=== PATIENT | female | born 1960 | race Caucasian/White ===

== ENCOUNTER → 2017-12-12 15:32 | Outpatient (CLI) | payer OTHER, SELFPAY ==
[2017-12-12 21:54] LABS: Amphetamine/Metha Screen,Urine Negative ng/mL (<1000); Barbiturates Screen,Urine Negative ng/mL (<200); Benzodiazepines Screen,Urine Negative ng/mL (200); Cannabinoid Screen,Urine Negative ng/mL (<50); Cocaine Screen,Urine Negative ng/g (<300); Methadone Screen,Urine Negative ng/mL (<300); Opiate Screen,Urine Positive ng/mL (<300); Phencyclidine Screen,Urine Negative ng/mL (<25)
[2017-12-23 15:13] LABS: Codeine Negative (Cutoff=100); Hydrocodone Positive (.); Hydromorphone Positive (.); Morphine Negative (Cutoff=100)
[2017-12-23 19:03] LABS: Opiates Positive (.)
== END ==
PROVIDERS: PCP Nurse Practitioner Family; Visit Provider Anesthesiology
DX: Z79.899 Other long term (current) drug therapy (principal)
CPT/HCPCS: 80305; 80361; 80365; G0480

== ENCOUNTER → 2018-01-08 14:08 | Outpatient (POV) | payer OTHER, SELFPAY ==
[2018-01-08 14:21] VITALS: BP 198/112; PULSE 109; RESP 24; O2SAT 98; BMI 43.2
--- NOTE | 2018-01-08 17:14 | HMH.PAINSOAP ---
[facility] Pain Management SOAP Note Subjective:: Patient is a pleasant 57-year-old white female who presents today for medication refills. Patient rates her pain 8 out of 10 today. Patient states that her pain is in all of her joints. Patient has chronic pain secondary to rheumatoid arthritis. Patient has tried gabapentin and Lyrica with no success. Patient is currently being medically managed on [place] 10 mg 1 p.o. 3 times daily. Patient states that it decreases her pain 50-60%. She denies any side effects at this time. Patient's Ponce #[id number] reviewed and appropriate. Patient is currently getting over bronchitis. Patient works full-time and states that the medication helps her with this job. Patient describes her pain as constant, dull, aching. ROS General: no recent weight change, no fever, Respiratory: Bronchitis Cardiovascular/Peripheral Vascular: No chest pain, No palpitations, no edema, no shortness of breath. Gastrointestinal: no incontinence, normal bowel movements reported Genitourinary: no incontinence Musculoskeletal: Joint pain Psychiatric: normal mood/ affect, Neurological: [denies weakness in extremities], [denies balance issues] Objective:: Physical Exam General: Alert and oriented x3, no acute distress, pleasant and cooperative, [on room air] Lungs: Resps E/U, Symmetrical chest expansion, Eyes: PERRL Musculoskeletal: Flexion and extension of lumbar spine somewhat guarded secondary to pain, deep tendon reflexes normal, strength in upper and lower extremities [5/5], slightly antalgic gait noted Neurological: speech clear, edge finisher equal, no gross sensory deficits Assessment:: Rheumatoid arthritis, chronic pain syndrome, degenerative joint disease Plan:: We will refill this patient's medication Russell[place] 10 mg 1 p.o. 3 times daily. We will give HER-2 months worth of prescriptions. Patient's Esther and urine drug screen reviewed and appropriate. Patient will bean picker her third month prescription in the interim. Dr. Newsome has reviewed her chart and agrees with this plan of care. Patient has been prescribed a controlled substance after being counseled on the medication, medication safety, and possible side effects. ESTHER report has been obtained and reviewed prior to prescription and found to be appropriate. Opioid contract was reviewed and signed by the patient, and that they have agreed to all of the terms set forth by our compliance program. This note was dictated using voice recognition software may contain errors or omissions
--- NOTE | 2018-01-08 17:17 | P.CONS_ITS ---
[facility] Pain Management SOAP Note Subjective:: Patient is a pleasant 57-year-old white female who presents today for medication refills. Patient rates her pain 8 out of 10 today. Patient states that her pain is in all of her joints. Patient has chronic pain secondary to rheumatoid arthritis. Patient has tried gabapentin and Lyrica with no success. Patient is currently being medically managed on [place] 10 mg 1 p.o. 3 times daily. Patient states that it decreases her pain 50-60%. She denies any side effects at this time. Patient's Merritt #[id number] reviewed and appropriate. Patient is currently getting over bronchitis. Patient works full-time and states that the medication helps her with this job. Patient describes her pain as constant, dull, aching. ROS General: no recent weight change, no fever, Respiratory: Bronchitis Cardiovascular/Peripheral Vascular: No chest pain, No palpitations, no edema, no shortness of breath. Gastrointestinal: no incontinence, normal bowel movements reported Genitourinary: no incontinence Musculoskeletal: Joint pain Psychiatric: normal mood/ affect, Neurological: [denies weakness in extremities], [denies balance issues] Objective:: Physical Exam General: Alert and oriented x3, no acute distress, pleasant and cooperative, [ on room air] Lungs: Resps E/U, Symmetrical chest expansion, Eyes: PERRL Musculoskeletal: Flexion and extension of lumbar spine somewhat guarded secondary to pain, deep tendon reflexes normal, strength in upper and lower extremities [5/5], slightly antalgic gait noted Neurological: speech clear, retail service representative equal, no gross sensory deficits Assessment:: Rheumatoid arthritis, chronic pain syndrome, degenerative joint disease Plan:: We will refill this patient's medication [place] 10 mg 1 p.o. 3 times daily. We will give HER-2 months worth of prescriptions. Patient's Esther and urine drug screen reviewed and appropriate. Patient will pecan picker her third month prescription in the interim. Dr. Newsome has reviewed her chart and agrees with this plan of care. Patient has been prescribed a controlled substance after being counseled on the medication, medication safety, and possible side effects. ESTHER report has been obtained and reviewed prior to prescription and found to be appropriate. Opioid contract was reviewed and signed by the patient, and that they have agreed to all of the terms set forth by our compliance program. This note was dictated using voice recognition software may contain errors or omissions
== END ==
PROVIDERS: Family Provider Nurse Practitioner Family; PCP Nurse Practitioner Family; Visit Provider Clinical Nurse Specialist Family Health
DX: M06.9 Rheumatoid arthritis, unspecified (principal); G89.4 Chronic pain syndrome
CPT/HCPCS: 99212

== ENCOUNTER → 2018-03-13 08:15 | Outpatient (CLI) | payer MEDICAID, SELFPAY ==
[2018-03-13 09:45] LABS: Amphetamine/Metha Screen,Urine Negative ng/mL (<1000); Barbiturates Screen,Urine Negative ng/mL (<200); Benzodiazepines Screen,Urine Negative ng/mL (200); Cannabinoid Screen,Urine Negative ng/mL (<50); Cocaine Screen,Urine Negative ng/g (<300); Methadone Screen,Urine Negative ng/mL (<300); Opiate Screen,Urine Positive ng/mL (<300); Phencyclidine Screen,Urine Negative ng/mL (<25)
[2018-03-22 03:45] LABS: Codeine Negative (Cutoff=100); Hydrocodone Positive (.); Hydromorphone Positive (.); Morphine Negative (Cutoff=100)
[2018-03-22 06:33] LABS: Opiates Positive (.)
== END ==
PROVIDERS: Visit Provider Anesthesiology
DX: Z79.899 Other long term (current) drug therapy (principal)
CPT/HCPCS: 80305; 80361; 80365; G0480

== ENCOUNTER → 2018-04-09 08:43 | Outpatient (POV) | payer MEDICAID, SELFPAY ==
[2018-04-09 09:10] VITALS: BP 200/100; PULSE 94; RESP 18; O2SAT 98; BMI 46.5
--- NOTE | 2018-04-09 09:24 | HMH.PAINSOAP ---
[facility] Pain Management SOAP Note Subjective:: Patient is a pleasant 57-year-old white female who presents today for medication refills. Patient currently rates her pain a 6 out of 10 today. Patient is being treated for pain secondary to rheumatoid arthritis and degenerative joint disease. Patient's currently being medically managed on Lin[place] 10 mg 1 p.o. 3 times daily. She states that it decreases her pain up to 60%. Patient denies any side effects the medication. Patient's ESTHER #[id number] reviewed and appropriate. Patient's UDS appropriate in the past. Patient currently working at [employer]. Patient describes her pain is constant, dull, aching. ROS General: no recent weight change, no fever, no sleep disturbances Respiratory: no cough, no shortness of air, no recurring pulmonary infections Cardiovascular/Peripheral Vascular: No chest pain, No palpitations, no edema, no shortness of breath. Gastrointestinal: no incontinence, normal bowel movements reported Genitourinary: no incontinence Musculoskeletal: Joint pain Psychiatric: normal mood/ affect Neurological: [denies weakness in extremities], [denies balance issues] Objective:: Physical Exam General: Alert and oriented x3, no acute distress, pleasant and cooperative, [on room air] Lungs: Resps E/U, Symmetrical chest expansion, Eyes: PERRL Musculoskeletal: Flexion and extension of lumbar spine somewhat guarded secondary to pain, deep tendon reflexes normal, strength in upper and lower extremities [5/5], slightly antalgic gait noted Neurological: speech clear, human factors engineer equal, no gross sensory deficits Assessment:: Rheumatoid arthritis, chronic pain syndrome, degenerative joint disease Plan:: We will refill the patient's medication Linwood 10 mg 1 p.o. 3 times daily. We will give HER-2 months worth of prescriptions. Patient's Esther and urine drug screen reviewed and appropriate. Patient will garbage pick up worker her third month prescription in the interim. Dr. Newsome has reviewed this chart and agrees with this plan of care. I will follow-up with her in 3 months. Patient has been prescribed a controlled substance after being counseled on the medication, medication safety, and possible side effects. ESTHER report has been obtained and reviewed prior to prescription and found to be appropriate. Opioid contract was reviewed and signed by the patient, and that they have agreed to all of the terms set forth by our compliance program. This note was dictated using voice recognition software and may contain errors or omissions
== END ==
PROVIDERS: Family Provider Nurse Practitioner Family; PCP Nurse Practitioner Family; Visit Provider Clinical Nurse Specialist Family Health
DX: M06.9 Rheumatoid arthritis, unspecified (principal)
CPT/HCPCS: 99212

== ENCOUNTER → 2018-07-02 09:03 | Outpatient (POV) | payer MEDICAID, SELFPAY ==
[2018-07-02 09:11] VITALS: BP 200/92; PULSE 92; RESP 18; BMI 38.6
--- NOTE | 2018-07-02 09:32 | HMH.PAINSOAP ---
[facility] Pain Management SOAP Note Subjective:: Patient is a pleasant 57-year-old white female who presents today for follow-up and medication refills. Patient currently being treated for pain secondary to rheumatoid arthritis and degenerative joint disease. Patient is currently on [place] 10 mg 1 p.o. 3 times daily. She denies side effects or medication and states that it helps up to 70%. Patient is currently looking for a new workers compensation claims analyst. Patient current workers compensation claims analyst wanted her to do some IV therapy and she feels like this is too aggressive at this point. Patient's ESTHER #[id number] reviewed and appropriate. Patient's urine drug screen has been appropriate. ROS General: no recent weight change, no fever, no sleep disturbances Respiratory: no cough, no shortness of air, no recurring pulmonary infections Cardiovascular/Peripheral Vascular: No chest pain, No palpitations, no edema, no shortness of breath. Gastrointestinal: no incontinence, normal bowel movements reported Genitourinary: no incontinence Musculoskeletal: Joint pain Psychiatric: normal mood/ affect Neurological: [denies weakness in extremities], [denies balance issues] Objective:: Physical Exam General: Alert and oriented x3, no acute distress, pleasant and cooperative, [on room air] Lungs: Resps E/U, Symmetrical chest expansion, Eyes: PERRL Musculoskeletal: Flexion and extension of lumbar spine somewhat guarded secondary to pain, deep tendon reflexes normal, strength in upper and lower extremities [5/5], slightly antalgic gait noted Neurological: speech clear, imagery analyst equal, no gross sensory deficits Assessment:: Degenerative joint disease, rheumatoid arthritis, chronic pain syndrome Plan:: We will refill the patient's [place] 10 mg 1 p.o. 3 times daily and give HER-2 months worth of prescriptions. Patient's Esther and urine drug screen reviewed and appropriate. Patient will pepper picker her third month prescription in the interim. Dr. Newsome has reviewed this chart and agrees with this plan of care. I will follow-up with the patient in 3 months. Patient has been prescribed a controlled substance after being counseled on the medication, medication safety, and possible side effects. ESTHER report has been obtained and reviewed prior to prescription and found to be appropriate. Opioid contract was reviewed and signed by the patient, and that they have agreed to all of the terms set forth by our compliance program. This note was dictated using voice recognition software and may contain errors or omissions
--- NOTE | 2018-07-02 09:35 | P.CONS_ITS ---
[facility] Pain Management SOAP Note Subjective:: Patient is a pleasant 57-year-old white female who presents today for follow-up and medication refills. Patient currently being treated for pain secondary to rheumatoid arthritis and degenerative joint disease. Patient is currently on [place] 10 mg 1 p.o. 3 times daily. She denies side effects or medication and states that it helps up to 70%. Patient is currently looking for a new parking garage manager. Patient current parking garage manager wanted her to do some IV therapy and she feels like this is too aggressive at this point. Patient's ESTHER #[id number] reviewed and appropriate. Patient's urine drug screen has been appropriate. ROS General: no recent weight change, no fever, no sleep disturbances Respiratory: no cough, no shortness of air, no recurring pulmonary infections Cardiovascular/Peripheral Vascular: No chest pain, No palpitations, no edema, no shortness of breath. Gastrointestinal: no incontinence, normal bowel movements reported Genitourinary: no incontinence Musculoskeletal: Joint pain Psychiatric: normal mood/ affect Neurological: [denies weakness in extremities], [denies balance issues] Objective:: Physical Exam General: Alert and oriented x3, no acute distress, pleasant and cooperative, [on room air] Lungs: Resps E/U, Symmetrical chest expansion, Eyes: PERRL Musculoskeletal: Flexion and extension of lumbar spine somewhat guarded secondary to pain, deep tendon reflexes normal, strength in upper and lower extremities [5/5], slightly antalgic gait noted Neurological: speech clear, service promoter salesperson equal, no gross sensory deficits Assessment:: Degenerative joint disease, rheumatoid arthritis, chronic pain syndrome Plan:: We will refill the patient's [place] 10 mg 1 p.o. 3 times daily and give HER-2 months worth of prescriptions. Patient's Esther and urine drug screen reviewed and appropriate. Patient will cotton picker her third month prescription in the interim. Dr. Newsome has reviewed this chart and agrees with this plan of care. I will follow-up with the patient in 3 months. Patient has been prescribed a controlled substance after being counseled on the medication, medication safety, and possible side effects. ESTHER report has been obtained and reviewed prior to prescription and found to be appropriate. Opioid contract was reviewed and signed by the patient, and that they have agreed to all of the terms set forth by our compliance program. This note was dictated using voice recognition software and may contain errors or omissions
[2018-07-02 10:20] LABS: Amphetamine/Metha Screen,Urine Negative ng/mL (<1000); Barbiturates Screen,Urine Negative ng/mL (<200); Benzodiazepines Screen,Urine Negative ng/mL (<200); Cannabinoid Screen,Urine Negative ng/mL (<50); Cocaine Screen,Urine Negative ng/mL (<300); Methadone Screen,Urine Negative ng/mL (<300); Opiate Screen,Urine Positive ng/mL (<300); Phencyclidine Screen,Urine Negative ng/mL (<25)
[2018-07-06 12:20] LABS: Codeine Negative (Cutoff=100); Hydrocodone Positive (.); Hydromorphone Positive (.); Morphine Negative (Cutoff=100)
[2018-07-06 13:14] LABS: Opiates Positive (.)
== END ==
PROVIDERS: Family Provider Nurse Practitioner Family; PCP Nurse Practitioner Family; Visit Provider Clinical Nurse Specialist Family Health
DX: M06.9 Rheumatoid arthritis, unspecified (principal); G89.29 Other chronic pain; Z79.891 Long term (current) use of opiate analgesic; Z51.81 Encounter for therapeutic drug level monitoring
CPT/HCPCS: 80305; 80361; 80365; 99212; G0480

== ENCOUNTER → 2018-10-15 08:59 | Outpatient (POV) | payer MEDICAID, SELFPAY ==
[2018-10-15 09:27] VITALS: BP 190/92; PULSE 109; RESP 18; O2SAT 98; BMI 39.1
--- NOTE | 2018-10-15 09:38 | HMH.PAINSOAP ---
[facility] Pain Management SOAP Note Subjective:: Patient is a pleasant 58-year-old white female who presents today for follow-up and medication refills. Patient is currently being medically managed with [place] 10 mg 1 tab p.o. 3 times daily. She rates her pain a 5 out of 10 she states her medication helps her up to 70%. ESTHER #[id number] reviewed and appropriate. Urine drug screen has been appropriate in the past. Patient is currently being treated for pain secondary to rheumatoid arthritis and degenerative joint disease ROS General: no recent weight change, no fever, no sleep disturbances Respiratory: no cough, no shortness of air, no recurring pulmonary infections Cardiovascular/Peripheral Vascular: No chest pain, No palpitations, no edema, no shortness of breath. Gastrointestinal: no incontinence, normal bowel movements reported Genitourinary: no incontinence Musculoskeletal: Joint pain Psychiatric: normal mood/ affect Neurological: [denies weakness in extremities], [denies balance issues] Objective:: Physical Exam General: Alert and oriented x3, no acute distress, pleasant and cooperative, [on room air] Lungs: Resps E/U, Symmetrical chest expansion, Eyes: PERRL Musculoskeletal: Flexion and extension of lumbar spine somewhat guarded secondary to pain, deep tendon reflexes normal, strength in upper and lower extremities [5/5], slightly antalgic gait noted Neurological: speech clear, assistant corporate controller equal, no gross sensory deficits Assessment:: Degenerative joint disease, rheumatoid arthritis, chronic pain syndrome Plan:: We will refill the patient's [place] 10 mg 1 p.o. 3 times daily and give her 2 months worth of prescriptions. Patient's Esther and urine drug screen reviewed and appropriate. Patient can potato picker her third month in the interim. Dr. Newsome is reviewed this chart and agrees with this plan of care. I will follow-up with the patient in 3 months. Patient's been instructed to call the office if she has any issues prior to her next appointment. Patient has been prescribed a controlled substance after being counseled on the medication, medication safety, and possible side effects. ESTHER report has been obtained and reviewed prior to prescription and found to be appropriate. Opioid contract was reviewed and signed by the patient, and that they have agreed to all of the terms set forth by our compliance program. This note was dictated using voice recognition software and may contain errors or omissions
--- NOTE | 2018-10-15 09:41 | P.CONS_ITS ---
[facility] Pain Management SOAP Note Subjective:: Patient is a pleasant 58-year-old white female who presents today for follow-up and medication refills. Patient is currently being medically managed with [place] 10 mg 1 tab p.o. 3 times daily. She rates her pain a 5 out of 10 she states her medication helps her up to 70%. ESTHER #[id number] reviewed and appropriate. Urine drug screen has been appropriate in the past. Patient is currently being treated for pain secondary to rheumatoid arthritis and degenerative joint disease ROS General: no recent weight change, no fever, no sleep disturbances Respiratory: no cough, no shortness of air, no recurring pulmonary infections Cardiovascular/Peripheral Vascular: No chest pain, No palpitations, no edema, no shortness of breath. Gastrointestinal: no incontinence, normal bowel movements reported Genitourinary: no incontinence Musculoskeletal: Joint pain Psychiatric: normal mood/ affect Neurological: [denies weakness in extremities], [denies balance issues] Objective:: Physical Exam General: Alert and oriented x3, no acute distress, pleasant and cooperative, [on room air] Lungs: Resps E/U, Symmetrical chest expansion, Eyes: PERRL Musculoskeletal: Flexion and extension of lumbar spine somewhat guarded secondary to pain, deep tendon reflexes normal, strength in upper and lower extremities [5/5], slightly antalgic gait noted Neurological: speech clear, hemmer chainstitch equal, no gross sensory deficits Assessment:: Degenerative joint disease, rheumatoid arthritis, chronic pain syndrome Plan:: We will refill the patient's Ne[place]u 10 mg 1 p.o. 3 times daily and give her 2 months worth of prescriptions. Patient's Esther and urine drug screen reviewed and appropriate. Patient can picker tender helper her third month in the interim. Dr. Newsome is reviewed this chart and agrees with this plan of care. I will follow-up with the patient in 3 months. Patient's been instructed to call the office if she has any issues prior to her next appointment. Patient has been prescribed a controlled substance after being counseled on the medication, medication safety, and possible side effects. ESTHER report has been obtained and reviewed prior to prescription and found to be appropriate. Opioid contract was reviewed and signed by the patient, and that they have agreed to all of the terms set forth by our compliance program. This note was dictated using voice recognition software and may contain errors or omissions
[2018-10-15 10:59] LABS: Amphetamine/Metha Screen,Urine Negative ng/mL (<1000); Barbiturates Screen,Urine Negative ng/mL (<200); Benzodiazepines Screen,Urine Negative ng/mL (<200); Cocaine Screen,Urine Negative ng/mL (<300); Methadone Screen,Urine Negative ng/mL (<300); Opiate Screen,Urine Positive ng/mL (<300)
[2018-10-15 11:13] LABS: Cannabinoid Screen,Urine Negative ng/mL (<50); Phencyclidine Screen,Urine Negative ng/mL (<25)
[2018-10-24 02:13] LABS: Codeine Negative (Cutoff=100); Hydrocodone Positive (.); Hydromorphone Positive (.); Morphine Negative (Cutoff=100)
[2018-10-24 06:21] LABS: Opiates Positive (.)
== END ==
PROVIDERS: PCP Nurse Practitioner Family; Visit Provider Clinical Nurse Specialist Family Health
DX: M19.90 Unspecified osteoarthritis, unspecified site (principal); M06.9 Rheumatoid arthritis, unspecified; G89.4 Chronic pain syndrome; Z79.899 Other long term (current) drug therapy
CPT/HCPCS: 80305; 80361; 80365; 99213; G0480

== ENCOUNTER → 2019-01-07 08:55 | Outpatient (POV) | payer MEDICAID, SELFPAY ==
[2019-01-07 09:39] VITALS: BP 159/74; PULSE 86; RESP 18; O2SAT 98; BMI 39.4
--- NOTE | 2019-01-07 10:03 | HMH.PAINSOAP ---
[facility] Pain Management SOAP Note Subjective:: Patient is a pleasant 58-year-old white female who presents today for follow-up and medication refills. Since her last visit she was hospitalized for an [place]. Patient had a cardiac catheterization where she had a stent placed. Patient is currently on Plavix. Patient is currently on [place] 10 mg 1 tab p.o. 3 times daily. She states it helps up to 20% she rates her pain a 7 out of 10 today. Patient has begun cardiac rehab. ESTHER #[id number] reviewed and appropriate. Urine drug screen has been appropriate in the past. She denies side effects or medication. She states her rheumatoid arthritis has flared up significantly. ROS General: no recent weight change, no fever, no sleep disturbances Respiratory: no cough, no shortness of air, no recurring pulmonary infections Cardiovascular/Peripheral Vascular: No chest pain, No palpitations, no edema, no shortness of breath. Gastrointestinal: no incontinence, normal bowel movements reported Genitourinary: no incontinence Musculoskeletal: Joint pain, back pain Psychiatric: normal mood/ affect, Neurological: [denies weakness in extremities], [denies balance issues] Objective:: Physical Exam General: Alert and oriented x3, no acute distress, pleasant and cooperative, [on room air] Lungs: Resps E/U, Symmetrical chest expansion, Eyes: PERRL Musculoskeletal: Flexion and extension of lumbar spine somewhat guarded secondary to pain, deep tendon reflexes normal, strength in upper and lower extremities [5/5], [abnormal gait noted] Neurological: speech clear, green building energy engineer equal, no gross sensory deficits Assessment:: Degenerative joint disease, chronic pain syndrome, rheumatoid arthritis Plan:: We will refill the patient's [place] 10 mg 1 p.o. 3 times daily and give her 2 months worth of prescriptions. She can picking tech her third month in the interim. She is been instructed to call the office if she has any issues prior to her next appointment. Patient has been prescribed a controlled substance after being counseled on the medication, medication safety, and possible side effects. ESTHER report has been obtained and reviewed prior to prescription and found to be appropriate. Opioid contract was reviewed and signed by the patient, and that they have agreed to all of the terms set forth by our compliance program. Dr. Newsome has reviewed this note and agrees with this plan of care. This note was dictated using voice recognition software and may contain errors or omissions
== END ==
PROVIDERS: PCP Nurse Practitioner Family; Visit Provider Clinical Nurse Specialist Family Health
DX: M19.90 Unspecified osteoarthritis, unspecified site (principal); G89.4 Chronic pain syndrome; M06.9 Rheumatoid arthritis, unspecified
CPT/HCPCS: 99213

== ENCOUNTER → 2019-03-05 14:56 | Outpatient (CLI) | payer MEDICAID, SELFPAY ==
[2019-03-05 15:32] LABS: Amphetamine/Metha Screen,Urine Negative ng/mL (<1000); Barbiturates Screen,Urine Negative ng/mL (<200); Benzodiazepines Screen,Urine Negative ng/mL (<200); Cannabinoid Screen,Urine Negative ng/mL (<50); Cocaine Screen,Urine Negative ng/mL (<300); Methadone Screen,Urine Negative ng/mL (<300); Opiate Screen,Urine Positive ng/mL (<300); Phencyclidine Screen,Urine Negative ng/mL (<25)
[2019-03-12 12:15] LABS: Codeine Negative (Cutoff=100); Hydrocodone Positive (.); Hydromorphone Positive (.); Morphine Negative (Cutoff=100)
[2019-03-13 13:53] LABS: Opiates Positive (.)
== END ==
PROVIDERS: Visit Provider Clinical Nurse Specialist Family Health
DX: Z79.899 Other long term (current) drug therapy (principal)
CPT/HCPCS: 80305; 80361; 80365; G0480

== ENCOUNTER → 2019-03-26 08:58 | Outpatient (POV) | payer MEDICAID, SELFPAY ==
[2019-03-26 09:24] VITALS: BP 154/93; PULSE 81; RESP 18; O2SAT 98; BMI 39.0
--- NOTE | 2019-03-26 09:26 | HMH.PAINSOAP ---
[facility] Pain Management SOAP Note Subjective:: Patient is a pleasant 58-year-old white female who presents today for follow-up and medication refills. 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 She does say that on normal days her pain is more of a 4 out of 10. She is currently on Roy 10 mg 1 tab p.o. 3 times daily. She denies any side effects on medication. Urine drug screen has been appropriate in the past. She states her rheumatoid arthritis has flared since starting new job. ROS General: no recent weight change, no fever, no sleep disturbances Respiratory: no cough, no shortness of air, no recurring pulmonary infections Cardiovascular/Peripheral Vascular: No chest pain, No palpitations, no edema, no shortness of breath. Gastrointestinal: no incontinence, normal bowel movements reported Genitourinary: no incontinence Musculoskeletal: Joint pain, back pain Psychiatric: normal mood/ affect, [denies depression], denies anxiety Neurological: [denies weakness in extremities], [denies balance issues] Objective:: Physical Exam General: Alert and oriented x3, no acute distress, pleasant and cooperative, on room air Lungs: Resps E/U, Symmetrical chest expansion, Eyes: PERRL Musculoskeletal: Flexion and extension of [lumbar] spine somewhat guarded secondary to pain, deep tendon reflexes normal, strength in upper and lower extremities [5/5], [abnormal gait noted] Neurological: speech clear, parachute repairer equal, no gross sensory deficits Assessment:: Degenerative joint disease, chronic pain syndrome, rheumatoid arthritis Plan:: We will refill the patient's Roy 10 mg 1 p.o. 3 times daily and give her 2 months worth of prescriptions. She can pear picker her third month in the interim. She is been instructed to call the office if she has any issues prior to her next appointment. Patient has been prescribed a controlled substance after being counseled on the medication, medication safety, possible side effects. Sancho report has been obtained and reviewed prior to prescription and found to be appropriate. Opioid contract was reviewed and signed by the patient, and has agreed to all the terms set forth by her compliance program. Dr. Newsome has reviewed this note and agrees with this plan of care. This note was dictated using voice recognition software and may contain errors or omissions
--- NOTE | 2019-03-26 09:46 | P.CONS_ITS ---
[facility] Pain Management SOAP Note Subjective:: Patient is a pleasant 58-year-old white female who presents today for follow-up and medication refills. 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 She does say that on normal days her pain is more of a 4 out of 10. She is currently on [place] 10 mg 1 tab p.o. 3 times daily. She denies any side effects on medication. Urine drug screen has been appropriate in the past. She states her rheumatoid arthritis has flared since starting new job. ROS General: no recent weight change, no fever, no sleep disturbances Respiratory: no cough, no shortness of air, no recurring pulmonary infections Cardiovascular/Peripheral Vascular: No chest pain, No palpitations, no edema, no shortness of breath. Gastrointestinal: no incontinence, normal bowel movements reported Genitourinary: no incontinence Musculoskeletal: Joint pain, back pain Psychiatric: normal mood/ affect, [denies depression], denies anxiety Neurological: [denies weakness in extremities], [denies balance issues] Objective:: Physical Exam General: Alert and oriented x3, no acute distress, pleasant and cooperative, on room air Lungs: Resps E/U, Symmetrical chest expansion, Eyes: PERRL Musculoskeletal: Flexion and extension of [lumbar] spine somewhat guarded secondary to pain, deep tendon reflexes normal, strength in upper and lower extremities [5/5], [abnormal gait noted] Neurological: speech clear, flash developer equal, no gross sensory deficits Assessment:: Degenerative joint disease, chronic pain syndrome, rheumatoid arthritis Plan:: We will refill the patient's [place] 10 mg 1 p.o. 3 times daily and give her 2 months worth of prescriptions. She can citrus picker her third month in the interim. She is been instructed to call the office if she has any issues prior to her next appointment. Patient has been prescribed a controlled substance after being counseled on the medication, medication safety, possible side effects. Sancho report has been obtained and reviewed prior to prescription and found to be appropriate. Opioid contract was reviewed and signed by the patient, and has agreed to all the terms set forth by her compliance program. Dr. Newsome has reviewed this note and agrees with this plan of care. This note was dictated using voice recognition software and may contain errors or omissions
== END ==
PROVIDERS: PCP Nurse Practitioner Family; Visit Provider Clinical Nurse Specialist Family Health
DX: M19.90 Unspecified osteoarthritis, unspecified site (principal); G89.4 Chronic pain syndrome; M06.9 Rheumatoid arthritis, unspecified
CPT/HCPCS: 99212

== ENCOUNTER → 2019-06-24 08:53 | Outpatient (POV) | payer MEDICAID, SELFPAY ==
--- NOTE | 2019-06-24 09:06 | HMH.PAINSOAP ---
[facility] Pain Management SOAP Note Subjective:: Patient is a pleasant 58-year-old white female who presents today for follow-up and medication refills. Patient currently rates her pain 8 out of 10 however her baseline is a 4 out of 10. She is having some changes made to her rheumatoid medication. Overall she is doing well ESTHER #[id number] reviewed and appropriate. Patient is currently on [place] 10 mg 1 p.o. 3 times daily she denies side effects. Her urine drug screens have been appropriate. ROS General: no recent weight change, no fever, no sleep disturbances Respiratory: no cough, no shortness of air, no recurring pulmonary infections Cardiovascular/Peripheral Vascular: No chest pain, No palpitations, no edema, no shortness of breath. Gastrointestinal: no incontinence, normal bowel movements reported Genitourinary: no incontinence Musculoskeletal: Joint pain, back pain Psychiatric: normal mood/ affect Neurological: [denies weakness in extremities], [denies balance issues] Objective:: Physical Exam General: Alert and oriented x3, no acute distress, pleasant and cooperative, [on room air] Lungs: Resps E/U, Symmetrical chest expansion, Eyes: PERRL Musculoskeletal: Flexion and extension of lumbar spine somewhat guarded secondary to pain, deep tendon reflexes normal, strength in upper and lower extremities [5/5], [abnormal gait noted] Neurological: speech clear, tree sapper equal, no gross sensory deficits Assessment:: Degenerative joint disease, chronic pain syndrome, rheumatoid arthritis Plan:: We will refill the patient's [place] 10 mg 1 tab p.o. 3 times daily give her 2 months worth of prescriptions and see her back in 3 months she can pickers material handlers her third month in the interim. She is been instructed to call the office if she has any issues prior to her next appointment. Patient has been prescribed a controlled substance after being counseled on the medication, medication safety, and possible side effects. ESTHER report has been obtained and reviewed prior to prescription and found to be appropriate. Opioid contract was reviewed and signed by the patient, and that they have agreed to all of the terms set forth by our compliance program. Dr. Newsome has reviewed this note and agrees with this plan of care. This note was dictated using voice recognition software and may contain errors or omissions Pain Management Hx Components *Have you ever received a pneumonia vaccine?: No *Have you received a flu vaccine this season?: Yes - *Social History *Occupational Status:: employed *Travel in the last 8 weeks: None
--- NOTE | 2019-06-24 09:10 | P.CONS_ITS ---
[facility] Pain Management SOAP Note Subjective:: Patient is a pleasant 58-year-old white female who presents today for follow-up and medication refills. Patient currently rates her pain 8 out of 10 however her baseline is a 4 out of 10. She is having some changes made to her rheumatoid medication. Overall she is doing well ESTHER #[id number] reviewed and appropriate. Patient is currently on Outlook 10 mg 1 p.o. 3 times daily she denies side effects. Her urine drug screens have been appropriate. ROS General: no recent weight change, no fever, no sleep disturbances Respiratory: no cough, no shortness of air, no recurring pulmonary infections Cardiovascular/Peripheral Vascular: No chest pain, No palpitations, no edema, no shortness of breath. Gastrointestinal: no incontinence, normal bowel movements reported Genitourinary: no incontinence Musculoskeletal: Joint pain, back pain Psychiatric: normal mood/ affect Neurological: [denies weakness in extremities], [denies balance issues] Objective:: Physical Exam General: Alert and oriented x3, no acute distress, pleasant and cooperative, [on room air] Lungs: Resps E/U, Symmetrical chest expansion, Eyes: PERRL Musculoskeletal: Flexion and extension of lumbar spine somewhat guarded secondary to pain, deep tendon reflexes normal, strength in upper and lower extremities [5/5], [abnormal gait noted] Neurological: speech clear, paper mill superintendent equal, no gross sensory deficits Assessment:: Degenerative joint disease, chronic pain syndrome, rheumatoid arthritis Plan:: We will refill the patient's Outlook 10 mg 1 tab p.o. 3 times daily give her 2 months worth of prescriptions and see her back in 3 months she can greens picker her third month in the interim. She is been instructed to call the office if she has any issues prior to her next appointment. Patient has been prescribed a controlled substance after being counseled on the medication, medication safety, and possible side effects. ESTHER report has been obtained and reviewed prior to prescription and found to be appropriate. Opioid contract was reviewed and signed by the patient, and that they have agreed to all of the terms set forth by our compliance program. Dr. Newsome has reviewed this note and agrees with this plan of care. This note was dictated using voice recognition software and may contain errors or omissions Pain Management Hx Components *Have you ever received a pneumonia vaccine?: No *Have you received a flu vaccine this season?: Yes - *Social History *Occupational Status:: employed *Travel in the last 8 weeks: None
[2019-06-24 09:20] VITALS: BP 188/95; PULSE 76; RESP 18; O2SAT 98; BMI 41.1
--- NOTE | 2019-08-02 11:04 | PC.NURSE ---
PT CALLED TO STATE SHE WILL BE HAVING DENTAL WORK PERFORMED MONDAY AND THAT SHE WAS PRESCRIBED ONE XANAX. SHE WILL CALL IF SHE IS GIVEN A NEW OPIOD PRESCRIPTION.
--- NOTE | 2019-08-06 11:08 | PC.NURSE ---
PT CALLED TO REPORT SHE RECEIVED LORTAB 5MG FROM HER DENTIST FOLLOWING ORAL SURGERY
== END ==
PROVIDERS: PCP Nurse Practitioner Family; Visit Provider Clinical Nurse Specialist Family Health
DX: M19.90 Unspecified osteoarthritis, unspecified site (principal); G89.4 Chronic pain syndrome; M06.9 Rheumatoid arthritis, unspecified
CPT/HCPCS: 99212

== ENCOUNTER → 2019-09-16 09:10 | Outpatient (POV) | payer MEDICAID, SELFPAY ==
[2019-09-16 09:36] VITALS: BP 156/78; PULSE 86; RESP 18; O2SAT 98; BMI 40.7
--- NOTE | 2019-09-16 09:43 | HMH.PAINSOAP ---
[facility] Pain Management SOAP Note Subjective:: Patient is a pleasant 59-year-old white female who presents today for follow-up and medication refills. Patient is currently rating her pain a 9 out of 10 however this is because she is recently been camping with the Girl High School Director. Her baseline is around a 4. She is being medically managed for rheumatoid arthritis and degenerative joint disease. She is currently on [place] 10 mg 1 p.o. 3 times daily and denies any side effects. Esther #[id number] reviewed and appropriate. Urine drug screens have been appropriate. ROS General: no recent weight change, no fever, no sleep disturbances Respiratory: no cough, no shortness of air, no recurring pulmonary infections Cardiovascular/Peripheral Vascular: No chest pain, No palpitations, no edema, no shortness of breath. Gastrointestinal: no new onset incontinence, normal bowel movements reported Genitourinary: no new onset incontinence Musculoskeletal: Back pain, joint pain Psychiatric: normal mood/ affect Neurological: [denies new onset weakness in extremities], [denies new onset balance issues] Objective:: Physical Exam General: Alert and oriented x3, no acute distress, pleasant and cooperative, [on room air] Lungs: Resps E/U, Symmetrical chest expansion, Eyes: PERRL Musculoskeletal: Flexion and extension of lumbar spine somewhat guarded secondary to pain, deep tendon reflexes normal, strength in upper and lower extremities [5/5], [abnormal gait noted] Neurological: speech clear, drywall worker equal, no gross sensory deficits Assessment:: Degenerative joint disease, chronic pain syndrome, rheumatoid arthritis Plan:: We will refill her [place] 10 mg 1 p.o. 3 times daily and give her 2 months worth of medication. We will follow-up with her in 3 months reassess her symptoms at that time she is been instructed to call the office if she has any issues prior to her her next appointment. Can cook pickled meat one prescription in the interim. Of note she did have some dental work done which she received a short-term prescription from a dentist. She did call her office and notify prior. Patient has been prescribed a controlled substance after being counseled on the medication, medication safety, and possible side effects. ESTHER report has been obtained and reviewed prior to prescription and found to be appropriate. Opioid contract was reviewed and signed by the patient, and that they have agreed to all of the terms set forth by our compliance program. Dr. Newsome has reviewed this note and agrees with this plan of care. This note was dictated using voice recognition software and may contain errors or omissions [facility] History I have reviewed the patient's past medical history: Yes Medical History: Reports:: Chronic Obstructive Pulmonary Disease (COPD), Gastroesophageal Reflux Disease(GERD), Hyperlipidemia, Hypertension Denies:: Diabetes Mellitus Type 1, Diabetes Mellitus Type 2, Internal Pacemaker, Pulmonary Embolism, Seizures, Transient Ischemic Attacks (TIA) *Have you ever received a pneumonia vaccine?: Yes *Have you received a flu vaccine this season?: Yes Other Medical History: Reports: Arthritis. Denies: Fibromyalgia Other Surgeries: Yes: Cardiac Catheterization, Cardiac Surgery, Coronary Stent. No: Pacemaker Amputation: No Fractures: No - *Social History Smoking Status: Former smoker Tobacco Type: cigarettes # Packs/Day (cigarettes): 1 Alcohol Intake: never Substance Use Type: denies use *Occupational Status:: other *Travel in the last 8 weeks: None Family Hx:: Diabetes, Heart Attack, Hypertension, Hyperlipidemia
--- NOTE | 2019-09-16 09:46 | P.CONS_ITS ---
[facility] Pain Management SOAP Note Subjective:: Patient is a pleasant 59-year-old white female who presents today for follow-up and medication refills. Patient is currently rating her pain a 9 out of 10 however this is because she is recently been camping with the Girl Lead Pourer. Her baseline is around a 4. She is being medically managed for rheumatoid arthritis and degenerative joint disease. She is currently on [place] 10 mg 1 p.o. 3 times daily and denies any side effects. Esther #[id number] reviewed and appropriate. Urine drug screens have been appropriate. ROS General: no recent weight change, no fever, no sleep disturbances Respiratory: no cough, no shortness of air, no recurring pulmonary infections Cardiovascular/Peripheral Vascular: No chest pain, No palpitations, no edema, no shortness of breath. Gastrointestinal: no new onset incontinence, normal bowel movements reported Genitourinary: no new onset incontinence Musculoskeletal: Back pain, joint pain Psychiatric: normal mood/ affect Neurological: [denies new onset weakness in extremities], [denies new onset balance issues] Objective:: Physical Exam General: Alert and oriented x3, no acute distress, pleasant and cooperative, [on room air] Lungs: Resps E/U, Symmetrical chest expansion, Eyes: PERRL Musculoskeletal: Flexion and extension of lumbar spine somewhat guarded secondary to pain, deep tendon reflexes normal, strength in upper and lower extremities [5/5], [abnormal gait noted] Neurological: speech clear, computational physicist equal, no gross sensory deficits Assessment:: Degenerative joint disease, chronic pain syndrome, rheumatoid arthritis Plan:: We will refill her [place] 10 mg 1 p.o. 3 times daily and give her 2 months worth of medication. We will follow-up with her in 3 months reassess her symptoms at that time she is been instructed to call the office if she has any issues prior to her her next appointment. Can cherry picker operator one prescription in the interim. Of note she did have some dental work done which she received a short-term prescription from a dentist. She did call her office and notify prior. Patient has been prescribed a controlled substance after being counseled on the medication, medication safety, and possible side effects. ESTHER report has been obtained and reviewed prior to prescription and found to be appropriate. Opioid contract was reviewed and signed by the patient, and that they have agreed to all of the terms set forth by our compliance program. Dr. Newsome has reviewed this note and agrees with this plan of care. This note was dictated using voice recognition software and may contain errors or omissions [facility] History I have reviewed the patient's past medical history: Yes Medical History: Reports:: Chronic Obstructive Pulmonary Disease (COPD), Gastroesophageal Reflux Disease(GERD), Hyperlipidemia, Hypertension Denies:: Diabetes Mellitus Type 1, Diabetes Mellitus Type 2, Internal Pacemaker, Pulmonary Embolism, Seizures, Transient Ischemic Attacks (TIA) *Have you ever received a pneumonia vaccine?: Yes *Have you received a flu vaccine this season?: Yes Other Medical History: Reports: Arthritis. Denies: Fibromyalgia Other Surgeries: Yes: Cardiac Catheterization, Cardiac Surgery, Coronary Stent. No: Pacemaker Amputation: No Fractures: No - *Social History Smoking Status: Former smoker Tobacco Type: cigarettes # Packs/Day (cigarettes): 1 Alcohol Intake: never Substance Use Type: denies use *Occupational Status:: other *Travel in the last 8 weeks: None Family Hx:: Diabetes, Heart Attack, Hypertension, Hyperlipi
[2019-09-16 11:56] LABS: Amphetamine/Metha Screen,Urine Negative ng/mL (<1000); Barbiturates Screen,Urine Negative ng/mL (<200); Benzodiazepines Screen,Urine Negative ng/mL (<200); Cannabinoid Screen,Urine Negative ng/mL (<50); Cocaine Screen,Urine Negative ng/mL (<300); Methadone Screen,Urine Negative ng/mL (<300); Opiate Screen,Urine Positive ng/mL (<300); Phencyclidine Screen,Urine Negative ng/mL (<25)
[2019-09-20 19:14] LABS: Codeine Negative (Cutoff=100); Hydrocodone Positive (.); Hydromorphone Positive (.); Morphine Negative (Cutoff=100)
[2019-09-20 21:12] LABS: Opiates Positive (.)
== END ==
PROVIDERS: PCP Nurse Practitioner Family; Visit Provider Clinical Nurse Specialist Family Health
DX: M19.90 Unspecified osteoarthritis, unspecified site (principal); G89.4 Chronic pain syndrome; M06.9 Rheumatoid arthritis, unspecified
CPT/HCPCS: 80305; 80361; 80365; 99212; G0480

== ENCOUNTER → 2019-12-16 09:02 | Outpatient (POV) | payer MEDICAID, SELFPAY ==
--- NOTE | 2019-12-16 09:24 | HMH.PAINSOAP ---
[facility] Pain Management SOAP Note Subjective:: Patient is a very pleasant 59-year-old white female who presents today for medication refills. She is currently rating her pain 8 out of 10 stating that her RA has made it significantly worse. Her baseline is around 4. She is being medically managed for rheumatoid arthritis and degenerative joint disease. She is currently on [place] 10 mg 1 p.o. 3 times daily she denies any side effects from medication. Esther #[id number] reviewed and appropriate. Urine drug screens have been appropriate. 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 ROS General: no recent weight change, no fever, no sleep disturbances Respiratory: no cough, no shortness of air, no recurring pulmonary infections Cardiovascular/Peripheral Vascular: No chest pain, No palpitations, no edema, no shortness of breath. Gastrointestinal: no new onset incontinence, normal bowel movements reported Genitourinary: no new onset incontinence Musculoskeletal: Back pain, leg pain, joint elisa Psychiatric: normal mood/ affect Neurological: [denies new onset weakness in extremities], [denies new onset balance issues] Objective:: Physical Exam General: Alert and oriented x3, no acute distress, pleasant and cooperative, [on room air] Lungs: Resps E/U, Symmetrical chest expansion, Eyes: PERRL Musculoskeletal: Flexion and extension of lumbar spine somewhat guarded secondary to pain, deep tendon reflexes normal, strength in upper and lower extremities [5/5], lightly antalgic gait noted Neurological: speech clear, electrical line splicer equal, no gross sensory deficits Assessment:: Degenerative disc disease lumbar spine with lumbar radiculopathy, rheumatoid arthritis Plan:: We will refill the patient's [place] 10 mg 1 p.o. 3 times daily give her 2 months with medication. I will see her back in 3 months reassess her symptoms at that time she is been instructed to call the office if she has any issues prior to her next appointment. She can scrap picker one prescription in the interim. Patient has been prescribed a controlled substance after being counseled on the medication, medication safety, and possible side effects. ESTHER report has been obtained and reviewed prior to prescription and found to be appropriate. Opioid contract was reviewed and signed by the patient, and that they have agreed to all of the terms set forth by our compliance program. Dr. Newsome has reviewed this note and agrees with this plan of care. This note was dictated using voice recognition software and may contain errors or omissions [facility] History I have reviewed the patient's past medical history: Yes Medical History: Reports:: Chronic Obstructive Pulmonary Disease (COPD), Gastroesophageal Reflux Disease(GERD), Hyperlipidemia, Hypertension Denies:: Diabetes Mellitus Type 1, Diabetes Mellitus Type 2, Internal Pacemaker, Pulmonary Embolism, Seizures, Transient Ischemic Attacks (TIA) *Have you ever received a pneumonia vaccine?: Yes *Have you received a flu vaccine this season?: Yes Other Medical History: Reports: Arthritis. Denies: Fibromyalgia Other Surgeries: Yes: Cardiac Catheterization, Cardiac Surgery, Coronary Stent. No: Pacemaker Amputation: No Fractures: No - *Social History Smoking Status: Former smoker # Packs/Day (cigarettes): 1 Alcohol Intake: never Substance Use Type: denies use *Occupational Status:: other *Travel in the last 8 weeks: None Family Hx:: Diabetes, Heart Attack, Hypertension, Hyperlipidemia
[2019-12-16 09:30] VITALS: BP 170/92; PULSE 61; RESP 18; O2SAT 98; BMI 40.6
[2019-12-16 12:08] LABS: Amphetamine/Metha Screen,Urine Negative ng/mL (<1000); Barbiturates Screen,Urine Negative ng/mL (<200); Benzodiazepines Screen,Urine Negative ng/mL (<200); Cannabinoid Screen,Urine Negative ng/mL (<50); Cocaine Screen,Urine Negative ng/mL (<300); Methadone Screen,Urine Negative ng/mL (<300); Opiate Screen,Urine Positive ng/mL (<300); Phencyclidine Screen,Urine Negative ng/mL (<25)
[2019-12-21 08:39] LABS: Codeine Negative (Cutoff=100); Hydrocodone Positive (.); Hydromorphone Positive (.); Morphine Negative (Cutoff=100)
[2019-12-21 19:09] LABS: Opiates Positive (.)
== END ==
PROVIDERS: Visit Provider Clinical Nurse Specialist Family Health
DX: M51.16 Intervertebral disc disorders with radiculopathy, lumbar region (principal); M06.9 Rheumatoid arthritis, unspecified; Z79.899 Other long term (current) drug therapy
CPT/HCPCS: 80305; 80361; 80365; 99212; G0480

== ENCOUNTER → 2020-03-09 10:08 | Outpatient (POV) | payer MEDICAID, SELFPAY ==
[2020-03-09 10:28] VITALS: BP 157/92; PULSE 117; RESP 18; TEMP 36.6; O2SAT 99; BMI 32.3
--- NOTE | 2020-03-09 10:45 | HMH.PAINSOAP ---
[facility] Pain Management SOAP Note Subjective:: Patient is a pleasant 59-year-old white female who presents today for medication refills. She currently rates her pain a 9 out of 10. She is working with her vp genetic to help get her rheumatoid medication back on track. She is being medically managed with [place] 10 mg 1 p.o. 3 times daily for back pain. Her Esther #[id number] reviewed and appropriate. She still continuing to work full-time at [employer]. She has recently lost weight due to the amount of activity that this job requires. She denies side effects or medication and states it helps up to 80%. General: no recent weight change, no fever, no sleep disturbances Respiratory: no cough, no shortness of air, no recurring pulmonary infections Cardiovascular/Peripheral Vascular: No chest pain, No palpitations, no edema, no shortness of breath. Gastrointestinal: no new onset incontinence, normal bowel movements reported Genitourinary: no new onset incontinence Musculoskeletal: Back pain, leg pain, joint pain Psychiatric: normal mood/ affect Neurological: [denies new onset weakness in extremities], [denies new onset balance issues] Objective:: Physical Exam General: Alert and oriented x3, no acute distress, pleasant and cooperative, [on room air] Lungs: Resps E/U, Symmetrical chest expansion, Eyes: PERRL Musculoskeletal: Flexion and extension of lumbar spine somewhat guarded secondary to pain, deep tendon reflexes normal, strength in upper and lower extremities [5/5], antalgic gait noted Neurological: speech clear, fuel system maintenance supervisor equal, no gross sensory deficits Assessment:: Degenerative 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 3 times daily. We will see her back in 3 months reassess her symptoms at that time she is been instructed to call the office if she has any issues prior to her next appointment. We will plan on doing is allowing her to pickling drum operator intermittent prescriptions. We will follow-up with her in 3 months. Patient has been prescribed a controlled substance after being counseled on the medication, medication safety, and possible side effects. ESTHER report has been obtained and reviewed prior to prescription and found to be appropriate. Opioid contract was reviewed and signed by the patient, and that they have agreed to all of the terms set forth by our compliance program. We specifically discussed risk factors for Covid-19 including age, heart or lung disease, diabetes, immunosuppression and travel. We also discussed that NSAIDs may worsen Covid-19 infection symptoms and that they should not be used to treat Covid-19 symptoms. Patient was also informed that corticosteroids in any form oral or injectable will decrease immune response and may increase risk of Covid-[address] Newsome has reviewed this patient's chart and this note and agrees with plan of care. Patient has been instructed to call the office if they have any issues prior to the next appointment. Dr. Newsome has reviewed this note and agrees with this plan of care. This note was dictated using voice recognition software and may contain errors or omissions [facility] History I have reviewed the patient's past medical history: Yes Medical History: Reports:: Chronic Obstructive Pulmonary Disease (COPD), Gastroesophageal Reflux Disease(GERD), Hyperlipidemia, Hypertension Denies:: Diabetes Mellitus Type 1, Diabetes Mellitus Type 2, Internal Pacemaker, Pulmonary Embolism, Seizures, Transient Ischemic Attacks (TIA) *Have you ever received a pneumonia vaccine?: Yes *Have you received a flu vaccine this season?: Yes Other Medical History: Reports: Arthritis. Denies: Fibromyalgia Other Surgeries: Yes: Cardiac Catheterization, Cardiac Surgery, Coronary Stent. No: Pacemaker Amputation: No Fractures: No - *Social History Smoking Status: Former smoker # Packs/Day
== END ==
PROVIDERS: PCP Nurse Practitioner Family; Visit Provider Clinical Nurse Specialist Family Health
DX: M51.16 Intervertebral disc disorders with radiculopathy, lumbar region (principal); M06.9 Rheumatoid arthritis, unspecified
CPT/HCPCS: 99212

== ENCOUNTER → 2020-06-08 09:11 | Outpatient (POV) | payer MEDICAID, SELFPAY ==
[2020-06-08 09:40] VITALS: BP 132/88; PULSE 85; RESP 18; O2SAT 98; BMI 38.2
--- NOTE | 2020-06-08 09:56 | HMH.PAINSOAP ---
[facility] Pain Management SOAP Note Subjective:: Patient is a pleasant 59-year-old white female who presents today for medication refills. She is currently rating her pain a 9 out of 10. She is working with a cage tender in order to get set up in a better space in regards to her rheumatoid arthritis. She is being medically managed with [place] 10 mg 1 p.o. 3 times daily. Patient's Esther #[id number] reviewed and appropriate. Urine drug screens have been appropriate. Patient states that her medication helps up to 80%. She is currently working 2 jobs. Overall patient doing well ROS General: no recent weight change, no fever, no sleep disturbances Respiratory: no cough, no shortness of air, no recurring pulmonary infections Cardiovascular/Peripheral Vascular: No chest pain, No palpitations, no edema, no shortness of breath. Gastrointestinal: no new onset incontinence, normal bowel movements reported Genitourinary: no new onset incontinence Musculoskeletal: Back pain, leg pain, joint pain Psychiatric: normal mood/ affect Neurological: [denies new onset weakness in extremities], [denies new onset balance issues] Objective:: Physical Exam General: Alert and oriented x3, no acute distress, pleasant and cooperative, [on room air] Lungs: Resps E/U, Symmetrical chest expansion, Eyes: PERRL Musculoskeletal: Flexion and extension of lumbar spine somewhat guarded secondary to pain, deep tendon reflexes normal, strength in upper and lower extremities [5/5], [abnormal gait noted] Neurological: speech clear, office machine technician equal, no gross sensory deficits Assessment:: Degenerative disc disease lumbar spine with lumbar radiculopathy and rheumatoid arthritis Plan:: We will refill her [place] 10 mg 1 po 3 times daily and give her 3 months worth of medication. We will follow-up with her in 3 months reassess her symptoms at that time. Patient has been instructed to call the office if she has any issues prior to her next appointment. Patient has been prescribed a controlled substance after being counseled on the medication, medication safety, and possible side effects. ESTHER report has been obtained and reviewed prior to prescription and found to be appropriate. Opioid contract was reviewed and signed by the patient, and that they have agreed to all of the terms set forth by our compliance program. Dr. Newsome has reviewed this note and agrees with this plan of care. This note was dictated using voice recognition software and may contain errors or omissions [facility] History I have reviewed the patient's past medical history: Yes Medical History: Reports:: Chronic Obstructive Pulmonary Disease (COPD), Gastroesophageal Reflux Disease(GERD), Hyperlipidemia, Hypertension Denies:: Diabetes Mellitus Type 1, Diabetes Mellitus Type 2, Internal Pacemaker, Pulmonary Embolism, Seizures, Transient Ischemic Attacks (TIA) *Have you ever received a pneumonia vaccine?: Yes *Have you received a flu vaccine this season?: Yes Other Medical History: Reports: Arthritis. Denies: Fibromyalgia Other Surgeries: Yes: Cardiac Catheterization, Cardiac Surgery, Coronary Stent. No: Pacemaker Amputation: No Fractures: No - *Social History Smoking Status: Former smoker # Packs/Day (cigarettes): 1 Alcohol Intake: never Substance Use Type: denies use *Occupational Status:: other *Travel in the last 8 weeks: None Family Hx:: Diabetes, Heart Attack, Hypertension, Hyperlipidemia
== END ==
PROVIDERS: PCP Emergency Medicine; Visit Provider Clinical Nurse Specialist Family Health
DX: M51.16 Intervertebral disc disorders with radiculopathy, lumbar region (principal); M06.9 Rheumatoid arthritis, unspecified
CPT/HCPCS: 99212

== ENCOUNTER → 2020-09-07 08:34 | Outpatient (POV) | payer MEDICAID, SELFPAY ==
[2020-09-07 08:44] VITALS: BP 142/74; PULSE 85; RESP 18; O2SAT 98; BMI 38.2
--- NOTE | 2020-09-07 08:57 | P.CONS_ITS ---
[facility] Pain Management SOAP Note Subjective:: Patient is a pleasant 60-year-old white female who presents today for medication refills. She is currently rating her pain an 8 out of 10. She is working with a horse breaker in order to help with her rheumatoid arthritis pain. She is medically managed with [place] 10 mg 1 p.o. 3 times daily. Esther #[id number] reviewed and appropriate. Patient is currently working 2 jobs. Her drug screens have been appropriate. She states the medication helps up to 80%. Overall doing well. ROS General: no recent weight change, no fever, no sleep disturbances Respiratory: no cough, no shortness of air, no recurring pulmonary infections Cardiovascular/Peripheral Vascular: No chest pain, No palpitations, no edema, no shortness of breath. Gastrointestinal: no new onset incontinence, normal bowel movements reported Genitourinary: no new onset incontinence Musculoskeletal: back pain, leg pain, joint pain Psychiatric: normal mood/ affect Neurological: [denies new onset weakness in extremities], [denies new onset balance issues] Objective:: Physical Exam General: Alert and oriented x3, no acute distress, pleasant and cooperative, [on room air] Lungs: Resps E/U, Symmetrical chest expansion, Eyes: PERRL Musculoskeletal: Flexion and extension of lumbar spine somewhat guarded secondary to pain, deep tendon reflexes normal, strength in upper and lower extremities [5/5], antalgic gait noted Neurological: speech clear, congressional district aide equal, no gross sensory deficits Assessment:: Degenerative disc disease lumbar spine lumbar radiculopathy and rheumatoid arthritis Plan:: We will continue her [place] 10 mg 1 p.o. 3 times daily. We will give her prescription today we will fill her 2 times in the interim we will see her back in 3 months reassess her symptoms at that time she has been instructed to call the office if she has any issues prior to her next appointment. Patient has been prescribed a controlled substance after being counseled on the medication, medication safety, and possible side effects. ESTHER report has been obtained and reviewed prior to prescription and found to be appropriate. Opioid contract was reviewed and signed by the patient, and that they have agreed to all of the terms set forth by our compliance program. Dr. Newsome has reviewed this note and agrees with this plan of care. This note was dictated using voice recognition software and may contain errors or omissions [facility] History I have reviewed the patient's past medical history: Yes Medical History: Reports:: Chronic Obstructive Pulmonary Disease (COPD), Gastr oesophageal Reflux Disease(GERD), Hyperlipidemia, Hypertension Denies:: Diabetes Mellitus Type 1, Diabetes Mellitus Type 2, Internal Pacemaker, Pulmonary Embolism, Seizures, Transient Ischemic Attacks (TIA) *Have you ever received a pneumonia vaccine?: No *Have you received a flu vaccine this season?: No Other Medical History: Reports: Arthritis. Denies: Fibromyalgia Other Surgeries: Yes: Cardiac Catheterization, Cardiac Surgery, Coronary Stent. No: Pacemaker Amputation: No Fractures: No - *Social History Smoking Status: Former smoker # Packs/Day (cigarettes): 1 Alcohol Intake: never Substance Use Type: denies use *Occupational Status:: other *Travel in the last 8 weeks: None Family Hx:: Diabetes, Heart Attack, Hypertension, Hyperlipidemia
== END ==
PROVIDERS: Visit Provider Clinical Nurse Specialist Family Health
DX: M51.16 Intervertebral disc disorders with radiculopathy, lumbar region (principal); M06.9 Rheumatoid arthritis, unspecified
CPT/HCPCS: 99212

== ENCOUNTER → 2020-12-07 08:35 | Outpatient (POV) | payer MEDICAID, SELFPAY ==
--- NOTE | 2020-12-07 09:32 | HMH.PAINSOAP ---
[facility] Pain Management SOAP Note Subjective:: Patient is a pleasant 60-year-old white female who presents today for follow-up. Patient is currently being medically managed for low back and leg pain. Patient however has had a flare in her pain rating it a 10 out of 10. Patient is on [place] 10 mg 1 p.o. 3 times daily she states is not helpful at this time. Patient is in obvious discomfort. Her morphine equivalent is 30. [facility] #[id number] reviewed and Appropriate. patient did have THC in her drug screen however she was on CBD and was unaware that it was not THC free. She has been counseled on this. Patient did have an updated MRI and was seen by a neurosurgeon who did not think that surgery was necessary at this time. I did discuss lumbar epidural steroid injections. Patient is hesitant to move forward with this I do think it would be a good course of action given her symptomology. ROS General: no recent weight change, no fever, no sleep disturbances Respiratory: no cough, no shortness of air, no recurring pulmonary infections Cardiovascular/Peripheral Vascular: No chest pain, No palpitations, no edema, no shortness of breath. Gastrointestinal: no new onset incontinence, normal bowel movements reported Genitourinary: no new onset incontinence Musculoskeletal: Back pain leg pain Psychiatric: normal mood/ affect Neurological: [denies new onset weakness in extremities], [denies new onset balance issues] Objective:: Physical Exam General: Alert and oriented x3, no acute distress, pleasant and cooperative, [on room air] Lungs: Resps E/U, Symmetrical chest expansion, Eyes: PERRL Musculoskeletal: Flexion and extension of lumbar spine somewhat guarded secondary to pain, deep tendon reflexes normal, strength in upper and lower extremities [5/5], [abnormal gait noted] Neurological: speech clear, salesperson books equal, no gross sensory deficits Assessment:: Degenerative disc disease lumbar spine lumbar radiculopathy Plan:: we will start the patient on gabapentin 300 mg 1 p.o. 3 times daily. We will continue her [place] 10 mg 1 p.o. 3 times daily. We will discuss with the patient in 1 week if she would like to move forward with an epidural steroid injection. Patient is very hesitant in regard to this. She is on Plavix. Patient will be seen in 1 month and reassess at that time. Dr. Newsome has reviewed this note and agrees with this plan of care. This note was dictated using voice recognition software and may contain errors or omissions. Patient has been prescribed a controlled substance after being counseled on the medication, medication safety, and possible side effects. ESTHER report has been obtained and reviewed prior to prescription and found to be appropriate. Opioid contract was reviewed and signed by the patient, and that they have agreed to all of the terms set forth by our compliance program. [facility] History I have reviewed the patient's past medical history: Yes Medical History: Reports:: Chronic Obstructive Pulmonary Disease (COPD), Gastroesophageal Reflux Disease(GERD), Hyperlipidemia, Hypertension Denies:: Diabetes Mellitus Type 1, Diabetes Mellitus Type 2, Internal Pacemaker, Pulmonary Embolism, Seizures, Transient Ischemic Attacks (TIA) *Have you ever received a pneumonia vaccine?: No *Have you received a flu vaccine this season?: No Other Medical History: Reports: Arthritis. Denies: Fibromyalgia Other Surgeries: Yes: Cardiac Catheterization, Cardiac Surgery, Coronary Stent. No: Pacemaker Amputation: No Fractures: No - *Social History Smoking Status: Former smoker # Packs/Day (cigarettes): 1 Alcohol Intake: never Substance Use Type: denies use *Occupational Status:: other *Travel in the last 8 weeks: None Family Hx:: Diabetes, Heart Attack, Hypertension, Hyperlipidemia
[2020-12-07 10:11] VITALS: BP 142/74; PULSE 66; RESP 18; TEMP 36.8; O2SAT 99; BMI 40.2
== END ==
PROVIDERS: Visit Provider Clinical Nurse Specialist Family Health
DX: M51.16 Intervertebral disc disorders with radiculopathy, lumbar region (principal)
CPT/HCPCS: 99212; G0463

== ENCOUNTER → 2021-01-04 08:44 | Outpatient (POV) | payer MEDICAID, SELFPAY ==
[2021-01-04 08:49] VITALS: BP 135/88; PULSE 74; RESP 18; O2SAT 99; BMI 40.2
--- NOTE | 2021-01-18 08:30 | HMH.PAINSOAP ---
[facility] Pain Management SOAP Note Subjective:: Patient is pleasant 60-year-old white female who presents today for medication refills. She is currently on [place] 08/08/2025 3 times daily. Patient states that it is very beneficial up to 80%. Esther reviewed and appropriate. Patient has had one inappropriate drug screen we will rescreen her today. Patient denies any use of other medications or illegal substances. Patient denies side effects from medication. Patient is being treated for low back and leg pain. She was seen by neurosurgery and it was determined that she was not a candidate at this time. ROS General: no recent weight change, no fever, no sleep disturbances Respiratory: no cough, no shortness of air, no recurring pulmonary infections Cardiovascular/Peripheral Vascular: No chest pain, No palpitations, no edema, no shortness of breath. Gastrointestinal: no new onset incontinence, normal bowel movements reported Genitourinary: no new onset incontinence Musculoskeletal: Back pain, leg pain Psychiatric: normal mood/ affect Neurological: [denies new onset weakness in extremities], [denies new onset balance issues] Objective:: Physical Exam General: Alert and oriented x3, no acute distress, pleasant and cooperative, [on room air] Lungs: Resps E/U, Symmetrical chest expansion, Eyes: PERRL Musculoskeletal: Flexion and extension of lumbar spine somewhat guarded secondary to pain, deep tendon reflexes normal, strength in upper and lower extremities [5/5], [abnormal gait noted] Neurological: speech clear, claims adjustor equal, no gross sensory deficits Assessment:: Degenerative disc disease lumbar spine lumbar radiculopathy, back pain Plan:: We will give her 1 month [place] 08/08/2025 3 times daily and see her back in 1 month. We will drug screen her today to see if it is appropriate. Patient's been instructed to call the office if she has any issues prior to her next appointment. Patient has been prescribed a controlled substance after being counseled on the medication, medication safety, and possible side effects. ESTHER report has been obtained and reviewed prior to prescription and found to be appropriate. Opioid contract was reviewed and signed by the patient, and that they have agreed to all of the terms set forth by our compliance program. Dr. Newsome has reviewed this note and agrees with this plan of care. This note was dictated using voice recognition software and may contain errors or omissions [facility] History I have reviewed the patient's past medical history: Yes Medical History: Reports:: Chronic Obstructive Pulmonary Disease (COPD), Coronary Artery Disease, Gastroesophageal Reflux Disease(GERD), Hyperlipidemia, Hypertension Denies:: Cancer, Diabetes Mellitus Type 1, Diabetes Mellitus Type 2, Internal Pacemaker, MRSA, Pulmonary Embolism, Seizures, Transient Ischemic Attacks (TIA) *Have you ever received a pneumonia vaccine?: No *Have you received a flu vaccine this season?: No Other Medical History: Reports: Arthritis. Denies: Blood Transfusion Reaction, Fibromyalgia Other Surgeries: Yes: Cardiac Catheterization, Cardiac Surgery, Coronary Stent, . No: Pacemaker Amputation: No Fractures: No - *Social History Smoking Status: Former smoker # Packs/Day (cigarettes): 1 Alcohol Intake: never Substance Use Type: denies use *Occupational Status:: unemployed Housing: house Household Members: spouse *Travel in the last 8 weeks: None Family Hx:: Diabetes, Heart Attack, Hypertension, Hyperlipidemia
== END ==
PROVIDERS: Visit Provider Clinical Nurse Specialist Family Health
DX: M51.16 Intervertebral disc disorders with radiculopathy, lumbar region (principal)
CPT/HCPCS: 99212; G0463

== ENCOUNTER 2021-01-15 08:50 | Day surgery (SDC) | payer MEDICAID, SELFPAY ==
[2021-01-15 09:06] VITALS: BP 175/108; PULSE 101; RESP 20; TEMP 35.9; O2SAT 96; BMI 41.5
[2021-01-15 09:58] VITALS: BP 138/88; PULSE 71; RESP 18; O2SAT 98
[2021-01-15 10:02] VITALS: BP 140/75; PULSE 87; RESP 18; O2SAT 99
[2021-01-15 10:15] VITALS: BP 190/99; PULSE 80; RESP 20; O2SAT 96
--- NOTE | 2021-01-15 10:17 | HMH.PMPROC ---
- Procedure Date: 01/15/21 Time: 10:17 Anesthesiologist:: Dinesh Newsome MD Complications:: None Pre-procedure Diagnosis:: Degenerative disc disease of lumbar spine with lumbar radiculopathy symptoms Post-procedure Diagnosis:: Same Indications for Procedure:: This patient is a pleasant 60-year-old white female who we are treating for low back pain with lumbar radiculopathy symptoms. She has increasing pain in her low back rating down her right leg. She has had a flareup in her pain symptoms. She is currently on [place] 10 mg 3 times a day. Is not as helpful as it was previously. Will do lumbar epidural steroid injection today to help her with her pain symptoms. Procedure Details:: Lumbar epidural steroid injection under fluoroscopy Informed consent was obtained and the risk and benefits of the procedure was explained to the patient. The patient was taken to the procedure room. The patient was placed prone on the procedure table. The patient was prepped and draped in sterile fashion. C-arm fluoroscopy was used to view the lumbar spine. Skin and subcutaneous tissues were anesthetized using lidocaine. I placed an 18-gauge epidural needle and advanced into the L4-L5 interspace using fluoroscopic guidance and [id number] to air. After confirmation of needle placement in the epidural space with dye I injected 2 mL of lidocaine 1.5% with Depo-Medrol 80 mg. Patient tolerated the procedure well with no complications. Plan and Disposition:: We will follow-up with her in 2 weeks. Will reevaluate symptoms at that time.
== END 2021-01-15 10:15 | disposition home or self-care (01) ==
LOC: SC.PAINP 08:51
PROVIDERS: PCP Family Medicine; Visit Provider Anesthesiology
DX: M51.16 Intervertebral disc disorders with radiculopathy, lumbar region (principal); I10 Essential (primary) hypertension; E78.5 Hyperlipidemia, unspecified; K21.9 Gastro-esophageal reflux disease without esophagitis
CPT/HCPCS: 62323; J1040; Q9966

== ENCOUNTER → 2021-02-08 08:40 | Outpatient (POV) | payer MEDICAID, SELFPAY ==
[2021-02-08 08:57] VITALS: BP 134/87; PULSE 69; RESP 18; O2SAT 98; BMI 40.3
--- NOTE | 2021-02-08 09:13 | HMH.PAINSOAP ---
[facility] Pain Management SOAP Note Subjective:: Patient is a pleasant 60-year-old white male female who presents today for follow-up. Patient had an epidural steroid injection she states all of the medication leaked out . She rates her pain a 10 out of 10. Patient currently on [place] 10, gabapentin 300. Patient had a inappropriate drug screen showing positive for meth on 09 08. This was then repeated 3 1 which it did also show positive for meth. Patient will be sent for urine drug screen with confirmation today. Patient states she has not taken any illegal medications or substances. Patient and I discussed prednisone for short time. She would like to be on it long-term I discussed with her that this is not appropriate with her kidneys. Patient is not a neurosurgical candidate. ROS General: no recent weight change, no fever, no sleep disturbances Respiratory: no cough, no shortness of air, no recurring pulmonary infections Cardiovascular/Peripheral Vascular: No chest pain, No palpitations, no edema, no shortness of breath. Gastrointestinal: no new onset incontinence, normal bowel movements reported Genitourinary: no new onset incontinence Musculoskeletal: Back pain, leg pain Psychiatric: normal mood/ affect Neurological: [denies new onset weakness in extremities], [denies new onset balance issues] Objective:: Physical Exam General: Alert and oriented x3, no acute distress, pleasant and cooperative, [on room air] Lungs: Resps E/U, Symmetrical chest expansion, Eyes: PERRL Musculoskeletal: Flexion and extension of lumbar spine somewhat guarded secondary to pain, deep tendon reflexes normal, strength in upper and lower extremities [5/5], [abnormal gait noted] Neurological: speech clear, race starter equal, no gross sensory deficits Assessment:: Degenerative disc disease lumbar spine lumbar radiculopathy, back pain Plan:: We will continue her [place], gabapentin for 1 month. We will send her for urine drug screen with confirmation. We will also do prednisone 20 mg 1 p.o. 3 times daily for 5 days. I will see her back after her drug screen and reassess her at that time. Dr. Newsome has reviewed this note and agrees with this plan of care. This note was dictated using voice recognition software and may contain errors or omissions Patient has been prescribed a controlled substance after being counseled on the medication, medication safety, and possible side effects. ESTHER report has been obtained and reviewed prior to prescription and found to be appropriate. Opioid contract was reviewed and signed by the patient, and that they have agreed to all of the terms set forth by our compliance program. [facility] History I have reviewed the patient's past medical history: Yes Medical History: Reports:: Chronic Obstructive Pulmonary Disease (COPD), Coronary Artery Disease, Gastroesophageal Reflux Disease(GERD), Hyperlipidemia, Hypertension Denies:: Cancer, Diabetes Mellitus Type 1, Diabetes Mellitus Type 2, Internal Pacemaker, MRSA, Pulmonary Embolism, Seizures, Transient Ischemic Attacks (TIA) *Have you ever received a pneumonia vaccine?: Yes *Have you received a flu vaccine this season?: Yes Other Medical History: Reports: Arthritis. Denies: Blood Transfusion Reaction, Fibromyalgia Other Surgeries: Yes: Cardiac Catheterization, Cardiac Surgery, Coronary Stent, . No: Pacemaker Amputation: No Fractures: No - *Social History Smoking Status: Former smoker # Packs/Day (cigarettes): 1 Alcohol Intake: never Substance Use Type: denies use *Occupational Status:: other Housing: house Household Members: spouse *Travel in the last 8 weeks: None Family Hx:: Diabetes, Heart Attack, Hypertension, Hyperlipidemia
[2021-02-08 19:11] LABS: Barbiturates Screen,Urine Negative ng/ml (<200)
[2021-02-08 19:12] LABS: Benzodiazepines Screen,Urine Negative ng/ml (<200); Cannabinoid Screen,Urine Negative ng/ml (<50)
[2021-02-08 19:13] LABS: Cocaine Screen,Urine Negative ng/ml (<300)
[2021-02-08 19:14] LABS: Methadone Screen,Urine Negative ng/ml (<300)
[2021-02-08 19:15] LABS: Phencyclidine Screen,Urine Negative ng/ml (<25)
[2021-02-08 22:36] LABS: Amphetamine/Metha Screen,Urine Negative ng/ml (<1000)
[2021-02-08 22:37] LABS: Opiate Screen,Urine Positive ng/ml (<300)
[2021-02-15 23:04] LABS: Amphetamines Negative (Cutoff=500); Codeine Negative (Cutoff=100); Hydrocodone Positive (.); Hydromorphone Positive (.); Morphine Negative (Cutoff=100)
[2021-02-16 03:41] LABS: Cannabinoid Negative (Cutoff=10); Opiates Positive (.)
[2021-03-05 16:54] LABS: Benzodiazepines NEGATIVE; Flurazepam NEGATIVE; Lorazepam NEGATIVE
[2021-03-05 16:55] LABS: Alprazolam NEGATIVE; Clonazepam NEGATIVE; Midazolam NEGATIVE; Temazepam NEGATIVE; Triazolam NEGATIVE
[2021-03-05 16:56] LABS: Cocaine + Metabolite NEGATIVE
[2021-03-05 16:57] LABS: Methadone NEGATIVE
== END ==
PROVIDERS: Clinical Nurse Specialist Family Health; Visit Provider Clinical Nurse Specialist Family Health
DX: M51.16 Intervertebral disc disorders with radiculopathy, lumbar region (principal)
CPT/HCPCS: 80305; 80324; 80346; 80349; 80353; 80358; 80361; 80365; 99212; G0463; G0480

== ENCOUNTER 2025-01-21 10:41 | Outpatient (CLI) | payer MEDICAID, SELFPAY ==
[2025-01-21 12:35] LABS: Occult Blood,Stool Negative (Negative)
== END 2025-01-21 23:59 | disposition home or self-care (01) ==
LOC: LAB.DROPOF 10:42
PROVIDERS: PCP Internal Medicine Adolescent Medicine; Visit Provider Nurse Practitioner Family
DX: D64.9 Anemia, unspecified (principal)
CPT/HCPCS: 82272; G0328

== ENCOUNTER 2025-01-27 15:46 | Outpatient (CLI) | payer MEDICAID, SELFPAY ==
[2025-01-27 17:41] LABS: Occult Blood,Stool Negative (Negative)
== END 2025-01-27 23:59 | disposition home or self-care (01) ==
LOC: LAB.DROPOF 15:47
PROVIDERS: PCP Nurse Practitioner Family; Visit Provider Nurse Practitioner Family
DX: D64.9 Anemia, unspecified (principal)
CPT/HCPCS: 82272; G0328

== ENCOUNTER 2025-01-29 09:01 | Outpatient (CLI) | payer MEDICAID, SELFPAY ==
[2025-01-29] VITALS (10 sets, daily range): BP systolic 108–127; BP diastolic 58–77; PULSE 70–75; RESP 18; TEMP 36.4–36.7; O2SAT 98–100; BMI 53.4
[2025-01-29 09:57] LABS: Hematocrit 21.3 % (37.0-47.0)
[2025-01-29 09:58] LABS: Hemoglobin 6.9 g/dL (12.2-16.2)
[2025-01-29] MEDS: 0.9 % SODIUM CHLORIDE 250 ML 25 ML IV (11:00)
[2025-01-29 13:19] LABS: Hematocrit 26.7 % (37.0-47.0); Hemoglobin 8.8 g/dL (12.2-16.2)
== END 2025-01-29 14:00 | disposition home or self-care (01) ==
LOC: INF 09:03
PROVIDERS: PCP Nurse Practitioner Family; Visit Provider Nurse Practitioner Family
DX: D64.9 Anemia, unspecified (principal)
CPT/HCPCS: 36430; 85014; 85018; 86850; P9016

== ENCOUNTER 2025-02-02 01:03 | Outpatient (CLI) | payer MEDICAID, SELFPAY ==
[2025-02-02 01:25] LABS: Occult Blood,Stool Positive (Negative)
== END 2025-02-02 23:59 | disposition home or self-care (01) ==
LOC: LAB.DROPOF 01:03
PROVIDERS: Internal Medicine Adolescent Medicine; PCP Nurse Practitioner Family; Visit Provider Nurse Practitioner Family
DX: D64.9 Anemia, unspecified (principal)
CPT/HCPCS: 82272; G0328

== ENCOUNTER 2025-02-05 11:03 | Outpatient (CLI) | payer MEDICAID, SELFPAY ==
[2025-02-05 11:48] LABS: Basophils # 0.1 K/mm3 (0-0.2); Basophils % 0.9 % (0.1-2.0); Eosinophils # 1.1 K/mm3 (0.0-0.4); Eosinophils % 16.3 % (0.1-12.0); Hematocrit 27.7 % (37.0-47.0); Lymphocytes # 1.7 K/mm3 (0.7-4.5); Mean Corpuscular HGB Conc 32.5 g/dL (31.8-35.4); Mean Corpuscular Hemoglobin 31.5 pg (27.0-31.2); Mean Corpuscular Volume 96.9 fl (81-99); Mean Platelet Volume 10.3 fl (7.4-10.4); Monocytes # 0.9 K/mm3 (0.1-1.0); Monocytes % 12.8 % (1.7-9.3); Neutrophils # 3.1 K/mm3 (1.8-7.8); Neutrophils % 45.7 % (37.0-80.0); Platelet Count 343 K/mm3 (142-424); Red Blood Count 2.86 M/mm3 (4.20-5.40); Red Cell Distribution Width 15.7 % (11.5-17.5); Reticulocyte % (Auto) 2.4 % (0.9-3.2); White Blood Count 6.9 K/mm3 (4.8-10.8)
[2025-02-05 12:21] LABS: Alanine Aminotransferase 14 U/L (12-78); Albumin Level 3.4 g/dl (3.5-5.0); Alkaline Phosphatase 85 U/L (38-126); Aspartate Amino Transferase 25 U/L (14-36); Bilirubin,Total 0.4 mg/dl (0.2-1.3); Blood Urea Nitrogen 14 mg/dl (7-17); Calcium 9.5 mg/dl (8.4-10.2); Carbon Dioxide 23 mmol/L (22.0-30.0); Chloride 101 mmol/L (98-107); Estimated Glomerular Filt Rate 45 ml/min (>60); GFR (African American) 55 ML/MIN (>60); Globulin 3.4 g/dL (1.3-3.2); Glucose 83 mg/dl (74-100); Lactate Dehydrogenase 219 U/L (313-618); Total Protein,Serum 6.8 g/dl (6.3-8.2)
[2025-02-05 12:52] LABS: Thyroid Stimulating Hormone 1.82 uIU/mL (0.465-4.68)
[2025-02-05 13:11] LABS: Vitamin B12 828 pg/mL (239-931)
[2025-02-05 13:37] LABS: Sodium 134 mmol/L (136-145)
[2025-02-05 14:45] LABS: Iron 87 ug/dL (37-170)
[2025-02-05 14:54] LABS: Total Iron Binding Capacity 286 ug/dL (265-497)
[2025-02-05 15:21] LABS: Ferritin 254 ng/ml (11.1-264)
[2025-02-05 15:22] LABS: Folate > 20.00 ng/mL
== END 2025-02-05 23:59 | disposition home or self-care (01) ==
LOC: LAB 11:04
PROVIDERS: Visit Provider Internal Medicine Medical Oncology
DX: D64.9 Anemia, unspecified (principal)
CPT/HCPCS: 36415; 80053; 82607; 82728; 82746; 83540; 83550; 83615; 84443; 85025; 85044; 86880

== ENCOUNTER 2025-02-12 14:25 | Outpatient (CLI) | payer MEDICAID, SELFPAY ==
[2025-02-13 05:08] LABS: Haptoglobin 245 mg/dL (37-355)
[2025-02-13 15:17] LABS: Free Kappa Lt Chains 96.4 mg/L (3.3-19.4); Free Lambda Lt Chains 43.1 mg/L (5.7-26.3)
[2025-02-13 16:47] LABS: Albumin 3.1 g/dL (2.9-4.4); Alpha-1-Globulin 0.3 g/dL (0.0-0.4); Gamma Globulin 1.4 g/dL (0.4-1.8); Protein, Total 6.7 g/dL (6.0-8.5)
[2025-02-14 17:03] LABS: Immunoglobulin A, Qn 399 mg/dL (87-352); Immunoglobulin G, Qn 1396 mg/dL (586-1602); Immunoglobulin M, Qn 128 mg/dL (26-217)
[2025-02-23 10:11] LABS: PDF SCANNED IMAGE
== END 2025-02-12 23:59 | disposition home or self-care (01) ==
LOC: LAB 14:27
PROVIDERS: PCP Internal Medicine Adolescent Medicine; Visit Provider Internal Medicine Medical Oncology
DX: D64.9 Anemia, unspecified (principal)
CPT/HCPCS: 82784; 83010; 83883; 84155; 84165; 86334

== ENCOUNTER 2025-02-20 14:54 | Outpatient (CLI) | payer MEDICAID, SELFPAY ==
[2025-02-20] MEDS: ALBUTEROL 0.083% 2.5 MG/3 ML NEB IH (16:00)
== END 2025-02-20 23:59 | disposition home or self-care (01) ==
PROVIDERS: PCP Internal Medicine Adolescent Medicine; Visit Provider Internal Medicine Pulmonary Disease
DX: R06.09 Other forms of dyspnea (principal)
CPT/HCPCS: 94060; 94726; 94729; J7613

== ENCOUNTER 2025-02-28 14:34 | Outpatient (CLI) | payer MEDICAID, SELFPAY ==
--- NOTE | 2025-02-28 15:15 | CT_ITS ---
FINAL REPORT TECHNIQUE: Axial images were obtained through the chest without contrast. CLINICAL HISTORY: Lung nodule follow-up FINDINGS: The heart size is normal. There is no pericardial or pleural effusion. There are multiple irregular nodular densities throughout both lungs. A focus in the right upper lobe measures 0.8 cm in greatest dimension. This is best seen on image 79 of series 3. There are nodules in the right lower lobe measuring up to 5 mm, best seen on image 105 of series 3. A nodule in the right lower lobe, posteriorly, measures 6 mm and is well-seen on image 118 of series 3. Smaller nodules are scattered throughout both lungs. A nodule in the posterior left upper lobe is contiguous with the major fissure and measures 4 mm. This is best seen on image 82 of series 3. Limited images of the upper abdomen are unremarkable. IMPRESSION: No prior images available for comparison. Multiple bilateral lung nodules with a posterior right lower lobe nodule measuring up to 6 mm. 6-month follow-up chest CT is recommended per Fleischner Society criteria. Reviewed, Interpreted and Dictated by Devan Childers MD Transcribed by Lisa Romero Authenticated and [facility]
== END 2025-02-28 23:59 | disposition home or self-care (01) ==
LOC: RAD 14:37
PROVIDERS: PCP Internal Medicine Adolescent Medicine; Visit Provider Internal Medicine Pulmonary Disease
DX: R91.8 Other nonspecific abnormal finding of lung field (principal)
CPT/HCPCS: 71250

== ENCOUNTER 2025-05-15 07:55 | Outpatient (CLI) | payer MEDICAID, SELFPAY ==
--- OUTSIDE RECORDS SUMMARY | 2024-08-16 12:15 | XMS_ITS ---
Author Organization [facility] Address [address] [place] [address] Care Team Providers Care Utility Worker Roller Shop Name Role Phone Garfield Gorman Primary Care Provider Alvaro Jernigan II Unavailable Allergies Allergen (clinical drug ingredient) Drug/Non Drug Allergy documented on EMR Reaction Allergy Type Onset Date Status lisinopril stomach upset Drug Allergy Ac tive REASON FOR VISIT Low Back Pain Medications Medication SIG (Take, Route, Frequency, Duration) Notes Start Date End Date Status nitroglycerin 0.4 mg/hr 1 PATCH transd anna once a day; Duration: 30 day(s) [...] ONLY IF CLOSED), Fax PA request to [phone] or [phone] Active metoprolol 100 mg 1 tab(s) orally once a day; Duration: 30 day(s) Active Acetaminophen-Hydrocodo ne Bitartrate 325 mg-10 mg 1 tab(s) orally every 8 hours; Duration: 28 days DO NOT FILL SOONER THAN 28 DAYS, (OK TO FILL EARLY, ONLY IF CLOSED), Fax PA request to [phone] or [phone] Active Acetaminophen-Hydrocodo ne Bitartrate 325 mg-10 mg 1 tab(s) orally every 8 hours; Duration: 28 days DO NOT FILL SOONER THAN 28 DAYS, (OK TO FILL EARLY, ONLY IF CLOSED), Fax PA request to [phone] or [phone] Active Potassium Chloride (Zfn-Jhps-Qls M20) 20 mEq TAKE 1 TABLET BY [...] Diagnosis [facility] [address] [place] [address] 08/16/2024 Alvaro Banegas Other termite helper (current) drug therapy Z79.899 ; Radiculopathy, lumbar region M54.16 and Spondylosis without myelopathy or radiculopathy, lumbar region M47.816 Assessments Encounter Date Diagnosis (ICD Code) Assessment Notes Treatment Notes Treatment Clinical Notes Section Notes 08/16/2024 Other termite helper (current) drug therapy (ICD-10 - Z79.899) 06/12/2024 [...] ONLY IF CLOSED), Fax PA request to [phone] or [phone] Acetaminophen-Hydrocodon e Bitartrate 325 mg-10 mg 1 tab(s) orally every 8 hours; Duration: 28 days DO NOT FILL SOONER THAN 28 DAYS, (OK TO FILL EARLY, ONLY IF CLOSED), Fax PA request to [phone] or [phone] Acetaminophen-Hydrocodon e Bitartrate 325 mg-10 mg 1 tab(s) orally every 8 hours; Duration: 28 days DO NOT FILL SOONER THAN 28 DAYS, (OK TO FILL EARLY, ONLY IF CLOSED), Fax PA request to [phone] or [phone] Treatment Notes Assessment Notes Other residential (current) drug therapy 06/12/2024 1. Refill hydrocodone/APAP 10/325mg TID 2. Refill Gabapentin 600mg TID 3. Follow up 2 months 4. Schedule repeat lumbar SKIP RFA L3/4/5 Pending Test Test Name Order Date Urine Test ANALYZER 08/16/2024 Next Appt Details Follow Up: 2 Months, Reason: Procedure Notes * Category Sub-Category Detail Notes PROVIDER ENCOUNTER AND OVERSIGHT Consult Performed By: Toro ESPINOZA-Renzo ROME 06/12/2024 11:03:51 AM > collaborated treatment plan with Shanna moss M.D., supervising physician Progress Notes * Raven WYNNEB:1960 (64 yo F)Acc No.[id number]:08/16/2024 FollowUP Patient: Darleen DONG Provider: Rancho Banegas II, M.D. :1960 A ge:64 Y S ex:Female Date:08/16/2024 Address:[facility] [address], [place], [id number] Pcp:Garfield Gorman Subjective: * Chief Complaints: * 1 . Low Back Pain. * HPI: T ODAYS PAIN EVALUATION: 64 year old female presents with c/o MEDICATION FOLLOW UP: T he patient is currently prescribed [place] 10/325mg TID and Gabapentin 300mg TID, which [...] other neural foramina ranges from mild to zgln-ao-hogiascs. . P REVIOUS INJECTION\PROCEDURE HISTORY:? 0 02/18/2021 [...] days . P HYSICAL/AQUA THERAPY/DME/OTHER HISTORY: S [facility] PT program completed- not helpful P atient continues a prescribed home exercise program 3-5 times per week from January 2022, continues as of December 2022 . P ERTINENT SURGICAL EVALUATIONS/SPECIALIST CONSULTS N o prior surgical consult . P REVIOUS PAIN CLINIC CARE: H [facility]- self-discharge . S TONY OF INITIAL EVALUATION: 0 02/12/2021- New patient consult referred by [facility] is a 60 year-old female that was referred here in consultation for low back pain and bilateral leg pain. The patient has a long-standing rheumatoid arthritis and currently takes prednisone and an immunomodulator from her skeins yarn examiner. She injured her back a few months [...] to obtain her last procedure note from [facility] to review. I am going to [...] Surgical History: C ardiac stent / [facility] / 2-3 days 12/2018 . * Hospitalization/Major [...] once a day , Taking Potassium Chloride (Csk-Anfn-Adl M20) 20 mEq tablet, extended release TAKE [...] * Vitals: * Examination: G eneral Examination: Nurse/Engineer Booster And Exhauster: Mini romanMA-RamirezElayne Mccullough 06/12/2024 10:56:32 AM > [...] 2021.. Assessment: * Assessment: 1. O ther termite helper (current) drug therapy - Z79.899 (Primary) 2 [...] 2 months. Plan: * Treatment: * Procedures: Marjorie NORIEGA ENCOUNTER AND OVERSIGHT: Consult Performed By: Renzo River (APRN-LEX) 06/12/2024 11:03:51 AM > . c ollaborated treatment plan with Ponce Mortensen M.D., supervising physician. * Follow Up: 2 Months * * Electronic signature of Alvino Banegas II, M.D. on 05/15/2025 at 07:04 AM CDT Sign off status: Pending * Provider: Rancho Banegas II, M.D. Date: Generated for Benoit correa/Ashley/Mino on: 0 05/15/2025 07:04 AM CDT History and Physical Notes * [...] takes prednisone and an immunomodulator from her skeins yarn examiner. She injured her back a few months [...] to obtain her last procedure note from [facility] to review. I am going to [...] other neural foramina ranges from mild to zpqe-sp-fygixtvy. PHYSICAL/AQUA THERAPY/DME/OT HER HISTORY: [facility] PT program completed- not helpful Patient continues [...] for * days PREVIOUS PAIN CLINIC CARE: [facility]- self-discharge COMPLIANCE RISK ASSESSMENT AND STRATIFICATI [...] FOLLOW UP: The patient is currently prescribed [place] 10/325mg TID and Gabapentin 300mg TID, which [...] wi th an antalgic gait, pitched forward Nurse/Engineer Booster And Exhauster: Sommer Mcintosh (MA-Lex) 06/12/2024 10:56:32 AM > [...]
--- OUTSIDE RECORDS SUMMARY | 2025-05-15 08:04 | XMS_ITS | Clinical Summary ---
Author Organization [facility] Address [address] [place] [address] Phone Care Team Providers Care Front End Drupal Developer Name Role Phone Unavailable Unavailable Conditions or Problems No information available. Medications No information available. Medications Administered No information available. Allergies, Adverse Reactions, Alerts No information available. Results No information available. Plan of Care No information available. Procedures No information available. Vital Signs No information available. Immunizations No information available. Advance Directives No information available.
--- OUTSIDE RECORDS SUMMARY | 2025-05-15 08:09 | XMS_ITS | Encounter Summary ---
Author Organization [facility] ([place], [place], [place], [place]) Address [address] [place] [address] Care Team Providers Care Pediatrician Managing Partner Name Role Phone Garfield Rose MD Primary Care Provider [phone] Reason for Visit * Reason Comments Medication Refill Encounter Details Date Type Department Care Team (Late st Contact Info) Description 06/08/2023 Refill [facility] Rheumatology [address] [place] [address] Manuela Greenfield MD [address] [place], [place] [id number] Social History Tobacco Use Types Packs/Day Years Used Date Smoking Tobacco: Former Smokeless Tobacco: Never Alcohol Use Standard Drinks/Week Comments Not Currently 0 (1 standard drink = 0.6 oz pur e alcohol) Comments Unknown Sex and Gender Information Value Date Recorded Sex Assigned at Not on file Legal Sex Female 5:14 PM CDT Gender Identity Not on file Sexual Orientation Not on file documented as of this encounter Plan of Treatment Not on file documented as of this encounter Visit Diagnoses Not on filedocumented in this encounter Care Teams Pediatrician Managing Partner Relationship Specialty Start Date End Date Garfield Rose MD [address] [facility] [address] [place] [address] PCP - General Family Medicine 10/06/22 documented as of this encounter
--- OUTSIDE RECORDS SUMMARY | 2025-05-15 08:09 | XMS_ITS | Clinical Summary ---
Author Organization Healthcare Address [address] [place] [address] Care Team Providers Care Salesperson Art Objects Name Role Phone Aleksandra Richey APRN Primary Care Provider [phone] Family History Medical History Relation Name Comments Diabetes Mother Heart disease Mother Rheum arthritis Other Relation Name Status Comments Mother Other Social History Tobacco Use Types Packs/Day Years Used Date Smoking Tobacco: Every Day Alcohol Use Standard Drinks/Week Comments No 0 (1 standard drink = 0.6 oz pure alcohol) Alcoholic Drinks/day: No history of alcohol use Comments Unknown Sex and Gender Information Value Date Recorded Sex Assigned at Not on file Legal Sex Female 6:30 PM EDT Gender Identity Not on file Sexual Orientation Not on file Last Filed Vital Signs Vital Sign Reading Time Taken Comments Blood Pressure - - Pulse - - Temperature - - Respiratory Rate - - Oxygen Saturation - - Inhaled Oxygen Concentration - - Weight 102 kg (225 lb) 07/12/2017 8:33 AM EDT Height 165.1 cm (5' 5 ) 07/12/2017 8:33 AM EDT Body Mass Index 37.44 07/12/2017 8:33 AM EDT Plan of Treatment Not on file Care Teams Salesperson Art Objects Relationship Specialty Start Date End Date Aleksandra Richey APRN [address] [place] [id number] PCP - General 03/19/21
--- OUTSIDE RECORDS SUMMARY | 2025-05-15 08:09 | XMS_ITS | Encounter Summary ---
Author Organization [facility] ([place], [place], [place], [place]) Address [address] [place] [address] Care Team Providers Care Flexo Press Operator Name Role Phone Garfield Rose MD Primary Care Provider [phone] Reason for Visit * Reason Comments Medication Refill Encounter Details Date Type Department Care Team (Late st Contact Info) Description 04/05/2024 Refill [facility] Rheumatology [address] [place] [address] Manuela Greenfield MD [address] [facility] [place] [address] Other osteoarthritis involving multiple joints Social History Tobacco Use Types Packs/Day Years Used Date Smoking Tobacco: Former Smokeless Tobacco: Never Alcohol Use Standard Drinks/Week Comments Not Currently 0 (1 standard drink = 0.6 oz pur e alcohol) Food Insecurity Answer Date Recorded Food run out past 12 months Not on file 11/06 Food did not last past 12 months Not on file 11/24/2023 Employment Answer Date Recorded Help finding and keeping a job Not on file 0 11/24/2023 Family and Community Support Answer Edwin e Recorded Help with Day to Day Activities Not on file 11/24/2023 Feeling Lonely or Isolated Not on file 11/24 Educational Attainment Answer Date Navi rded Speak language other than Malawian at home Not on file 11/24/2023 Want help with school or training Not on file 11/24/2023 Substance Use Answer Date Recorded Used prescription meds for non-medical reasons N ot on file 11/24/2023 Used illegal drugs past 12 months Not on file 11/24/2023 Comments Unknown Sex and Gender Information Value Date Recorded Sex Assigned at Not on file Legal Sex Female 5:14 PM CDT Gender Identity Not on file Sexual Orientation Not on file documented as of this encounter Plan of Treatment Not on file documented as of this encounter Visit Diagnoses Diagnosis Other osteoarthritis involving multiple joints documented in this encounter Care Teams Flexo Press Operator Relationship Specialty Start Date End Date Garfield Rose MD [address] [facility] [address] [place] [id number] PCP - General Family Medicine 10/06/22 documented as of this encounter
--- OUTSIDE RECORDS SUMMARY | 2025-05-15 08:09 | XMS_ITS | Clinical Summary ---
Author Organization [facility] ([place], [place], [place], [place]) Address [address] [place] [address] Care Team Providers Care Treater Name Role Phone Garfield Rose MD Primary Care Provider [phone] Allergies Active Allergy Reactions Criticality Noted Date Comments Lisinopril 10/06/2022 cough Medications atorvastatin (LIPITOR) 80 MG tablet Take 1 tablet (80 mg total) by mouth daily. 2 Active calcium citrate-vitamin D3 (CITRACAL-D) 315 mg-6.25 mcg (250 unit) tablet Take by mouth. 2 Active clopidogreL (PLAVIX) 75 mg tablet Take 1 tablet (75 mg total) by mouth daily. 2 Active cyclobenzaprine (FLEXERIL) 10 MG tablet Take 1 tablet (10 mg total) by mouth 3 (three) times daily. 2 Active ezetimibe (ZETIA) 10 mg tablet Take 1 tablet (10 mg total) by mouth daily. 2 Active furosemide (LASIX) 80 MG tablet Take 1 tablet (80 mg total) by mouth 2 (two) times daily. 2 Active HYDROcodone-acetami nophen (NORCO 10-325) 10-325 mg per tablet Take 1 tablet by mouth 3 (three) times daily as needed. 2 Active ibuprofen (ADVIL,MOTRIN) 800 MG tablet Take 1 tablet (800 mg total) by mouth 3 (three) times daily. 2 Active levothyroxine (SYNTHROID, LEVOTHROID) 50 MCG tablet Take 1 tablet (50 mcg total) by mouth daily. 2 Active losartan (COZAAR) 100 MG tablet Take 1 tablet (100 mg total) by mouth daily. 2 Active metoprolol tartrate (LOPRESSOR) 100 MG tablet Take 1 tablet (100 mg total) by mouth 2 (two) times daily. 2 Active nitroglycerin (NITROSTAT) 0.[address] under the tongue. 2 Active omeprazole (PriLOSEC) 40 MG capsule Take 1 capsule (40 mg total) by mouth daily. 2 Active potassium chloride (KLOR-CON-M) 10 MEQ CR tablet Take 1 tablet (10 mEq total) by mouth 2 (two) times daily. 2 Active alendronate (FOSAMAX) 70 MG tabletIndications:L flavio term systemic steroid user Take 1 tablet (70 mg total) by mouth once a week Take in the morning with a full glass of water, on an empty stomach, and do not take anything else by mouth or lie down for the next 30 min.. 12 tablet 1 4 Active DULoxetine (CYMBALTA) 30 MG capsuleIndications: Other osteoarthritis involving multiple joints Take 1 capsule (30 mg total) by mouth daily. 90 capsule 1 4 Active hydroxychloroquine (PLAQUENIL) 200 mg tabletIndications:S eropositive rheumatoid arthritis (HCC) Take 1 tablet (200 mg total) by mouth 2 (two) times daily. 180 tablet 1 4 Active leflunomide (ARAVA) 20 MG tabletIndications:S eropositive rheumatoid arthritis (HCC) Take 1 tablet (20 mg total) by mouth daily. 90 tablet 1 4 Active sulfaSALAzine (AZULFIDINE) 500 mg tabletIndications:S eropositive rheumatoid arthritis (HCC) Take 3 tablets (1,500 mg total) by mouth 2 (two) times daily. 540 tablet 1 4 Active predniSONE (DELTASONE) 5 MG tabletIndications:S eropositive rheumatoid arthritis (HCC) Take 1 tablet (5 mg total) by mouth 2 (two) times daily. 60 tablet 4 4 Active Active Problems Problem Noted Date Diagnosed Date Encounter for general adult medical examination without abnormal findings 03/25/2023 [facility] systemic steroid user 08/26/2021 Osteoarthritis 08/26/2021 Encounter for therapeutic drug level monitoring 08/26/2021 Sciatica 08/26/2021 Seropositive rheumatoid arthritis 08/26/2021 Other specified counseling 02/25/2021 Essential hypertension 12/15/2018 RA (rheumatoid arthritis) 12/15/2018 Tobacco abuse 12/15/2018 Immunizations Name Administration Dates Next Due Hepatitis A Adult 09/05/2019 Influenza Four-qiv Pf 09/05/2019 Influenza Four-qiv Pf 09/18/2020 Pneumococcal Polysaccharide (Pneumovax) 09/30/20 Social History Tobacco Use Types Packs/Day Years Used Date Smoking Tobacco: Former Smokeless Tobacco: Never Tobacco Cessation:Counseling Given: Not Answered Alcohol Use Standard Drinks/Week Comments Not Currently [...] Date Navi rded Speak language other than Mauritanian at home Not on file 11/24/2023 Want [...] Sign Reading Time Taken Comments Blood Pressure 136/85 12/14/2023 4:02 PM EST Pulse 69 12/14/2023 4:02 PM EST Temperature 36.7 C (98 F) 07/31/2023 3:26 PM EDT Respiratory Rate 16 12/14/2023 4:02 PM EST Oxygen Saturation 95% 07/31/2023 3:26 PM EDT Inhaled Oxygen Concentration - - Weight 97.4 kg (214 lb 12.8 oz) 12/14/2023 4:02 PM EST Height 167.6 cm (5' 6 ) 12/14/2023 4:02 PM EST Body Mass Index 34.67 12/14/2023 4:02 PM EST Plan of Treatment Health Maintenance Due Date Last Done Comments CT Colonography 1960 Colonoscopy 1960 Colorectal Cancer Screening 1960 FOBT/FIT 1960 Fit-DNA (Cologuard) 1960 Sigmoidoscopy 1960 Depression Screening (12+) 1972 HIV Screening 1975 Hepatitis C Screening 1978 DTAP/TDAP/TD VACCINES (1 - Tdap) 1979 Pap Smear 1981 Breast Cancer Screening 2000 Shingles Vaccine (Zoster) (1 of 2) 2010 Pneumococcal 50+ years (2 of 2 - PCV) 09/30/2020 Lipid Panel 12/15/2021 12/15/2018 COVID-19 VACCINE (2 - season) 2024 Tobacco Cessation Counseling and Screening (12+) 12/1412/14/2023 Influenza Vaccine (#1) 2025 Respiratory Syncytial Virus (RSV) Adult or (1 - 1-dose 75+ series) 2035 Insurance [facility] Care Teams Treater Relationship Specialty Start Date End Date Garfield Rose MD [address] [facility] [address] [place] [address] PCP - General Family Medicine 10/06/22
--- OUTSIDE RECORDS SUMMARY | 2025-05-15 08:09 | XMS_ITS | Patient Health Record ---
Author Organization [facility] Address [address] [place] [address] Care Team Providers Care Genetic Counsellor Name Role Phone Garfield Gorman Primary Care Provider Alvaro Jernigan II Unavailable Allergies Allergen (clinical drug ingredient) Drug/Non Drug Allergy documented on EMR Reaction Allergy Type Onset Date Status lisinopril stomach upset Drug Allergy Ac tive Results Component Value Reference Range Notes Urine Test ANALYZER Reviewed date:06/12/2024 10:28:22 AM Interpretation:+HYD+OPI Performing Lab: Notes/Report: +HYD+OPI Heroin Metabolite (6AM) NEG Amphetamine (AMP) NEG Benzodiazepine (SONAM) NEG Buprenorphine NEG Cocaine (VALERIA) NEG Hydrocodone (HYD) POS Methadone (MTD) NEG Opiate (OPI) POS Oxycodone (OXY) NEG Urine Test LCMS Definitive Reviewed date:06/26/2024 06:57:58 AM Interpretation:+gbp+hyd 3/3 Performing Lab: Notes/Report: +gbp+hyd 3/3 Reason For Referral No Information Medications Medication SIG (Take, Route, Frequency, Duration) Notes Start Date End Date Status nitroglycerin 0.4 mg/hr 1 PATCH [facility] once a day; Duration: 30 day(s) Active ibuprofen 800 mg 1 tab(s) orally 3 times a day Active cyclobenzaprine 10 mg 1 tab(s) orally 3 times a day Active predniSONE 5 mg 1 tab(s) orally once a day; Duration: 30 day(s) Active losartan 25 mg 1 tab(s) orally once a day; Duration: 30 day(s) Active Potassium Chloride (Rlo-Wpxq-Sha M20) 20 mEq TAKE 1 TABLET BY MOUTH TWICE DAILY; Duration: 30 Active omeprazole 40 mg 1 cap(s) orally once a day; Duration: 30 day(s) Active DULoxetine 30 mg 1 cap(s) orally 2 times a day 06/23/2022 Active gabapentin 600 mg 1/2 tab(s) orally three times a day; Duration: 28 day(s) DO NOT FILL SOONER THAN 28 DAYS, (OK TO FILL EARLY, ONLY IF CLOSED), Fax PA request to [phone] or [phone] Active Lipitor 80 mg 1 tab(s) orally once a day; Duration: 30 day(s) Active metoprolol 100 mg 1 tab(s) orally once a day; Duration: 30 day(s) Active Plavix 75 mg 1 tab(s) orally once a day; Duration: 30 day(s) Active Acetaminophen-Hydrocodo ne Bitartrate 325 mg-10 mg 1 tab(s) orally every 8 hours; Duration: 28 days DO NOT FILL SOONER THAN 28 DAYS, (OK TO FILL EARLY, ONLY IF CLOSED), Fax PA request to [phone] or [phone] Active ezetimibe 10 mg 1 tab(s) orally once a day; Duration: 30 day(s) Active Acetaminophen-Hydrocodo ne Bitartrate 325 mg-10 mg 1 tab(s) orally every 8 hours; Duration: 28 days DO NOT FILL SOONER THAN 28 DAYS, (OK TO FILL EARLY, ONLY IF CLOSED), Fax PA request to [phone] or [phone] Active Lasix 20 mg 1 tab(s) orally [...] Question Answer Notes Are you a: nonsmoker Problems Problem Type SNOMED Code ICD Code Onset Dates Problem Status W/U Status Risk Notes Problem Lumbosacral spondylosis without myelopathy (73006570) Other spondylosis with radiculopathy, lumbar region (M47.26) Active confirmed Problem Lumbosacral spondylosis without myelopathy (60516444) Spondylosis without myelopathy or radiculopathy, lumbar region (M47.816) Active confirmed Problem Degeneration of lumbar intervertebral disc (22776120) Other intervertebral disc degeneration, lumbar region (M51.36) Active confirmed Problem Lumbar radiculopathy (754399000) Radiculopathy, lumbar region (M54.16) Active confirmed Problem Long-term current use of drug therapy (394116004) Other [facility] (current) drug therapy (Z79.899) Active confirmed Problem Lumbar spondylosis (034786156) lumbar spondylosis (M47.816) Active confirmed Vital Signs Heart Rate 95 /min 06/12/2024 Blood pressure diastolic 113 mm Hg 06/12/2024 Height 65 in 06/12/2024 Blood pressure systolic 143 mm Hg 06/12/2024 Weight 205 lbs 06/12/2024 BMI 34.11 kg/m2 06/12/2024 Encounters Encounter Location Date Provider Diagnosis [facility] [address] [place] [address] 06/12/2024 Alvaro Banegas Other school examiner (current) drug therapy Z79.899 ; Radiculopathy, lumbar region M54.16 and Spondylosis without myelopathy or radiculopathy, lumbar region M47.816 [facility] [address] [place] [address] 07/09/2024 Alvaro Banegas Other spondylosis with radiculopathy, lumbar region M47.26 [facility] [address] [place] [address] 06/12/2024 Alvaro Banegas Other school examiner (current) drug therapy Z79.899 [facility] [address] [place] [address] 06/24/2024 Alvaro Banegas [facility] [address] [place] [address] 07/04/2024 Alvaro Banegas [facility] [address] [place] [address] 08/06/2024 Alvaro Banegas Assessments Encounter Date Diagnosis (ICD Code) Assessment Notes Treatment Notes Treatment Clinical Notes Section Notes 06/12/2024 Radiculopathy, lumbar region (ICD-10 - M54.16) Ms. [...] for tolerance of activities of daily living. Sancho and UDS were reviewed today and are compliant. Opioid risk assessment is low. Refill medications and f/u in 2 months. 06/12/2024 Other [facility] (current) drug therapy (ICD-10 - Z79.899) 06/12/2024 [...] for tolerance of activities of daily living. Sancho and UDS were reviewed today and are compliant. Opioid risk assessment is low. Refill medications and f/u in 2 months. 06/12/2024 Other school examiner (current) drug therapy (ICD-10 - Z79.899) 07/09/2024 Other spondylosis with radiculopathy, lumbar region (ICD-10 - M47.26) 06/12/2024 Spondylosis without myelopathy or radiculopathy, lumbar region [...] for tolerance of activities of daily living. Sancho and UDS were reviewed today and are compliant. Opioid risk assessment is low. Refill medications and f/u in 2 months. 08/16/2024 Ms. Wynne is here for follow-up examination [...] for tolerance of activities of daily living. Sancho and UDS were reviewed today and are compliant. Opioid risk assessment is low. Refill medications and f/u in 2 months. Plan Of Treatment No Information Insurance Providers Payer Name Payer Address Payer Phone Subscriber Number Group Number Insured Name Patient Relationship to Insured Coverage Start Date Coverage End Date [employer] [address] [address] [place] [address] [id number] Darleen Wynne Self - patient is the insured 1 Medical (General) History Medical History History ICD Code RA diagnosed [address] Gupta GERD- diagnosed [address] Jaciel jolley Hypertension diagnosed 2009 managed by [place] [facility] CAD diagnosed [address] Salinas rt Surgical History Surgery Date(Month/Year) Cardiac stent / [facility] / 2-3 da ys 12/2018
--- OUTSIDE RECORDS SUMMARY | 2025-05-15 08:09 | XMS_ITS | Referral Summary ---
Author Organization [employer] ([place], [place], [place], [place]) Address [address] [place] [address] Care Team Providers Care Repair Electric Motor Assembler Name Role Phone Garfield Rose MD Primary Care Provider [phone] Allergies Active Allergy Reactions Criticality Noted Date [...] adult medical examination without abnormal findings 03/25/2023 [facility] systemic steroid user 08/26/2021 Osteoarthritis 08/26/2021 Encounter [...] Date Navi rded Speak language other than American at home Not on file 11/24/2023 Want [...] 12/14/2023 4:02 PM EST Plan of Treatment Not on file Insurance [facility] Care Teams Repair Electric Motor Assembler Relationship Specialty Start Date End Date Garfield Rose MD [address] [facility] [address] [place] [address] PCP - General Family Medicine 10/06/22
--- NOTE | 2025-05-15 11:15 | CA_ITS ---
APPROVED REPORT EXAM: Comprehensive 2D, Doppler, and color-flow Echocardiogram Respiratory Medicine Physician: KESHAV Lambert, RVS Ht: 5 ft 5 in Wt: 163lbs BSA: 1.81 BP: 147/70 mmHg Indications: CAD, PAF, Edema, Pre-op,Smoker, [facility] resident Echo Enhancing Agent Comments: Limited exam: Due to patient intolerance to exam 2D Dimensions IVSd 0.64 cm F: 0.6-1.0 LVEF (Visual) 70.50 % PWd 0.76 cm F: 0.6 - 1.0 LA Volume 66.00 mL LVDd 4.75 cm F: 3.9 - 5.3 LA Volume Index 36.26 mL/m2 (M/F) 16-34 LVDs 2.85 cm F: 2.2 - 3.5 Left Atrium 3.35 cm F: 2.7 - 3.8 M-Mode Dimensions LA Diam 2.96 cm (1.9-4.0) EPSs 0.42 cm TAPSE 1.75 (<1.7) LV Diastology E Decel Time 230 (160-240 msec) E/A Ratio 0.71 MED A' 7.30 cm/s LAT A' 10.80 cm/s Aortic Valve AI PHT 467.00 ms AO Peak GR. 6.10 mmHg AO VTI 155.2 (18-25 cm) Mitral Valve MV A Velocity 102.0 (40-130 cm/s) E/A Ratio 0.71 Tricuspid Valve TR P. Velocity 258.00 cm/s RAP Estimate 10.00 mmHg RVSP 36.60 mmHg Left Ventricle The left ventricle is normal size. The left ventricular systolic function is normal. The left ventricular ejection fraction is within the normal range. Proximal septal thickening is present. There is normal LV segmental wall motion. Transmitral Doppler flow pattern suggests impaired LV relaxation. LVEF is 55%. Right Ventricle The right ventricle is normal size. The right ventricular systolic function is normal. Atria The left atrium is mildly dilated. The right atrium size is normal. There is no Doppler evidence of interatrial shunt. Aortic Valve The aortic valve is mildly thickened. There is no aortic valvular stenosis. Mild aortic regurgitation. Mitral Valve The mitral valve is normal in structure. No evidence of mitral valve stenosis. Mild mitral regurgitation. Tricuspid Valve Tricuspid valve is grossly normal in structure and function. Trace tricuspid regurgitation. There is insufficient TR jet to estimate RVSP. Pulmonic Valve The pulmonary valve is normal in structure. Trace pulmonic regurgitation. Great Vessels The aortic root is normal in size. IVC is normal in size and collapses >50% with inspiration. Pericardium There is no pericardial effusion. Other Information Study Quality: Fair Conclusion Normal biventricular systolic function. Mild LA dilation. Mild AI, mild MR. Electronically signed by : Shae Blunt MD 05/24/2025 15:14:05
== END 2025-05-15 23:59 | disposition home or self-care (01) ==
LOC: RAD 07:56
PROVIDERS: PCP Family Medicine; Visit Provider Nurse Practitioner
DX: Z01.810 Encounter for preprocedural cardiovascular examination (principal); I08.0 Rheumatic disorders of both mitral and aortic valves; I48.0 Paroxysmal atrial fibrillation; I25.10 Atherosclerotic heart disease of native coronary artery without angina pectoris; F17.200 Nicotine dependence, unspecified, uncomplicated; R60.9 Edema, unspecified
CPT/HCPCS: 93306

== ENCOUNTER 2025-06-18 18:57 | Outpatient (CLI) | payer MEDICAID, SELFPAY ==
--- OUTSIDE RECORDS SUMMARY | 2024-08-16 12:15 | XMS_ITS ---
Author Organization [facility] Address [address] [place] [address] Care Team Providers Care Bus Escort Name Role Phone Garfield Gorman Primary Care [...] ONLY IF CLOSED), Fax PA request to [phone] or [phone] Active metoprolol 100 mg 1 tab(s) orally once a day; Duration: 30 day(s) Active Acetaminophen-Hydrocodo ne Bitartrate 325 mg-10 mg 1 tab(s) orally every 8 hours; Duration: 28 days DO NOT FILL SOONER THAN 28 DAYS, (OK TO FILL EARLY, ONLY IF CLOSED), Fax PA request to [phone] or [phone] Active Acetaminophen-Hydrocodo ne Bitartrate 325 mg-10 mg 1 tab(s) orally every 8 hours; Duration: 28 days DO NOT FILL SOONER THAN 28 DAYS, (OK TO FILL EARLY, ONLY IF CLOSED), Fax PA request to [phone] or [phone] Active Potassium Chloride (Zyr-Xgqu-Ahc M20) 20 mEq TAKE 1 TABLET BY [...] Diagnosis [facility] [address] [place] [address] 08/16/2024 Alvaro Banegas Other laborer marine terminal (current) drug therapy Z79.899 ; Radiculopathy, lumbar region M54.16 and Spondylosis without myelopathy or radiculopathy, lumbar region M47.816 Assessments Encounter Date Diagnosis (ICD Code) Assessment Notes Treatment Notes Treatment Clinical Notes Section Notes 08/16/2024 Other laborer marine terminal (current) drug therapy (ICD-10 - Z79.899) 06/12/2024 [...] ONLY IF CLOSED), Fax PA request to [phone] or [phone] Acetaminophen-Hydrocodon e Bitartrate 325 mg-10 mg 1 tab(s) orally every 8 hours; Duration: 28 days DO NOT FILL SOONER THAN 28 DAYS, (OK TO FILL EARLY, ONLY IF CLOSED), Fax PA request to [phone] or [phone] Acetaminophen-Hydrocodon e Bitartrate 325 mg-10 mg 1 tab(s) orally every 8 hours; Duration: 28 days DO NOT FILL SOONER THAN 28 DAYS, (OK TO FILL EARLY, ONLY IF CLOSED), Fax PA request to [phone] or [phone] Treatment Notes Assessment Notes Other snf (current) drug therapy 06/12/2024 1. Refill hydrocodone/APAP [...] Notes * Raven WYNNEB:1960 (64 yo F)Acc No.[id number]:08/16/2024 FollowUP Patient: Darleen DONG Provider: Rancho Banegas II, M.D. :1960 A ge:64 Y S ex:Female Date:08/16/2024 Address:[facility] [address], [place], [id number] Pcp:Garfield Gorman Subjective: * Chief Complaints: * 1 . Low Back Pain. * HPI: T ODAYS PAIN EVALUATION: 64 year old female presents with c/o MEDICATION FOLLOW UP: T he patient is currently prescribed [place] 10/325mg TID and Gabapentin 300mg TID, which [...] other neural foramina ranges from mild to ntgs-qp-tjldkpld. . P REVIOUS INJECTION\PROCEDURE HISTORY:? 0 02/18/2021 [...] days . P HYSICAL/AQUA THERAPY/DME/OTHER HISTORY: S [facility] PT program completed- not helpful P atient continues a prescribed home exercise program 3-5 times per week from January 2022, continues as of December 2022 . P ERTINENT SURGICAL EVALUATIONS/SPECIALIST CONSULTS N o prior surgical consult . P REVIOUS PAIN CLINIC CARE: H [facility]- self-discharge . S UMMARY OF INITIAL EVALUATION: 0 02/12/2021- New patient consult referred by Milton for chronic back pain onset u nknown w ithout incident this is a 60 year-old female that was referred here in consultation for low back pain and bilateral leg pain. The patient has a long-standing rheumatoid arthritis and currently takes prednisone and an immunomodulator from her rv repairer. She injured her back a few months back and had a recent MRI back in October 2020 which demonstrates significant multilevel lumbar spondylosis as well as various degrees of mild to moderate neuroforaminal stenosis. She did have a lumbar SHUBHAM that was performed by Dr. Ryoa Montana but it appears that she had [...] to obtain her last procedure note from [facility] to review. I am going to [...] Surgical History: C ardiac stent / [facility] / 2-3 days 12/2018 . * Hospitalization/Major [...] once a day , Taking Potassium Chloride (Eqx-Skvk-Pmr M20) 20 mEq tablet, extended release TAKE [...] * Vitals: * Examination: G eneral Examination: Nurse/Rubber Engraver: Mini romanMA-RamirezElayne Mccullough 06/12/2024 10:56:32 AM > [...] 2021.. Assessment: * Assessment: 1. O ther snf (current) drug therapy - Z79.899 (Primary) 2 [...] signature of Alvino Banegas II, M.D. on 06/18/2025 at 06:01 PM CDT Sign off status: Pending * Provider: Rancho Banegas II, M.D. Date: Generated for Benoit correa/Ashley/Mino on: 0 06/18/2025 06:01 PM CDT History and Physical Notes * [...] takes prednisone and an immunomodulator from her rv repairer. She injured her back a few months [...] to obtain her last procedure note from [facility] to review. I am going to [...] other neural foramina ranges from mild to hjxe-lp-ladfutoq. PHYSICAL/AQUA THERAPY/DME/OT HER HISTORY: [facility] PT program completed- not helpful Patient [...] for * days PREVIOUS PAIN CLINIC CARE: [facility]- self-discharge COMPLIANCE RISK ASSESSMENT AND STRATIFICATI [...] FOLLOW UP: The patient is currently prescribed [place] 10/325mg TID and Gabapentin 300mg TID, which [...] wi th an antalgic gait, pitched forward Nurse/Rubber Engraver: Sommer Mcintosh (MA-Lex) 06/12/2024 10:56:32 AM > [...]
--- OUTSIDE RECORDS SUMMARY | 2025-05-29 06:50 | XMS_ITS | Continuity of Care Document ---
Author Organization [address] [place] [address] Address [address] [facility] [address] [place] [address] Phone Care Team Providers Care Top Printing Press Operator Name Role Phone Claudette Combs OD Unavailable Unavailable Allergies, Adverse Reactions, Alerts Substance Reaction Status Criticality lisinopril Active No Information Medications Medication Instructions Dosage Effective Dates (start - stop) Status Comments furosemide 40 mg tablet - Ac tive magnesium oxide 400 mg (241.3 mg magnesium) tablet - Active cyanocobalamin (vit B-12) 500 mcg tablet - Active metoprolol tartrate 100 mg tablet - Active potassium chloride ER 10 mEq tablet,extended release - Active cyclobenzaprine 10 mg tablet - Active Eliquis 5 mg tablet - Active ezetimibe 10 mg tablet - Act dianne hydroxychloroquine 200 mg tablet - Active leflunomide 20 mg tablet - A ctive levothyroxine 50 mcg tablet - Active losartan 100 mg tablet - Act dianne metoprolol tartrate 25 mg tablet - Active omeprazole 40 mg capsule,delayed release - Active duloxetine 30 mg capsule,delayed release - Active acetaminophen 500 mg tablet - Active DOK 100 mg tablet - Active Milk of Magnesia 400 mg/5 mL oral suspension - Active sulfasalazine 500 mg tablet - Active amoxicillin 875 mg-potassium clavulanate 125 mg tablet TAKE ONE TABLET BY MOUTH TWICE DAILY FOR 10 DAYS - Active sodium bicarbonate 650 mg tablet TAKE ONE TABLET BY MOUTH TWICE DAILY - Active furosemide 80 mg tablet - Ac tive gabapentin 600 mg tablet - A ctive hydrocodone 10 mg-acetaminophen 325 mg tablet - Active prednisone 5 mg tablet - Act dianne Procedures Procedure Date COMPRE OPH EXAM NEW PT 1/> COMPREHENSIVE HEARING TEST Trim Dystrophic nail(s) REMOVE IMPACTED EAR WAX Advance Directives Directive Yes / No Effective Date File Name No Information Encounters Encounter Description Practice Location Reason(s) For Visit Diagnoses Date Provider Providers Copied on Encounter [address] [place] [address], [id number], tel:[phone] [place] Blurry vision (chief complaint) Age-related nuclear cataract, bilateralHypermet ropia, bilateral 5 Lauryn Wilkins. , [place]. Referring Provider: Dalton Lee. [address] [place] [address], [id number], tel:[phone] [place] Encounter for examination of ears and hearing without abnormal findings 5 Unruly Raya. , [place]. Referring Provider: Dalton Lee. [address] [place] [address], [id number], tel:[phone] [place] Nail dystrophyOnychogr yphosisOther specified peripheral vascular diseasesOther abnormalities of gait and mobility 5 Fernando Barfield. , [place]. [address] [place] [address], [address] [place] [address], [id number], tel:[phone] [place] ear care exam, hearing loss (chief complaint) Impacted cerumen, bilateral 5 [place]. Referring Provider: Dalton Lee. [address] [place] [address], [id number] [facility], [place], [place], [id number], [place] tel:[phone] [place] No Information [place]. Family History Family Member Type Diagnosis Age At Onset No Information Payers Payer name Insurance type Covered green party ID Authoriza tireilly(s) Medicaid [facility] [id number] Social History Type Description Quantity Date Captured Comments Sex Female Smoking Status No Information Chief Complaint And Reason For Visit From encounter dated '05/29/2025 10:50'. Blurry vision (chief complaint). Description: The 64 year old patient presents for evaluation of Blurry vision in the right eye and left eye. It affects both near and far vision. Glasses are older and scratched. Denies eye pain Reason For Referral Reason For Referral No Information Plan Of Treatment Date Type Action Status Appointment Darleen Wynne Medicaid Only. BOOKED Appointment Darleen Wynne Medicaid Only. BOOKED Appointment Darleen Wynne BOOKED History Of Present Illness Encounter Date Complaint History Of Prese nt Illness Blurry vision The 64 year old patient presents for evaluation of Blurry vision in the right eye and left eye. It affects both near and far vision. Glasses are older and scratched. Denies eye pain Functional Status Date Functional Assessmen t No Information Instructions Date Instruction Additional Infor marshall Follow up - Return i n 12-15 months for dilated fundus exam. Impression/Plan - Up date specs. Recheck 1 year Related to Hypermetropia, bilateral Impression/Plan - NS L > R. Vision reduced from this but also scratches on old glasses. Recheck 1 year Related to Age-related nuclear cataract, bilateral Borderline normal he aring was recorded from 500-8000Hz bilaterally. The patient's functional hearing was good in both ears. Ear disease was not indicated. Further tx was not recommended at this time. Related to Encounter for examination of ears and hearing without abnormal findings All documented dystr ophic nails were reduced in length as needed to prevent pain and other symptoms. Related to Nail dystrophy All of the documente d thickened nails (which includes those nails 2 mm or more in thickness, and possible mycotic component to the nails) were debrided in both length and thickness using both a nail nipper and an electric rotary grinder operator surface tool in an atraumatic fashion; this was performed in an attempt to prevent pain and reduce risk of infection. Alcohol applied to the digits afterwards. Related to Onychogryphosis Discussed using comp ression stockings to assist in localize swelling and venous return, and the senior care benefits of using compression stockings. Reinforced the importance of proper adherence to using the natali hose, and compression stockings. Will continue to monitor. Related to Other specified peripheral vascular diseases PT instructed to con tinue use of DME equipment for safety, mobility, and reducing risk of falls/injury. Will continue to monitor. Pt denies recent falls in the past 3 months. Related to Other abnormalities of gait and mobility Performed cerumen re moval as per protocol. AU cleared. Follow up for reevaluation for chronic cerumen impaction. Would recommend audiology referral if patient, family, physician, and/or facility wishes to pursue audiology services. Related to Impacted cerumen, bilateral Assessments Type Assessment Date assessment Age-related nuclear cataract, bi lateral assessment Hypermetropia, bilateral 2024 impression {[email or web address]_[email or web address]_dtls} impression {oph_plan_.impression_dtls} Patient Care Teams Name Effective Dates (start - stop) Status Members No Information
--- OUTSIDE RECORDS SUMMARY | 2025-06-18 19:01 | XMS_ITS | Clinical Summary ---
Author Organization Healthcare Address [address] [place] [address] Care Team Providers Care Gold Layer Name Role Phone Aleksandra Richey APRN Primary Care Provider [phone] Family History Medical History Relation Name Comments [...] of Treatment Not on file Care Teams Gold Layer Relationship Specialty Start Date End Date Aleksandra Richey APRN [address] [place] [id number] PCP - General 03/19/21
--- OUTSIDE RECORDS SUMMARY | 2025-06-18 19:01 | XMS_ITS | Referral Summary ---
Author Organization [employer] ([place], [place], [place], [place]) Address [address] [place] [address] Care Team Providers Care Director Call Name Role Phone Garfield Rose MD Primary Care Provider [phone] Allergies Active Allergy Reactions Criticality Noted Date [...] adult medical examination without abnormal findings 03/25/2023 longterm systemic steroid user 08/26/2021 Osteoarthritis 08/26/2021 Encounter [...] Date Navi rded Speak language other than Ecuadorean at home Not on file 11/24/2023 Want [...] Plan of Treatment Not on file Insurance [facility] Care Teams Director Call Relationship Specialty Start Date End Date Garfield Rose MD [address] [facility] [address] [place] [address] PCP - General Family Medicine 10/06/22
--- OUTSIDE RECORDS SUMMARY | 2025-06-18 19:01 | XMS_ITS | Patient Health Record ---
Author Organization [facility] Address [address] [place] [address] Care Team Providers Care Boat Designer Name Role Phone Garfield Gorman Primary Care Provider Alvaro Jernigan II Unavailable Allergies Allergen (clinical drug ingredient) Drug/Non Drug Allergy documented on EMR Reaction Allergy Type Onset Date Status lisinopril lisinopril stomach upset Drug Allergy A ctive Reason For Referral No Information Medications Medication SIG (Take, Route, Frequency, Duration) Notes Start Date End Date Status nitroglycerin 0.4 mg/hr 1 PATCH [facility] once a day; Duration: 30 day(s) Active ibuprofen 800 mg 1 tab(s) orally 3 times a day Active cyclobenzaprine 10 mg 1 tab(s) orally 3 times a day Active predniSONE 5 mg 1 tab(s) orally once a day; Duration: 30 day(s) Active losartan 25 mg 1 tab(s) orally once a day; Duration: 30 day(s) Active Potassium Chloride (Jju-Xaux-Zse M20) 20 mEq TAKE 1 TABLET BY [...] ONLY IF CLOSED), Fax PA request to [phone] or [phone] Active Lipitor 80 mg 1 tab(s) orally [...] ONLY IF CLOSED), Fax PA request to [phone] or [phone] Active ezetimibe 10 mg 1 tab(s) orally once a day; Duration: 30 day(s) Active Acetaminophen-Hydrocodo ne Bitartrate 325 mg-10 mg 1 tab(s) orally every 8 hours; Duration: 28 days DO NOT FILL SOONER THAN 28 DAYS, (OK TO FILL EARLY, ONLY IF CLOSED), Fax PA request to [phone] or [phone] Active Lasix 20 mg 1 tab(s) orally [...] Risk Notes Problem Lumbosacral spondylosis without myelopathy (96887862) Other spondylosis with radiculopathy, lumbar region (M47.26) Active confirmed Problem Lumbosacral spondylosis without myelopathy (33997305) Spondylosis without myelopathy or radiculopathy, lumbar region (M47.816) Active confirmed Problem Degeneration of lumbar intervertebral disc (36278455) Other intervertebral disc degeneration, lumbar region (M51.36) Active confirmed Problem Lumbar radiculopathy (989032046) Radiculopathy, lumbar region (M54.16) Active confirmed Problem Long-term current use of drug therapy (873247779) Other retirement (current) drug therapy (Z79.899) Active confirmed Problem Lumbar spondylosis (387062954) lumbar spondylosis (M47.816) Active confirmed Encounters Encounter Location Date Provider Diagnosis [facility] [address] [place] [address] 07/09/2024 Alvaro Banegas Other spondylosis with radiculopathy, lumbar region M47.26 [facility] [address] [place] [address] 08/06/2024 Alvaro Banegas [facility] [address] [place] [address] 07/04/2024 Alvaro Banegas [facility] [address] [place] [address] 06/24/2024 Alvaro Banegas Assessments Encounter Date Diagnosis (ICD Code) Assessment Notes Treatment Notes Treatment Clinical Notes Section Notes 07/09/2024 Other spondylosis with radiculopathy, lumbar region (ICD-10 - M47.26) 08/16/2024 Ms. Wynne is here for follow-up [...] Coverage End Date [employer] [address] [address] [place] [address] [id number] Chaitanya Wynnea Self - patient is the insured 1 Medical (General) History Medical History History ICD Code RA diagnosed [address] uGpta GERD- diagnosed [address] Jaciel jolley Hypertension diagnosed 2009 managed by [place] CAD diagnosed [address] [place] rt Surgical History Surgery Date(Month/Year) Cardiac stent / [facility] / 2-3 da ys 12/2018
--- OUTSIDE RECORDS SUMMARY | 2025-06-18 19:01 | XMS_ITS | Clinical Summary ---
Author Organization [facility] Address [address] [place] [address] Care Team Providers Care Supervisor Carbon Electrodes Name Role Phone Garfield Rose MD Primary Care Provider [phone] Allergies Active Allergy Reactions Criticality Noted Date Comments Lisinopril Cough 04/02/2020 Medications omeprazole (priLOSEC) 40 MG capsule Take 1 capsule by mouth Daily. 30 capsule 9 Active aspirin 81 MG EC tablet Take 1 tablet by mouth Daily. 30 tablet 12/16/2018 2:41 PM EST 9 Active atorvastatin (LIPITOR) 80 MG tablet Take 1 tablet by mouth Every Night. 30 tablet 12 12/16/2018 2:41 PM EST 9 Active clopidogrel (PLAVIX) 75 MG tablet Take 1 tablet by mouth Daily. 30 tablet 12 12/16/2018 2:41 PM EST 9 Active nitroglycerin (NITROSTAT) 0.[address] 1 tablet under the tongue Every 5 (Five) Minutes As Needed for Chest Pain. Take no more than 3 doses in 15 minutes. 25 tablet 12 12/16/2018 2:41 PM EST 9 Active ezetimibe (ZETIA) 10 MG tablet Take 1 tablet by mouth Daily. 1 Active metoprolol tartrate (LOPRESSOR) 25 MG tablet Take 1 tablet by mouth Every 12 (Twelve) Hours for 30 days. 60 tablet 4 Active cyclobenzaprine (FLEXERIL) 10 MG tablet Take 0.5 tablets by mouth 2 (Two) Times a Day As Needed for Muscle Spasms. 12 tablet 4 Active hydroxychloroqui ne (PLAQUENIL) 200 MG tablet Take 1 tablet by mouth Daily. 4 Active leflunomide (ARAVA) 20 MG tablet Take 1 tablet by mouth Daily. Active gabapentin (NEURONTIN) 300 MG capsuleIndicatio ns:Rheumatoid arthritis, involving unspecified site, unspecified whether rheumatoid factor present Take 1 capsule by mouth Every 8 (Eight) Hours. 4 Active Lidocaine 4 % Place 1 patch on the skin as directed by provider Daily. Remove & Discard patch within 12 hours or as directed by MD Active naloxone (NARCAN) 4 MG/0.1ML nasal spray Call 911. Don't prime. Howells in 1 nostril for overdose. Repeat in 2-3 minutes in other nostril if no or minimal breathing/res ponsiveness. 2 each 4 Active melatonin 1 MG tablet Take 1.5 tablets by mouth At Night As Needed for Sleep. Active magnesium oxide (MAG-OX) 400 MG tablet Take 1 tablet by mouth Daily. Active sodium bicarbonate 650 MG tablet Take 2 tablets by mouth 3 (Three) Times a Day With Meals. Active folic acid (FOLVITE) 1 MG tablet Take 1 tablet by mouth Daily. 4 Active Active Problems Problem Noted Date Diagnosed Date Weakness 10/25/2024 Severe protein-calorie malnutrition 09/18/2024 Hyponatremia 09/16/2024 Anemia 09/16/2024 Pneumonia, unspecified organism 08/11/2024 Cavitary lesion of lung 07/29/2024 Pneumonia due to other gram-negative bacteria Pneumonia 07/21/2024 RA (rheumatoid arthritis) 12/15/2018 Tobacco abuse 12/15/2018 Essential hypertension 12/15/2018 Resolved Problems Problem Noted Date Diagnosed Date Resolved Date Diarrhea 09/16/2024 09/23/2024 Lactic acidosis 09/16/2024 09/23/2024 Hypokalemia 09/16/2024 09/23/2024 Hypomagnesemia 09/16/2024 09/23/2024 Leukocytosis 09/16/2024 09/23/2024 Encephalopathy, metabolic 09/16/2024 Acute kidney injury 07/22/2024 08/08/20 24 NSTEMI (non-ST elevated myoc ardial infarction) 12/15/2018 12/16/2018 Family History Medical History Relation Name Comments Diabetes Mother Heart disease Mother Hypertension Mother Arthritis Paternal Grandfather Relation Name Status Comments Mother Paternal Grandfather Social History Tobacco Use Types Packs/Day Years Used Date Smoking Tobacco: Former Cigarettes 0.5 40 1 979 - 2019 Smokeless Tobacco: Never Tobacco Cessation:Counseling Given: No Alcohol Use Standard Drinks/Week Comments Never 0 (1 standard drink = 0.6 oz pur e alcohol) [facility] Utilities Answer Date Recorded In the past 12 months has th e electric, gas, oil, or water company threatened to shut off services in your home? No 09/17/2024 AUDIT-C Answer Date Recorded Q1: How often do you have a drink containing alcohol? Never 10/25/2024 Q2: How many drinks containi ng alcohol do you have on a typical day when you are drinking? Patient does not drink Q3: How often do you have si x or more drinks on one occasion? Never 10/25/2024 Overall Financial Resource Strain (CARDIA) Answe r Date Recorded How hard is it for you to pa y for the very basics like food, housing, medical care, and heating? Somewhat hard 09/17/2024 [facility] - Occupational Stress Questionnaire Answer Date Recorded Do you feel stress - tense, restless, nervous, or anxious, or unable to sleep at night because your mind is troubled all the time - these days? Only a little 09/17/2024 Exercise Vital Sign Answer Date Recorde d On average, how many days pe r week do you engage in moderate to strenuous exercise (like a brisk walk)? 0 days 09/17/2024 On average, how many minutes do you engage in exercise at this level? 0 min 09/17/2024 Hunger Vital Sign Answer Date Recorded Within the past 12 months, y ou worried that your food would run out before you got the money to buy more. Never true 09/17/20 24 Within the past 12 months, t he food you bought just didn't last and you didn't have money to get more. Never true 09/17/2024 PRAPARE - Transportation Answer Date Re corded In the past 12 months, has l ack of transportation kept you from medical appointments or from getting medications? No 09/06 In the past 12 months, has l ack of transportation kept you from meetings, work, or from getting things needed for daily living? No 09/17/2024 Abuse Screen Answer Date Recorded Feels Unsafe at Home or Work/School no 10/25/2024 Feels Threatened by Someone no 10/07 Does Anyone Try to Keep You From Having Contact with Others or Doing Things Outside Your Home? no 10/25/2024 Physical Signs of Abuse Present no 10/25/2024 Housing Stability Answer Date Recorded Current Living Arrangements home 10/07 Potentially Unsafe Housing Conditions none 10/25/2024 Family and Community Support Answer Edwin e Recorded If for any reason you need h elp with day-to-day activities such as bathing, preparing meals, shopping, managing finances, etc., do you get the help you need? I could use a little more help 09/17/2024 How often do you feel lonely or isolated from those around you? Never 09/17/2024 Employment Answer Date Recorded Do you want help finding or keeping work or a job? I do not need or want help 09/17/2024 Disabilities Answer Date Recorded Difficulty Concentrating, Remembering or Making Decisions no 10/25/2024 Difficulty Managing Errands Independently no 10/25/2024 Education Answer Date Recorded Do you want help with school or training? For example, starting or completing job training or getting a high school diploma, GED or equivalent No 09/17/2024 Preferred Language Azerbaijani 09/17/2024 PHQ-2 Answer Date Recorded Patient Health Questionnaire-2 Score 0 09/17/2024 Comments No Sex and Gender Information Value Date Recorded Sex Assigned at Not on file Legal Sex Female 2:11 AM EST Gender Identity Not on file Sexual Orientation Not on file Last Filed Vital Signs Vital Sign Reading Time Taken Comments Blood Pressure 121/69 10/26/2024 9:27 AM EST Pulse 69 10/26/2024 11:00 AM EST Temperature 36.3 C (97.3 F) 10/26/2024 7:00 AM EST Respiratory Rate 16 10/26/2024 7:00 AM EST Oxygen Saturation 92% 10/26/2024 11:00 AM EST Inhaled Oxygen Concentration - - Weight 68 kg (150 lb) 10/25/2024 5:49 PM EST Height 165.1 cm (5' 5 ) 10/25/2024 4:32 PM EST Body Mass Index 24.96 10/25/2024 4:32 PM EST Plan of Treatment Health Maintenance Due Date Last Done Comments Annual Gynecologic Pelvic an d Breast Exam 1960 TDAP/TD VACCINES (1 - Tdap) 1979 PAP SMEAR 1981 MAMMOGRAM 2000 COLOGUARD 2005 COLON CANCER SCREENING 5 YEA R SIGMOIDOSCOPY [address] COLONOGRAPHY 2005 FIT Testing (1 year) 2005 ZOSTER VACCINE (1 of 2) 2010 ANNUAL PHYSICAL 12/17/2018 HEPATITIS C SCREENING 12/17/2018 Pneumococcal Vaccine 50+ (2 of 2 - PCV) 09/30/2020 09/30/2019 COVID-19 Vaccine (2 - 2023-2 5 season) 2024 06/04/2021 COLORECTAL CANCER SCREENING 07/29/2025 FECAL OCCULT BLOOD TEST 07/29/2025 07/29/2024 INFLUENZA VACCINE 08/06/2025 09/18/2020, 09/05/2019 LUNG CANCER SCREENING 09/18/2025 09/18/2024 , 08/04/2024, 07/30/2024, Additional history exists Medical Devices Implanted Type Area Public Works Laborer Device Identifier Shelf Expiration Date Model / Serial / Lot Stent Cornry Resolute Raymond Rx 2x30mm - [id number] Implanted:Qty: 1 on 12/15/2018 by Moreno May MD at [facility] 03/29/2020 [id number] / / [id number] Procedures Procedure Name Priority Date/Time Associated Diagnosis Comments CT CHEST WO CONTRAST DIAGNOSTIC Routine 09/18/2024 7:10 PM EST POCT OCCULT BLOOD STOOL STAT 07/29/2024 8:40 PM EDT from Last 3 Months or Most Recently Relevant to Health Maintenance Results * CT Chest Without Contrast Diagnostic (09/18/2024 7:10 PM EST) Anatomical Region Laterality Modality Chest N/A Computed Tomogra phy 09/18/2024 10:2 3 PM EST Impressions 09/18/2024 10:32 PM EST Impression: 1.Decreased size of right upper lobe cavitary lesion, right middle lobe cavitary lesion, and partially cavitary right lower lobe consolidation compared to 08/04/2024 CT. 2.Increased small left pleural effusion with new linear left lower lobe opacity, likely representing subsegmental atelectasis. Electronically Signed: Samina Mooney 09/18/2024 10:32 PM EST Workstation ID: [id number] Narrative 09/18/2024 10:[address] CHEST WO CONTRAST DIAGNOSTIC Date of Exam: 09/18/2024 7:04 PM EST Indication: cavitary lesions - follow up Comparison: CT chest 08/04/2024 Technique: Axial CT images were obtained of the chest without contrast administration. Reconstructed coronal and sagittal images were also obtained. Automated exposure control and iterative construction methods were used. Findings: Thick walled cavitary lesion in the right upper lobe has decreased in size and now measures 2.6 x 1.7 cm on axial image 30, previously 3.2 x 2.8 cm on 08/04/2024. Previously seen cavitary lesion in the right middle lobe is no longer cavitary and has decreased in size now measuring 1.3 x 0.6 cm on axial image 58, previously 2.5 x 1.4 cm. Right lower lobe consolidation with a small cavitary area has also decreased in size. No new cavitary lesions are seen. There is new linear opacity in the left lower lobe. Trace right pleural fluid has essentially resolved. Small left pleural effusion has increased. Heart size is normal. There are coronary artery calcifications. No lymphadenopathy is seen in the chest. Partially included solid organs of the upper abdomen appear unremarkable for noncontrast CT. No acute osseous abnormality is identified. There are degenerative changes in the lower thoracic and upper lumbar spine. Procedure Note Samina Mooney MD - 09/18/2024 CT CHEST WO CONTRAST DIAGNOSTIC Date of Exam: 09/18/2024 7:04 PM EST Indication: cavitary lesions - follow up Comparison: CT chest 08/04/2024 Technique: Axial CT images were obtained of the chest without contrastadministration. Reconstructed coronal and sagittal images were alsoobtained. Automated exposure control and iterative construction methodswere used. Findings: Thick walled cavitary lesion in the right upper lobe has decreased in sizeand now measures 2.6 x 1.7 cm on axial image 30, previously 3.2 x 2.8 cmon 08/04/2024. Previously seen cavitary lesion in the right middle lobe isno longer cavitary and has decreased in size now measuring 1.3 x 0.6 cm on axial image 58, previously2.5 x 1.4 cm. Right lower lobe consolidation with a small cavitary areahas also decreased in size. No new cavitary lesions are seen. There is newlinear opacity in the left lower lobe. Trace right pleural fluid has essentially resolved. Small left pleuraleffusion has increased. Heart size is normal. There are coronary arterycalcifications. No lymphadenopathy is seen in the chest. Partiallyincluded solid organs of the upper abdomen appear unremarkable for noncontrast CT. No acute osseous abnormality isidentified. There are degenerative changes in the lower thoracic and upperlumbar spine. IMPRESSION: Impression: 1.Decreased size of right upper lobe cavitary lesion, right middle lobecavitary lesion, and partially cavitary right lower lobe consolidationcompared to 08/04/2024 CT. 2.Increased small left pleural effusion with new linear left lower lobeopacity, likely representing subsegmental atelectasis. Electronically Signed: Samina Mooney 09/18/2024 10:32 PM EST Workstation ID: [id number] Kristen Landaverde MD IM CT ORDERABLES Final Result * (ABNORMAL) POC Occult Blood Stool (07/29/2024 8:40 PM EDT) Fecal Occult Blood Positive(A) [facility] Lot Number [id number] [facility] Expiration Date 08/2025 [facility] DEVELOPER LOT NUMBER [id number] [facility] DEVELOPER EXPIRATION DATE 06/2027 [facility] Positive Control Positive [facility] Negative Control Negative [facility] Stool Specimen from rectum / Unknown [facility] Carl Hennessy MD POINT OF CARE TEST ORDERA BLES Final Result [facility]
[address] [place] [address], from Last 3 Months or Most Recently Relevant to Health Maintenance Insurance [facility] MEDICAID Advance Directives Documents on File Type Date Recorded Patient Director Project Management Expl anation [employer] RECORDS - SCAN 07/31/2024 12:06 PM [facility] * CPR (Attempt to Resuscitate) (Latest Code Status on File) Date Activated Date Inactivated Comments 10/25/2024 8:48 PM 10/26/2024 2:52 PM Question Answer Comments Code Status (Patient has no pulse and is not breathing): CPR (Attempt to Resuscitate) Medical Interventions (Patie nt has pulse or is breathing): Full Support Level Of Support Discussed With: Patient * CPR (Attempt to Resuscitate) Date Activated Date Inactivated Comments 09/17/2024 3:15 AM 09/23/2024 5:42 PM Question Answer Comments Code Status (Patient has no pulse and is not breathing): CPR (Attempt to Resuscitate) Medical Interventions (Patie nt has pulse or is breathing): Full Support * CPR (Attempt to Resuscitate) Date Activated Date Inactivated Comments 07/30/2024 1:16 AM 08/11/2024 3:44 PM Question Answer Comments Code Status (Patient has no pulse and is not breathing): CPR (Attempt to Resuscitate) Medical Interventions (Patie nt has pulse or is breathing): Full Support Level Of Support Discussed With: Patient * CPR (Attempt to Resuscitate) Date Activated Date Inactivated Comments 07/21/2024 9:59 PM 07/24/2024 8:58 PM Question Answer Comments Code Status (Patient has no pulse and is not breathing): CPR (Attempt to Resuscitate) Medical Interventions (Patie nt has pulse or is breathing): Full Support * CPR (Attempt to Resuscitate) Date Activated Date Inactivated Comments 12/15/2018 5:32 AM 12/16/2018 5:58 PM Question Answer Comments Code Status (Patient has no pulse and is not breathing): CPR (Attempt to Resuscitate) Medical Interventions (Patie nt has pulse or is breathing): Full Care Teams Supervisor Carbon Electrodes Relationship Specialty Start Date End Date Garfield Rose MD PCP - General Family Medicine 11/03/20
--- OUTSIDE RECORDS SUMMARY | 2025-06-18 19:01 | XMS_ITS | Encounter Summary ---
Author Organization [facility] ([place], [place], [place], [place]) Address [address] [place] [address] Care Team Providers Care Industrial Roof Plumber Name Role Phone Garfield Rose MD Primary Care Provider [phone] Reason for Visit * Reason Comments Medication Refill Encounter Details Date Type Department Care Team (Late st Contact Info) Description 06/08/2023 Refill [facility] Rheumatology [address] [facility] [address] [place] [address] Manuela Greenfield MD [address] [facility] [address] [place], [place] [id number] Social History Tobacco Use Types Packs/Day Years [...] on filedocumented in this encounter Care Teams Industrial Roof Plumber Relationship Specialty Start Date End Date Garfield Rose MD [address] [facility] [address] [place] [address] PCP - General Family Medicine 10/06/22 documented as of this encounter
--- OUTSIDE RECORDS SUMMARY | 2025-06-18 19:01 | XMS_ITS | Clinical Summary ---
Author Organization [employer] ([place], [place], [place]) Address [address] [place] [address] Care Team Providers Care Candy Cutter Machine Name Role Phone Garfield Rose MD Primary Care Provider [phone] Allergies Active Allergy Reactions Criticality Noted Date [...] adult medical examination without abnormal findings 03/25/2023 detention systemic steroid user 08/26/2021 Osteoarthritis 08/26/2021 Encounter [...] Date Navi rded Speak language other than Hungarian at home Not on file 11/24/2023 Want [...] (1 - 1-dose 75+ series) 2035 [place] [address] Care Teams Candy Cutter Machine Relationship Specialty Start Date End Date Garfield Rose MD [address] [facility] [address] [place] [address] PCP - General Family Medicine 10/06/22
--- OUTSIDE RECORDS SUMMARY | 2025-06-18 19:01 | XMS_ITS | Encounter Summary ---
Author Organization [employer] ([place], [place], [place]) Address [address] [place] [address] Care Team Providers Care Roof Technician Name Role Phone Garfield Rose MD Primary Care Provider [phone] Reason for Visit * Reason Comments Medication Refill Encounter Details Date Type Department Care Team (Late st Contact Info) Description 04/05/2024 Refill [facility] Rheumatology [address] [place] [address] Manuela Greenfield MD [address] [facility] [address] [place] [address] Other osteoarthritis involving multiple joints Social History [...] Date Navi rded Speak language other than Bulgarian at home Not on file 11/24/2023 Want [...] joints documented in this encounter Care Teams Roof Technician Relationship Specialty Start Date End Date Garfield Rose MD [address] [facility] [address] [place] [id number] PCP - General Family Medicine 10/06/22 documented as of this encounter
--- OUTSIDE RECORDS SUMMARY | 2025-06-18 19:01 | XMS_ITS | Clinical Summary ---
Author Organization [facility] Address [address] [facility] [address] [place] [address] Phone Care Team Providers Care Brinell Tester Name Role Phone Unavailable Unavailable Conditions or Problems No information available. Medications No information available. Medications Administered No information available. Allergies, Adverse Reactions, Alerts No information available. Results No information available. Plan of Care No information available. Procedures No information available. Vital Signs No information available. Immunizations No information available. Advance Directives No information available.
[2025-06-18 20:01] LABS: Hematocrit 25.0 % (37.0-47.0); Hemoglobin 8.2 g/dL (12.2-16.2); Immature Granulocytes % 0.2 %; Mean Corpuscular HGB Conc 32.8 g/dL (31.8-35.4); Mean Corpuscular Hemoglobin 27.3 pg (27.0-31.2); Mean Corpuscular Volume 83.3 fl (81-99); Nucleated Red Blood Cells % 0 %; Platelet Count 213 K/mm3 (142-424); Red Blood Count 3.00 M/mm3 (4.20-5.40); Red Cell Distribution Width-SD 47.0 fL; White Blood Count 5.8 K/mm3 (4.8-10.8)
[2025-06-18 21:19] LABS: Alanine Aminotransferase 10 U/L (12-78); Albumin Level 3.5 g/dl (3.5-5.0); Albumin/Globulin Ratio 1.4 (1.1-1.8); Alkaline Phosphatase 126 U/L (38-126); Anion Gap 11.5 mEq/L (5-15); Aspartate Amino Transferase 19 U/L (14-36); Blood Urea Nitrogen 17 mg/dl (7-17); Calcium 8.7 mg/dl (8.4-10.2); Carbon Dioxide 21 mmol/L (22.0-30.0); Chloride 97 mmol/L (98-107); Creatinine,Serum 1.30 mg/dl (0.52-1.04); Estimated Glomerular Filt Rate 41 ml/min (>60); GFR (African American) 50 ML/MIN (>60); Globulin 2.5 g/dL (1.3-3.2); Glucose 97 mg/dl (74-100); Potassium 4.5 mmoL/L (3.5-5.1); Sodium 125 mmol/L (136-145); Total Protein,Serum 6.0 g/dl (6.3-8.2)
[2025-06-18 21:25] LABS: Bilirubin,Total 0.1 mg/dl (0.2-1.3)
[2025-06-18 21:51] LABS: Thyroid Stimulating Hormone 1.32 uIU/mL (0.465-4.68)
== END 2025-06-18 23:59 | disposition home or self-care (01) ==
LOC: LAB.DROPOF 18:59
PROVIDERS: PCP Nurse Practitioner Family; Visit Provider Nurse Practitioner Family
DX: D64.9 Anemia, unspecified (principal); E03.9 Hypothyroidism, unspecified; E87.6 Hypokalemia
CPT/HCPCS: 80053; 84443; 85025

== ENCOUNTER 2025-06-24 18:44 | Inpatient (IN) | payer MEDICAID, SELFPAY ==
--- OUTSIDE RECORDS SUMMARY | 2024-08-16 12:15 | XMS_ITS ---
Author Organization [facility] Address [address] [place] [address] Care Team Providers Care Paper Tube Cutter Name Role Phone Garfield Gorman Primary Care Provider Alvaro Jernigan II Unavailable [phone] Allergies Allergen (clinical drug ingredient) Drug/Non Drug [...] ONLY IF CLOSED), Fax PA request to [phone] or [phone] Active metoprolol 100 mg 1 tab(s) orally once a day; Duration: 30 day(s) Active Acetaminophen-Hydrocodo ne Bitartrate 325 mg-10 mg 1 tab(s) orally every 8 hours; Duration: 28 days DO NOT FILL SOONER THAN 28 DAYS, (OK TO FILL EARLY, ONLY IF CLOSED), Fax PA request to [phone] or [phone] Active Acetaminophen-Hydrocodo ne Bitartrate 325 mg-10 mg 1 tab(s) orally every 8 hours; Duration: 28 days DO NOT FILL SOONER THAN 28 DAYS, (OK TO FILL EARLY, ONLY IF CLOSED), Fax PA request to [phone] or [phone] Active Potassium Chloride (Hka-Jxse-Gdq M20) 20 mEq TAKE 1 TABLET BY [...] Diagnosis [facility] [address] [place] [address] 08/16/2024 Alvaro Banegas Other press tender long goods (current) drug therapy Z79.899 ; Radiculopathy, lumbar region M54.16 and Spondylosis without myelopathy or radiculopathy, lumbar region M47.816 Assessments Encounter Date Diagnosis (ICD Code) Assessment Notes Treatment Notes Treatment Clinical Notes Section Notes 08/16/2024 Other press tender long goods (current) drug therapy (ICD-10 - Z79.899) 06/12/2024 [...] ONLY IF CLOSED), Fax PA request to [phone] or [phone] Acetaminophen-Hydrocodon e Bitartrate 325 mg-10 mg 1 tab(s) orally every 8 hours; Duration: 28 days DO NOT FILL SOONER THAN 28 DAYS, (OK TO FILL EARLY, ONLY IF CLOSED), Fax PA request to [phone] or [phone] Acetaminophen-Hydrocodon e Bitartrate 325 mg-10 mg 1 tab(s) orally every 8 hours; Duration: 28 days DO NOT FILL SOONER THAN 28 DAYS, (OK TO FILL EARLY, ONLY IF CLOSED), Fax PA request to [phone] or [phone] Treatment Notes Assessment Notes Other chcf (current) drug therapy 06/12/2024 1. Refill hydrocodone/APAP [...] supervising physician Progress Notes * Raven WYNNEB:1960 (64 yo F)Acc No.[id number]:08/16/2024 FollowUP Patient: Darleen DONG Provider: Rancho Banegas II, M.D. :1960 A ge:64 Y S ex:Female Date:08/16/2024 Address:[facility] [address], [place], [id number] Pcp:Garfield Gorman Subjective: * Chief Complaints: * 1 . Low Back Pain. * HPI: T ODAYS PAIN EVALUATION: 64 year old female presents with c/o MEDICATION FOLLOW UP: T he patient is currently prescribed [place] 10/325mg TID and Gabapentin 300mg TID, which [...] other neural foramina ranges from mild to gswo-su-ruehfadv. . P REVIOUS INJECTION\PROCEDURE HISTORY:? 0 02/18/2021 [...] days . P HYSICAL/AQUA THERAPY/DME/OTHER HISTORY: S [facility] PT program completed- not helpful P atient continues a prescribed home exercise program 3-5 times per week from January 2022, continues as of December 2022 . P ERTINENT SURGICAL EVALUATIONS/SPECIALIST CONSULTS N o prior surgical consult . P REVIOUS PAIN CLINIC CARE: H [facility]- self-discharge . S UMMARY OF INITIAL EVALUATION: 0 02/12/2021- New patient consult referred by Milton for chronic back pain onset u nknown w ithout incident this is a 60 year-old female that was referred here in consultation for low back pain and bilateral leg pain. The patient has a long-standing rheumatoid arthritis and currently takes prednisone and an immunomodulator from her reed press feeder. She injured her back a few months [...] to obtain her last procedure note from [facility] to review. I am going to [...] Surgical History: C ardiac stent / [facility] / 2-3 days 12/2018 . * Hospitalization/Major [...] once a day , Taking Potassium Chloride (Ggh-Cdon-Afn M20) 20 mEq tablet, extended release TAKE [...] * Vitals: * Examination: G eneral Examination: Nurse/Shake Sawyer: Mini romanMA-RamirezElayne Mccullough 06/12/2024 10:56:32 AM > [...] 2021.. Assessment: * Assessment: 1. O ther chcf (current) drug therapy - Z79.899 (Primary) 2 [...] signature of Alvino Banegas II, M.D. on 06/24/2025 at 05:50 PM CDT Sign off status: Pending * Provider: Rancho Banegas II, M.D. Date: Generated for Benoit correa/Ashley/Mino on: 0 06/24/2025 05:50 PM CDT History and Physical Notes * HPI [...] takes prednisone and an immunomodulator from her reed press feeder. She injured her back a few months [...] If we were to consider lumbar transforaminal HSUBHAM's in the future, this we discontinued for 7 days. I am going to obtain her last procedure note from [facility] to review. I am going to [...] other neural foramina ranges from mild to btih-fg-tdxxveuk. PHYSICAL/AQUA THERAPY/DME/OT HER HISTORY: [facility] PT program completed- not helpful Patient [...] for * days PREVIOUS PAIN CLINIC CARE: [facility]- self-discharge COMPLIANCE RISK ASSESSMENT AND STRATIFICATI [...] FOLLOW UP: The patient is currently prescribed [place] 10/325mg TID and Gabapentin 300mg TID, which [...] wi th an antalgic gait, pitched forward Nurse/Shake Sawyer: Sommer Mcintosh (MA-Lex) 06/12/2024 10:56:32 AM > [...]
--- OUTSIDE RECORDS SUMMARY | 2024-08-16 12:15 | XMS_ITS ---
Author Organization [facility] Address [address] [place] [address] Care Team Providers Care Retail Event Assistant Name Role Phone Garfield Gorman Primary Care [...] ONLY IF CLOSED), Fax PA request to [phone] or [phone] Active metoprolol 100 mg 1 tab(s) orally once a day; Duration: 30 day(s) Active Acetaminophen-Hydrocodo ne Bitartrate 325 mg-10 mg 1 tab(s) orally every 8 hours; Duration: 28 days DO NOT FILL SOONER THAN 28 DAYS, (OK TO FILL EARLY, ONLY IF CLOSED), Fax PA request to [phone] or [phone] Active Acetaminophen-Hydrocodo ne Bitartrate 325 mg-10 mg 1 tab(s) orally every 8 hours; Duration: 28 days DO NOT FILL SOONER THAN 28 DAYS, (OK TO FILL EARLY, ONLY IF CLOSED), Fax PA request to [phone] or [phone] Active Potassium Chloride (Auf-Vkxf-Jcf M20) 20 mEq TAKE 1 TABLET BY [...] Diagnosis [facility] [address] [place] [address] 08/16/2024 Alvaro Banegas Other intermediate card tender (current) drug therapy Z79.899 ; Radiculopathy, lumbar region M54.16 and Spondylosis without myelopathy or radiculopathy, lumbar region M47.816 Assessments Encounter Date Diagnosis (ICD Code) Assessment Notes Treatment Notes Treatment Clinical Notes Section Notes 08/16/2024 Other intermediate card tender (current) drug therapy (ICD-10 - Z79.899) 06/12/2024 [...] ONLY IF CLOSED), Fax PA request to [phone] or [phone] Acetaminophen-Hydrocodon e Bitartrate 325 mg-10 mg 1 tab(s) orally every 8 hours; Duration: 28 days DO NOT FILL SOONER THAN 28 DAYS, (OK TO FILL EARLY, ONLY IF CLOSED), Fax PA request to [phone] or [phone] Acetaminophen-Hydrocodon e Bitartrate 325 mg-10 mg 1 tab(s) orally every 8 hours; Duration: 28 days DO NOT FILL SOONER THAN 28 DAYS, (OK TO FILL EARLY, ONLY IF CLOSED), Fax PA request to [phone] or [phone] Treatment Notes Assessment Notes Other custodial (current) drug therapy 06/12/2024 1. Refill hydrocodone/APAP [...] Notes * Raven WYNNEB:1960 (64 yo F)Acc No.[id number]:08/16/2024 FollowUP Patient: Darleen DONG Provider: Rancho Banegas II, M.D. :1960 A ge:64 Y S ex:Female Date:08/16/2024 Address:[facility] [address], [place], [id number] Pcp:Garfield Gorman Subjective: * Chief Complaints: * 1 . Low Back Pain. * HPI: T ODAYS PAIN EVALUATION: 64 year old female presents with c/o MEDICATION FOLLOW UP: T he patient is currently prescribed [place] 10/325mg TID and Gabapentin 300mg TID, which [...] other neural foramina ranges from mild to plet-kv-yriytgit. . P REVIOUS INJECTION\PROCEDURE HISTORY:? 0 02/18/2021 [...] days . P HYSICAL/AQUA THERAPY/DME/OTHER HISTORY: S [facility] PT program completed- not helpful P atient continues a prescribed home exercise program 3-5 times per week from January 2022, continues as of December 2022 . P ERTINENT SURGICAL EVALUATIONS/SPECIALIST CONSULTS N o prior surgical consult . P REVIOUS PAIN CLINIC CARE: H [facility]- self-discharge . S UMMARY OF INITIAL EVALUATION: 0 02/12/2021- New patient consult referred by Milton for chronic back pain onset u nknown w ithout incident this is a 60 year-old female that was referred here in consultation for low back pain and bilateral leg pain. The patient has a long-standing rheumatoid arthritis and currently takes prednisone and an immunomodulator from her rn psych. She injured her back a few months [...] to obtain [facility] to [facility]. I am going to take [...] Surgical History: C ardiac stent / [facility] / 2-3 days 12/2018 . * Hospitalization/Major [...] once a day , Taking Potassium Chloride (Gzm-Sden-Csh M20) 20 mEq tablet, extended release TAKE [...] * Vitals: * Examination: G eneral Examination: Nurse/Eggs Inspector: Mini romanMA-RamirezElayne Mccullough 06/12/2024 10:56:32 AM > [...] 2021.. Assessment: * Assessment: 1. O ther custodial (current) drug therapy - Z79.899 (Primary) 2 [...] signature of Alvino Banegas II, M.D. on 06/25/2025 at 12:21 PM CDT Sign off status: Pending * Provider: Rancho Banegas II, M.D. Date: Generated for Benoit correa/Ashley/Mino on: 0 06/25/2025 12:21 PM CDT History and Physical Notes * [...] takes prednisone and an immunomodulator from her rn psych. She injured her back a few months [...] to obtain her last procedure note from [facility] to review. I am going to take [...] other neural foramina ranges from mild to wpck-cr-frtvldpv. PHYSICAL/AQUA THERAPY/DME/OT HER HISTORY: [facility] PT program completed- not helpful Patient continues [...] for * days PREVIOUS PAIN CLINIC CARE: [facility]- self-discharge COMPLIANCE RISK ASSESSMENT AND STRATIFICATI ON: [...] FOLLOW UP: The patient is currently prescribed [place] 10/325mg TID and Gabapentin 300mg TID, which [...] wi th an antalgic gait, pitched forward Nurse/Eggs Inspector: Sommer Mcintosh (MA-Lex) 06/12/2024 10:56:32 AM > [...]
[2025-06-24] VITALS (8 sets, daily range): BP systolic 130–194; BP diastolic 75–118; PULSE 69–90; RESP 16–20; TEMP 36.6–36.9; O2SAT 85–98; BMI 27.4; BMI 33.1
--- OUTSIDE RECORDS SUMMARY | 2025-06-24 10:27 | XMS_ITS | Continuity of Care Document ---
Author Organization [address] [place] [address] Address [address] [facility] [address] [place] [address] Phone Care Team Providers Care Doll Repairer Name Role Phone Lico King NP Unavailable Unavailable Allergies, Adverse Reactions, Alerts Substance [...] Yes / No Effective Date File Name Resuscitation Do Not Attempt Resuscitation/DNR N/A N/A Other Directive No N/A N/A WARNING:The information contained in this section is historical and is provided for information only and does not constitute a legal document or any assurance that the information is still accurate. Please verify the information with the seals of the legal document before using it for clinical purposes. Encounters Encounter Description Practice Location Reason(s) For Visit Diagnoses Date Provider Providers Copied on Encounter [address] [place] [address], [address] [place] [address], [id number], tel:[phone] Foster No Information 5 [facility] [place]. [address] [place] [address], [id number], tel:[phone] Foster Blurry vision (chief complaint) Age-related nuclear cataract, bilateralHypermet ropia, bilateral 5 Lauryn Muhammad [place]. Referring Provider: Dalton Lee. [address] [place] [address], [id number], tel:[phone] Foster Encounter for examination of ears and hearing without abnormal findings IRINA Youssef. Referring Provider: Dalton Lee. [address] [place] [address] [place], [place], [id number], tel:[phone] Foster Nail dystrophyOnychogr yphosisOther specified peripheral vascular diseasesOther abnormalities of gait and mobility 5 [place]. [address] [place] [address], [address] [facility] [address], [place], [place], [id number], tel:[phone] Foster ear care exam, hearing loss (chief complaint) Impacted cerumen, bilateral 5 [place], [place]. Referring Provider: Dalton Lee. [address] [place] [address], [address] [facility] [address], [place], [place], [id number], tel:[phone] Foster No Information 5 [place], [place]. Family History Family Member Type Diagnosis Age At Onset No Information Payers Payer name Insurance type Covered alliance party ID Authoriza tireilly(s) Medicaid [facility] [id number] Social History Type Description Quantity Date Captured Comments Sex Female Smoking Status No Information Chief Complaint And Reason For Visit No Information Reason For Referral Reason For Referral No [...] Information Instructions Date Instruction Additional Infor marshall Impression/Plan - NS L > R. Vision reduced from this but also scratches on old glasses. Recheck 1 year Related to Age-related nuclear cataract, bilateral Impression/Plan - Up date specs. Recheck 1 year Related to Hypermetropia, bilateral Follow up - Return i n 12-15 months for dilated fundus exam. Borderline normal he aring was recorded from [...] a nail nipper and an electric rotary saw grinder in an atraumatic fashion; this was performed in an attempt to prevent pain and reduce risk of infection. Alcohol applied to the digits afterwards. Related to Onychogryphosis Discussed using comp ression stockings to assist in localize swelling and venous return, and the fci benefits of using compression stockings. Reinforced the [...] Impacted cerumen, bilateral Assessments Type Assessment Date No Information Patient Care Teams Name Effective Dates (start - stop) Status Members No Information
--- OUTSIDE RECORDS SUMMARY | 2025-06-24 18:50 | XMS_ITS | Referral Summary ---
Author Organization [employer] ([place], [place], [place], [place]) Address [address] [place] [address] Care Team Providers Care Douper Name Role Phone Garfield Rose MD Primary Care Provider [phone] Allergies Active Allergy Reactions Criticality Noted Date [...] adult medical examination without abnormal findings 03/25/2023 skilled nursing systemic steroid user 08/26/2021 Osteoarthritis 08/26/2021 Encounter [...] Date Navi rded Speak language other than Citizen [place] at home Not on file 11/24/2023 Want [...] Plan of Treatment Not on file Insurance [place] [address] Care Teams Douper Relationship Specialty Start Date End Date Garfield Rose MD [address] [facility] [address] [place] [address] PCP - General Family Medicine 10/06/22
--- OUTSIDE RECORDS SUMMARY | 2025-06-24 18:50 | XMS_ITS | Clinical Summary ---
Author Organization [facility] Address [address] [place] [address] Care Team Providers Care Technical Support Engineer Name Role Phone Garfield Rose MD Primary Care Provider Allergies Active Allergy Reactions Criticality Noted Date [...] MG/0.1ML nasal spray Call 911. Don't prime. [place] in 1 nostril for overdose. Repeat in [...] drink = 0.6 oz pur e alcohol) [facility] Utilities Answer Date Recorded In the past [...] medical care, and heating? Somewhat hard 09/17/2024 [facility] of Occupat ional Health - Occupational Stress [...] GED or equivalent No 09/17/2024 Preferred Language Vincentian 09/17/2024 PHQ-2 Answer Date Recorded Patient Health [...] history exists Medical Devices Implanted Type Area Cane Weigher Helper Device Identifier Shelf Expiration Date Model / Serial / Lot Stent Cornry Resolute Raymond Rx 2x30mm - [id number] Implanted:Qty: 1 on 12/15/2018 by Moreno May MD at [facility] 03/29/2020 [id number] / / [id number] Procedures Procedure Name Priority Date/Time Associated Diagnosis [...] Mooney 09/18/2024 10:32 PM EST Workstation ID: [id number] Narrative 09/18/2024 10:[address] CHEST [...] Mooney 09/18/2024 10:32 PM EST Workstation ID: [id number] Kristen Landaverde MD IM CT ORDERABLES Final Result * (ABNORMAL) POC Occult Blood Stool (07/29/2024 8:40 PM EDT) Fecal Occult Blood Positive(A) [facility] Lot Number [id number] [facility] Expiration Date 08/2025 [facility] DEVELOPER LOT NUMBER [id number] [facility] DEVELOPER EXPIRATION DATE 06/2027 [facility] Positive Control Positive [facility] Negative Control Negative [facility] Stool Specimen from rectum / Unknown [facility] Carl Hennessy MD POINT OF CARE TEST ORDERA BLES Final Result [facility]
[address] [place] [address], from Last 3 Months or Most Recently Relevant to Health Maintenance Insurance [facility] MEDICAID Advance Directives Documents on File Type Date Recorded Patient Work Order Detailer Expl anation [facility] RECORDS - SCAN 07/31/2024 12:06 PM [facility] * CPR (Attempt to Resuscitate) (Latest Code [...] pulse or is breathing): Full Care Teams Technical Support Engineer Relationship Specialty Start Date End Date Garfield Rose MD PCP - General Family Medicine 11/03/20
--- OUTSIDE RECORDS SUMMARY | 2025-06-24 18:50 | XMS_ITS | Encounter Summary ---
Author Organization [employer] ([place], [place], [place], [place]) Address [address] [place] [address] Care Team Providers Care Hoop Machine Operator Name Role Phone Garfield Rose MD Primary Care Provider [phone] Reason for Visit * Reason Comments Medication Refill Encounter Details Date Type Department Care Team (Late st Contact Info) Description 04/05/2024 Refill [facility] Rheumatology [address] [place] [address] Manuela Greenfield MD [address] [facility] [address] [place] [address] Other osteoarthritis involving multiple joints Social History [...] Date Navi rded Speak language other than Greek at home Not on file 11/24/2023 Want [...] joints documented in this encounter Care Teams Hoop Machine Operator Relationship Specialty Start Date End Date Garfield Rose MD [address] [facility] [address] [place] [id number] PCP - General Family Medicine 10/06/22 documented as of this encounter
--- OUTSIDE RECORDS SUMMARY | 2025-06-24 18:50 | XMS_ITS | Clinical Summary ---
Author Organization [facility] Address [address] [facility] [address] [place] [address] Phone Care Team Providers Care Dry Cleaning Manager Name Role Phone Unavailable Unavailable Conditions or Problems No information available. Medications No information available. Medications Administered No information available. Allergies, Adverse Reactions, Alerts No information available. Results No information available. Plan of Care No information available. Procedures No information available. Vital Signs No information available. Immunizations No information available. Advance Directives No information available.
--- NOTE | 2025-06-24 18:51 | PC.NURSE ---
placed a purwick on patient
--- OUTSIDE RECORDS SUMMARY | 2025-06-24 18:51 | XMS_ITS | Clinical Summary ---
Author Organization [facility] Address [address] [place] [address] Care Team Providers Care Technical Programs Manager Name Role Phone Aleksandra Richey APRN Primary Care Provider [phone] Family History Medical History Relation Name Comments [...] of Treatment Not on file Care Teams Technical Programs Manager Relationship Specialty Start Date End Date Aleksandra Richey APRN [address] [place] [address] PCP - General 03/19/21
--- OUTSIDE RECORDS SUMMARY | 2025-06-24 18:51 | XMS_ITS | Encounter Summary ---
Author Organization [employer] ([place], [place], [place], [place]) Address [address] [place] [address] Care Team Providers Care Orthopaedic Nurse Name Role Phone Garfield Rose MD Primary Care Provider [phone] Reason for Visit * Reason Comments Medication Refill Encounter Details Date Type Department Care Team (Late st Contact Info) Description 06/08/2023 Refill [facility] Rheumatology [address] [facility] [address] [place] [address] Manuela Greenfield MD [address] [facility] [address] [place], [place] [id number] Social History Tobacco Use Types Packs/Day Years [...] on filedocumented in this encounter Care Teams Orthopaedic Nurse Relationship Specialty Start Date End Date Garfield Rose MD [address] [facility] [address] [place] [address] PCP - General Family Medicine 10/06/22 documented as of this encounter
--- OUTSIDE RECORDS SUMMARY | 2025-06-24 18:51 | XMS_ITS | Patient Health Record ---
Author Organization [facility] Address [address] [place] [address] Care Team Providers Care Telecommunications Operator Name Role Phone Garfield Gorman Primary Care Provider Alvaro Jernigan II Unavailable [phone] Allergies Allergen (clinical drug ingredient) Drug/Non Drug Allergy documented on EMR Reaction Allergy Type Onset Date Status lisinopril lisinopril stomach upset Drug Allergy A ctive Reason For Referral No Information Medications Medication SIG (Take, Route, Frequency, Duration) Notes Start Date End Date Status nitroglycerin 0.4 mg/hr 1 PATCH [facility] once a day; Duration: 30 day(s) Active ibuprofen 800 mg 1 tab(s) orally 3 times a day Active cyclobenzaprine 10 mg 1 tab(s) orally 3 times a day Active predniSONE 5 mg 1 tab(s) orally once a day; Duration: 30 day(s) Active losartan 25 mg 1 tab(s) orally once a day; Duration: 30 day(s) Active Potassium Chloride (Hnn-Wyem-Vek M20) 20 mEq TAKE 1 TABLET BY [...] ONLY IF CLOSED), Fax PA request to [phone] or [phone] Active Lipitor 80 mg 1 tab(s) orally [...] ONLY IF CLOSED), Fax PA request to [phone] or [phone] Active ezetimibe 10 mg 1 tab(s) orally once a day; Duration: 30 day(s) Active Acetaminophen-Hydrocodo ne Bitartrate 325 mg-10 mg 1 tab(s) orally every 8 hours; Duration: 28 days DO NOT FILL SOONER THAN 28 DAYS, (OK TO FILL EARLY, ONLY IF CLOSED), Fax PA request to [phone] or [phone] Active Lasix 20 mg 1 tab(s) orally [...] Risk Notes Problem Lumbosacral spondylosis without myelopathy (07967567) Other spondylosis with radiculopathy, lumbar region (M47.26) Active confirmed Problem Lumbosacral spondylosis without myelopathy (61493567) Spondylosis without myelopathy or radiculopathy, lumbar region (M47.816) Active confirmed Problem Degeneration of lumbar intervertebral disc (60087346) Other intervertebral disc degeneration, lumbar region (M51.36) Active confirmed Problem Lumbar radiculopathy (873906653) Radiculopathy, lumbar region (M54.16) Active confirmed Problem Other usp (current) drug therapy (Z79.899) Active confirmed Problem lumbar spondylosis (M47.816) Active confirmed Encounters Encounter Location Date Provider Diagnosis [facility] [address] [place] [address] 07/09/2024 Alvaro Banegas Other spondylosis with radiculopathy, lumbar region M47.26 [facility] [address] [place] [address] 06/24/2024 Alvaro Banegas [facility] [address] [place] [address] 07/04/2024 Alvaro Banegas [facility] [address] [place] [address] 08/06/2024 Alvaro Banegas Assessments Encounter Date Diagnosis [...] Coverage End Date [employer] [address] [address] [place] [address] [id number] Darleen Wynne Self - patient is the insured 1 Medical (General) History Medical History History ICD Code RA diagnosed [address] Gupta GERD- diagnosed [address] Jaciel jolley Hypertension diagnosed 2009 managed by [place] [facility] CAD diagnosed [address] Salinas rt Surgical History Surgery Date(Month/Year) Cardiac stent / [facility] / 2-3 da ys 12/2018
--- OUTSIDE RECORDS SUMMARY | 2025-06-24 18:51 | XMS_ITS | Clinical Summary ---
Author Organization [employer] ([place], [place], [place], [place]) Address [address] [place] [address] Care Team Providers Care Tuber Machine Operator Helper Name Role Phone Garfield Rose MD Primary Care Provider [phone] Allergies Active Allergy Reactions Criticality Noted Date [...] adult medical examination without abnormal findings 03/25/2023 nursing home systemic steroid user 08/26/2021 Osteoarthritis 08/26/2021 Encounter [...] Date Navi rded Speak language other than Stateless at home Not on file 11/24/2023 Want [...] (1 - 1-dose 75+ series) 2035 Insurance [place] Care Teams Tuber Machine Operator Helper Relationship Specialty Start Date End Date Garfield Rose MD [address] [facility] [address] [place] [address] PCP - General Family Medicine 10/06/22
--- NOTE | 2025-06-24 19:00 | CT_ITS ---
PROCEDURE INFORMATION: Exam: CT Head Without Contrast Exam date and time: 06/24/2025 8:12 PM Age: 64 years old Clinical indication: Other: AMS, agitation; Additional info: Agitated, AMS TECHNIQUE: Imaging protocol: Computed tomography of the head without contrast. Total images: 1375 Radiation optimization: All CT scans at this facility use at least one of these dose optimization techniques: automated exposure control; mA and/or kV adjustment per patient size (includes targeted exams where dose is matched to clinical indication); or iterative reconstruction. COMPARISON: No relevant prior studies available. FINDINGS: Brain: Age-appropriate findings. No hemorrhage. Unremarkable white matter. No mass effect. The raymundo-white interface is maintained. Cerebral ventricles: No ventriculomegaly. Paranasal sinuses: Visualized sinuses are unremarkable. No fluid levels. Mastoid air cells: Visualized mastoid air cells are well aerated. Bones: Unremarkable. No acute fracture. Soft tissues: Unremarkable. Notes: Limited by positioning and motion artifact, despite repeat image acquisition. IMPRESSION: 1. No acute intracranial process. 2. Limited exam. 3. If clinical symptoms persist or worsen, recommend follow-up imaging given current exam limitations.
--- NOTE | 2025-06-24 19:01 | XR_ITS ---
PROCEDURE INFORMATION: Exam: XR Chest Exam date and time: 06/24/2025 8:07 PM Age: 64 years old Clinical indication: Other: AMS, agitation TECHNIQUE: Imaging protocol: Radiologic exam of the chest. Views: 1 view. Total images: 1 COMPARISON: CT CHEST WO CON 02/28/2025 2:39 PM FINDINGS: Lungs: Unremarkable. No consolidation. No pulmonary vascular congestion or edema. Pleural spaces: Unremarkable. No pleural effusion. No pneumothorax. Heart/Mediastinum: Unremarkable. No cardiomegaly. No mediastinal widening or hilar enlargement. Vasculature: Atherosclerotic aortic arch. Bones/joints: Mild osteopenia. Soft tissues: Breast attenuation artifact. IMPRESSION: No radiographically acute cardiopulmonary process.
--- NOTE | 2025-06-24 19:02 | ED_ITS ---
Discharge Plan Disposition Patient Disposition: Admitted Clinical Impressions Clinical Impression: Hyponatremia, Urinary tract infection, AMS (altered mental status) Discharge ED Provider: Jori Gore Adult HPI General Chief complaint: Fall Stated complaint: Fall Time Seen by Provider: 06/24/25 18:47 Mode of Arrival: EMS Source of Information: EMS Description of Symptoms (Recalled from ER Triage Doc. by RN): Patient sent from [facility] for several falls in the last 24 hours and confusion, which [facility] reports is not her baseline. State they had received an order to check her urine for a UTI but then she fell again. Last fall was unwitnessed and they are unsure if she hit her head. Patient is uncooperative on arrival to ER. History of Present Illness HPI narrative: Darleen Wynne is a 64 female with a history of paroxysmal A-fib on apixaban, hypertension, coronary artery disease who presents to the emergency department from [facility] for concern for agitation/falls/possible urinary tract infection. Per [facility], patient has had several falls within the last 24 hours and confusion, which they state is not her baseline. They were going to check her urine for urinary tract infection then she fell again. They state that it was unwitnessed and are not sure if she hit her head. Patient states that she tripped and fell 1 time today but has not had multiple falls. She denies hitting her head. She is agitated, and is frustrated that the [facility] sent her here. She is oriented to self and location. She knows that we are in the year but is not sure the exact year. She does not know who the president is but states that she does not normally know who that is. She complains of chronic lower back pain and states that this did not get worse after the fall. Patient denies any chest pain or abdominal pain Related Data Home Medications ?Medication ?Instructions ?Recorded ?Confirmed metoprolol tartrate 25 mg tablet 12.5 mg PO BID 06/24/25 hydroxychloroquine 200 mg tablet 200 mg PO BID 1 06/24/25 omeprazole 40 mg capsule,delayed 40 mg PO HS 01/15/21 06/24/25 release apixaban 5 mg tablet (Eliquis) 5 mg PO BID 01/09/25 cyclobenzaprine 10 mg tablet 10 mg PO BID 01/09/25 duloxetine 30 mg capsule,delayed 30 mg PO DAILY 06/24/25 release ezetimibe 10 mg tablet 10 mg PO HS 01/09/25 5 leflunomide 20 mg tablet 20 mg PO DAILY 01/09/2506/06 levothyroxine 50 mcg tablet 50 mcg PO DAILY 01/09/25 0 06/24/25 losartan 100 mg tablet 100 mg PO DAILY 01/09/25 metoprolol tartrate 100 mg tablet 100 mg PO BID 06/24/25 multivitamin 1 tab PO DAILY 01/09/2506/06 cyanocobalamin (vitamin B-12) 500 500 mcg PO DAILY 11/3006/24/25 mcg tablet docusate sodium 100 mg tablet (DOK) 100 mg PO BID 11/3006/24/25 magnesium oxide 400 mg (241.3 mg 400 mg PO DAILY 06/2506/25/25 magnesium) tablet Allergies Allergy/AdvReac Type Severity Reaction Status Date / Time lisinopril (LISINOPRIL) Allergy Unknown Verified 05/01/25 14:51 [facility] Disclaimer: The information contained in this section may have been updated after the patient was seen, as this information can be updated by other users. Medical History (Updated 06/25/25 @ 12:47 by Jori Gore MD) Dementia with behavioral disturbance Urinary retention with incomplete bladder emptying GERD (gastroesophageal reflux disease) Atrial fibrillation Major depressive disorder Hypokalemia Hypo-osmolar hyponatremia Hypomagnesemia Hyperlipidemia Hypothyroidism Anemia COPD (chronic obstructive pulmonary disease) Rheumatoid arthritis Preop testing HTN (hypertension) Edema CAD (coronary artery disease) PAF (paroxysmal atrial fibrillation) Multiple lung nodules on CT History of smoking 30 or more pack years Allergic dermatitis Surgical History History of cardiac cath Social History (Updated 06/24/25 @ 23:04 by Era Craig RN) Smoking Status: Unknown if ever smoked alcohol intake: never substance use type: denies use current occupational status: other Travel in the last 8 weeks?: None household members: spouse housing: house current occupational exposures/hazards: No caffeine: Yes Have you lived/traveled outside [place] in past 30 days?: No Contact w/someone who lives/traveled outside US past 30 days?: No Exposure to someone with infectious disease in past 14 days?: No Do you have a fever (greater than 100.4 F or 38 C)?: No Have you tested positive for COVID-19?: No Exposed to someone with COVID-19 in past 14 days?: No Do you have a sore throat?: No Do you have a cough?: No Do you have any weakness?: No Are you experiencing any nausea/vomitting?: No Do you have any diarrhea?: No Are you experiencing any unusual bleeding?: No Do you have any muscle aches/pain?: No Do you have any abdominal pain?: No Are you experiencing loss of taste or smell?: No Other Medical History Have you received the Flu Vaccine for this season: Yes Have you received the Pneumonia Vaccine: No ROS Obtained: Yes Systems reviewed as appropriate & no additional complaints except as documented Physical Exam General General appearance: alert and in no apparent distress Head Head exam: atraumatic Eye Eye exam: Present normal appearance ENT ENT exam: Present normal external ear exam Neck Neck exam: Present full ROM Chest Chest inspection: Present symmetric chest wall rise Respiratory Respiratory exam: Present normal lung sounds bilaterally; Absent respiratory distress, wheezes or stridor Cardiovascular Cardiovascular exam: Present regular rate and normal rhythm Abdominal Exam Abdominal exam: Present soft; Absent tenderness or guarding Extremities Exam Extremities exam: Present normal inspection Back Exam Back exam: Present normal inspection; Absent tenderness Neurological Exam Neurological exam: Present alert and oriented X3 (oriented to self and location but not to current year) Skin Skin exam: Present warm and dry Medical Decision Making Medical Records Screening: Per USPSTF and CDC recommendations, given the prevalence of disease in our region, it is our hospital?s policy to screen for HIV and viral Hepatitis for all patients aged 18 and over and those with ongoing risk factors. Sancho Inquiry Pt receiving controlled substance: No Vital Signs: 06/24/25 18:46 06/24/25 19:01 06/24/25 19:31 Temperature 98.2 F Temperature Source Oral Pulse Rate 69 79 Pulse Rate [Right Brachial] 78 Respiratory Rate 16 Blood Pressure 154/79 H 178/105 H Blood Pressure [Right Arm] 130/75 Blood Pressure Mean Blood Pressure Mean [Right Arm] 93 Blood Pressure Source [Right Arm] Automatic Cuff Blood Pressure Position Blood Pressure Position [Right Arm] Supine 02 Sat by Pulse Oximetry 97 85 L 98 Oxygen Delivery Method Room Air 06/24/25 19:53 06/24/25 20:01 06/24/25 20:30 Temperature Temperature Source Pulse Rate 82 Pulse Rate [Right Brachial] Respiratory Rate Blood Pressure 194/118 H 192/104 H Blood Pressure [Right Arm] Blood Pressure Mean 133 Blood Pressure Mean [Right Arm] Blood Pressure Source [Right Arm] Blood Pressure Position Blood Pressure Position [Right Arm] 02 Sat by Pulse Oximetry 94 L 94 L Oxygen Delivery Method Room Air 06/24/25 21:58 06/24/25 22:06 Temperature 98 F Temperature Source Tympanic Pulse Rate 82 Pulse Rate [Right Brachial] Respiratory Rate 20 Blood Pressure 154/79 H Blood Pressure [Right Arm] Blood Pressure Mean Blood Pressure Mean [Right Arm] Blood Pressure Source [Right Arm] Blood Pressure Position Supine Blood Pressure Position [Right Arm] 02 Sat by Pulse Oximetry Oxygen Delivery Method Room Air Room Air Lab Data Lab Results 06/24/25 19:00: VBG pH 7.40, VBG pCO2 25.7 L, VBG pO2 189.8 H, VBG HCO3 15.6 L, VBG Total CO2 16.4 L, VBG O2 Saturation 99.5 H, VBG Base Excess -9.2 L, VBG Lactic Acid 1.7 06/24/25 19:35: Sodium 116 L, Potassium 4.5, Chloride 93 L, Carbon Dioxide 12 L, Anion Gap 15.5 H, BUN 16, Creatinine 1.20 H, Estimated Creat Clear 54, Estimated GFR 45 L, Est GFR ( Amer) 55 L, Glucose 101 H, Calcium 8.3 L, Magnesium 1.8, Total Bilirubin 0.7, AST 31, ALT 19, Alkaline Phosphatase 133 H, Total Protein 6.9, Albumin 3.9, Globulin 3.0, Albumin/Globulin Ratio 1.3, TSH 2.14 06/24/25 21:05: Urine Color Yellow, Urine Appearance Sl cloudy, Urine pH 6.0, Ur Specific [place] <= 1.005, Urine Protein Negative, Urine Glucose (UA) Negative, Urine Ketones Negative, Urine Blood 1+ A, Urine Nitrate Negative, Urine Bilirubin Negative, Urine Urobilinogen 0.2, Ur Leukocyte Esterase 3+ A, Urine RBC 5-10, Urine WBC Tntc, Ur Squamous Epith Cells 5-10, Ur Transition Epith Cell 10-20, Amorphous Sediment 1+, Urine Bacteria 4+, Urine Mucus 1+ 06/24/25 21:17: Free T4 1.67 06/25/25 08:30 06/25/25 12:07 Orders (Tests/Meds): ED MEDICATIONS Generic Name Dose Route Start Last Admin Trade Name Freq PRN Reason Stop Dose Admin Acetaminophen 650 mg 06/24/25 21:57 Acetaminophen 325mg Tab PO 07/24/25 21:56 Q4HP PRN Fever or Mild Pain (1-3) Apixaban 5 mg 06/25/25 21:00 Apixaban 5mg Tablet PO 07/25/25 20:59 BID CARLOS Diazepam 5 mg 06/25/25 07:07 Diazepam 10mg/2ml Syringe IV 07/25/25 07:04 Q6HP PRN Agitation Docusate Sodium 100 mg 06/25/25 21:00 Docusate Sodium 100 Mg Capsule PO 07/25/25 20:59 BID CARLOS Duloxetine HCl 30 mg 06/26/25 09:00 Duloxetine 30mg Capsule. PO 07/26/25 08:59 DAILY CARLOS Famotidine 20 mg 06/25/25 21:00 Famotidine 20mg Tablet PO 07/25/25 20:59 HS CARLOS Hydroxychloroquine Sulfate 200 mg 06/25/25 21:00 Hydroxychloroquine Sulfate 200mg Tablet PO 07/05/25 20:59 BID CARLOS Piperacillin Sod/Tazobactam 50 mls @ 100 mls/hr 06/25/25 06:00 06/25/25 07:48 Sod 3.375 gm/ Sodium Chloride IV 07/05/25 05:59 Infused Q8H CARLOS Infusion Levothyroxine Sodium 50 mcg 06/26/25 07:00 Levothyroxine 50mcg (0.05mg) Tab PO 07/26/25 06:59 DAILYDM CARLOS Metoprolol Tartrate 100 mg 06/25/25 21:00 Metoprolol Tartrate 50mg Tablet PO 07/25/25 20:59 BID CARLOS Ondansetron HCl 4 mg 06/24/25 21:57 Ondansetron 4mg/2ml Vial IV 07/24/25 21:56 Q8HP PRN Nausea Pantoprazole Sodium 40 mg 06/25/25 21:00 Pantoprazole 40mg Tablet PO 07/25/25 20:59 HS CARLOS Sodium Bicarbonate 650 mg 06/25/25 09:15 06/25/25 10:53 Sodium Bicarbonate 650mg Tablet PO 07/25/25 09:14 650 mg TID CARLOS Administration Sodium Chloride 10 ml 06/25/25 07:59 Sodium Chloride 0.9% 10ml Flush Syringe IV 07/25/25 07:58 NEEDED PRN Maintain IV Site Discontinued Medications Generic Name Dose Route Start Last Admin Trade Name Freq PRN Reason Stop Dose Admin Diazepam 5 mg 06/25/25 00:42 06/25/25 06:29 Diazepam 10mg/2ml Syringe IV 07/25/25 00:41 5 mg NEEDED PRN Administration Agitation Diphenhydramine HCl 25 mg 06/24/25 22:06 Diphenhydramine 25mg Capsule PO 07/24/25 22:05 ONCE PRN Agitation Furosemide 40 mg 06/25/25 07:11 06/25/25 08:05 Furosemide 40mg/4ml Vial IV 06/25/25 07:12 40 mg ONCE ONE Administration Sodium Chloride 1,000 mls @ 999 mls/hr 06/24/25 20:18 06/24/25 23:18 Sod Chlor 0.9% 1000ml Bag IV 06/24/25 21:18 Infused .Q1H1M ONE Infusion Ceftriaxone Sodium 2 gm/ 100 mls @ 200 mls/hr 06/24/25 21:48 06/24/25 23:18 Sodium Chloride IV 06/24/25 22:17 Not Given ONCE ONE Non-Formulary Medication 20 mg 06/26/25 09:00 Leflunomide PO 07/26/25 08:59 DAILY CARLOS Oxycodone HCl 5 mg 06/24/25 19:02 06/24/25 19:26 Oxycodone 5mg Immediate Release Tablet PO 06/24/25 19:03 5 mg ONCE ONE Administration Promethazine HCl 12.5 mg 06/24/25 23:16 06/24/25 23:20 Promethazine Hcl 25mg/Ml 1ml Vial IV 07/24/25 23:15 12.5 mg Q6HP PRN Administration Nausea And Vomiting Sodium Chloride 25 ml 06/24/25 23:30 Sodium Chloride 0.9% 25ml Bag IV 07/24/25 23:29 NEEDED CARLOS ORDERS Category Date Time Status CT head/brain wo con Stat Cat Scan 06/24/25 19:00 Completed Consult to Case Management [CONS] Routine Cons 06/24/25 21:57 Active CXR --portable [XR chest portable] Stat Exams 06/24/25 19:01 Completed CMP [Comprehensive Metabolic Panel] Stat Lab 06/24/25 19:35 Completed Complete Blood Count Auto Diff AMLAB Lab 06/25/25 06:32 Completed Comprehensive Metabolic Panel [facility] Lab 06/25/25 06:32 Completed Free T4 (Free Thyroxine) Stat Lab 06/24/25 21:17 Completed Hemoglobin A1C [facility] Lab 06/25/25 06:32 Completed Magnesium AMLAB Lab 06/25/25 06:32 Completed Magnesium Stat Lab 06/24/25 19:35 Completed Sodium,Urine Random Routine Lab 06/24/25 22:40 Completed TSH [Thyroid Stimulating Hormone] AMLAB Lab 06/25/25 06:32 Completed TSH [Thyroid Stimulating Hormone] Stat Lab 06/24/25 19:35 Completed UA [Urinalysis and Microscopic] Stat Lab 06/24/25 21:05 Completed Urine Culture Stat Micro 06/24/25 21:05 Results VBG [Venous Blood Gas] Stat RT 06/24/25 19:00 Completed Medical Decision Narrative: Darleen Wynne is a 64 female with a history of paroxysmal A-fib on apixaban, hypertension, coronary artery disease who presents to the emergency department from [facility] for concern for agitation/falls/possible urinary tract infection. Per [facility], patient has had several falls within the last 24 hours and confusion, which they state is not her baseline. They were going to check her urine for urinary tract infection then she fell again. They state that it was unwitnessed and are not sure if she hit her head. Patient states that she tripped and fell 1 time today but has not had multiple falls. She denies hitting her head. She is agitated, and is frustrated that the [facility] sent her here. She is oriented to self and location. She knows that we are in the year s but is not sure the exact year. She does not know who the president is but states that she does not normally know who that is. She complains of chronic lower back pain and states that this did not get worse after the fall. Patient denies any chest pain or abdominal pain. On arrival, patient is hypertensive, heart rate within normal limits, afebrile, maintaining appropriate oxygen saturation on room air. Physical exam, stated above, revealed an agitated and emotionally labile early female. She is alert and oriented to self and location but does not know the exact year but knows that we are in the . When asked what happened today, she uses many expletives and states that the [facility] is just overreacting. She states that she did fall today because she tripped but denies hitting her head. She complains of lower back pain but states that this is a chronic issue and no different from her normal. She denies any abdominal pain, dysuria, hematuria, chest pain or shortness of breath. She denies any headache or vision changes. She is very adamant that she needs to urinate at this time. Differential diagnosis includes, but is not limited to: Urinary tract infection, intracranial hemorrhage, electrolyte derangement, such as hyponatremia, hypokalemia, pneumonia, among others. The most morbid conditions were considered and workup was based on these. During her ED stay, patient was very resistant to blood draws. Orders from the emergency department included: CT head without contrast, chest x-ray, VBG, CMP, magnesium level, TSH/free T4, CBC with differential, urinalysis. Only a few vials of blood were able to be drawn given patient's agitation. Labs at this time are significant for normal pH of 7.4, lactate normal at 1.7. Significant hyponatremia of 116. Potassium normal at 4.5. Anion gap mildly elevated 15.5. Creatinine at baseline of 1.2. Calcium mildly low at 8.3. Liver enzymes within normal limits. Thyroid studies within normal limits. CT imaging of the head was limited secondary to patient motion during scan, however there is no evidence of acute intracranial pathology. See radiology report for details. Chest x-ray interpreted by me personally demonstrated no focal consolidations, no widening of the mediastinum. See final radiology report for details. Patient was ultimately agreeable to having an IV established after lengthy discussion about her significant hyponatremia needing replacement. At this time, she was given 1 L of normal saline. She eventually produced a urine sample that appeared grossly infected consistent with urinary tract infection. She was also administered 2 g of IV Rocephin. Given her significant hyponatremia in the setting of urinary tract infection causing altered mental status, I discussed patient's case with the hospitalist for admission she was subsequently admitted for further management. Critical Care Critical Care Time Critical Care Time: No
[2025-06-24] MEDS: OXYCODONE 5MG IMMEDIATE RELEASE TABLET 5 MG PO (19:26)
--- NOTE | 2025-06-24 19:51 | PC.NURSE ---
Pt refuses to use Purewick, yelling she needs to use restroom. Informed pt her options were a bedpan or purewick, we could not get here up due to weakness and her fall hx. Pt is veing placed on bedpan at this time.
--- NOTE | 2025-06-24 19:53 | PC.NURSE ---
pt was placed on a bed peters at this time.
--- NOTE | 2025-06-24 19:56 | PC.NURSE ---
pt removed herself from the bed peters
[2025-06-24 19:57] LABS: Albumin Level 3.9 g/dl (3.5-5.0); Chloride 93 mmol/L (98-107); Potassium 4.5 mmoL/L (3.5-5.1); Sodium 116 mmol/L (136-145)
--- NOTE | 2025-06-24 19:57 | PC.NURSE ---
pt refuses to wear brief, purewick or use bedpan, offered to in/out cath she refused that as well. pt continues to yell
[2025-06-24 20:00] LABS: Alanine Aminotransferase 19 U/L (12-78); Albumin/Globulin Ratio 1.3 (1.1-1.8); Alkaline Phosphatase 133 U/L (38-126); Anion Gap 15.5 mEq/L (5-15); Aspartate Amino Transferase 31 U/L (14-36); Bilirubin,Total 0.7 mg/dl (0.2-1.3); Blood Urea Nitrogen 16 mg/dl (7-17); Calcium 8.3 mg/dl (8.4-10.2); Carbon Dioxide 12 mmol/L (22.0-30.0); Creatinine Clearance Estimated 54 mL/min (50-200); Creatinine,Serum 1.20 mg/dl (0.52-1.04); Estimated Glomerular Filt Rate 45 ml/min (>60); GFR (African American) 55 ML/MIN (>60); Globulin 3.0 g/dL (1.3-3.2); Glucose 101 mg/dl (74-100); Magnesium 1.8 mg/dl (1.6-2.3); Total Protein,Serum 6.9 g/dl (6.3-8.2)
[2025-06-24 20:31] LABS: Thyroid Stimulating Hormone 2.14 uIU/mL (0.465-4.68)
[2025-06-24 21:17] LABS: Microscopic, Urine URINE MICROSCOPIC (MICROSCOPIC)
[2025-06-24 21:18] LABS: Bilirubin,Urine Negative (Negative); Color,Urine YELLOW (Yellow); Glucose,Urine (UA) Negative (Negative); Ketones,Urine Negative (Negative); Leukocyte Esterase,Urine 3+ (Negative); PH,Urine 6.0 (5.0-8.5); Protein,Urine Negative (Negative); Specific Gravity, Urine <= 1.005 (1.005-1.030); Urobilinogen,Urine 0.2 EU/dl (0.2)
[2025-06-24 21:18] LABS: Lactate Venous 1.7 mmol/L (0.4-2.0); VBG HCO3 15.6 mmol/L (23-30); VBG PCO2 25.7 mmol/L (35-51); VBG PH 7.40 mmol/L (7.31-7.41); VBG PO2 189.8 mmol/L (28-40)
[2025-06-24] MEDS: 0.9 % SODIUM CHLORIDE 1000ML 1,000 ML 999 ML IV (21:18)
[2025-06-24 21:43] LABS: WBC,Urine TNTC #/hpf (0-3)
[2025-06-24 21:44] LABS: Amorphous Sediment,Urine 1+ /lpf; Bacteria,Urine 4+ /lpf; Mucus,Urine 1+ /lpf
--- NOTE | 2025-06-24 22:14 | PC.NURSE ---
Patient arrived to floor via stretcher from ED at 22:13.
[2025-06-24 22:15] LABS: Free T4 (Free Thyroxine) 1.67 ng/dl (0.78-2.19)
--- NOTE | 2025-06-24 22:21 | PC.NURSE ---
Report called back to [facility] to GERARDO Hernandez
--- NOTE | 2025-06-24 22:22 | PC.NURSE ---
Report called to Brandi Hernandez RN at [facility]
--- NOTE | 2025-06-24 22:54 | PC.NURSE ---
Spoke with guardian of patient, son, Adilson Celeste, confirmed patient is DNR over telephone, 2 nurse verifications with Vika CARRILLO.
[2025-06-24 22:57] LABS: Sodium,Urine Random 8.0 mmol/L (30-90)
[2025-06-24] MEDS: PROMETHAZINE HCL 25MG/ML 1ML VIAL 12.5 MG IV (23:20)
[2025-06-25] VITALS (14 sets, daily range): BP systolic 125–170; BP diastolic 61–93; PULSE 73–93; RESP 14–20; TEMP 36.6–37.4; O2SAT 93–99; BMI 32.6
--- NOTE | 2025-06-25 00:30 | P.HP_ITS ---
<Statement entered by Sid Rivera MD - 06/25/25 15:57> Rounded on patient after nurse practitioner. Personally examined and interviewed patient. Agree with exam findings and care plan as documented. History of Present Illness *Admission Date: 06/25/25 *Reason for visit:: Falling and hyponatremia *History of present illness: 64-year-old female who is a long-term care patient, has been sent to the hospital ER due to the fact she has been falling at the long-term care which is not her normal self. With workup in the emergency room finding her sodium is 116. Also noting a weight gain from late April of this year of 168 up to 194 today. Patient is noted with a history of atrial fibs hypothyroidism cardiovascular disease requiring stents in the past and anemia. Patient presently was seen by cardiology to be cleared for an upper endoscopy. This has not been carried out yet. Patient is noted in January of this year requiring a unit of blood, also noting older notes showed that she had a left ventricular ejection fraction of 70%. Find the patient in the ER quite irritable wanting to pee but then it up on a bedside commode did not did not want a diaper did not want pure wick nothing was able to console her.. She is alert to herself and where she is at., . ER staff tried to place Houston catheter patient would just would not let them. On taking the patient up to the floor found out there was not enough blood to check for CBC. Going to have that redrawn as patient is very pale and has received blood in the past. While upstairs on the floor eventually being placed in the bed the patient was able to be helped to the bedside commode eventually given a little bit of Phenergan to try to calm her. She was able to give us 400 cc out. Patient was then placed back in bed but on awakening was once again strangely agitated could not control her behavior. Yelling she has to pee she has to pee. Had to give 5 mg of Valium. [place] catheter placed and 900 cc of urine also out after the 400 that she was able to get out sitting on the side commode about an hour earlier. Presently patient is sleeping with the Valium. Lab had been notified that I would like for them to get at least an H&H and if they can grab a type and screen if we need to transfuse this is because her skin is extremely pale inside lip and under eyelid pale, feel there is a chance we may need to give a unit of blood, will be waiting for lab results. Also talking with nurse about the patient's medication at the intermediate I was under the impression she was on Lasix apparently that was stopped on the of this month, very complicated patient with behavioral problems making it difficult to come up with clear diagnosis's., Apparently changes in behavior and the fact that she usually did not fall at the intermediate in the past, and this sudden weight gain has been verified that they had that the bed weight is accurate for the patient impaired to her last weight her last 2 doctor office visits there was a significant increase of 30 pounds. Also noting got a urine sodium that is low at 8, question cause for hyponatremia unsure. With the report from the nurse apparently the patient had edema in the lower extremities in the past but presently only has edema in the right foot. [facility] Disclaimer: The information contained in this section may have been updated after the patient was seen, as this information can be updated by other users. Medical History (Updated 06/25/25 @ 15:53 by Sid Rivera MD) Dementia with behavioral disturbance Urinary retention with incomplete bladder emptying GERD (gastroesophageal reflux disease) Atrial fibrillation Major depressive disorder Hypokalemia Hypo-osmolar hyponatremia Hypomagnesemia Hyperlipidemia Hypothyroidism Anemia COPD (chronic obstructive pulmonary disease) Rheumatoid arthritis Preop testing HTN (hypertension) Edema CAD (coronary artery disease) PAF (paroxysmal atrial fibrillation) Multiple lung nodules on CT History of smoking 30 or more pack years Allergic dermatitis Surgical History History of cardiac cath Social History (Updated 06/24/25 @ 23:04 by Era Craig RN) Smoking Status: Unknown if ever smoked alcohol intake: never substance use type: denies use current occupational status: other Travel in the last 8 weeks?: None household members: spouse housing: house current occupational exposures/hazards: No caffeine: Yes Have you lived/traveled outside [place] in past 30 days?: No Contact w/someone who lives/traveled outside US past 30 days?: No Exposure to someone with infectious disease in past 14 days?: No Do you have a fever (greater than 100.4 F or 38 C)?: No Have you tested positive for COVID-19?: No Exposed to someone with COVID-19 in past 14 days?: No Do you have a sore throat?: No Do you have a cough?: No Do you have any weakness?: No Are you experiencing any nausea/vomitting?: No Do you have any diarrhea?: No Are you experiencing any unusual bleeding?: No Do you have any muscle aches/pain?: No Do you have any abdominal pain?: No Are you experiencing loss of taste or smell?: No Other Medical History Have you received the Flu Vaccine for this season: Yes Have you received the Pneumonia Vaccine: Yes Review of Systems Review of Systems Review of systems:: pertinent systems reviewed and negative unless documented below Constitutional Constitutional: Reports as per HPI and Reports weight gain Comments: Weight gain of 30 pounds unknown cause Eyes Eyes: Reports as per HPI ENT Ears, Nose, Mouth, and Throat: Reports as per HPI *Cardiovascular Cardiovascular: Reports as per HPI *Respiratory Respiratory: Reports as per HPI Comments: Patient reported no trouble breathing *Gastrointestinal Gastrointestinal: Reports as per HPI *Genitourinary Genitourinary: Reports as per HPI *Musculoskeletal Musculoskeletal: Reports as per HPI Integumentary/Breasts Skin/Breast: Reports as per HPI Comments: Right foot edema pitting Psychiatric Psychiatric: Reports as per HPI Comments: Patient is extremely anxious on able to meet her demands, no alternative treatments or are she willing to try very poor control of her behavior at this point in time Hematologic/Lymphatic Hematologic/Lymphatic: Reports as per HPI Allergic/Immunologic Allergic/Immunologic: Reports as per HPI Meds Home Medications and Allergies Home Medications ?Medication ?Instructions ?Recorded ?Confirmed ?Type metoprolol tartrate 25 mg tablet 12.5 mg PO BID 06/24/25 History hydroxychloroquine 200 mg tablet 200 mg PO BID 1 06/24/25 History omeprazole 40 mg capsule,delayed 40 mg PO HS 01/15/21 06/24/25 History release apixaban 5 mg tablet (Eliquis) 5 mg PO BID 01/09/25 History cyclobenzaprine 10 mg tablet 10 mg PO BID 01/09/25 History duloxetine 30 mg capsule,delayed 30 mg PO DAILY 06/24/25 History release ezetimibe 10 mg tablet 10 mg PO HS 01/09/25 5 History leflunomide 20 mg tablet 20 mg PO DAILY 01/09/2506/06 History levothyroxine 50 mcg tablet 50 mcg PO DAILY 01/09/25 0 06/24/25 History losartan 100 mg tablet 100 mg PO DAILY 01/09/25 History metoprolol tartrate 100 mg tablet 100 mg PO BID 06/24/25 History multivitamin 1 tab PO DAILY 01/09/2506/06 History cyanocobalamin (vitamin B-12) 500 500 mcg PO DAILY 11/3006/24/25 History mcg tablet docusate sodium 100 mg tablet (DOK) 100 mg PO BID 11/3006/24/25 History magnesium oxide 400 mg (241.3 mg 400 mg PO DAILY 06/2506/25/25 History magnesium) tablet New Prescriptions to Start Prescriptions: Allergies Allergy/AdvReac Type Severity Reaction Status Date / Time lisinopril (LISINOPRIL) Allergy Unknown Verified 05/01/25 14:51 Exam Data for Last 24 hours Vital signs and Labs for Last 24 Hours: Temp Pulse Resp BP Pulse Ox O2 Del Method 98.5 F 90 18 151/98 H 97 Room Air 06/24/25 22:44 06/24/25 22:44 06/24/25 22:44 06/24/25 22:44 06/24/25 22:44 06/24/25 23:00 Laboratory Results - last 24 hr 06/24/25 19:00: VBG pH 7.40, VBG pCO2 25.7 L, VBG pO2 189.8 H, VBG HCO3 15.6 L, VBG Total CO2 16.4 L, VBG O2 Saturation 99.5 H, VBG Base Excess -9.2 L, VBG Lactic Acid 1.7 06/24/25 19:35: Sodium 116 L, Potassium 4.5, Chloride 93 L, Carbon Dioxide 12 L, Anion Gap 15.5 H, BUN 16, Creatinine 1.20 H, Estimated Creat Clear 54, Estimated GFR 45 L, Est GFR ( Amer) 55 L, Glucose 101 H, Calcium 8.3 L, Magnesium 1.8, Total Bilirubin 0.7, AST 31, ALT 19, Alkaline Phosphatase 133 H, Total Protein 6.9, Albumin 3.9, Globulin 3.0, Albumin/Globulin Ratio 1.3, TSH 2.14 06/24/25 21:05: Urine Color Yellow, Urine Appearance Sl cloudy, Urine pH 6.0, Ur Specific [place] <= 1.005, Urine Protein Negative, Urine Glucose (UA) Negative, Urine Ketones Negative, Urine Blood 1+ A, Urine Nitrate Negative, Urine Bilirubin Negative, Urine Urobilinogen 0.2, Ur Leukocyte Esterase 3+ A, Urine RBC 5-10, Urine WBC Tntc, Ur Squamous Epith Cells 5-10, Ur Transition Epith Cell 10-20, Amorphous Sediment 1+, Urine Bacteria 4+, Urine Mucus 1+ 06/24/25 21:17: Free T4 1.67 06/24/25 22:40: Urine Sodium 8.0 L I & O for Last 24 hours: Intake & Output 06/22/25 06/23/25 06/24/25 06/25/25 05:59 05:59 05:59 05:59 Intake Total 1000 / 1000 Balance 1000 / 1000 Weight 194 lb Radiology Reports for the Last 24 Hours: Lungs: Unremarkable. No consolidation. No pulmonary vascular congestion or edema. Pleural spaces: Unremarkable. No pleural effusion. No pneumothorax. Heart/Mediastinum: Unremarkable. No cardiomegaly. No mediastinal widening or hilar enlargement. Vasculature: Atherosclerotic aortic arch. Bones/joints: Mild osteopenia. Soft tissues: Breast attenuation artifact. Constitutional Constitutional: severe distress, obese, chronically ill appearing, combative and agitated Comments: Patient is just beside herself with not being able to urinate but not excepting help to let us place a Houston catheter without fighting the staff *Routine HEENT Exam Head: Present normocephalic and atraumatic Eye: Present EOMI and PERRL ENT: Present mucous membranes moist *Routine Neck Exam Neck: Present full ROM Comments: Patient is moving her neck without any difficulty showing no pain. But difficult to assess with her present mental state *Routine Respiratory Exam Respiratory: Present CTA bilaterally Comments: Very limited chest exam did not hear any estranged are abnormal chest sounds. Trying to listen to the patient but when she would not stop talking moving very difficult to assess the lungs and the heart *Routine Cardiovascular Exam Cardiovascular: Present RRR *Routine Abdominal Exam Abdominal: Present soft and tenderness Comments: No real tenderness pubic area slightly distended but not seeing the patient for not under sure that this was just her normal body habitus. No significant pain but patient is just beside herself with not being able to control her behavior or to cooperate with us trying to give her care *Routine Rectal Exam Rectal:: deferred *Routine Genitalia Exam Genitalia:: normal female *Routine Extremities Exam Comments: Patient is moving all extremities well the right foot is still edematous rest of the limbs are basically normal. But the skin is extremely pale *Routine Skin Exam Skin: Present intact and pallor Comments: Very pale to look at this lady she looks very anemic as if she needs a blood transfusion *Routine Neurological Exam Neurological: Present alert Comments: Patient is alert and is oriented to self and where she is at but her behavior is of such we are unable to give her care without providing a chemical restraint namely Valium to slow her down enough also gave her Phenergan. This allowed us to be able to have her urinate 400 cc and then be able to put a [place] cath in her and remove another 900 cc, without relief patient then went to sleep breathing steadily without any signs of distress Routine Psychiatric Exam Psychiatric: Present anxious, agitated and unable to assess H&P: Result Impressions 1. Hyponatremia, with recent cancellation of Lasix 2. Right foot lower extremity edema 3. Urine retention requiring catheterization 4. Resistant to care related to mental health status 2. Anemia paleness repeating labs Imaging and Cardiology CT scan - head: Additional comments: No acute findings Assessment and Plan *Assessment and plan (1) Hyponatremia: Status: Acute Category: Medical Code(s): E87.1 - Hypo-osmolality and hyponatremia (2) Urinary retention with incomplete bladder emptying: Status: Acute Category: Medical Code(s): R33.9 - Retention of urine, unspecified (3) Dementia with behavioral disturbance: Status: Acute Category: Medical Code(s): F03.918 - Unspecified dementia, unspecified severity, with other behavioral disturbance (4) Anemia: Status: Acute Qualifiers: Anemia type: other cause Other causes of anemia: other cause, not classified Qualified Code(s): D64.89 - Other specified anemias Category: Medical Code(s): D64.9 - Anemia, unspecified (5) Edema: Status: Acute Qualifiers: Edema type: localized Qualified Code(s): R60.0 - Localized edema Category: Medical Code(s): R60.9 - Edema, unspecified Plan 64-year-old female who was at her nursing facility. Presented with confusion, falls. Found to have hyponatremia and suspected UTI along with urinary retention. Discussed case with ER physician, request admission for further management of her UTI and hyponatremia. Medicine agreed to admit for further care. Urine sodium low at 8. Consistent hypervolemic hyponatremia. Will fluid restrict and administer diuretic x 1 with Lasix 40 mg IV. Monitor for improvement. Problems addressed as follows: [place] catheter placed due to retention, urinalysis with 3+ leuk esterase, white count too numerous, 4+ bacteria - Consistent with UTI. Urine culture pending. Initiate Zosyn 3.375 g every 8 hours. Received ceftriaxone 2 g IV once in the ED. 1. Patient is admitted to the floor, plan on controlling behavior with little Valium a little Haldol as trying to care for her and her present state is just not practical. [place] catheter has been placed we will continue up with intake output monitoring for the reason for this hyponatremia. Limit total fluids. Evaluate present medicines from the long-term care to see if it is causing any of this., Urine sodium was low may need endocrinology consult. 2. Try to get labs for a new CBC so I can have an accurate measurement also will type and cross since patient is hard to draw blood from May require ultrasound to place IV if blood work transfusion is needed 3. 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 Sodium 116 on admission. Repeat CMP, CBC, magnesium ordered for the morning. Will monitor sodium every 6 hours.
[2025-06-25] MEDS: diazePAM 10MG/2ML SYRINGE 5 MG IV ×2 (00:50→06:29)
--- NOTE | 2025-06-25 00:55 | PC.NURSE ---
2230-On arrival to floor, patient crying and begging to use toilet, called Peg SALMERON for permission for bedside commode. Patient sit on commode, then got back in bed, then back to commode, during this patient very upset because she needs to urinate. Patient stated she does not hurt anywhere, no burning during urination. Patient did use commode after turning on water in the room, patient has 300ml out of cloudy yellow urine. Patient began to rest after with no complaints. 0030-Patient bed alarm going off, patient began screaming I got to pee , this RN and techs assisted patient to bedside commode. Patient wanted to stand up and sit up several times. Patient stated she was not in any pain and just wanted to pee. Bladder scanned patient, 942ml. During interaction, patient threatened to beat your ass to several of the staff, patient kicking legs in bed. Patient would request staff to help her sit up and then yell at staff from holding her hand. Patient is very aggressive toward staff, threatening to harm staff, Peg SALMERON called to bedside to witness behavior. Peg SALMERON verbal order to give 5mg valium IV, this was given, patient did relax. Verbal order schmidt catheter to be placed due to retention. 16F schmidt placed, patient did yell at staff and move legs around during insertion. 910ml urine immediately out of schmidt. Patient is resting and snoring in bed.
--- NOTE | 2025-06-25 01:31 | CA_ITS ---
APPROVED REPORT EXAM: Limited 2D Echocardiogram Oil Well Engineer: Kimberly Marie CRT Ht: 5 ft 4 in Wt: 194lbs BSA: 1.93 BP: 151/98 mmHg Indications: LV function evaluation, a fib M-Mode Dimensions RVDd 2.04 cm (0.9-2.6) LVDd 4.54 cm (3.5-5.7) LVDs 3.15 cm (3.5-5.7) IVSd 1.50 cm (0.6-1.1) PWd 0.86 cm (0.6-1.1) EF (Teich) 58.30% FS 30.60% EDV (Teich) 94.40 mL ESV (Teich) 39.40 mL Other Information Study Quality: Fair Conclusion This is a limited TTE to evaluate for LV systolic function. Limited windows were obtained. The left ventricle is normal in size. There is increased LV wall thickness. There is normal global LV systolic function. LVEF is 55%. Electronically signed by : Shae Blunt MD 06/25/2025 12:43:56
[2025-06-25 01:37] LABS: Hematocrit 21.2 % (37.0-47.0); Hemoglobin 7.1 g/dL (12.2-16.2); Immature Granulocytes % 0.6 %; Mean Corpuscular HGB Conc 33.5 g/dL (31.8-35.4); Mean Corpuscular Hemoglobin 27.5 pg (27.0-31.2); Mean Corpuscular Volume 82.2 fl (81-99); Nucleated Red Blood Cells % 0 %; Platelet Count 230 K/mm3 (142-424); Red Blood Count 2.58 M/mm3 (4.20-5.40); Red Cell Distribution Width-SD 45.6 fL; White Blood Count 12.3 K/mm3 (4.8-10.8)
--- NOTE | 2025-06-25 05:27 | PC.NURSE ---
Alert to name and birthday, place. Patient unsure of year or situation. Patient very aggressive toward staff per previous note. Patient ordered one unit PRBC, tolerating well. Right foot swollen, pitting edema. Lung sounds clear. Room air. Redness noted to gomez area. Bed alarm on. Call light in reach.
--- NOTE | 2025-06-25 06:31 | PC.NURSE ---
During echo, patient began to cuss at staff and threatening. Echo staff left the room. Patient began tugging at her schmidt and cussing staff members. Explained to patient that the schmidt is for her retention, patient stated she has not had any in her bladder, patient has very good output with schmidt after being unable to use bedside commode to relieve bladder fully. Lab staff came into the room and patient said is that a boy or a girl Lab staff said Im a girl , patient said karley , this RN ask patient to not be talking that way to our staff and patient said i can do whatever i want whoopraul shioly . Peg SALMERON contacted about patient behavior, Peg SALMERON stated to give another PRN dose of 5mg valium. Dose given. Patient resting. Lab staff able to get blood as ordered.
[2025-06-25] MEDS: PIPERACILLIN/TAZO 3.375 GM in 0.9 % SODIUM CHLORIDE 50 ML IV ×3 (06:52→21:42)
[2025-06-25 07:05] LABS: Hematocrit 22.9 % (37.0-47.0); Hemoglobin 7.8 g/dL (12.2-16.2); Immature Granulocytes % 0.6 %; Mean Corpuscular HGB Conc 34.1 g/dL (31.8-35.4); Mean Corpuscular Hemoglobin 28.0 pg (27.0-31.2); Mean Corpuscular Volume 82.1 fl (81-99); Nucleated Red Blood Cells % 0 %; Platelet Count 226 K/mm3 (142-424); Red Blood Count 2.79 M/mm3 (4.20-5.40); Red Cell Distribution Width-SD 44.7 fL; White Blood Count 11.9 K/mm3 (4.8-10.8)
[2025-06-25 07:18] LABS: Albumin Level 3.5 g/dl (3.5-5.0); Chloride 101 mmol/L (98-107); Sodium 125 mmol/L (136-145)
[2025-06-25 07:19] LABS: Potassium 4.1 mmoL/L (3.5-5.1)
[2025-06-25 07:21] LABS: Alanine Aminotransferase 17 U/L (12-78); Albumin/Globulin Ratio 1.2 (1.1-1.8); Alkaline Phosphatase 142 U/L (38-126); Anion Gap 13.1 mEq/L (5-15); Aspartate Amino Transferase 27 U/L (14-36); Bilirubin,Total 1.0 mg/dl (0.2-1.3); Blood Urea Nitrogen 16 mg/dl (7-17); Calcium 8.8 mg/dl (8.4-10.2); Carbon Dioxide 15 mmol/L (22.0-30.0); Creatinine Clearance Estimated 65 mL/min (50-200); Creatinine,Serum 1.20 mg/dl (0.52-1.04); Estimated Glomerular Filt Rate 45 ml/min (>60); GFR (African American) 55 ML/MIN (>60); Globulin 2.9 g/dL (1.3-3.2); Glucose 98 mg/dl (74-100); Total Protein,Serum 6.4 g/dl (6.3-8.2)
[2025-06-25 07:22] LABS: Magnesium 2.0 mg/dl (1.6-2.3)
[2025-06-25 07:48] LABS: Hemoglobin A1C 5.0 % (4.0-6.0)
[2025-06-25 07:49] LABS: Thyroid Stimulating Hormone 2.88 uIU/mL (0.465-4.68)
--- NOTE | 2025-06-25 07:55 | SW/DCPLANNER ---
Addendum entered by Dorie Martino 06/26/25 10:34: I have updated Yael w/ [facility] that patient will return [facility] level of care today. Original Note: Patient currently resides at [facility] level of care. Per Olivia w/ [facility] patient's contact lens blocker and cutter is her son/Guardian (Adilson) [phone]. I will continue to follow up w/ Olivia until patient is medically stable for discharge. Discharge date is unknown at this time.
[2025-06-25] MEDS: FUROSEMIDE 40MG/4ML VIAL 40 MG IV (08:05)
[2025-06-25 08:37] LABS: Hematocrit 22.9 % (37.0-47.0); Hemoglobin 7.8 g/dL (12.2-16.2)
--- NOTE | 2025-06-25 09:14 | HMH.PHAINT1 ---
Pharmacy Intervention Comments: MEDICATION RECONCILIATION COMPLETED ON PATIENT USING EXTERNAL FILL HISTORY FROM PHARMACY AND LIST FROM CARDIOLOGY OFFICE. -MINA BIGGS, GREYD
--- NOTE | 2025-06-25 09:34 | HMH.OTEV ---
OT Inpatient Evaluation Rehab OT IP Evaluation Start: 06/24/25 23:04 Freq: ONCE Status: Active Protocol: Document 06/25/25 09:18 DIYAJUNIOR (Rec: 06/25/25 09:34 [email or web address] [id number]) Rehab OT IP Assessment Subjective History 64-year-old female who is a long-term care patient, has been sent to the hospital ER due to the fact she has been falling at the long-term care which is not her normal self. With workup in the emergency room finding her sodium is 116. Also noting a weight gain from late April of this year of 168 up to 194 today. Patient is noted with a history of atrial fibs hypothyroidism cardiovascular disease requiring stents in the past and anemia. Patient presently was seen by cardiology to be cleared for an upper endoscopy. This has not been carried out yet. Patient is noted in January of this year requiring a unit of blood, also noting older notes showed that she had a left ventricular ejection fraction of 70%. Find the patient in the ER quite irritable wanting to pee but then it up on a bedside commode did not did not want a diaper did not want pure wick nothing was able to console her.. She is alert to herself and where she is at., . ER staff tried to place [place] catheter patient would just would not let them. On taking the patient up to the floor found out there was not enough blood to check for CBC. Going to have that redrawn as patient is very pale and has received blood in the past. While upstairs on the floor eventually being placed in the bed the patient was able to be helped to the bedside commode eventually given a little bit of Phenergan to try to calm her. She was able to give us 400 cc out. Patient was then placed back in bed but on awakening was once again strangely agitated could not control her behavior. Yelling she has to pee she has to pee. Had to give 5 mg of Valium. [place] catheter placed and 900 cc of urine also out after the 400 that she was able to get out sitting on the side commode about an hour earlier. Presently patient is sleeping with the Valium. Lab had been notified that I would like for them to get at least an H&H and if they can grab a type and screen if we need to transfuse this is because her skin is extremely pale inside lip and under eyelid pale, feel there is a chance we may need to give a unit of blood, will be waiting for lab results. Also talking with nurse about the patient's medication at the long-term I was under the impression she was on Lasix apparently that was stopped on the 14 of this month, very complicated patient with behavioral problems making it difficult to come up with clear diagnosis's., Apparently changes in behavior and the fact that she usually did not fall at the long-term in the past, and this sudden weight gain has been verified that they had that the bed weight is accurate for the patient impaired to her last weight her last 2 doctor office visits there was a significant increase of 30 pounds. Also noting got a urine sodium that is low at 8, question cause for hyponatremia unsure. With the report from the nurse apparently the patient had edema in the lower extremities in the past but presently only has edema in the right foot. Resident at local [facility]. Resident requires 1 assist for ADLs and SUP/SBA for transfers and fx'l mobility to complete toileting, ambulation and transfers. Uses of RW. Hx of falling. Requires max cueing for safety and full participation. Subjective I want to sit up. Instructed Patient on proper hand and foot placement to complete bed mobility from supine->sit @ EOB Objective Patient Orientation Person,Place,Name,Age Right Upper WFL Extremity Gross ROM Left Upper Extremity WFL Gross ROM Bed Mobility bed mobility - supine/sit Assist Level Minimal x 1 (25% assist) Transfer Training Sit/Stand/Step Transfer Assist Level Moderate x 2 (50% assist) Chair Transfer Moderate x 2 (50% assist) Ability Lower Body Dressing Unable/dependent Ability Rehab OT IP prob,goals,plan Problems Date of Evaluation: 06/25/25 OT IP Problems Bed Mobility,Transfers,Balance,Self care,Safety Rehab Potential Rehab Potential Good Equipment Needs Assistive Devices Standard Walker Plan OT intervention Plan Bed Mobility,Transfers,Balance,Self care,Safety, Therapeutic Exercise OT Plan Frequency Daily Duration LOS Discharge Goals Bed Mobility Ability Assistance x1 Sit to Stand Chair Moderate x 1 (50% assist) Transfer Ability Chair Transfer Moderate x 1 (50% assist) Ability Chair Transfer Sit to/from Ambulatory Technique Chair Transfer Rolling Walker Assistive Devices Discharge Plan OT Discharge Plan Recommend patient return back to [facility] for nursing and rehab care. Patient will benefit from OT skilled services while here at [facility] in order to improve independence with ADLs and fx'l mobility to decrease fall risk and enhance safety awareness. Eval Complexity Eval Charge Codes 69648 - Low Complexity PHYSICIAN CERTIFICATION: I certify the specified therapy services for Darleen Wynne are required, authorized, and reviewed every 30 days.
--- NOTE | 2025-06-25 09:35 | HMH.PTEV ---
Physical Therapy Evaluation Rehab PT IP Evaluation Start: 06/24/25 22:02 Freq: ONCE Status: Active Protocol: Document 06/25/25 09:33 CLARIBEL (Rec: 06/25/25 09:35 CLARIBEL [id number]) Subjective/History History History Per H&P: 64-year-old female who is a long-term care patient, has been sent to the hospital ER due to the fact she has been falling at the long-term care which is not her normal self. With workup in the emergency room finding her sodium is 116. Also noting a weight gain from late April of this year of 168 up to 194 today . Patient is noted with a history of atrial fibs hypothyroidism cardiovascular disease requiring stents in the past and anemia. Patient presently was seen by cardiology to be cleared for an upper endoscopy. This has not been carried out yet. Patient is noted in January of this year requiring a unit of blood, also noting older notes showed that she had a left ventricular ejection fraction of 70%. Find the patient in the ER quite irritable wanting to pee but then it up on a bedside commode did not did not want a diaper did not want pure wick nothing was able to console her.. She is alert to herself and where she is at., . ER staff tried to place Houston catheter patient would just would not let them. On taking the patient up to the floor found out there was not enough blood to check for CBC. Going to have that redrawn as patient is very pale and has received blood in the past. While upstairs on the floor eventually being placed in the bed the patient was able to be helped to the bedside commode eventually given a little bit of Phenergan to try to calm her. She was able to give us 400 cc out. Patient was then placed back in bed but on awakening was once again strangely agitated could not control her behavior. Yelling she has to pee she has to pee. Had to give 5 mg of Valium. Houston catheter placed and 900 cc of urine also out after the 400 that she was able to get out sitting on the side commode about an hour earlier. Presently patient is sleeping with the Valium. Lab had been notified that I would like for them to get at least an H&H and if they can grab a type and screen if we need to transfuse this is because her skin is extremely pale inside lip and under eyelid pale, feel there is a chance we may need to give a unit of blood, will be waiting for lab results. Also talking with nurse about the patient's medication at the long term I was under the impression she was on Lasix apparently that was stopped on the of this month, very complicated patient with behavioral problems making it difficult to come up with clear diagnosis's., Apparently changes in behavior and the fact that she usually did not fall at the long term in the past, and this sudden weight gain has been verified that they had that the bed weight is accurate for the patient impaired to her last weight her last 2 doctor office visits there was a significant increase of 30 pounds. Also noting got a urine sodium that is low at 8, question cause for hyponatremia unsure. With the report from the nurse apparently the patient had edema in the lower extremities in the past but presently only has edema in the right foot. Subjective Subjective Pt resides at [facility]. Pt normally able to ambulate short distances using a RW . Pt required Max VCs to participate in therapy evaluation. New diagnosis of No cancer in past 12 months? [facility] How much help from another person do you currently need... Turning from your A little back to your side while in a flat bed without using bedrails? Moving from lying on A little back to sitting on the side of a flat bed without using bedrails? Moving to and from a A little bed to a chair ( including a wheelchair)? Standing up from a A little chair using your arms? (e.g., wheelchair, bedside chair) Walking in hospital A little room? Climbing 3-5 steps A little with a railing? Mobility Score 18 Mobility Level [facility] 6 Walk 10 steps or more Mobility Calculator Rehab PT IP Eval Objective Appearance Patient Behavior Resistive to Care Patient Orientation Person Difficulty following moderate instructions Speech Pattern Clear Ambulation Patient Able to No Ambulate Balance Ability to Arise Able, uses arms to help Sitting Balance Steady, safe Standing Balance Unsteady Transfers Bed Transfer Ability Minimal x 1 (25% assist) Sit to Stand Bed Minimal x 2 (25% assist) Transfer Ability Rehab PT IP prob,goals,plan Problems Date of Evaluation: 06/25/25 PT IP Problems Bed Mobility,Transfers,Gait,Balance,Self care,Safety Rehab Potential Rehab Potential Good Plan PT Intervention Plan Bed Mobility,Transfers,Gait,Balance,Self care,Safety, Therapeutic Exercise Other Intervention 1-2 times Plan PT Plan Frequency Daily Duration LOS Discharge Goals Bed Transfer Ability Supervision/Stand by Sit to Stand Chair Supervision/Stand by Transfer Ability Ambulation Assistive Rolling Walker Device Ambulation Distance 10 (feet) Discharge Plan PT Discharge Plan Initial physical therapy evaluation performed. Patient presents below baseline at this time in functional mobility, transfers, gait, and strength. PT recommending rehabilitation services upon d/c from [facility]. Pt would benefit from skilled PT while at [facility] to prevent further functional decline and maximize safety with mobility. Eval Complexity Eval Charge Codes 86139 - Moderate Complexity PHYSICIAN CERTIFICATION: I certify the specified therapy services for Darleen Wynne are required, authorized, and reviewed every 30 days.
[2025-06-25] MEDS: SODIUM BICARBONATE 650MG TABLET 650 MG PO ×3 (10:53→20:44)
--- NOTE | 2025-06-25 11:08 | P.PN_ITS ---
Subjective *Date: 06/25/25 *Time: 16:11 Interval history: Patient agitated this morning. Sodium showing some improvement on morning labs. Requesting to have Houston catheter out. Had significant output after it was placed. No nausea or vomiting. Denies chest pain or shortness of breath. Tolerating p.o. intake. On room air Medical Exam Vital signs and Labs for Last 24 Hours: Vital Signs Temp Pulse Pulse Resp BP BP Pulse Ox 06/25/25 09:00 06/25/25 08:00 97.9 F 81 20 125/76 97 06/25/25 08:00 06/25/25 07:15 98.1 F 84 16 137/78 96 06/25/25 06:57 06/25/25 06:15 98.5 F 81 16 140/77 99 06/25/25 06:05 98.5 F 80 15 138/73 99 06/25/25 05:05 98.7 F 80 15 149/88 H 98 06/25/25 04:58 06/25/25 04:50 98.5 F 93 H 14 165/73 H 98 06/25/25 04:35 98.7 F 83 14 159/61 H 96 06/25/25 04:20 98.1 F 73 15 153/71 H 96 06/25/25 04:15 98.5 F 84 15 152/80 H 96 06/25/25 04:10 98.9 F 83 14 170/93 H 97 06/25/25 04:05 98.4 F 90 14 153/80 H 96 06/25/25 04:01 98.4 F 87 14 146/87 H 95 06/25/25 03:00 06/25/25 01:00 06/24/25 23:00 06/24/25 22:44 98.5 F 90 18 151/98 H 97 06/24/25 22:06 98 F 82 20 154/79 H 06/24/25 21:58 06/24/25 20:30 192/104 H 06/24/25 20:01 82 194/118 H 94 L 06/24/25 19:53 94 L 06/24/25 19:31 79 178/105 H 98 06/24/25 19:01 69 154/79 H 85 L 06/24/25 18:46 98.2 F 78 16 130/75 97 O2 Del Method 06/25/25 09:00 Room Air 06/25/25 08:00 Room Air 06/25/25 08:00 Room Air 06/25/25 07:15 06/25/25 06:57 Room Air 06/25/25 06:15 06/25/25 06:05 06/25/25 05:05 06/25/25 04:58 Room Air 06/25/25 04:50 06/25/25 04:35 06/25/25 04:20 06/25/25 04:15 06/25/25 04:10 06/25/25 04:05 06/25/25 04:01 06/25/25 03:00 Room Air 06/25/25 01:00 Room Air 06/24/25 23:00 Room Air 06/24/25 22:44 Room Air 06/24/25 22:06 Room Air 06/24/25 21:58 Room Air 06/24/25 20:30 06/24/25 20:01 06/24/25 19:53 Room Air 06/24/25 19:31 06/24/25 19:01 06/24/25 18:46 Room Air Intake and Output 06/24/25 06/25/25 06/25/25 23:59 07:59 15:59 Intake Total 1000 / 1000 300 / 300 Output Total 300 / 1225 1825 / 3025 1200 / 3025 Balance 700 / -225 -1525 / -2725 -1200 / -2725 Intake: Intake, Oral Amount 0 / 0 Intake, Total IV Amount 1000 / 1000 50 / 50 0.9 % Sodium Chloride 1000ML 1, 1000 / 1000 000 ml @ 999 mls/hr IV .Q1H1M ONE Rx#:[id number] Piperacillin/Tazo 3.375 gm In 0 50 / 50 .9 % Sodium Chloride 50 ml @ 100 mls/hr IV Q8H [facility] Rx#: [id number] Intake (Blood Product) Amt 250 / 250 Red Blood Cells Unit 250 / 250 [id number] Output: Output, Urine Amount 300 / 1225 1825 / 3025 1200 / 3025 Other: Number of Unmeasured Voids 0 0 0 Weight 87.997 kg 86.772 kg Patient Weight 06/25/25 23:59 Weight 86.772 kg Laboratory Results - last 24 hr 06/24/25 19:00: VBG pH 7.40, VBG pCO2 25.7 L, VBG pO2 189.8 H, VBG HCO3 15.6 L, VBG Total CO2 16.4 L, VBG O2 Saturation 99.5 H, VBG Base Excess -9.2 L, VBG Lactic Acid 1.7 06/24/25 19:35: Sodium 116 L, Potassium 4.5, Chloride 93 L, Carbon Dioxide 12 L, Anion Gap 15.5 H, BUN 16, Creatinine 1.20 H, Estimated Creat Clear 54, Estimated GFR 45 L, Est GFR ( Amer) 55 L, Glucose 101 H, Calcium 8.3 L, Magnesium 1.8, Total Bilirubin 0.7, AST 31, ALT 19, Alkaline Phosphatase 133 H, Total Protein 6.9, Albumin 3.9, Globulin 3.0, Albumin/Globulin Ratio 1.3, TSH 2.14 06/24/25 21:05: Urine Color Yellow, Urine Appearance Sl cloudy, Urine pH 6.0, Ur Specific [place] <= 1.005, Urine Protein Negative, Urine Glucose (UA) Negative, Urine Ketones Negative, Urine Blood 1+ A, Urine Nitrate Negative, Urine Bilirubin Negative, Urine Urobilinogen 0.2, Ur Leukocyte Esterase 3+ A, Urine RBC 5-10, Urine WBC Tntc, Ur Squamous Epith Cells 5-10, Ur Transition Epith Cell 10-20, Amorphous Sediment 1+, Urine Bacteria 4+, Urine Mucus 1+ 06/24/25 21:17: Free T4 1.67 06/24/25 22:40: Urine Sodium 8.0 L 06/25/25 01:20: WBC 12.3 H, RBC 2.58 L, Hgb 7.1 L, Hct 21.2 L, MCV 82.2, MCH 27.5, MCHC 33.5, RDW 15.1, Plt Count 230, MPV 9.8, Neut % (Auto) 78.1, Lymph % (Auto) 10.9, [place] % (Auto) 10.0 H, Eos % (Auto) 0.1, Baso % (Auto) 0.3, Neut # (Auto) 9.6 H, Lymph # (Auto) 1.4, [place] # (Auto) 1.2 H, Eos # (Auto) 0.0, Baso # (Auto) 0.0, Blood Type A Negative, Antibody Screen Negative, Crossmatch (AHG) See Detail 06/25/25 06:32: WBC 11.9 H, RBC 2.79 L, Hgb 7.8 L, Hct 22.9 L, MCV 82.1, MCH 28.0, MCHC 34.1, RDW 14.8, Plt Count 226, MPV 9.6, Neut % (Auto) 74.9, Lymph % (Auto) 12.7, [place] % (Auto) 11.1 H, Eos % (Auto) 0.3, Baso % (Auto) 0.4, Neut # (Auto) 8.9 H, Lymph # (Auto) 1.5, [place] # (Auto) 1.3 H, Eos # (Auto) 0.0, Baso # (Auto) 0.1, Sodium 125 L, Potassium 4.1, Chloride 101, Carbon Dioxide 15 L, Anion Gap 13.1, BUN 16, Creatinine 1.20 H, Estimated Creat Clear 65, Estimated GFR 45 L, Est GFR ( Amer) 55 L, Glucose 98, Hemoglobin A1c 5.0, Calcium 8.8, Magnesium 2.0 D, Total Bilirubin 1.0, AST 27, ALT 17, Alkaline Phosphatase 142 H, Total Protein 6.4, Albumin 3.5 D, Globulin 2.9, Albumin/Globulin Ratio 1.2, TSH 2.88 D 06/25/25 08:30: Hgb 7.8 L, Hct 22.9 L I & O for Labs for Last 24 Hours: Intake & Output 06/22/25 06/23/25 06/24/25 06/25/25 23:59 23:59 23:59 23:59 Intake Total 1000 / 1000 300 / 300 Output Total 300 / 1225 3025 / 3025 Balance 700 / -225 -2725 / -2725 Weight 87.997 kg 86.772 kg Microbiology Reports for the Last 24 Hours: Microbiology 06/24/25 21:05 Urine,Clean Catch Urine Culture - Preliminary Gram Negative Rods Constitutional: Present mild distress, obese, chronically ill appearing, disheveled and agitated Head: Present atraumatic and normocephalic Respiratory: Present normal respiratory effort; Absent rhonchi, wheezes or crackles Cardiac: Present Reg Rate and Rhythm GI: Present soft and normal bowel sounds; Absent distention or tenderness Extremities: Present normal inspection and full ROM Skin: Present intact; Absent erythema Neuro: Present Grossly Intact, alert, awake and moves all extremities Comment:: Appears to be oriented to person and place. Will feign crying and then change her disposition. Exhibiting manipulative behavior during conversation. Assessment and Plan *Assessment and plan (1) Urinary tract infection: Status: Acute Category: Medical Code(s): N39.0 - Urinary tract infection, site not specified (2) Hyponatremia: Status: Acute Category: Medical Code(s): E87.1 - Hypo-osmolality and hyponatremia (3) Urinary retention with incomplete bladder emptying: Status: Acute Category: Medical Code(s): R33.9 - Retention of urine, unspecified (4) Dementia with behavioral disturbance: Status: Acute Category: Medical Code(s): F03.918 - Unspecified dementia, unspecified severity, with other behavioral disturbance (5) Anemia: Status: Acute Qualifiers: Anemia type: other cause Other causes of anemia: other cause, not classified Qualified Code(s): D64.89 - Other specified anemias Category: Medical Code(s): D64.9 - Anemia, unspecified (6) Edema: Status: Acute Qualifiers: Edema type: localized Qualified Code(s): R60.0 - Localized edema Category: Medical Code(s): R60.9 - Edema, unspecified (7) COPD (chronic obstructive pulmonary disease): Status: Chronic Category: Medical Code(s): J44.9 - Chronic obstructive pulmonary disease, unspecified (8) Hypothyroidism: Status: Chronic Category: Medical Code(s): E03.9 - Hypothyroidism, unspecified (9) Major depressive disorder: Status: Chronic Category: Medical Code(s): F32.9 - Major depressive disorder, single episode, unspecified Plan 64-year-old female who was at her nursing facility. Presented with confusion, falls. Found to have hyponatremia and suspected UTI along with urinary retention. Discussed case with ER physician, request admission for further management of her UTI and hyponatremia. Medicine agreed to admit for further care. Urine sodium low at 8. Consistent hypervolemic hyponatremia. Will fluid restrict and administer diuretic x 1 with Lasix 40 mg IV. Monitor for improvement. Problems addressed as follows: Hyponatremia Metabolic acidosis - Sodium 125 this morning. Up from 116 on presentation. Chloride 101. Urine sodium 8 on admission. Specific gravity less than 1.005. Appears to be hypervolemic with free water. Will fluid restrict to 1200 cc a day. - Received 40 of Lasix IV once this morning. Negative volume status at least 2 L today. - Monitor sodium every 6 hours. Correction rate between 8 to 10 mEq a day. Correcting on its own with auto diuresis. - Initiate sodium bicarbonate 650 mg 3 times a day for bicarb level of 15. - Kidney function at baseline with BUN 16, creatinine 1.2. - BMP ordered every 6 hours. Repeat CBC, CMP, magnesium ordered for the morning UTI: Urinary retention - Urinalysis with 3+ leuk esterase, white count too numerous, 4+ bacteria - Consistent with UTI. Urine culture pending. Continuing Zosyn 3.375 g every 8 hours. Received ceftriaxone 2 g IV once in the ED. - Suspect she was having urinary retention due to UTI. Will remove Houston later this afternoon and allow for voiding trial. If having difficulty with urinary retention, will replace Houston prior to discharge Depression and anxiety: - Resume Cymbalta 30 mg daily, hold leflunomide as it is not on formulary Resume levothyroxine 50 mcg daily for hypothyroid, TSH well-controlled at 2.8 intermediate resident, complicates all aspects of her care. DNR/DNI Eliquis 5 mg twice daily Fluid restricted diet; less than 1200 cc a day
[2025-06-25 12:18] LABS: Chloride 100 mmol/L (98-107)
[2025-06-25 12:19] LABS: Sodium 126 mmol/L (136-145)
[2025-06-25 12:21] LABS: Blood Urea Nitrogen 17 mg/dl (7-17); Creatinine Clearance Estimated 60 mL/min (50-200); Creatinine,Serum 1.30 mg/dl (0.52-1.04); Estimated Glomerular Filt Rate 41 ml/min (>60); GFR (African American) 50 ML/MIN (>60)
[2025-06-25 12:22] LABS: Calcium 9.2 mg/dl (8.4-10.2); Carbon Dioxide 16 mmol/L (22.0-30.0); Glucose 99 mg/dl (74-100)
--- NOTE | 2025-06-25 12:29 | PC.NURSE ---
EDUCATED PT NUMEROUS TIMES ON 1200 ML FLUID RESTRICTION DUE TO DECREASED SODIUM LEVELS. PT CURSING AT NURSE, STATING SHE NEEDS SOMETHING TO DRINK . PT COMPLETELY NON COMPLIANT WITH RESTRICTION.
[2025-06-25 12:41] LABS: Anion Gap 14.0 mEq/L (5-15); Potassium 4.0 mmoL/L (3.5-5.1)
--- OUTSIDE RECORDS SUMMARY | 2025-06-25 13:20 | XMS_ITS | Clinical Summary ---
Author Organization [facility] Address [address] [place] [address] Phone Care Team Providers Care Peer Financial Counselor Name Role Phone Unavailable Unavailable Conditions or Problems No information available. Medications No information available. Medications Administered No information available. Allergies, Adverse Reactions, Alerts No information available. Results No information available. Plan of Care No information available. Procedures No information available. Vital Signs No information available. Immunizations No information available. Advance Directives No information available.
--- OUTSIDE RECORDS SUMMARY | 2025-06-25 13:21 | XMS_ITS | Patient Health Record ---
Author Organization [facility] Address [address] [place] [address] Care Team Providers Care Employee Placement Specialist Name Role Phone Garfield Gorman Primary Care Provider Alvaro Jernigan II Unavailable Allergies Allergen (clinical drug ingredient) Drug/Non Drug Allergy documented on EMR Reaction Allergy Type Onset Date Status lisinopril lisinopril stomach upset Drug Allergy A ctive Reason For Referral No Information Medications Medication SIG (Take, Route, Frequency, Duration) Notes Start Date End Date Status nitroglycerin 0.4 mg/hr 1 PATCH [facility] once a day; Duration: 30 day(s) Active ibuprofen 800 mg 1 tab(s) orally 3 times a day Active cyclobenzaprine 10 mg 1 tab(s) orally 3 times a day Active predniSONE 5 mg 1 tab(s) orally once a day; Duration: 30 day(s) Active losartan 25 mg 1 tab(s) orally once a day; Duration: 30 day(s) Active Potassium Chloride (Rwy-Apou-Qoy M20) 20 mEq TAKE 1 TABLET BY [...] ONLY IF CLOSED), Fax PA request to [phone] or [phone] Active Lipitor 80 mg 1 tab(s) orally [...] ONLY IF CLOSED), Fax PA request to [phone] or [phone] Active ezetimibe 10 mg 1 tab(s) orally once a day; Duration: 30 day(s) Active Acetaminophen-Hydrocodo ne Bitartrate 325 mg-10 mg 1 tab(s) orally every 8 hours; Duration: 28 days DO NOT FILL SOONER THAN 28 DAYS, (OK TO FILL EARLY, ONLY IF CLOSED), Fax PA request to [phone] or [phone] Active Lasix 20 mg 1 tab(s) orally [...] Risk Notes Problem Lumbosacral spondylosis without myelopathy (15759780) Other spondylosis with radiculopathy, lumbar region (M47.26) Active confirmed Problem Lumbosacral spondylosis without myelopathy (78293301) Spondylosis without myelopathy or radiculopathy, lumbar region (M47.816) Active confirmed Problem Degeneration of lumbar intervertebral disc (77679563) Other intervertebral disc degeneration, lumbar region (M51.36) Active confirmed Problem Lumbar radiculopathy (057729933) Radiculopathy, lumbar region (M54.16) Active confirmed Problem Other prison (current) drug therapy (Z79.899) Active confirmed Problem lumbar spondylosis (M47.816) Active confirmed Encounters Encounter Location Date Provider Diagnosis [facility] [address] [place] [address] 07/09/2024 Alvaro Banegas Other spondylosis with radiculopathy, lumbar region M47.26 [facility] [address] [place] [address] 07/04/2024 Alvaro Banegas [facility] [address] [place] [address] 08/06/2024 Alvaro Banegas Assessments Encounter Date Diagnosis [...] Coverage End Date [employer] [address] [address] [place] [address] [id number] Darleen Wynne Self - patient is the insured 1 Medical (General) History Medical History History ICD Code RA diagnosed [address] Gupta GERD- diagnosed [address] Jaciel jolley Hypertension diagnosed 2009 managed by [place] CAD diagnosed [address] Salinas rt Surgical History Surgery Date(Month/Year) Cardiac stent / [facility] / 2-3 da ys 12/2018
--- OUTSIDE RECORDS SUMMARY | 2025-06-25 13:21 | XMS_ITS | Clinical Summary ---
Author Organization [facility] Address [address] [place] [address] Care Team Providers Care Income Tax Analyst Name Role Phone Garfield Rose MD Primary Care Provider [phone] Allergies Active Allergy Reactions Criticality Noted Date [...] MG/0.1ML nasal spray Call 911. Don't prime. Leslie in 1 nostril for overdose. Repeat in [...] drink = 0.6 oz pur e alcohol) [facility] Utilities Answer Date Recorded In the past [...] medical care, and heating? Somewhat hard 09/17/2024 [facility] [place] of Occupat ional Health - Occupational Stress [...] GED or equivalent No 09/17/2024 Preferred Language New Zealander 09/17/2024 PHQ-2 Answer Date Recorded Patient Health [...] history exists Medical Devices Implanted Type Area A&P Mechanic Device Identifier Shelf Expiration Date Model / Serial / Lot Stent Cornry Resolute Raymond Rx 2x30mm - [id number] Implanted:Qty: 1 on 12/15/2018 by Moreno May MD at [facility] 03/29/2020 [id number] / / [id number] Procedures Procedure Name Priority Date/Time Associated Diagnosis [...] Mooney 09/18/2024 10:32 PM EST Workstation ID: [id number] Narrative 09/18/2024 10:[address] CHEST [...] Mooney 09/18/2024 10:32 PM EST Workstation ID: [id number] Kristen Landaverde MD IM CT ORDERABLES Final Result * (ABNORMAL) POC Occult Blood Stool (07/29/2024 8:40 PM EDT) Fecal Occult Blood Positive(A) [facility] Lot Number [id number] [facility] Expiration Date 08/2025 [facility] DEVELOPER LOT NUMBER [id number] [facility] DEVELOPER EXPIRATION DATE 06/2027 [facility] Positive Control Positive [facility] Negative Control Negative [facility] Stool Specimen from rectum / Unknown [facility] Carl Hennessy MD POINT OF CARE TEST ORDERA BLES Final Result [facility]
[address] [place] [address], from Last 3 Months or Most Recently Relevant to Health Maintenance Insurance [facility] [place] [address] Advance Directives Documents on File Type Date Recorded Patient Stores Clerk Expl anation [facility] RECORDS - SCAN 07/31/2024 12:06 PM [facility] * CPR (Attempt to Resuscitate) (Latest [...] pulse or is breathing): Full Care Teams Income Tax Analyst Relationship Specialty Start Date End Date Garfield Rose MD PCP - General Family Medicine 11/03/20
--- OUTSIDE RECORDS SUMMARY | 2025-06-25 13:21 | XMS_ITS | Clinical Summary ---
Author Organization [employer] ([place], [place], [place], [place]) Address [address] [place] [address] Care Team Providers Care Dog Catcher Name Role Phone Garfield Rose MD Primary Care Provider [phone] Allergies Active Allergy Reactions Criticality Noted Date [...] adult medical examination without abnormal findings 03/25/2023 shelter systemic steroid user 08/26/2021 Osteoarthritis 08/26/2021 Encounter [...] Date Navi rded Speak language other than Spanish at home Not on file 11/24/2023 Want [...] 1-dose 75+ series) 2035 Insurance [facility] Care Teams Dog Catcher Relationship Specialty Start Date End Date Garfield Rose MD [address] [place] [address] PCP - General Family Medicine 10/06/22
--- OUTSIDE RECORDS SUMMARY | 2025-06-25 13:21 | XMS_ITS | Referral Summary ---
Author Organization [employer] ([place], [place], [place], [place]) Address [address] [place] [address] Care Team Providers Care Master Plumber Name Role Phone Garfield Rose MD Primary Care Provider [phone] Allergies Active Allergy Reactions Criticality Noted Date [...] adult medical examination without abnormal findings 03/25/2023 [facility] systemic steroid user 08/26/2021 Osteoarthritis 08/26/2021 Encounter [...] Date Navi rded Speak language other than Eritrean at home Not on file 11/24/2023 Want [...] Plan of Treatment Not on file Insurance [facility] Care Teams Master Plumber Relationship Specialty Start Date End Date Garfield Rose MD [address] [place] [address] PCP - General Family Medicine 10/06/22
--- OUTSIDE RECORDS SUMMARY | 2025-06-25 13:21 | XMS_ITS | Encounter Summary ---
Author Organization [employer] ([place], [place], [place], [place]) Address [address] [place] [address] Care Team Providers Care Aspnet Developer Name Role Phone Garfield Rose MD Primary Care Provider [phone] Reason for Visit * Reason Comments Medication Refill Encounter Details Date Type Department Care Team (Late st Contact Info) Description 06/08/2023 Refill [facility] Rheumatology [address] [place] [address] Manuela Greenfield MD [address] [place], [place] [id number] Social History Tobacco Use Types Packs/Day Years [...] on filedocumented in this encounter Care Teams Aspnet Developer Relationship Specialty Start Date End Date Garfield Rose MD [address] [place] [address] PCP - General Family Medicine 10/06/22 documented as of this encounter
--- OUTSIDE RECORDS SUMMARY | 2025-06-25 13:21 | XMS_ITS | Encounter Summary ---
Author Organization [employer] ([place], [place], [place], [place]) Address [address] [place] [address] Care Team Providers Care Consulting Analyst Name Role Phone Garfield Rose MD Primary Care Provider [phone] Reason for Visit * Reason Comments Medication Refill Encounter Details Date Type Department Care Team (Late st Contact Info) Description 04/05/2024 Refill [facility] Rheumatology [address] [place] [address] Manuela Greenfield MD [address] [facility] [address] [place] [address] Other osteoarthritis involving multiple joints Social History [...] Date Navi rded Speak language other than Swedish at home Not on file 11/24/2023 Want [...] joints documented in this encounter Care Teams Consulting Analyst Relationship Specialty Start Date End Date Garfield Rose MD [address] [facility] [address] [place] [id number] PCP - General Family Medicine 10/06/22 documented as of this encounter
--- OUTSIDE RECORDS SUMMARY | 2025-06-25 13:21 | XMS_ITS | Clinical Summary ---
Author Organization Healthcare Address [address] [place] [address] Care Team Providers Care Recreation Program Coordinator Name Role Phone Aleksandra Richey APRN Primary Care Provider [phone] Family History Medical History Relation Name Comments [...] of Treatment Not on file Care Teams Recreation Program Coordinator Relationship Specialty Start Date End Date Aleksandra Richey APRN [address] [place] [id number] PCP - General 03/19/21
--- NOTE | 2025-06-25 16:42 | PC.NURSE ---
Addendum entered by Saida Lancaster RN 06/25/25 18:35: pt voided 700ml via bedside commode Original Note: pt has rested in the chair for the majority of the day. alert to self and place, sometimes time. pt has been very disgruntled, aggressive, and rude this shift. shouting profanity at staff, being resistive to care and interrupting education. spoke with pt regarding respect of staff and pt stated i dont have to be nice to you bitches . dose of lasix given this morning with increase in output. sodium bicard tabs given per mar. pt had schmidt removed at about 1400 and is still yet to void post removal. pt has called out about 6 times about every 10 minutes to be placed on the bedside because she needs to pee. no urine output each time. purewick placed on pt. will continue to monitor for output. pt has 1200 fluid restriction but is entirely noncompliant. pt educated several times of need for restriction to increase sodium level, however pt becomes aggressive and curses out staff, insisting that she is thirsty and that she doesnt care about her sodium level. abx given per mar. [facility] updated on POC. charge nurse and hospitalist aware of pt behavior. no needs at this time. call light within reach. chair alarm on for pt safety
[2025-06-25 18:26] LABS: Chloride 98 mmol/L (98-107)
[2025-06-25 18:27] LABS: Potassium 4.2 mmoL/L (3.5-5.1); Sodium 126 mmol/L (136-145)
[2025-06-25 18:30] LABS: Anion Gap 16.2 mEq/L (5-15); Blood Urea Nitrogen 19 mg/dl (7-17); Calcium 9.0 mg/dl (8.4-10.2); Carbon Dioxide 16 mmol/L (22.0-30.0); Creatinine Clearance Estimated 56 mL/min (50-200); Creatinine,Serum 1.40 mg/dl (0.52-1.04); Estimated Glomerular Filt Rate 38 ml/min (>60); GFR (African American) 46 ML/MIN (>60); Glucose 122 mg/dl (74-100)
[2025-06-25] MEDS: METOPROLOL TARTRATE 50MG TABLET 100 MG PO (20:44)
[2025-06-25] MEDS: DOCUSATE SODIUM 100 MG CAPSULE PO (20:44)
[2025-06-25] MEDS: HYDROXYCHLOROQUINE SULFATE 200MG TABLET 200 MG PO (20:44)
[2025-06-25] MEDS: APIXABAN 5MG TABLET 5 MG PO (20:44)
[2025-06-25] MEDS: PANTOPRAZOLE 40MG TABLET 40 MG PO (20:44)
[2025-06-25] MEDS: FAMOTIDINE 20MG TABLET 20 MG PO (20:44)
--- NOTE | 2025-06-26 01:48 | PC.NURSE ---
Checked patient for 0100 nursing check and found patient to have blood on blankets and IV laying in patients lap. Patient was cleaned up and linens changed. Notified patient that she will need another IV. Patient became confrontational at this time stating No one is putting anymore damn needles in me. Patient was educated on importance of IV and need for continued IV antibiotics. Patient continues to adamantly refuse. Ponce Lee notified.
[2025-06-26] MEDS: ACETAMINOPHEN 325MG TAB 650 MG PO (03:18)
[2025-06-26 04:00] VITALS: BMI 32.8
--- NOTE | 2025-06-26 06:57 | PC.NURSE ---
Pt alert x3. Pt continues to refuse IV insertion throughout shift. Pt also refused AM labs this AM and requested for them to be done later after breakfast. Ponce Lee made aware. Pt has got up to BSC multiple times throughout shift with 2x assist. Pt complained of pain in her neck 1x and PRN tylenol was given per MAR. Call light within reach. Bed alarm on for pt safety.
--- NOTE | 2025-06-26 07:34 | EXP.DC.SUM ---
General Admission date:: 06/24/25 Discharge date: 06/26/25 HPI HPI HPI: 64-year-old female who is a long-term care patient, has been sent to the hospital ER due to the fact she has been falling at the long-term care which is not her normal self. With workup in the emergency room finding her sodium is 116. Also noting a weight gain from late April of this year of 168 up to 194 today. Patient is noted with a history of atrial fibs hypothyroidism cardiovascular disease requiring stents in the past and anemia. Patient presently was seen by cardiology to be cleared for an upper endoscopy. This has not been carried out yet. Patient is noted in January of this year requiring a unit of blood, also noting older notes showed that she had a left ventricular ejection fraction of 70%. Find the patient in the ER quite irritable wanting to pee but then it up on a bedside commode did not did not want a diaper did not want pure wick nothing was able to console her.. She is alert to herself and where she is at., . ER staff tried to place Houston catheter patient would just would not let them. On taking the patient up to the floor found out there was not enough blood to check for CBC. Going to have that redrawn as patient is very pale and has received blood in the past. While upstairs on the floor eventually being placed in the bed the patient was able to be helped to the bedside commode eventually given a little bit of Phenergan to try to calm her. She was able to give us 400 cc out. Patient was then placed back in bed but on awakening was once again strangely agitated could not control her behavior. Yelling she has to pee she has to pee. Had to give 5 mg of Valium. Houston catheter placed and 900 cc of urine also out after the 400 that she was able to get out sitting on the side commode about an hour earlier. Presently patient is sleeping with the Valium. Lab had been notified that I would like for them to get at least an H&H and if they can grab a type and screen if we need to transfuse this is because her skin is extremely pale inside lip and under eyelid pale, feel there is a chance we may need to give a unit of blood, will be waiting for lab results. Also talking with nurse about the patient's medication at the senior care I was under the impression she was on Lasix apparently that was stopped on the of this month, very complicated patient with behavioral problems making it difficult to come up with clear diagnosis's., Apparently changes in behavior and the fact that she usually did not fall at the senior care in the past, and this sudden weight gain has been verified that they had that the bed weight is accurate for the patient impaired to her last weight her last 2 doctor office visits there was a significant increase of 30 pounds. Also noting got a urine sodium that is low at 8, question cause for hyponatremia unsure. With the report from the nurse apparently the patient had edema in the lower extremities in the past but presently only has edema in the right foot. Hospital Course Hospital Course Hospital Course: 64-year-old female who was at her nursing facility. Presented with confusion, falls. Found to have hyponatremia and suspected UTI along with urinary retention. Discussed case with ER physician, request admission for further management of her UTI and hyponatremia. Medicine agreed to admit for further care. Urine sodium low at 8. Consistent hypervolemic hyponatremia. Will fluid restrict and administer diuretic x 1 with Lasix 40 mg IV. Showed improvement. Stable for 24 hours. Voiding independently. Stable to discharge back to nursing facility. Problems addressed as follows: Hyponatremia Metabolic acidosis - Sodium 124-126 for the past 24hrs. Up from 116 on presentation. Chloride 97. Urine sodium 8 on admission. Specific gravity less than 1.005. Appears to be hypervolemic with free water. Fluid restricted and treated with diuretics. Had good response with over 4 L negative fluid status. Would recommend less than 2 L of fluids at her nursing facility. Any fluids need to have electrolytes in them. Will also continue sodium bicarbonate twice daily. Recommend repeat labs with CBC, CMP, mag in 1 week. Kidney function at baseline with BUN 16, creatinine 1.2. UTI: Urinary retention - Urinalysis with 3+ leuk esterase, white count too numerous, 4+ bacteria. Initiated on Zosyn. Consistent with UTI. Urine culture still pending but growing gram-negative rods. Will transition to Levaquin 750 mg daily for 7 days. Houston catheter was discharge. Will initiate tamsulosin 0.4 mg nightly to help with urinary retention. Depression and anxiety: Resume Cymbalta 30 mg daily, hold leflunomide as it is not on formulary Resume levothyroxine 50 mcg daily for hypothyroid, TSH well-controlled at 2.8 [facility] resident, complicates all aspects of her care. Total time spent on discharge 32 minutes in counseling, documentation, chart review, and direct care with patient. Exam Data for Last 24 hours Vital signs and Labs for Last 24 Hours: Temp Pulse Resp BP Pulse Ox O2 Del Method 99.3 F 87 17 144/69 H 96 Room Air 06/25/25 20:00 06/25/25 20:00 06/25/25 20:00 06/25/25 20:00 06/25/25 20:00 06/26/25 06:57 Laboratory Results - last 24 hr 06/24/25 21:05: Urine Color Yellow, Urine Appearance Sl cloudy, Urine pH 6.0, Ur Specific [place] <= 1.005, Urine Protein Negative, Urine Glucose (UA) Negative, Urine Ketones Negative, Urine Blood 1+ A, Urine Nitrate Negative, Urine Bilirubin Negative, Urine Urobilinogen 0.2, Ur Leukocyte Esterase 3+ A, Urine RBC 5-10, Urine WBC Tntc, Ur Squamous Epith Cells 5-10, Ur Transition Epith Cell 10-20, Amorphous Sediment 1+, Urine Bacteria 4+, Urine Mucus 1+ 06/25/25 01:20: Crossmatch ([facility]) See Detail 06/25/25 06:32: WBC 11.9 H, RBC 2.79 L, Hgb 7.8 L, Hct 22.9 L, MCV 82.1, MCH 28.0, MCHC 34.1, RDW 14.8, Plt Count 226, MPV 9.6, Neut % (Auto) 74.9, Lymph % (Auto) 12.7, Russell % (Auto) 11.1 H, Eos % (Auto) 0.3, Baso % (Auto) 0.4, Neut # (Auto) 8.9 H, Lymph # (Auto) 1.5, Russell # (Auto) 1.3 H, Eos # (Auto) 0.0, Baso # (Auto) 0.1, Hemoglobin A1c 5.0, TSH 2.88 D 06/25/25 08:30: Hgb 7.8 L, Hct 22.9 L 06/25/25 12:07: Sodium 126 L, Potassium 4.0, Chloride 100, Carbon Dioxide 16 L, Anion Gap 14.0, BUN 17, Creatinine 1.30 H, Estimated Creat Clear 60, Estimated GFR 41 L, Est GFR ( Amer) 50 L, Glucose 99, Calcium 9.2 06/25/25 18:12: Sodium 126 L, Potassium 4.2, Chloride 98, Carbon Dioxide 16 L, Anion Gap 16.2 H, BUN 19 H, Creatinine 1.40 H, Estimated Creat Clear 56, Estimated GFR 38 L, Est GFR ( Amer) 46 L, Glucose 122 H D, Calcium 9.0 I & O for Last 24 hours: Intake & Output 06/23/25 06/24/25 06/25/25 06/26/25 23:59 23:59 23:59 23:59 Intake Total 1000 / 1000 1684 / 1684 342 / 342 Output Total 300 / 1225 5925 / 6725 1800 / 1800 Balance 700 / -225 -4241 / -5041 -1458 / -1458 Weight 87.997 kg 86.772 kg 87.317 kg Microbiology Reports for the Last 24 Hours: Microbiology 06/24/25 21:05 Urine,Clean Catch Urine Culture - Preliminary Gram Negative Rods Constitutional Constitutional: no acute distress, obese, chronically ill appearing and cooperative *Routine HEENT Exam Head: Present normocephalic Eye: Present EOMI and PERRL ENT: Present mucous membranes moist Comments: poor dentition *Routine Neck Exam Neck: Present supple; Absent lymphadenopathy *Routine Respiratory Exam Respiratory: Present CTA bilaterally; Absent respiratory distress, stridor or wheezes *Routine Cardiovascular Exam Cardiovascular: Present RRR *Routine Abdominal Exam Abdominal: Present soft and normoactive bowel sounds; Absent tenderness *Routine Rectal Exam Patient deferred: visual exam *Routine Exam Patient deferred: external exam *Routine Extremities Exam Extremities: Absent cyanosis, clubbing or edema *Routine Skin Exam Skin: Present intact and warm; Absent rash *Routine Neurological Exam Neurological: Present alert and moving all extremities; Absent altered mental status Comments: Alert and oriented to person and place. Answering questions appropriately. Appears at baseline mentation Results Data Completed and Pending Labs on day of discharge: Labs from last 24 hours 06/25/25 06/25/25 06/25/25 18:12 12:07 08:30 WBC RBC Hgb 7.8 L Hct 22.9 L MCV MCH MCHC RDW Plt Count MPV Neut % (Auto) Lymph % (Auto) Russell % (Auto) Eos % (Auto) Baso % (Auto) Neut # (Auto) Lymph # (Auto) Russell # (Auto) Eos # (Auto) Baso # (Auto) Sodium 126 L 126 L Potassium 4.2 4.0 Chloride 98 100 Carbon Dioxide 16 L 16 L Anion Gap 16.2 H 14.0 BUN 19 H 17 Creatinine 1.40 H 1.30 H Estimated Creat Clear 56 60 Estimated GFR 38 L 41 L Est GFR ( Amer) 46 L 50 L Glucose 122 H D 99 Hemoglobin A1c Calcium 9.0 9.2 TSH Urine Color Urine Appearance Urine pH Ur Specific [place] Urine Protein Urine Glucose (UA) Urine Ketones Urine Blood Urine Nitrate Urine Bilirubin Urine Urobilinogen Ur Leukocyte Esterase Urine RBC Urine WBC Ur Squamous Epith Cells Ur Transition Epith Cell Amorphous Sediment Urine Bacteria Urine Mucus Crossmatch ([facility]) 06/25/25 06/25/25 06/24/25 06:32 01:20 21:05 WBC 11.9 H RBC 2.79 L Hgb 7.8 L Hct 22.9 L MCV 82.1 MCH 28.0 MCHC 34.1 RDW 14.8 Plt Count 226 MPV 9.6 Neut % (Auto) 74.9 Lymph % (Auto) 12.7 Russell % (Auto) 11.1 H Eos % (Auto) 0.3 Baso % (Auto) 0.4 Neut # (Auto) 8.9 H Lymph # (Auto) 1.5 Russell # (Auto) 1.3 H Eos # (Auto) 0.0 Baso # (Auto) 0.1 Sodium Potassium Chloride Carbon Dioxide Anion Gap BUN Creatinine Estimated Creat Clear Estimated GFR Est GFR ( Amer) Glucose Hemoglobin A1c 5.0 Calcium TSH 2.88 D Urine Color Yellow Urine Appearance Sl cloudy Urine pH 6.0 Ur Specific [place] <= 1.005 Urine Protein Negative Urine Glucose (UA) Negative Urine Ketones Negative Urine Blood 1+ A Urine Nitrate Negative Urine Bilirubin Negative Urine Urobilinogen 0.2 Ur Leukocyte Esterase 3+ A Urine RBC 5-10 Urine WBC Tntc Ur Squamous Epith Cells 5-10 Ur Transition Epith Cell 10-20 Amorphous Sediment 1+ Urine Bacteria 4+ Urine Mucus 1+ Crossmatch ([facility]) See Detail Preliminary micro results at discharge 06/24/25 21:05 Urine Culture - Preliminary Urine,Clean Catch Gram Negative Rods DS: Diagnosis Discharge Diagnosis (1) Urinary tract infection: Status: Acute Code(s): N39.0 - Urinary tract infection, site not specified (2) Hyponatremia: Status: Acute Code(s): E87.1 - Hypo-osmolality and hyponatremia (3) Urinary retention with incomplete bladder emptying: Status: Acute Code(s): R33.9 - Retention of urine, unspecified (4) Dementia with behavioral disturbance: Status: Acute Code(s): F03.918 - Unspecified dementia, unspecified severity, with other behavioral disturbance (5) Anemia: Status: Acute Code(s): D64.9 - Anemia, unspecified Qualifiers: Anemia type: other cause Other causes of anemia: other cause, not classified Qualified Code(s): D64.89 - Other specified anemias (6) Edema: Status: Acute Code(s): R60.9 - Edema, unspecified Qualifiers: Edema type: localized Qualified Code(s): R60.0 - Localized edema (7) COPD (chronic obstructive pulmonary disease): Status: Chronic Code(s): J44.9 - Chronic obstructive pulmonary disease, unspecified (8) Hypothyroidism: Status: Chronic Code(s): E03.9 - Hypothyroidism, unspecified (9) Major depressive disorder: Status: Chronic Code(s): F32.9 - Major depressive disorder, single episode, unspecified Meds Home Medications and Allergies Home Medications ?Medication ?Instructions ?Recorded ?Confirmed ?Type metoprolol tartrate 25 mg tablet 12.5 mg PO BID 12/19/18 06/24/25 History hydroxychloroquine 200 mg tablet 200 mg PO BID 01/15/21 06/24/25 History omeprazole 40 mg capsule,delayed 40 mg PO HS 01/15/21 06/24/25 History release apixaban 5 mg tablet (Eliquis) 5 mg PO BID 01/09/25 06/24/25 History cyclobenzaprine 10 mg tablet 10 mg PO BID 01/09/25 06/24/25 History duloxetine 30 mg capsule,delayed 30 mg PO DAILY 01/09/25 06/24/25 History release ezetimibe 10 mg tablet 10 mg PO HS 01/09/25 06/24/25 History leflunomide 20 mg tablet 20 mg PO DAILY 01/09/25 06/24/25 History levothyroxine 50 mcg tablet 50 mcg PO DAILY 01/09/25 06/24/25 History losartan 100 mg tablet 100 mg PO DAILY 01/09/25 06/24/25 History metoprolol tartrate 100 mg tablet 100 mg PO BID 01/09/25 06/24/25 History multivitamin 1 tab PO DAILY 01/09/25 06/24/25 History cyanocobalamin (vitamin B-12) 500 500 mcg PO DAILY 03/06/25 06/24/25 History mcg tablet docusate sodium 100 mg tablet (DOK) 100 mg PO BID 03/06/25 06/24/25 History magnesium oxide 400 mg (241.3 mg 400 mg PO DAILY 06/25/25 06/25/25 History magnesium) tablet levofloxacin 750 mg tablet 750 mg PO 1100 5 days #5 tabs 06/26/25 Rx sodium bicarbonate 650 mg tablet 650 mg PO BID 30 days #60 tabs 06/26/25 Rx tamsulosin 0.4 mg capsule (Flomax) 0.4 mg PO HS #30 caps 06/26/25 Rx New Prescriptions to Start Prescriptions: Sid Vasquez sodium bicarbonate Sid Rivera tamsulosin [Flomax] Sid Rivera Allergies Allergy/AdvReac Type Severity Reaction Status Date / Time lisinopril (LISINOPRIL) Allergy Unknown Verified 05/01/25 14:51 Discharge Plan Disposition Patient Disposition: er Intermediate Care Fac Condition: Fair Discharge Order Discharge Orders: Discharge Order (Routine); Ordered 06/26/25 Ordered By: Sid Rivera Follow up Plan Prescriptions/Medication Reconciliation: New sodium bicarbonate 650 mg Tablet 650 mg PO BID 30 Days Qty: 60 0RF levofloxacin 750 mg Tablet 750 mg PO 1100 5 Days Qty: 5 0RF tamsulosin [Flomax] 0.4 mg capsule 0.4 mg PO HS Qty: 30 0RF Continued metoprolol tartrate 25 mg tablet 12.5 mg PO BID duloxetine 30 mg capsule,delayed release(DR/EC) 30 mg PO DAILY ezetimibe 10 mg tablet 10 mg PO HS leflunomide 20 mg tablet 20 mg PO DAILY levothyroxine 50 mcg tablet 50 mcg PO DAILY losartan 100 mg tablet 100 mg PO DAILY multivitamin Tablet 1 tab PO DAILY Eliquis 5 mg tablet 5 mg PO BID cyclobenzaprine 10 mg tablet 10 mg PO BID metoprolol tartrate 100 mg tablet 100 mg PO BID docusate sodium [DOK] 100 mg tablet 100 mg PO BID cyanocobalamin (vitamin B-12) 500 mcg tablet 500 mcg PO DAILY magnesium oxide 400 mg (241.3 mg magnesium) tablet 400 mg PO DAILY omeprazole 40 MG capsule,delayed release(DR/EC) 40 mg PO HS hydroxychloroquine 200 MG tablet 200 mg PO BID Problem Reconciliation Problems Reviewed?: Yes Patient Discharge Instructions ACTIVITY: Continue current activity DIET: continue same diet Patient Instructions: DI for Hyponatremia, How to Prevent Falls Print Language: German Providers Primary Care Provider: Garfield Rose Admit Provider: Sid Rivera Attending Provider: Sid Rivera
[2025-06-26 08:00] VITALS: BP 152/90; PULSE 83; RESP 18; TEMP 36.6; O2SAT 100
[2025-06-26] MEDS: METOPROLOL TARTRATE 50MG TABLET 100 MG PO (08:32)
[2025-06-26] MEDS: LEVOTHYROXINE 50MCG (0.05MG) TAB 50 MCG PO (08:32)
[2025-06-26] MEDS: APIXABAN 5MG TABLET 5 MG PO (08:32)
[2025-06-26] MEDS: DOCUSATE SODIUM 100 MG CAPSULE PO (08:32)
[2025-06-26] MEDS: HYDROXYCHLOROQUINE SULFATE 200MG TABLET 200 MG PO (08:33)
[2025-06-26] MEDS: SODIUM BICARBONATE 650MG TABLET 650 MG PO ×2 (08:35→13:36)
[2025-06-26 08:36] LABS: Hematocrit 24.8 % (37.0-47.0); Hemoglobin 8.4 g/dL (12.2-16.2); Immature Granulocytes % 0.5 %; Mean Corpuscular HGB Conc 33.9 g/dL (31.8-35.4); Mean Corpuscular Hemoglobin 27.7 pg (27.0-31.2); Mean Corpuscular Volume 81.8 fl (81-99); Nucleated Red Blood Cells % 0 %; Platelet Count 263 K/mm3 (142-424); Red Blood Count 3.03 M/mm3 (4.20-5.40); Red Cell Distribution Width-SD 45.7 fL; White Blood Count 8.7 K/mm3 (4.8-10.8)
[2025-06-26 08:50] LABS: Alanine Aminotransferase 20 U/L (12-78); Albumin Level 3.6 g/dl (3.5-5.0); Albumin/Globulin Ratio 1.1 (1.1-1.8); Alkaline Phosphatase 141 U/L (38-126); Anion Gap 15.3 mEq/L (5-15); Aspartate Amino Transferase 25 U/L (14-36); Bilirubin,Total 0.5 mg/dl (0.2-1.3); Blood Urea Nitrogen 19 mg/dl (7-17); Calcium 8.6 mg/dl (8.4-10.2); Carbon Dioxide 16 mmol/L (22.0-30.0); Chloride 97 mmol/L (98-107); Creatinine Clearance Estimated 56 mL/min (50-200); Creatinine,Serum 1.40 mg/dl (0.52-1.04); Estimated Glomerular Filt Rate 38 ml/min (>60); GFR (African American) 46 ML/MIN (>60); Globulin 3.2 g/dL (1.3-3.2); Glucose 112 mg/dl (74-100); Magnesium 1.7 mg/dl (1.6-2.3); Potassium 4.3 mmoL/L (3.5-5.1); Sodium 124 mmol/L (136-145); Total Protein,Serum 6.8 g/dl (6.3-8.2)
[2025-06-26 16:00] VITALS: BP 133/69; PULSE 72; RESP 19; TEMP 36.4; O2SAT 98
== END 2025-06-26 16:20 | DRG 690 ==
LOC: ER 19:11 → 2ND 22:00
PROVIDERS: Nurse Practitioner Family; Admitting Provider Internal Medicine Adolescent Medicine; Emergency Provider Student in an Organized Health Care Education/Training Program; PCP Family Medicine; Visit Provider Internal Medicine Adolescent Medicine
DX: N39.0 Urinary tract infection, site not specified (principal); E87.1 Hypo-osmolality and hyponatremia; F03.911 Unspecified dementia, unspecified severity, with agitation; E87.20 Acidosis, unspecified; I48.91 Unspecified atrial fibrillation; E03.9 Hypothyroidism, unspecified; D64.9 Anemia, unspecified; R33.9 Retention of urine, unspecified; F41.9 Anxiety disorder, unspecified; J44.9 Chronic obstructive pulmonary disease, unspecified; F32.9 Major depressive disorder, single episode, unspecified; E87.70 Fluid overload, unspecified; Z66 Do not resuscitate; R60.0 Localized edema; I25.10 Atherosclerotic heart disease of native coronary artery without angina pectoris; I10 Essential (primary) hypertension; Z95.5 Presence of coronary angioplasty implant and graft; Z91.81 History of falling; Z79.01 Long term (current) use of anticoagulants; Z79.899 Other long term (current) drug therapy; Z79.890 Hormone replacement therapy; Z88.8 Allergy status to other drugs, medicaments and biological substances
CPT/HCPCS: 36415; 51702; 70450; 71045; 80048; 80053; 81001; 82803; 83036; 83735; 84439; 84443; 84540; 85014; 85018; 85025; 86850; 87086; 87088; 87186; 93308; 97162; 97165; 97530; 99285; J1938; J2543; J2550; J3360; J7030; P9016

== ENCOUNTER 2025-07-16 14:46 | Outpatient (CLI) | payer MEDICAID, SELFPAY ==
--- OUTSIDE RECORDS SUMMARY | 2024-08-16 12:15 | XMS_ITS ---
Author Organization [facility] Address [address] [place] [address] Care Team Providers Care Oil Heaterman Name Role Phone Garfield Gorman Primary Care [...] ONLY IF CLOSED), Fax PA request to [phone] or [phone] Active metoprolol 100 mg 1 tab(s) orally once a day; Duration: 30 day(s) Active Acetaminophen-Hydrocodo ne Bitartrate 325 mg-10 mg 1 tab(s) orally every 8 hours; Duration: 28 days DO NOT FILL SOONER THAN 28 DAYS, (OK TO FILL EARLY, ONLY IF CLOSED), Fax PA request to [phone] or [phone] Active Acetaminophen-Hydrocodo ne Bitartrate 325 mg-10 mg 1 tab(s) orally every 8 hours; Duration: 28 days DO NOT FILL SOONER THAN 28 DAYS, (OK TO FILL EARLY, ONLY IF CLOSED), Fax PA request to [phone] or [phone] Active Potassium Chloride (Fgz-Cnte-Dzm M20) 20 mEq TAKE 1 TABLET BY [...] Diagnosis [facility] [address] [place] [address] 08/16/2024 Alvaro Banegas Other termite treater (current) drug therapy Z79.899 ; Radiculopathy, lumbar region M54.16 and Spondylosis without myelopathy or radiculopathy, lumbar region M47.816 Assessments Encounter Date Diagnosis (ICD Code) Assessment Notes Treatment Notes Treatment Clinical Notes Section Notes 08/16/2024 Other termite treater (current) drug therapy (ICD-10 - Z79.899) 06/12/2024 [...] ONLY IF CLOSED), Fax PA request to [phone] or [phone] Acetaminophen-Hydrocodon e Bitartrate 325 mg-10 mg 1 tab(s) orally every 8 hours; Duration: 28 days DO NOT FILL SOONER THAN 28 DAYS, (OK TO FILL EARLY, ONLY IF CLOSED), Fax PA request to [phone] or [phone] Acetaminophen-Hydrocodon e Bitartrate 325 mg-10 mg 1 tab(s) orally every 8 hours; Duration: 28 days DO NOT FILL SOONER THAN 28 DAYS, (OK TO FILL EARLY, ONLY IF CLOSED), Fax PA request to [phone] or [phone] Treatment Notes Assessment Notes Other mcc (current) drug therapy 06/12/2024 1. Refill hydrocodone/APAP [...] Notes * Raven WYNNEB:1960 (64 yo F)Acc No.[id number]:08/16/2024 FollowUP Patient: Darleen DONG Provider: Rancho Banegas II, M.D. :1960 A ge:64 Y S ex:Female Date:08/16/2024 Address:[facility] [address], [place], [id number] Pcp:Garfield Gorman Subjective: * Chief Complaints: * 1 . Low Back Pain. * HPI: T ODAYS PAIN EVALUATION: 64 year old female presents with c/o MEDICATION FOLLOW UP: T he patient is currently prescribed [place] 10/325mg TID and Gabapentin 300mg TID, which [...] other neural foramina ranges from mild to ojyr-ro-tjkeeyyi. . P REVIOUS INJECTION\PROCEDURE HISTORY:? 0 02/18/2021 [...] days . P HYSICAL/AQUA THERAPY/DME/OTHER HISTORY: S [facility] PT program completed- not helpful P atient continues a prescribed home exercise program 3-5 times per week from January 2022, continues as of December 2022 . P ERTINENT SURGICAL EVALUATIONS/SPECIALIST CONSULTS N o prior surgical consult . P REVIOUS PAIN CLINIC CARE: H [facility]- self-discharge . S UMMARY OF INITIAL EVALUATION: 0 02/12/2021- New patient consult referred by Milton for chronic back pain onset u nknown w ithout incident this is a 60 year-old female that was referred here in consultation for low back pain and bilateral leg pain. The patient has a long-standing rheumatoid arthritis and currently takes prednisone and an immunomodulator from her sales donor recruitment representative. She injured her back a few months [...] to obtain her last procedure note from [facility] to review. I am going to [...] Surgical History: C ardiac stent / [employer] [place] / 2-3 days 12/2018 . * Hospitalization/Major [...] once a day , Taking Potassium Chloride (Wbp-Kllz-Quf M20) 20 mEq tablet, extended release TAKE [...] * Vitals: * Examination: G eneral Examination: Nurse/Criminal Justice Lawyer: Mini romanMA-RamirezElayne Mccullough 06/12/2024 10:56:32 AM > [...] 2021.. Assessment: * Assessment: 1. O ther mcc (current) drug therapy - Z79.899 (Primary) 2 [...] signature of Alvino Banegas II, M.D. on 07/16/2025 at 01:52 PM CDT Sign off status: Pending * Provider: Rancho Banegas II, M.D. Date: Generated for Benoit correa/Ashley/Mino on: 0 07/16/2025 01:52 PM CDT History and Physical Notes * [...] takes prednisone and an immunomodulator from her sales donor recruitment representative. She injured her back a few months [...] to obtain her last procedure note from [facility] to review. I am going to [...] other neural foramina ranges from mild to ogru-ab-zvruxxkg. PHYSICAL/AQUA THERAPY/DME/OT HER HISTORY: [facility] [...] for * days PREVIOUS PAIN CLINIC CARE: [facility]- self-discharge COMPLIANCE RISK ASSESSMENT AND STRATIFICATI [...] FOLLOW UP: The patient is currently prescribed [place] 10/325mg TID and Gabapentin 300mg TID, which [...] wi th an antalgic gait, pitched forward Nurse/Criminal Justice Lawyer: Sommer Mcintosh (MA-Lex) 06/12/2024 10:56:32 AM > [...]
--- OUTSIDE RECORDS SUMMARY | 2025-07-04 06:30 | XMS_ITS | Continuity of Care Document ---
Author Organization [address] [place] [address] Address [address] [facility] [address] [place] [address] Phone Care Team Providers Care Batter Mixer Helper Name Role Phone Carolynn Haley RAHMAN Unavailable Unavaila ble Allergies, Adverse Reactions, Alerts Substance Reaction Status [...] tablet - Act dianne Procedures Procedure Date Silver Diamine Flouride Treatment Silver Diamine Flouride Treatment Silver Diamine Flouride Treatment Silver Diamine Flouride Treatment Silver Diamine Flouride Treatment Silver Diamine Flouride Treatment Silver Diamine Flouride Treatment Silver Diamine Flouride Treatment Silver Diamine Flouride Treatment Silver Diamine Flouride Treatment Silver Diamine Flouride Treatment Silver Diamine Flouride Treatment Silver Diamine Flouride Treatment Silver Diamine Flouride Treatment Silver Diamine Flouride Treatment Silver Diamine Flouride Treatment Silver Diamine Flouride Treatment Silver Diamine Flouride Treatment Silver Diamine Flouride Treatment Compsve Oral Eval- New/Est Pat 25 Complete Series Of Radiographic Images A Trim normal nail, any number Debride mycotic nails 5 or less 025 Vision svcs frames purchases FITTING OF SPECTACLES DETERMINE REFRACTIVE STATE Progressive lens per lens COMPRE OPH EXAM NEW PT 1/> COMPREHENSIVE HEARING TEST Trim Dystrophic nail(s) REMOVE IMPACTED EAR WAX Advance Directives Directive Yes / No Effective Date File Name No Information Encounters Encounter Description Practice Location Reason(s) For Visit Diagnoses Date Provider Providers Copied on Encounter [address] [place] [address], [address] [place] [address], [place], [place], [id number], tel:[phone] [place] Dental caries, unspecifiedEnco unter for dental examination and cleaning without abnormal findings 5 Carolynn De Leon. [address] [place] [address], [address], [place], [place], [id number], [place]. tel:[phone] Referring Provider: Dalton Lee. [address] [place] [address], [address] [place] [address], [place], [place], [id number], tel:[phone] [place] Nail dystrophyOnycho gryphosisOther specified peripheral vascular diseases 5 Fernando [facility] , [place]. [address] [place] [address], [place], [place], [id number], tel:[phone] [place] Presbyopia 5 Samselby Claudette. , [place]. [address] [place] [address], [address] [place] [address], [place], [place], [id number], tel:[phone] [place] Blurry vision (chief complaint) Age-related nuclear cataract, bilateralHyperm etropia, bilateral 5 Lauryn Wilkins. , [place]. Referring Provider: Dalton Lee. [address] [place] [address], [address] [place] [address], [place], [place], [id number], tel:[phone] [place] Encounter for examination of ears and hearing without abnormal findings 5 Unruly Raya. , [place]. Referring Provider: Dalton Lee. [address] [place] [address], [address] [place] [address], [place], [place], [id number], tel:[phone] [place] Nail dystrophyOnycho gryphosisOther specified peripheral vascular diseasesOther abnormalities of gait and mobility 5 [facility] [place], [place]. [address] [place] [address], [address] [facility] [address], [place], [place], [id number], tel:[phone] [place] ear care exam, hearing loss (chief complaint) Impacted cerumen, bilateral [place], [place]. Referring Provider: Dalton Lee. [address] [place] [address], [address] [facility], [place], [place], [id number], tel:[phone] [place] No Information [place], [place]. Family History Family Member Type Diagnosis Age At Onset No Information Payers Payer name Insurance type Covered alliance party ID Julianne sifuentes(s) DDS Medicaid [place] [id number] Social History Type Description Quantity Date Captured Comments Sex Female Smoking Status No Information Chief Complaint And Reason For Visit No Information Reason For Referral Reason For Referral No Information History Of Present Illness Encounter Date Complaint History Of Prese nt Illness Blurry vision The 64 year old patient presents for evaluation of Blurry vision in the right eye and left eye. It affects both near and far vision. Glasses are older and scratched. Denies eye pain Functional Status Date Functional Assessmen t No Information Instructions Date Instruction Additional Infor mation All documented dystr ophic nails were trimmed in length as needed to prevent pain and other symptoms. Patient tolerated procedure well. Related to Nail dystrophy All of the documente d thickened nails (which includes those nails 2 mm or more in thickness, and possible mycotic component to the nails) were debrided in both length and thickness using both a nail nipper and an electric rotary custom grinder in an atraumatic fashion as needed ; this was performed in an attempt to prevent pain and reduce risk of infection. Alcohol applied to the digits afterwards. PT tolerated procedure well. 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 Alcohol applied to the digits afterwards. 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 Reinforced the [...]
--- OUTSIDE RECORDS SUMMARY | 2025-07-16 14:52 | XMS_ITS | Clinical Summary ---
Author Organization [facility] Address [address] [place] [address] Care Team Providers Care Quarantine Inspector Name Role Phone Garfield Rose MD Primary Care Provider [phone] Allergies Active Allergy Reactions Criticality Noted Date [...] MG/0.1ML nasal spray Call 911. Don't prime. [place] in 1 nostril for overdose. Repeat in [...] drink = 0.6 oz pur e alcohol) [facility] Utilities Answer Date Recorded In the [...] medical care, and heating? Somewhat hard 09/17/2024 [facility] [place] of Occupat ional Health - Occupational Stress [...] GED or equivalent No 09/17/2024 Preferred Language [place] Citizen 09/17/2024 PHQ-2 Answer Date Recorded Patient Health [...] PCV) 09/30/2020 09/30/2019 COVID-19 Vaccine (2 - 2024-2 6 season) 2025 06/04/2021 COLORECTAL CANCER SCREENING 07/29/2025 FECAL OCCULT BLOOD TEST 07/29/2025 07/29/2024 INFLUENZA VACCINE 08/06/2025 09/18/2020, 09/05/2019 LUNG CANCER SCREENING 09/18/2025 09/18/2024 , 08/04/2024, 07/30/2024, Additional history exists Medical Devices Implanted Type Area Macerator Operator Device Identifier Shelf Expiration Date Model / Serial / Lot Stent Cornry Resolute [place] Rx 2x30mm - [id number] Implanted:Qty: 1 on 12/15/2018 by Moreno May MD at [facility] 03/29/2020 [id number] / / [id number] Procedures Procedure Name Priority Date/Time Associated Diagnosis [...] Mooney 09/18/2024 10:32 PM EST Workstation ID: [id number] Narrative 09/18/2024 10:[address] CHEST [...] Mooney 09/18/2024 10:32 PM EST Workstation ID: [id number] Kristen Landaverde MD IM CT ORDERABLES Final Result * (ABNORMAL) POC Occult Blood Stool (07/29/2024 8:40 PM EDT) Fecal Occult Blood Positive(A) [facility] Lot Number [id number] [facility] Expiration Date 08/2025 [facility] DEVELOPER LOT NUMBER [id number] [facility] DEVELOPER EXPIRATION DATE 06/2027 [facility] Positive Control Positive [facility] Negative Control Negative [facility] Stool Specimen from rectum / Unknown [facility] Carl Hennessy MD POINT OF CARE TEST ORDERA BLES Final Result [facility]
[address] [place] [address], from Last 3 Months or Most Recently Relevant to Health Maintenance Insurance [place] Advance Directives Documents on File Type Date Recorded Patient Educational Program Assistant Expl anation [facility] RECORDS - SCAN 07/31/2024 12:[address] * CPR (Attempt to Resuscitate) (Latest [...] pulse or is breathing): Full Care Teams Quarantine Inspector Relationship Specialty Start Date End Date Garfield Rose MD PCP - General Family Medicine 11/03/20
--- OUTSIDE RECORDS SUMMARY | 2025-07-16 14:52 | XMS_ITS | Clinical Summary ---
Author Organization [facility] Address [address] [facility] [address] [place] [address] Phone Care Team Providers Care Combination Machine Tool Operator Name Role Phone Unavailable Unavailable Conditions or Problems No information available. Medications No information available. Medications Administered No information available. Allergies, Adverse Reactions, Alerts No information available. Results No information available. Plan of Care No information available. Procedures No information available. Vital Signs No information available. Immunizations No information available. Advance Directives No information available.
--- OUTSIDE RECORDS SUMMARY | 2025-07-16 14:52 | XMS_ITS | Clinical Summary ---
Author Organization Healthcare Address [address] [place] [address] Care Team Providers Care Barn Worker Name Role Phone Aleksandra Richey APRN Primary Care Provider [phone] Family History Medical History Relation Name Comments [...] of Treatment Not on file Care Teams Barn Worker Relationship Specialty Start Date End Date Aleksandra Richey APRN [address] [place] [address] PCP - General 03/19/21
--- OUTSIDE RECORDS SUMMARY | 2025-07-16 14:52 | XMS_ITS | Patient Health Record ---
Author Organization [facility] Address [address] [place] [address] Care Team Providers Care Equipment Operator Wage Hand Name Role Phone Garfield Gorman Primary Care Provider Alvaro Jernigan II Unavailable Allergies Allergen (clinical drug ingredient) Drug/Non Drug Allergy documented on EMR Reaction Allergy Type Onset Date Status lisinopril lisinopril stomach upset Drug Allergy A ctive Reason For Referral No Information Medications Medication SIG (Take, Route, Frequency, Duration) Notes Start Date End Date Status nitroglycerin 0.4 mg/hr 1 PATCH kit [facility] once a day; Duration: 30 day(s) Active ibuprofen 800 mg 1 tab(s) orally 3 times a day Active cyclobenzaprine 10 mg 1 tab(s) orally 3 times a day Active predniSONE 5 mg 1 tab(s) orally once a day; Duration: 30 day(s) Active losartan 25 mg 1 tab(s) orally once a day; Duration: 30 day(s) Active Potassium Chloride (Qwg-Xjtp-Avj M20) 20 mEq TAKE 1 TABLET BY [...] ONLY IF CLOSED), Fax PA request to [phone] or [phone] Active Lipitor 80 mg 1 tab(s) orally [...] ONLY IF CLOSED), Fax PA request to [phone] or [phone] Active ezetimibe 10 mg 1 tab(s) orally once a day; Duration: 30 day(s) Active Acetaminophen-Hydrocodo ne Bitartrate 325 mg-10 mg 1 tab(s) orally every 8 hours; Duration: 28 days DO NOT FILL SOONER THAN 28 DAYS, (OK TO FILL EARLY, ONLY IF CLOSED), Fax PA request to [phone] or [phone] Active Lasix 20 mg 1 tab(s) orally [...] Risk Notes Problem Lumbosacral spondylosis without myelopathy (02002397) Other spondylosis with radiculopathy, lumbar region (M47.26) Active confirmed Problem Lumbosacral spondylosis without myelopathy (00621154) Spondylosis without myelopathy or radiculopathy, lumbar region (M47.816) Active confirmed Problem Degeneration of lumbar intervertebral disc (24451569) Other intervertebral disc degeneration, lumbar region (M51.36) Active confirmed Problem Lumbar radiculopathy (942489645) Radiculopathy, lumbar region (M54.16) Active confirmed Problem Long-term current use of drug therapy (902658348) Other longterm (current) drug therapy (Z79.899) Active confirmed Problem Lumbar spondylosis (496713107) lumbar spondylosis (M47.816) Active confirmed Encounters Encounter Location Date Provider Diagnosis [facility] [address] [place] [address] 08/06/2024 Alvaro Banegas Assessments Encounter Date Diagnosis (ICD Code) Assessment Notes Treatment Notes Treatment Clinical Notes Section Notes 08/16/2024 Ms. Wynne is here for follow-up [...] Coverage End Date [employer] [address] [address] [place] [address] [id number] Darleen Wynne Self - patient is the insured Medical (General) History Medical History History ICD Code RA diagnosed [address] Gupta GERD- diagnosed [address] Jaciel jolley Hypertension diagnosed 2009 managed by [facility] CAD diagnosed [address] Salinas rt Surgical History Surgery Date(Month/Year) Cardiac stent / [facility] / 2-3 da ys 12/2018
[2025-07-16 15:51] LABS: Hematocrit 28.4 % (37.0-47.0); Hemoglobin 9.2 g/dL (12.2-16.2); Immature Granulocytes % 0.2 %; Mean Corpuscular HGB Conc 32.4 g/dL (31.8-35.4); Mean Corpuscular Hemoglobin 28.0 pg (27.0-31.2); Mean Corpuscular Volume 86.6 fl (81-99); Nucleated Red Blood Cells % 0 %; Platelet Count 214 K/mm3 (142-424); Red Blood Count 3.28 M/mm3 (4.20-5.40); Red Cell Distribution Width-SD 51.8 fL; White Blood Count 4.8 K/mm3 (4.8-10.8)
== END 2025-07-16 23:59 | disposition home or self-care (01) ==
LOC: LAB.DROPOF 14:47
PROVIDERS: PCP Family Medicine; Visit Provider Nurse Practitioner Family
DX: D64.9 Anemia, unspecified (principal)
CPT/HCPCS: 85025

== ENCOUNTER 2025-07-23 15:31 | Outpatient (CLI) | payer MEDICAID, SELFPAY ==
--- OUTSIDE RECORDS SUMMARY | 2024-08-16 12:15 | XMS_ITS ---
Author Organization [facility] Address [address] [place] [address] Care Team Providers Care Coupon Clerk Name Role Phone Garfield Gorman Primary Care [...] ONLY IF CLOSED), Fax PA request to [phone] or [phone] Active metoprolol 100 mg 1 tab(s) orally once a day; Duration: 30 day(s) Active Acetaminophen-Hydrocodo ne Bitartrate 325 mg-10 mg 1 tab(s) orally every 8 hours; Duration: 28 days DO NOT FILL SOONER THAN 28 DAYS, (OK TO FILL EARLY, ONLY IF CLOSED), Fax PA request to [phone] or [phone] Active Acetaminophen-Hydrocodo ne Bitartrate 325 mg-10 mg 1 tab(s) orally every 8 hours; Duration: 28 days DO NOT FILL SOONER THAN 28 DAYS, (OK TO FILL EARLY, ONLY IF CLOSED), Fax PA request to [phone] or [phone] Active Potassium Chloride (Dzh-Ihsa-Qyu M20) 20 mEq TAKE 1 TABLET BY [...] Diagnosis [facility] [address] [place] [address] 08/16/2024 Alvaro Banegas Other exterminator termite (current) drug therapy Z79.899 ; Radiculopathy, lumbar region M54.16 and Spondylosis without myelopathy or radiculopathy, lumbar region M47.816 Assessments Encounter Date Diagnosis (ICD Code) Assessment Notes Treatment Notes Treatment Clinical Notes Section Notes 08/16/2024 Other exterminator termite (current) drug therapy (ICD-10 - Z79.899) 06/12/2024 [...] ONLY IF CLOSED), Fax PA request to [phone] or [phone] Acetaminophen-Hydrocodon e Bitartrate 325 mg-10 mg 1 tab(s) orally every 8 hours; Duration: 28 days DO NOT FILL SOONER THAN 28 DAYS, (OK TO FILL EARLY, ONLY IF CLOSED), Fax PA request to [phone] or [phone] Acetaminophen-Hydrocodon e Bitartrate 325 mg-10 mg 1 tab(s) orally every 8 hours; Duration: 28 days DO NOT FILL SOONER THAN 28 DAYS, (OK TO FILL EARLY, ONLY IF CLOSED), Fax PA request to [phone] or [phone] Treatment Notes Assessment Notes Other usp (current) drug therapy 06/12/2024 1. Refill hydrocodone/APAP [...] Notes * Raven WYNNEB:1960 (65 yo F)Acc No.[id number]:08/16/2024 FollowUP Patient: Darleen DONG Provider: Rancho Banegas II, M.D. :1960 A ge:64 Y S ex:Female Date:08/16/2024 Address:[facility] [address], [place], [id number] Pcp:Garfield Gorman Subjective: * Chief Complaints: * 1 . Low Back Pain. * HPI: T ODAYS PAIN EVALUATION: 64 year old female presents with c/o MEDICATION FOLLOW UP: T he patient is currently prescribed [place] 10/325mg TID and Gabapentin 300mg TID, which [...] other neural foramina ranges from mild to edwf-sy-cfbzotel. . P REVIOUS INJECTION\PROCEDURE HISTORY:? 0 02/18/2021 [...] days . P HYSICAL/AQUA THERAPY/DME/OTHER HISTORY: S [facility] PT program completed- not helpful P atient continues a prescribed home exercise program 3-5 times per week from January 2022, continues as of December 2022 . P ERTINENT SURGICAL EVALUATIONS/SPECIALIST CONSULTS N o prior surgical consult . P REVIOUS PAIN CLINIC CARE: H [facility]- self-discharge . S UMMARY OF INITIAL EVALUATION: 0 02/12/2021- New patient consult referred by [facility] for chronic back pain onset u nknown w ithout incident this is a 60 year-old female that was referred here in consultation for low back pain and bilateral leg pain. The patient has a long-standing rheumatoid arthritis and currently takes prednisone and an immunomodulator from her scientist engineer. She injured her back a few months [...] last procedure note from [facility] to review. I am going to [...] Surgical History: C ardiac stent / [facility] [place] / 2-3 days 12/2018 . * Hospitalization/Major [...] once a day , Taking Potassium Chloride (Uqv-Weos-Rjc M20) 20 mEq tablet, extended release TAKE [...] * Vitals: * Examination: G eneral Examination: Nurse/Human Resources Benefits Administrator: Mini romanMA-RamirezElayne Mccullough 06/12/2024 10:56:32 AM > [...] 2021.. Assessment: * Assessment: 1. O ther usp (current) drug therapy - Z79.899 (Primary) 2 [...] signature of Alvino Banegas II, M.D. on 07/23/2025 at 02:35 PM CDT Sign off status: Pending * Provider: Rancho Banegas II, M.D. Date: Generated for Benoit correa/Ashley/Mino on: 0 07/23/2025 02:35 PM CDT History and Physical Notes * [...] takes prednisone and an immunomodulator from her scientist engineer. She injured her back a few months [...] last procedure note from [facility] to review. I am going to [...] other neural foramina ranges from mild to rsaw-sx-oqxaburg. PHYSICAL/AQUA THERAPY/DME/OT HER HISTORY: [facility] PT program completed- not helpful Patient continues [...] PREVIOUS PAIN CLINIC CARE: [facility]- self-discharge COMPLIANCE RISK ASSESSMENT AND STRATIFICATI [...] FOLLOW UP: The patient is currently prescribed [place] 10/325mg TID and Gabapentin 300mg TID, which [...] wi th an antalgic gait, pitched forward Nurse/Human Resources Benefits Administrator: Sommer Mcintosh (MA-Lex) 06/12/2024 10:56:32 AM > [...]
--- OUTSIDE RECORDS SUMMARY | 2025-07-23 15:34 | XMS_ITS | Clinical Summary ---
Author Organization [facility] Address [address] [facility] [address] [place] [address] Phone Care Team Providers Care Electric Melt Operator Name Role Phone Unavailable Unavailable Conditions or Problems No information available. Medications No information available. Medications Administered No information available. Allergies, Adverse Reactions, Alerts No information available. Results No information available. Plan of Care No information available. Procedures No information available. Vital Signs No information available. Immunizations No information available. Advance Directives No information available.
--- OUTSIDE RECORDS SUMMARY | 2025-07-23 15:35 | XMS_ITS | Clinical Summary ---
Author Organization Healthcare Address [address] [place] [address] Care Team Providers Care Clean Rice Grader And Reel Tender Name Role Phone Aleksandra Richey APRN Primary Care Provider [phone] Family History Medical History Relation Name Comments [...] of Treatment Not on file Care Teams Clean Rice Grader And Reel Tender Relationship Specialty Start Date End Date Aleksandra Richey APRN [address] [place] [address] PCP - General 03/19/21
--- OUTSIDE RECORDS SUMMARY | 2025-07-23 15:35 | XMS_ITS | Patient Health Record ---
Author Organization [facility] Address [address] [place] [address] Care Team Providers Care Mock Up Maker Name Role Phone Garfield Gorman Primary Care Provider Alvaro Jernigan II Unavailable [phone] Allergies Allergen (clinical drug ingredient) Drug/Non Drug Allergy documented on EMR Reaction Allergy Type Onset Date Status lisinopril lisinopril stomach upset Drug Allergy A ctive Reason For Referral No Information Medications Medication SIG (Take, Route, Frequency, Duration) Notes Start Date End Date Status nitroglycerin 0.4 mg/hr 1 PATCH [facility] once a day; Duration: 30 day(s) Active ibuprofen 800 mg 1 tab(s) orally 3 times a day Active cyclobenzaprine 10 mg 1 tab(s) orally 3 times a day Active predniSONE 5 mg 1 tab(s) orally once a day; Duration: 30 day(s) Active losartan 25 mg 1 tab(s) orally once a day; Duration: 30 day(s) Active Potassium Chloride (Xsv-Ktlv-Qrw M20) 20 mEq TAKE 1 TABLET BY [...] ONLY IF CLOSED), Fax PA request to [phone] or [phone] Active Lipitor 80 mg 1 tab(s) orally [...] ONLY IF CLOSED), Fax PA request to [phone] or [phone] Active ezetimibe 10 mg 1 tab(s) orally once a day; Duration: 30 day(s) Active Acetaminophen-Hydrocodo ne Bitartrate 325 mg-10 mg 1 tab(s) orally every 8 hours; Duration: 28 days DO NOT FILL SOONER THAN 28 DAYS, (OK TO FILL EARLY, ONLY IF CLOSED), Fax PA request to [phone] or [phone] Active Lasix 20 mg 1 tab(s) orally [...] Risk Notes Problem Lumbosacral spondylosis without myelopathy (97384219) Other spondylosis with radiculopathy, lumbar region (M47.26) Active confirmed Problem Lumbosacral spondylosis without myelopathy (65939618) Spondylosis without myelopathy or radiculopathy, lumbar region (M47.816) Active confirmed Problem Degeneration of lumbar intervertebral disc (59939976) Other intervertebral disc degeneration, lumbar region (M51.36) Active confirmed Problem Lumbar radiculopathy (939466169) Radiculopathy, lumbar region (M54.16) Active confirmed Problem Long-term current use of drug therapy (324509398) Other half-way (current) drug therapy (Z79.899) Active confirmed Problem Lumbar spondylosis (314507296) lumbar spondylosis (M47.816) Active confirmed Encounters Encounter Location Date Provider Diagnosis [facility] [address] [place] [address] 08/06/2024 Alvaro Banegas Assessments Encounter Date Diagnosis [...] Coverage End Date [employer] Medicaid [address] [address] [place] [address] [id number] Darleen Wynne Self - patient is the insured Medical (General) History Medical History History ICD Code RA diagnosed [address] Gupta GERD- diagnosed [address] Jaciel jolley Hypertension diagnosed 2009 managed by [facility] CAD diagnosed [address] Salinas rt Surgical History Surgery Date(Month/Year) Cardiac stent / [facility] / 2-3 da ys 12/2018
[2025-07-23 15:51] LABS: Hematocrit 27.1 % (37.0-47.0); Hemoglobin 8.7 g/dL (12.2-16.2); Mean Corpuscular HGB Conc 32.1 g/dL (31.8-35.4); Mean Corpuscular Hemoglobin 27.6 pg (27.0-31.2); Mean Corpuscular Volume 86.0 fl (81-99); Nucleated Red Blood Cells % 0 %; Platelet Count 182 K/mm3 (142-424); Red Blood Count 3.15 M/mm3 (4.20-5.40); Red Cell Distribution Width-SD 52.4 fL; White Blood Count 3.7 K/mm3 (4.8-10.8)
[2025-07-23 16:05] LABS: Chloride 105 mmol/L (98-107)
[2025-07-23 16:06] LABS: Potassium 4.2 mmoL/L (3.5-5.1); Sodium 132 mmol/L (136-145)
[2025-07-23 16:08] LABS: Blood Urea Nitrogen 13 mg/dl (7-17); Creatinine,Serum 1.20 mg/dl (0.52-1.04); Estimated Glomerular Filt Rate 45 ml/min (>60); GFR (African American) 55 ML/MIN (>60)
[2025-07-23 16:09] LABS: Calcium 8.7 mg/dl (8.4-10.2); Carbon Dioxide 18 mmol/L (22.0-30.0); Glucose 117 mg/dl (74-100)
[2025-07-23 16:11] LABS: Anion Gap 13.2 mEq/L (5-15)
== END 2025-07-23 23:59 | disposition home or self-care (01) ==
LOC: LAB.DROPOF 15:32
PROVIDERS: PCP Nurse Practitioner Family; Visit Provider Nurse Practitioner Family
DX: D64.9 Anemia, unspecified (principal); M05.9 Rheumatoid arthritis with rheumatoid factor, unspecified; R62.7 Adult failure to thrive
CPT/HCPCS: 80048; 85027

== ENCOUNTER 2025-08-10 17:21 | Outpatient (CLI) | payer MEDICAID, SELFPAY ==
--- OUTSIDE RECORDS SUMMARY | 2025-08-10 17:27 | XMS_ITS | Encounter Summary ---
Author Organization [facility] ([place], [place], [place], [place]) Address [address] [place] [address] Care Team Providers Care Health Services Director Name Role Phone Garfield Rose MD Primary Care Provider [phone] Reason for Visit * Reason Comments Medication Refill Encounter Details Date Type Department Care Team (Late st Contact Info) Description 04/05/2024 Refill [facility] Rheumatology [address] [place] [address] Manuela Greenfield MD [address] [facility] [address] [place] [address] Other osteoarthritis involving multiple joints Social History [...] joints documented in this encounter Care Teams Health Services Director Relationship Specialty Start Date End Date Garfield Rose MD [address] [facility] [address] [place] [id number] PCP - General Family Medicine 10/06/22 documented as of this encounter
--- OUTSIDE RECORDS SUMMARY | 2025-08-10 17:29 | XMS_ITS | Clinical Summary ---
Author Organization [facility] ([place], [place], [place], [place]) Address [address] [place] [address] Care Team Providers Care Custom Protection Officer Name Role Phone Garfield Rose MD Primary Care Provider [phone] Allergies Active Allergy Reactions Criticality Noted Date [...] adult medical examination without abnormal findings 03/25/2023 jail systemic steroid user 08/26/2021 Osteoarthritis 08/26/2021 Encounter for therapeutic drug level monitoring 08/26/2021 Sciatica 08/26/2021 Seropositive rheumatoid arthritis 08/26/2021 Other specified counseling 02/25/2021 Essential hypertension 12/15/2018 RA (rheumatoid arthritis) 12/15/2018 Tobacco abuse 12/15/2018 Immunizations Immunization Administration Dates Next Due Hepatitis A Adult [...] Date Navi rded Speak language other than Angolan at home Not on file 11/24/2023 Want [...] - PCV) 09/30/2020 Lipid Panel 12/15/2021 12/15/2018 Falls Risk Screening 11/06/2024 Tobacco Cessation Counseling and Screening (12+) 12/1412/14/2023 COVID-19 VACCINE (2 - 2024- season) 2025 Influenza Vaccine (#1) 2025 DXA SCAN 08/14/2025 08/14/2023 Respiratory Syncytial Virus (RSV) Adult or (1 - 1-dose 75+ series) 2035 Procedures Procedure Name Priority Date/Time Associated Diagnosis Comments DEXA SCAN Routine 08/14/2023 from Last 3 Months or Most Recently Relevant to Health Maintenance Results * DEXA SCAN (08/14/2023) Anatomical Region Laterality Modality Other Manuela Greenfield MD HEALTH MAINTENANCE Final Result from Last 3 Months or Most Recently Relevant to [place] [address] [place] [id number] [facility] Care Teams Custom Protection Officer Relationship Specialty Start Date End Date Garfield Rose MD [address] [facility] [address] [place] [address] PCP - General Family Medicine 10/06/22
--- OUTSIDE RECORDS SUMMARY | 2025-08-10 17:30 | XMS_ITS | Clinical Summary ---
Author Organization [facility] Address [address] [facility] [address] [place] [address] Phone Care Team Providers Care Distillation Operator Name Role Phone Unavailable Unavailable Conditions or Problems No information available. Medications No information available. Medications Administered No information available. Allergies, Adverse Reactions, Alerts No information available. Results No information available. Plan of Care No information available. Procedures No information available. Vital Signs No information available. Immunizations No information available. Advance Directives No information available.
--- OUTSIDE RECORDS SUMMARY | 2025-08-10 17:30 | XMS_ITS | Clinical Summary ---
Author Organization Healthcare Address [address] [place] [address] Care Team Providers Care Food Service Kitchen Supervisor Name Role Phone Aleksandra Richey APRN Primary Care Provider [phone] Family History Medical History Relation Name Comments [...] of Treatment Not on file Care Teams Food Service Kitchen Supervisor Relationship Specialty Start Date End Date Aleksandra Richey APRN [address] [place] [address] PCP - General 03/19/21
--- OUTSIDE RECORDS SUMMARY | 2025-08-10 17:30 | XMS_ITS | Encounter Summary ---
Author Organization [employer] ([place], [place], [place], [place]) Address [address] [place] [address] Care Team Providers Care Target Network Analyst Name Role Phone Garfield Rose MD Primary Care Provider [phone] Reason for Visit * Reason Comments Medication Refill Encounter Details Date Type Department Care Team (Late st Contact Info) Description 06/08/2023 Refill [facility] Rheumatology [address] [facility] [address] [place] [address] Manuela Greenfield MD [address] [facility] [address] [place], [place] [id number] Social History Tobacco Use Types Packs/Day Years [...] on filedocumented in this encounter Care Teams Target Network Analyst Relationship Specialty Start Date End Date Garfield Rose MD [address] [facility] [address] [place] [address] PCP - General Family Medicine 10/06/22 documented as of this encounter
[2025-08-10 17:34] LABS: Microscopic, Urine URINE MICROSCOPIC (MICROSCOPIC)
[2025-08-10 17:38] LABS: Bilirubin,Urine Negative (Negative); Color,Urine YELLOW (Yellow); Glucose,Urine (UA) Negative (Negative); Ketones,Urine Negative (Negative); Leukocyte Esterase,Urine 2+ (Negative); PH,Urine 6.0 (5.0-8.5); Protein,Urine Negative (Negative); Specific Gravity, Urine <= 1.005 (1.005-1.030); Urobilinogen,Urine 0.2 EU/dl (0.2)
[2025-08-10 18:29] LABS: Bacteria,Urine Trace /lpf; Squamous Epithelial Cell,Urine Occasional #/hpf (0-5); WBC,Urine 20-50 #/hpf (0-3)
== END 2025-08-10 23:59 | disposition home or self-care (01) ==
LOC: LAB.DROPOF 17:22
PROVIDERS: PCP Nurse Practitioner Family; Visit Provider Nurse Practitioner Family
DX: R41.82 Altered mental status, unspecified (principal)
CPT/HCPCS: 81001; 87086; 87088; 87186

== ENCOUNTER 2025-08-16 08:07 | Emergency (ER) | payer MEDICAID, SELFPAY ==
--- OUTSIDE RECORDS SUMMARY | 2024-08-16 12:15 | XMS_ITS ---
Author Organization [facility] Address [address] [place] [address] Care Team Providers Care Vehicle Fuel Systems Converter Name Role Phone Garfield Gorman Primary Care [...] ONLY IF CLOSED), Fax PA request to [phone] or [phone] Active metoprolol 100 mg 1 tab(s) orally once a day; Duration: 30 day(s) Active Acetaminophen-Hydrocodo ne Bitartrate 325 mg-10 mg 1 tab(s) orally every 8 hours; Duration: 28 days DO NOT FILL SOONER THAN 28 DAYS, (OK TO FILL EARLY, ONLY IF CLOSED), Fax PA request to [phone] or [phone] Active Acetaminophen-Hydrocodo ne Bitartrate 325 mg-10 mg 1 tab(s) orally every 8 hours; Duration: 28 days DO NOT FILL SOONER THAN 28 DAYS, (OK TO FILL EARLY, ONLY IF CLOSED), Fax PA request to [phone] or [phone] Active Potassium Chloride (Lve-Xznu-Vko M20) 20 mEq TAKE 1 TABLET BY [...] Diagnosis [facility] [address] [place] [address] 08/16/2024 Alvaro Banegas Other skilled nursing (current) drug therapy Z79.899 ; Radiculopathy, lumbar region M54.16 and Spondylosis without myelopathy or radiculopathy, lumbar region M47.816 Assessments Encounter Date Diagnosis (ICD Code) Assessment Notes Treatment Notes Treatment Clinical Notes Section Notes 08/16/2024 Other director educational radio (current) drug therapy (ICD-10 - Z79.899) 06/12/2024 [...] ONLY IF CLOSED), Fax PA request to [phone] or [phone] Acetaminophen-Hydrocodon e Bitartrate 325 mg-10 mg 1 tab(s) orally every 8 hours; Duration: 28 days DO NOT FILL SOONER THAN 28 DAYS, (OK TO FILL EARLY, ONLY IF CLOSED), Fax PA request to [phone] or [phone] Acetaminophen-Hydrocodon e Bitartrate 325 mg-10 mg 1 tab(s) orally every 8 hours; Duration: 28 days DO NOT FILL SOONER THAN 28 DAYS, (OK TO FILL EARLY, ONLY IF CLOSED), Fax PA request to [phone] or [phone] Treatment Notes Assessment Notes Other director educational radio (current) drug therapy 06/12/2024 1. Refill hydrocodone/APAP [...] Notes * Raven WYNNEB:1960 (65 yo F)Acc No.[id number]:08/16/2024 FollowUP Patient: Darleen DONG Provider: Rancho Banegas II, M.D. :1960 A ge:64 Y S ex:Female Date:08/16/2024 Address:[facility] [address], [place], [place] Pcp:Garfield Gorman Subjective: * Chief Complaints: * 1 . Low Back Pain. * HPI: T ODAYS PAIN EVALUATION: 64 year old female presents with c/o MEDICATION FOLLOW UP: T he patient is currently prescribed [place] 10/325mg TID and Gabapentin 300mg TID, which [...] other neural foramina ranges from mild to qsub-io-djxjtarr. . P REVIOUS INJECTION\PROCEDURE HISTORY:? 0 02/18/2021 [...] . P HYSICAL/AQUA THERAPY/DME/OTHER HISTORY: S [facility] PT program completed- not helpful P atient continues a prescribed home exercise program 3-5 times per week from January 2022, continues as of December 2022 . P ERTINENT SURGICAL EVALUATIONS/SPECIALIST CONSULTS N o prior surgical consult . P REVIOUS PAIN CLINIC CARE: H [facility]- self-discharge . S UMMARY OF INITIAL EVALUATION: 0 02/12/2021- New patient consult referred by [place] for chronic back pain onset u nknown w ithout incident this is a 60 year-old female that was referred here in consultation for low back pain and bilateral leg pain. The patient has a long-standing rheumatoid arthritis and currently takes prednisone and an immunomodulator from her water resource engineering specialist. She injured her back a few months [...] to obtain her last procedure note from [facility] to review. I am going to take [...] Surgical History: C ardiac stent / [employer] / 2-3 days 12/2018 . * Hospitalization/Major [...] once a day , Taking Potassium Chloride (Bjg-Euyf-Rvp M20) 20 mEq tablet, extended release TAKE [...] * Vitals: * Examination: G eneral Examination: Nurse/Rickshaw Driver: Mini romanMA-RamirezElayne Mccullough 06/12/2024 10:56:32 AM > [...] 2021.. Assessment: * Assessment: 1. O ther director educational radio (current) drug therapy - Z79.899 (Primary) 2 [...] signature of Alvino Banegas II, M.D. on 08/16/2025 at 07:13 AM CDT Sign off status: Pending * Provider: Rancho Banegas II, M.D. Date: Generated for Benoit correa/Ashley/Mino on: 07:13 AM CDT History and Physical Notes * HPI (History [...] takes prednisone and an immunomodulator from her water resource engineering specialist. She injured her back a few months [...] to obtain her last procedure note from [facility] to review. I am going to take [...] other neural foramina ranges from mild to jlsb-ny-qadzcuxv. PHYSICAL/AQUA THERAPY/DME/OT HER HISTORY: [facility] PT program completed- not helpful [...] for * days PREVIOUS PAIN CLINIC CARE: [facility]- self-discharge COMPLIANCE RISK ASSESSMENT AND STRATIFICATI ON: [...] FOLLOW UP: The patient is currently prescribed [place] 10/325mg TID and Gabapentin 300mg TID, which [...] wi th an antalgic gait, pitched forward Nurse/Rickshaw Driver: Sommer Mcintosh (MA-Lex) 06/12/2024 10:56:32 AM > [...]
[2025-08-16] VITALS (9 sets, daily range): BP systolic 101–142; BP diastolic 42–83; PULSE 64–72; RESP 11–16; TEMP 36.5–36.9; O2SAT 95–100; BMI 31.6
--- OUTSIDE RECORDS SUMMARY | 2025-08-16 08:12 | XMS_ITS | Clinical Summary ---
Author Organization Healthcare Address [address] [place] [address] Care Team Providers Care Physician Pediatrician Name Role Phone Aleksandra Richey APRN Primary Care Provider [phone] Family History Medical History Relation Name Comments [...] of Treatment Not on file Care Teams Physician Pediatrician Relationship Specialty Start Date End Date Aleksandra Richey APRN [address] [place] [address] PCP - General 03/19/21
--- OUTSIDE RECORDS SUMMARY | 2025-08-16 08:12 | XMS_ITS | Clinical Summary ---
Author Organization [facility] ([place], [place], [place], [place]) Address [address] [place] [address] Care Team Providers Care Drilling Rig Operator Name Role Phone Garfield Rose MD Primary Care Provider [phone] Allergies Active Allergy Reactions Criticality Noted Date [...] adult medical examination without abnormal findings 03/25/2023 manager intermediate systemic steroid user 08/26/2021 Osteoarthritis 08/26/2021 Encounter [...] Date Navi rded Speak language other than Afghan at home Not on file 11/24/2023 Want [...] Relevant to [place] [address] [facility] Care Teams Drilling Rig Operator Relationship Specialty Start Date End Date Garfield Rose MD [address] [facility] [address] [place] [address] PCP - General Family Medicine 10/06/22
--- OUTSIDE RECORDS SUMMARY | 2025-08-16 08:12 | XMS_ITS | Clinical Summary ---
Author Organization [facility] Address [address] [place] [address] Care Team Providers Care Transportation Operations Manager Name Role Phone Garfield Rose MD Primary Care Provider [phone] Allergies Active Allergy Reactions Criticality Noted Date [...] MG/0.1ML nasal spray Call 911. Don't prime. [place] in 1 nostril for overdose. Repeat in [...] drink = 0.6 oz pur e alcohol) [facility] Utilities Answer Date Recorded In the [...] medical care, and heating? Somewhat hard 09/17/2024 [facility] [place] of Occupat ional Health - Occupational Stress [...] GED or equivalent No 09/17/2024 Preferred Language Divehi 09/17/2024 PHQ-2 Answer Date Recorded Patient Health [...] Health Maintenance Due Date Last Done Comments DXA SCAN 1960 TDAP/TD VACCINES (1 - Tdap) 1979 MAMMOGRAM 2000 COLOGUARD 2005 COLON CANCER SCREENING 5 YEA R SIGMOIDOSCOPY [address] COLONOGRAPHY 2005 FIT Testing (1 year) 2005 ZOSTER VACCINE (1 of 2) 2010 ANNUAL PHYSICAL 12/17/2018 HEPATITIS C SCREENING 12/17/2018 Pneumococcal Vaccine 50+ (2 of 2 - PCV) 09/30/2020 09/30/2019 INFLUENZA VACCINE 06/06/2025 09/18/2020, 09/05/2019 COVID-19 Vaccine (2 - 2024-2 6 season) 2025 06/04/2021 COLORECTAL CANCER SCREENING 07/29/2025 FECAL OCCULT BLOOD TEST 07/29/2025 07/29/2024 LUNG CANCER SCREENING 09/18/2025 09/18/2024 , 08/04/2024, 07/30/2024, Additional history exists Medical Devices Implanted Type Area Net Programmer Analyst Device Identifier Shelf Expiration Date Model / Serial / Lot Stent Cornry Resolute Raymond Rx 2x30mm - [id number] Implanted:Qty: 1 on 12/15/2018 by Moreno May MD at [facility] 03/29/2020 [id number] / / [id number] Procedures Procedure Name Priority Date/Time Associated Diagnosis [...] Mooney 09/18/2024 10:32 PM EST Workstation ID: [id number] Narrative 09/18/2024 10:[address] CHEST [...] Mooney 09/18/2024 10:32 PM EST Workstation ID: [id number] Kristen Landaverde MD IM CT ORDERABLES Final Result * (ABNORMAL) POC Occult Blood Stool (07/29/2024 8:40 PM EDT) Fecal Occult Blood Positive(A) [facility] Lot Number [id number] [facility] Expiration Date 08/2025 [facility] DEVELOPER LOT NUMBER [id number] [facility] DEVELOPER EXPIRATION DATE 06/2027 [facility] Positive Control Positive [facility] Negative Control Negative [facility] Stool Specimen from rectum / Unknown Marianne Hennessy MD POINT OF CARE TEST ORDERA BLES Final Result [facility]
[address] [place] [address], from Last 3 Months or Most Recently Relevant to Health Maintenance Insurance [facility] MEDICAID Advance Directives Documents on File Type Date Recorded Patient Shareholder Expl anation [employer] RECORDS - SCAN 07/31/2024 12:06 PM [facility] * CPR (Attempt to Resuscitate) (Latest [...] pulse or is breathing): Full Care Teams Transportation Operations Manager Relationship Specialty Start Date End Date Garfield Rose MD PCP - General Family Medicine 11/03/20
--- OUTSIDE RECORDS SUMMARY | 2025-08-16 08:12 | XMS_ITS | Encounter Summary ---
Author Organization [facility] ([place], [place], [place], [place]) Address [address] [place] [address] Care Team Providers Care Records Section Supervisor Name Role Phone Garfield Rose MD Primary Care Provider [phone] Reason for Visit * Reason Comments Medication Refill Encounter Details Date Type Department Care Team (Late st Contact Info) Description 06/08/2023 Refill [facility] Rheumatology [address] [place] [address] Manuela Greenfield MD [address] [place], [place] [id number] Social History Tobacco Use Types Packs/Day Years [...] on filedocumented in this encounter Care Teams Records Section Supervisor Relationship Specialty Start Date End Date Garfield Rose MD [address] [place] [address] PCP - General Family Medicine 10/06/22 documented as of this encounter
--- OUTSIDE RECORDS SUMMARY | 2025-08-16 08:12 | XMS_ITS | Referral Summary ---
Author Organization [employer] ([place], [place], [place], [place]) Address [address] [place] [address] Care Team Providers Care Senior Relationship Manager Name Role Phone Garfield Rose MD Primary Care Provider [phone] Allergies Active Allergy Reactions Criticality Noted Date [...] adult medical examination without abnormal findings 03/25/2023 belt tender systemic steroid user 08/26/2021 Osteoarthritis 08/26/2021 Encounter [...] Date Navi rded Speak language other than Thai at home Not on file 11/24/2023 Want [...] EST Plan of Treatment Not on file Procedures Procedure Name Priority Date/Time Associated Diagnosis Comments DEXA SCAN Routine 08/14/2023 from Last 3 Months or Most Recently Relevant to Health Maintenance Results * HM DEXA SCAN (08/14/2023) Anatomical Region Laterality Modality Other Manuela Greenfield MD HEALTH MAINTENANCE Final Result from Last 3 Months or Most Recently Relevant to [place] [address] [facility] Care Teams Senior Relationship Manager Relationship Specialty Start Date End Date Garfield Rose MD [address] [place] [address] PCP - General Family Medicine 10/06/22
--- OUTSIDE RECORDS SUMMARY | 2025-08-16 08:12 | XMS_ITS | Encounter Summary ---
Author Organization [employer] ([place], [place], [place], [place]) Address [address] [place] [address] Care Team Providers Care Lathing Supervisor Name Role Phone Garfield Rose MD Primary Care Provider [phone] Reason for Visit * Reason Comments Medication Refill Encounter Details Date Type Department Care Team (Late st Contact Info) Description 04/05/2024 Refill [facility] Rheumatology [address] [place] [address] Manuela Greenfield MD [address] [facility] [address] [place] [address] Other osteoarthritis involving multiple joints Social History [...] Date Navi rded Speak language other than [place] Citizen at home Not on file 11/24/2023 Want [...] joints documented in this encounter Care Teams Lathing Supervisor Relationship Specialty Start Date End Date Garfield Rose MD [address] [facility] [address] [place] [id number] PCP - General Family Medicine 10/06/22 documented as of this encounter
--- OUTSIDE RECORDS SUMMARY | 2025-08-16 08:13 | XMS_ITS | Clinical Summary ---
Author Organization [facility] Address [address] [place] [address] Phone Care Team Providers Care Envelope Folding Machine Adjuster Name Role Phone Unavailable Unavailable Conditions or Problems No information available. Medications No information available. Medications Administered No information available. Allergies, Adverse Reactions, Alerts No information available. Results No information available. Plan of Care No information available. Procedures No information available. Vital Signs No information available. Immunizations No information available. Advance Directives No information available.
--- OUTSIDE RECORDS SUMMARY | 2025-08-16 08:14 | XMS_ITS | Patient Health Record ---
Author Organization [facility] Address [address] [place] [address] Care Team Providers Care Clinical Application Manager Name Role Phone Garfield Gorman Primary Care Provider Alvaro Jernigan II Unavailable Allergies Allergen (clinical drug ingredient) Drug/Non Drug Allergy documented on EMR Reaction Allergy Type Onset Date Status lisinopril lisinopril stomach upset Drug Allergy A ctive Reason For Referral No Information Medications Medication SIG (Take, Route, Frequency, Duration) Notes Start Date End Date Status nitroglycerin 0.4 mg/hr 1 PATCH [facility] once a day; Duration: 30 day(s) Active ibuprofen 800 mg 1 tab(s) orally 3 times a day Active cyclobenzaprine 10 mg 1 tab(s) orally 3 times a day Active predniSONE 5 mg 1 tab(s) orally once a day; Duration: 30 day(s) Active losartan 25 mg 1 tab(s) orally once a day; Duration: 30 day(s) Active Potassium Chloride (Dsn-[id number]-Wqg M20) 20 mEq TAKE 1 TABLET BY [...] ONLY IF CLOSED), Fax PA request to [phone] or [phone] Active Lipitor 80 mg 1 tab(s) orally [...] ONLY IF CLOSED), Fax PA request to [phone] or [phone] Active ezetimibe 10 mg 1 tab(s) orally once a day; Duration: 30 day(s) Active Acetaminophen-Hydrocodo ne Bitartrate 325 mg-10 mg 1 tab(s) orally every 8 hours; Duration: 28 days DO NOT FILL SOONER THAN 28 DAYS, (OK TO FILL EARLY, ONLY IF CLOSED), Fax PA request to [phone] or [phone] Active Lasix 20 mg 1 tab(s) orally [...] Risk Notes Problem Lumbosacral spondylosis without myelopathy (71582242) Other spondylosis with radiculopathy, lumbar region (M47.26) Active confirmed Problem Lumbosacral spondylosis without myelopathy (81029433) Spondylosis without myelopathy or radiculopathy, lumbar region (M47.816) Active confirmed Problem Degeneration of lumbar intervertebral disc (24548563) Other intervertebral disc degeneration, lumbar region (M51.36) Active confirmed Problem Lumbar radiculopathy (516191539) Radiculopathy, lumbar region (M54.16) Active confirmed Problem Long-term current use of drug therapy (099293696) 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 Gupta GERD- diagnosed [address] Jaciel jolley Hypertension diagnosed 2009 managed by [place] CAD diagnosed [address] Salinas rt Surgical History Surgery Date(Month/Year) Cardiac stent / [facility] / 2-3 da ys 12/2018
--- NOTE | 2025-08-16 08:17 | ECG_ITS ---
APPROVED REPORT Exam: Resting ECG HR:63 bpm ECG Measurements Heart Rate 63 AXES NJ 212 P 73 QRSd 98 QRS 81 QT 498 T 64 QTc 506 Conclusion Normal sinus rhythm without acute ST or T wave changes concerning for ischemia possible first degree AV block Electronically signed by : Regine Boykin, 08/18/2025 00:58:54
--- NOTE | 2025-08-16 08:24 | CT_ITS ---
PROCEDURE INFORMATION: Exam: CT Head Without Contrast Exam date and time: 08/16/2025 10:31 AM Age: 65 years old Clinical indication: Altered mental status/memory loss; Additional info: AMS TECHNIQUE: Imaging protocol: Computed tomography of the head without contrast. Radiation optimization: All CT scans at this facility use at least one of these dose optimization techniques: automated exposure control; mA and/or kV adjustment per patient size (includes targeted exams where dose is matched to clinical indication); or iterative reconstruction. COMPARISON: CT HEAD/BRAIN WO CON 06/24/2025 8:12 PM FINDINGS: Brain: There is no evidence of acute intracranial hemorrhage, extra-axial collection or locoregional mass effect. There are scattered hypodensities in the periventricular and subcortical white matter. The appearance is nonspecific, but most likely represents chronic small vessel disease in a person of this age Cerebral ventricles: The ventricles, sulci and cisterns are normal in size and configuration for patient's age. No hydrocephalus or midline structure shift Pituitary gland and sella: Sellar/parasellar structures, craniocervical junction and orbits are unremarkable Paranasal sinuses: Visualized sinuses are unremarkable. No fluid levels. Mastoid air cells: Visualized mastoid air cells are well aerated. Bones: No calvarial fracture Soft tissues: Unremarkable. IMPRESSION: No acute intracranial abnormality. No calvarial fracture.
--- NOTE | 2025-08-16 08:25 | CT_ITS ---
PROCEDURE INFORMATION: Exam: CTA Chest With Contrast Exam date and time: 08/16/2025 10:32 AM Age: 65 years old Clinical indication: Other: Coffee ground emesis TECHNIQUE: Imaging protocol: Computed tomographic angiography of the chest with contrast. Exam focused on the arteries. 3D rendering (Not supervised by radiologist): MIP and/or 3D reconstructed images were created by the technologist. Radiation optimization: All CT scans at this facility use at least one of these dose optimization techniques: automated exposure control; mA and/or kV adjustment per patient size (includes targeted exams where dose is matched to clinical indication); or iterative reconstruction. Contrast material: ISO 370; Contrast volume: 80 ml; Contrast route: INTRAVENOUS (IV); COMPARISON: CR XR CHEST PORTABLE 06/24/2025 8:07 PM FINDINGS: Pulmonary arteries: No evidence of filling defects to suggest pulmonary emboli. Aorta: Unremarkable. No aortic aneurysm. No aortic dissection. Trachea: Main airways are patent. Lungs: Mild subsegmental atelectasis in right middle lobe. Pleural spaces: Small right pleural effusion. Heart: Unremarkable. No cardiomegaly. No pericardial effusion. Heart RV/LV ratio: The RV/LV ratio is less than 1. Coronary arteries: There is mild atherosclerotic calcification of the coronary arteries. Esophagus: There is diffuse circumferential thickening of the esophagus. No obvious contrast extravasation. Lymph nodes: Calcified mediastinal and hilar lymph nodes suggest prior granulomatous exposure. Bones/joints: Multilevel degenerative changes of the included spine. Soft tissues: Unremarkable. IMPRESSION: 1. No evidence of filling defects to suggest pulmonary emboli. 2. There is diffuse circumferential thickening of the esophagus. No obvious contrast extravasation. 3. Small right pleural effusion
--- NOTE | 2025-08-16 08:26 | HMH.EDGENADL ---
Discharge Plan Disposition Chief Complaint: GI Bleed Prescriptions Prescriptions: No Action metoprolol tartrate 25 mg tablet 12.5 mg PO BID duloxetine 30 mg capsule,delayed release(DR/EC) 30 mg PO DAILY ezetimibe 10 mg tablet 10 mg PO HS leflunomide 20 mg tablet 20 mg PO DAILY levothyroxine 50 mcg tablet 50 mcg PO DAILY losartan 100 mg tablet 100 mg PO DAILY multivitamin Tablet 1 tab PO DAILY Eliquis 5 mg tablet 5 mg PO BID cyclobenzaprine 10 mg tablet 10 mg PO BID metoprolol tartrate 100 mg tablet 100 mg PO BID docusate sodium [DOK] 100 mg tablet 100 mg PO BID cyanocobalamin (vitamin B-12) 500 mcg tablet 500 mcg PO DAILY magnesium oxide 400 mg (241.3 mg magnesium) tablet 400 mg PO DAILY sodium bicarbonate 650 mg Tablet 650 mg PO BID 30 Days Qty: 60 0RF levofloxacin 750 mg Tablet 750 mg PO 1100 5 Days Qty: 5 0RF tamsulosin [Flomax] 0.4 mg capsule 0.4 mg PO HS Qty: 30 0RF omeprazole 40 MG capsule,delayed release(DR/EC) 40 mg PO HS hydroxychloroquine 200 MG tablet 200 mg PO BID Referrals Follow up/Referrals: Leonora Loya APRN [Primary Care Provider, Medical] - See instructions Stand Alone Forms Stand Alone Forms: Transfer Record - ED Instructions Patient Instructions: DI for Gastrointestinal Bleeding Print Language Print Language: Albanian Discharge ED Provider: Regine Boykin General Adult HPI General Chief complaint: GI Bleed Stated complaint: Abd Pain Time Seen by Provider: 08/16/25 08:16 History of Present Illness HPI narrative: Patient is a 65-year-old female with a past medical history of hypertension, A-fib on Eliquis, coronary artery disease who presented to the emergency department from her nursing facility with abdominal pain. Per EMS, patient had abdominal pain and coffee-ground emesis which is what brought her here to the emergency department. Patient was otherwise hemodynamically stable and route. On arrival, patient states that she is not having any abdominal pain has had some vomiting is unsure if it has been coffee-ground in nature. Patient denies any chest pain or shortness of breath. Patient denies any fevers. Patient reports normal bowel movements. Patient states that she has intermittent hip pain and this is not unusual for her. Patient denies any urinary symptoms. On further review and questioning from the nursing facility, they state that patient was writhing in bed complaining of abdominal pain. They state that she had multiple episodes of coffee-ground emesis overnight. She has not had any fevers. No history of previous GI bleeds. Patient has otherwise been eating and drinking appropriately. A state that patient has otherwise been acting at her baseline, patient is not altered. Patient did have a fall on August 10 was not seen and evaluated at that time. Patient was diagnosed with a urinary tract infection on the was sent with oral antibiotics but patient has been refusing medications for the last 2 days reportedly due to nausea and vomiting. Related Data Home Medications ?Medication ?Instructions ?Recorded ?Confirmed metoprolol tartrate 25 mg tablet 12.5 mg PO BID 12/19/18 06/24/25 hydroxychloroquine 200 mg tablet 200 mg PO BID 01/15/21 06/24/25 omeprazole 40 mg capsule,delayed 40 mg PO HS 01/15/21 06/24/25 release apixaban 5 mg tablet (Eliquis) 5 mg PO BID 01/09/25 06/24/25 cyclobenzaprine 10 mg tablet 10 mg PO BID 01/09/25 06/24/25 duloxetine 30 mg capsule,delayed 30 mg PO DAILY 01/09/25 06/24/25 release ezetimibe 10 mg tablet 10 mg PO HS 01/09/25 06/24/25 leflunomide 20 mg tablet 20 mg PO DAILY 01/09/25 06/24/25 levothyroxine 50 mcg tablet 50 mcg PO DAILY 01/09/25 06/24/25 losartan 100 mg tablet 100 mg PO DAILY 01/09/25 06/24/25 metoprolol tartrate 100 mg tablet 100 mg PO BID 01/09/25 06/24/25 multivitamin 1 tab PO DAILY 01/09/25 06/24/25 cyanocobalamin (vitamin B-12) 500 500 mcg PO DAILY 03/06/25 06/24/25 mcg tablet docusate sodium 100 mg tablet (DOK) 100 mg PO BID 03/06/25 06/24/25 magnesium oxide 400 mg (241.3 mg 400 mg PO DAILY 06/25/25 06/25/25 magnesium) tablet Previous Rx's ?Medication ?Instructions ?Recorded levofloxacin 750 mg tablet 750 mg PO 1100 5 days #5 tabs 06/26/25 sodium bicarbonate 650 mg tablet 650 mg PO BID 30 days #60 tabs 06/26/25 tamsulosin 0.4 mg capsule (Flomax) 0.4 mg PO HS #30 caps 06/26/25 Allergies Allergy/AdvReac Type Severity Reaction Status Date / Time lisinopril (LISINOPRIL) Allergy Unknown Verified 05/01/25 14:51 [facility] PFS Disclaimer: The information contained in this section may have been updated after the patient was seen, as this information can be updated by other users. Medical History (Updated 06/30/25 @ 00:00 by Background Daemon) Dementia with behavioral disturbance Urinary retention with incomplete bladder emptying GERD (gastroesophageal reflux disease) Atrial fibrillation Major depressive disorder Hypokalemia Hypo-osmolar hyponatremia Hypomagnesemia Hyperlipidemia Hypothyroidism Anemia COPD (chronic obstructive pulmonary disease) Rheumatoid arthritis Preop testing HTN (hypertension) Edema CAD (coronary artery disease) PAF (paroxysmal atrial fibrillation) Multiple lung nodules on CT History of smoking 30 or more pack years Allergic dermatitis Surgical History (Updated 06/30/25 @ 00:00 by Background Daemon) History of cardiac cath Social History (Updated 06/24/25 @ 23:04 by Era Craig RN) Smoking Status: Former smoker alcohol intake: never substance use type: denies use current occupational status: other Travel in the last 8 weeks?: None household members: spouse housing: house current occupational exposures/hazards: No caffeine: Yes Have you lived/traveled outside US in past 30 days?: No Contact w/someone who lives/traveled outside US past 30 days?: No Exposure to someone with infectious disease in past 14 days?: No Do you have a fever (greater than 100.4 F or 38 C)?: No Have you tested positive for COVID-19?: No Exposed to someone with COVID-19 in past 14 days?: No Do you have a sore throat?: No Do you have a cough?: No Do you have any weakness?: No Do you have any diarrhea?: No Are you experiencing any unusual bleeding?: No Do you have any muscle aches/pain?: No Do you have any abdominal pain?: No Are you experiencing loss of taste or smell?: No Other Medical History Have you received the Flu Vaccine for this season: No Have you received the Pneumonia Vaccine: No ROS Obtained: Yes All systems reviewed & no additional complaints except as documented and Yes Systems reviewed as appropriate & no additional complaints except as documented Physical Exam General General appearance: alert and in no apparent distress Head Head exam: atraumatic, normocephalic and normal inspection Eye Eye exam: Present normal appearance, PERRL and EOMI; Absent scleral icterus ENT ENT exam: Present normal exam and normal external ear exam Neck Neck exam: Present normal inspection and full ROM Chest Chest inspection: Present normal inspection and symmetric chest wall rise Respiratory Respiratory exam: Present normal lung sounds bilaterally; Absent respiratory distress or wheezes Cardiovascular Cardiovascular exam: Present regular rate, normal rhythm and normal heart sounds Abdominal Exam Abdominal exam: Present soft, distention and tenderness (diffuse); Absent guarding or rebound Extremities Exam Extremities exam: Present normal inspection and full ROM Back Exam Back exam: Present normal inspection and full ROM Neurological Exam Neurological exam: Present alert and oriented X3 Psychiatric Psychiatric exam: Present normal affect and normal mood Skin Skin exam: Present warm and dry Medical Decision Making Medical Records Screening: Per USPSTF and CDC recommendations, given the prevalence of disease in our region, it is our hospital?s policy to screen for HIV and viral Hepatitis for all patients aged 18 and over and those with ongoing risk factors. Sancho Inquiry Pt receiving controlled substance: No Vital Signs: 08/16/25 08:07 08/16/25 08:19 08/16/25 09:30 Temperature 97.7 F Temperature Source Oral Pulse Rate 64 Pulse Rate [Left Radial] 66 Respiratory Rate 16 Blood Pressure 142/59 H Blood Pressure [Right Arm] 142/59 H Blood Pressure Mean [Right Arm] 86 02 Sat by Pulse Oximetry 98 99 95 Oxygen Delivery Method Room Air Room Air Room Air 08/16/25 09:30 08/16/25 10:01 08/16/25 10:37 Temperature Temperature Source Pulse Rate 66 67 69 Pulse Rate [Left Radial] Respiratory Rate Blood Pressure 101/62 L 122/71 134/75 Blood Pressure [Right Arm] Blood Pressure Mean [Right Arm] 02 Sat by Pulse Oximetry 100 96 98 Oxygen Delivery Method Room Air Room Air Room Air Lab Data Lab results reviewed: Yes I reviewed the patient's lab results. Lab Results 08/16/25 09:21: WBC 15.4 H, RBC 3.25 L, Hgb 9.4 L, Hct 27.9 L, MCV 85.8, MCH 28.9, MCHC 33.7, RDW 20.1 H, Plt Count 195, MPV 10.9 H, Neut % (Auto) 83.8 H, Lymph % (Auto) 4.7 L, [place] % (Auto) 10.3 H, Eos % (Auto) 0.0 L, Baso % (Auto) 0.2, Neut # (Auto) 12.9 H, Lymph # (Auto) 0.7, [place] # (Auto) 1.6 H, Eos # (Auto) 0.0, Baso # (Auto) 0.0, Total Counted 100, Neutrophils % (Manual) 85 H, Lymphocytes % (Manual) 6 L, Monocytes % (Manual) 9, Platelet Estimate Normal, RBC Morphology Normal, PT 55.9 H, INR 5.73 H, Sodium 122 L, Potassium 5.8 H, Chloride 86 L, Carbon Dioxide 17 L, Anion Gap 24.8 H, BUN 36 H, Creatinine 1.60 H, Estimated Creat Clear 48, Estimated GFR 32 L, Est GFR ( Amer) 39 L, Glucose 38 L*, Lactate 8.3 H, Calcium 9.2, Magnesium 2.2, Total Bilirubin 3.4 H, AST 896 H*, ALT 528 H*, Alkaline Phosphatase 223 H, Troponin I 0.02, Total Protein 6.3, Albumin 3.4 L, Globulin 2.9, Albumin/Globulin Ratio 1.2, Lipase 35 08/16/25 09:40: Urine Color Yellow, Urine Appearance Slightly cloudy, Urine pH 6.0, Ur Specific [place] 1.025, Urine Protein 1+ A, Urine Glucose (UA) Negative, Urine Ketones Trace, Urine Blood 1+ A, Urine Nitrate Positive A, Urine Bilirubin 1+ A, Urine Urobilinogen 0.2, Ur Leukocyte Esterase 3+ A, Urine RBC 3-5, Urine WBC 50-100, Ur Squamous Epith Cells 10-20, Ur Transition Epith Cell 5-10, Ur Renal Epithelial Cell 20-50, Urine Bacteria 3+ 08/16/25 10:10: HCV Ab ALFREDITO w/Rflx PCR Qn Negative, HIV Ag/Ab Combo Qual Negative 08/16/25 10:42: Salicylates < 1.0 L, Acetaminophen < 10 L 08/16/25 11:12: Troponin I < 0.01 08/16/25 11:13: VBG pH 7.29 L, VBG pCO2 18.3 L, VBG pO2 196.2 H, VBG HCO3 8.5 L, VBG Total CO2 9.1 L, VBG O2 Saturation 98.0 H, VBG Base Excess -18.2 L, VBG Lactic Acid 3.9 H 08/16/25 09:21 08/16/25 09:21 Orders (Tests/Meds): ED MEDICATIONS Generic Name Dose Route Start Last Admin Trade Name Freq PRN Reason Stop Dose Admin Piperacillin Sod/Tazobactam 100 mls @ 200 mls/hr 08/16/25 10:15 08/16/25 12:13 Sod 4.5 gm/ Sodium Chloride IV 08/26/25 10:14 Infused Q6H CARLOS Infusion Sodium Chloride 10 ml 08/16/25 10:31 08/16/25 10:32 Sodium Chloride 0.9% 10ml Syr (Rad Only) IV 09/15/25 10:30 10 ml NEEDED PRN Administration Maintain IV Site Discontinued Medications Generic Name Dose Route Start Last Admin Trade Name Freq PRN Reason Stop Dose Admin Dextrose 50 ml 08/16/25 09:52 08/16/25 09:53 Dextrose 50% 50ml Syringe (Crash Cart) IVP 08/16/25 09:53 50 ml ONCE ONE Administration Pantoprazole Sodium 80 mg/ 100 mls @ 100 mls/hr 08/16/25 08:22 08/16/25 10:53 Sodium Chloride IV 08/16/25 09:21 Infused ONCE ONE Infusion Lactated Ringer's 1,000 mls @ 999 mls/hr 08/16/25 09:57 08/16/25 12:24 Lactated Ringer's 1000 Ml Bag IV 08/16/25 10:57 Infused .Q1H1M ONE Infusion Calcium Gluconate/Sodium Chloride 2 gm in 100 mls @ 50 mls/hr 08/16/25 10:01 08/16/25 10:45 Calcium Gluconate 2,000mg/100ml Nacl Premix IV 08/16/25 12:00 50 mls/hr ONCE ONE Administration Vancomycin/PEG/NADA/Lysine/Water 1.5 gm in 300 mls @ 150 mls/hr 08/16/25 10:15 Vancomycin 1.5gm/300ml (Peg) Premix IV 08/16/25 12:14 ONCE ONE Prothrombin Complex Concent ( 200 mls @ 8.4 mls/min 08/16/25 11:30 08/16/25 12:23 Human) 1,000 unit/ Prothrombin IV 08/16/25 11:53 Infused Complex Concent (Human) 2,500 ONCE ONE Infusion unit/ Miscellaneous Iopamidol 80 ml 08/16/25 10:31 08/16/25 10:32 Iopamidol-370 (76%);100ml Bottle IV 08/16/25 10:32 80 ml ONCE ONE Administration Miscellaneous 1 each 08/16/25 10:15 Vancomycin Consult Request NOTAPPLIC 09/15/25 10:14 CONSULT PHARMACY CARLOS Morphine Sulfate 2 mg 08/16/25 10:52 08/16/25 11:01 Morphine 2mg/Ml Syringe IV 08/16/25 10:53 2 mg ONCE ONE Administration Ondansetron HCl 4 mg 08/16/25 11:02 08/16/25 11:03 Ondansetron 4mg/2ml Vial IV 08/16/25 11:03 4 mg ONCE ONE Administration Ondansetron HCl 4 mg 08/16/25 12:07 Ondansetron 4mg/2ml Vial IV 08/16/25 12:08 ONCE ONE Sodium Chloride 50 ml 08/16/25 10:31 08/16/25 10:32 0.9 % Sodium Chloride 50 Ml Vial IV 08/16/25 10:32 50 ml ONCE ONE Administration ORDERS Category Date Time Status CT angio abdomen pelvis Stat Cat Scan 08/16/25 08:[address] angio chest PE protocol Stat Cat Scan 08/16/25 08:[address] head/brain wo con Stat Cat Scan 08/16/25 08:24 Completed Acetaminophen Stat Lab 08/16/25 10:42 Completed CBC w/Auto Diff [Complete Blood Count Auto Diff] Stat Lab 08/16/25 09:21 Completed CMP [Comprehensive Metabolic Panel] Stat Lab 08/16/25 09:21 Completed HIV Combo Stat Lab 08/16/25 10:10 Completed Hepatitis C Ab Qual. W/ RFX Stat Lab 08/16/25 10:10 Completed Hepatitis Panel Stat Lab 08/16/25 10:10 Received Lactic Acid Stat Lab 08/16/25 09:21 Completed Lipase Stat Lab 08/16/25 09:21 Completed MAG [Magnesium] Stat Lab 08/16/25 09:21 Completed Prothrombin Time INR Stat Lab 08/16/25 09:21 Completed Salicylate Stat Lab 08/16/25 10:42 Completed Trop I [Troponin I] Stat Lab 08/16/25 09:21 Completed Troponin I Q3H Lab 08/16/25 11:12 Completed Troponin I Q3H Lab 08/16/25 14:30 Ordered UA [Urinalysis and Microscopic] Stat Lab 08/16/25 09:40 Completed Blood Culture Stat Micro 08/16/25 10:05 Received Urine Culture Stat Micro 08/16/25 09:40 Received VBG [Venous Blood Gas] Stat RT 08/16/25 11:13 Completed Medical Decision Narrative: Patient is a 65-year-old female with a past medical history of hypertension, A-fib on Eliquis, coronary artery disease who presented to the emergency department with abdominal pain and coffee-ground emesis. On arrival, patient was hemodynamically stable with unremarkable vital signs. Differential includes but not limited to: GI bleed, supratherapeutic on Eliquis, petic ulcer disease, perforated peptic ulcer, electrolyte abnormalities, urinary tract infection, dehydration, amongst others. At this time, patient is alert and oriented x 3, patient is a GCS of 15. Patient appears to have capacity to make her own medical decisions. Patient is currently adamant that she does not want an IV placed above her AC joint. I discussed with the patient given her current coffee-ground emesis that we likely need CT imaging of her abdomen and chest which would require IV contrast. Patient was willing to allow us to put IVs in the very proximal part of her forearms. Patient was unwilling to allow me to put any other additional access after multiple attempts and discussion about her critical nature. Patient's labs were reviewed and interpreted by myself: CBC showed a leukocytosis of 15, hemoglobin was stable. INR elevated at 5.73. VBG with mild acidosis of 7.29, mildly elevated lactate at 3.9, bicarb of 8.5. Initial chemistry showed hyponatremia of 122, potassium of 5.8, anion gap of 24.8. Creatinine mildly elevated at 1.6. Glucose of 38. Initial lactate of 8.3. Patient had an elevated bilirubin at 3.4, significantly elevated LFTs with an AST of 896, ALT of 528 and alk phos of 223. Initial troponin less than 0.01, second troponin less than 0.01. Patient's UA was positive for nitrites, leuk esterase, 50-100 white blood cells, 3+ bacteria. Tylenol level normal, aspirin level normal. CT chest showed no acute intrathoracic pathology, CT abdomen showed distended stomach with thickened esophagus. Given patient's hyperkalemia, patient was given calcium gluconate. Patient was given a liter of IV fluids. Patient was given an amp of D50 for her glucose of 38 which normalized to 112. Given concern for UTI with leukocytosis, patient was treated with broad-spectrum antibiotics with vancomycin and Zosyn. Patient was given 80 of IV Protonix for concerns for GI bleed. Patient is on Eliquis for A-fib and patient was reversed with Kcentra. After discussion with our hospitalist and GI team here, they felt patient needed higher level of care. Patient did have 2 small episodes of coffee-ground emesis however patient was maintaining her airway, I did not feel the patient needed to be emergently intubated at this time. With discussion with the patient here, she stated that if needed she would like to be intubated and have CPR. Of note, patient has no prior history of liver disease, patient does not drink any alcohol, patient does not have a history of cirrhosis. Critical Care Critical Care Time Critical Care Time: Yes Attestation: On 08/16/25, the high probability of a clinically significant, sudden or life threatening deterioration of the following system(s) required my full and direct attention, intervention and personal management. The time I documented below is in addition to time spent performing reported procedures but includes the following listed in this critical care notation. Total Time Total Critical Care Time: 65
--- NOTE | 2025-08-16 08:30 | CT_ITS ---
PROCEDURE INFORMATION: Exam: CTA Abdomen and Pelvis With Contrast Exam date and time: 08/16/2025 10:32 AM Age: 65 years old Clinical indication: Other: Coffee ground emesis TECHNIQUE: Imaging protocol: Computed tomographic angiography of the abdomen and pelvis with contrast. Exam focused on the arteries. 3D rendering (Not supervised by radiologist): MIP and/or 3D reconstructed images were created by the technologist. Radiation optimization: All CT scans at this facility use at least one of these dose optimization techniques: automated exposure control; mA and/or kV adjustment per patient size (includes targeted exams where dose is matched to clinical indication); or iterative reconstruction. Contrast material: ISO 370; Contrast volume: 80 ml; Contrast route: INTRAVENOUS (IV); COMPARISON: CT ANGIO CHEST PE PROTOCOL 08/16/2025 10:32 AM FINDINGS: Aorta: No aortic aneurysm. No aortic dissection. Celiac and mesenteric arteries: No occlusion or significant stenosis. Renal arteries: No occlusion or significant stenosis. Right iliac arteries: No occlusion or significant stenosis. Left iliac arteries: No occlusion or significant stenosis. Liver: No mass. Gallbladder and biliary ducts: Gallbladder is distended without radiopaque cholelithiasis. No biliary ductal dilation. Pancreas: No peripancreatic fluid stranding. No main pancreatic ductal dilation. Spleen: No splenomegaly. Adrenal glands: The adrenal glands are normal. Kidneys and ureters: Nephrograms are symmetric. No nephrolithiasis or hydroureteronephrosis on either side. No solid lesions Stomach and bowel: No bowel wall thickening or distention. Stomach is fluid distended. Similar circumferential thickening in the distal esophagus. No contrast extravasation to suggest hemorrhagic source. Appendix: No evidence of appendicitis. Intraperitoneal space: There is no evidence of free intraperitoneal or pelvic fluid. There is no evidence of free intraperitoneal or pelvic fluid. Lymph nodes: No evidence of retroperitoneal or mesenteric lymphadenopathy. Urinary bladder: Urinary bladder is unremarkable. Reproductive: Unremarkable as visualized. Bones/joints: Heterogeneous enhancement throughout the liver femur perfusional. Anterolisthesis of L4 over L5, likely degenerative. Pronounced discogenic changes L2-L3 and L4-L5. Soft tissues: Diffuse anasarca of the soft tissues. Other findings: For findings in the chest, please refer to the separately dictated chest CT report under a separate accession number. IMPRESSION: Stomach is fluid distended. No contrast extravasation to suggest hemorrhagic source. Diffuse wall thickening in the distal esophagus
--- NOTE | 2025-08-16 08:59 | PC.NURSE ---
while attempting to complete triage, pt is very argumentative and is not forthcoming with information. pt is refusing IV access in her AC. pt states that she will only allow for an IV to be placed in her lower arm. attempted to education pt about scans for possible GI bleed due to coffee ground emesis, but pt is adament that she does not want an IV in her AC or upper arm. multiple attempts to look for IV access by charge nurse, primary nurse and MD. pt still very adament that she does not want an IV placed in her AC or upper arm.
--- NOTE | 2025-08-16 09:19 | PC.NURSE ---
I called pharmacy, they are going to send down the protonix drip.
[2025-08-16 09:28] LABS: Hematocrit 27.9 % (37.0-47.0); Hemoglobin 9.4 g/dL (12.2-16.2); Immature Granulocytes % 1.0 %; Mean Corpuscular HGB Conc 33.7 g/dL (31.8-35.4); Mean Corpuscular Hemoglobin 28.9 pg (27.0-31.2); Mean Corpuscular Volume 85.8 fl (81-99); Nucleated Red Blood Cells % 0 %; Platelet Count 195 K/mm3 (142-424); Red Blood Count 3.25 M/mm3 (4.20-5.40); Red Cell Distribution Width-SD 61.8 fL; White Blood Count 15.4 K/mm3 (4.8-10.8)
--- NOTE | 2025-08-16 09:36 | PC.NURSE ---
USGIV placed by warehouser
[2025-08-16] MEDS: PANTOPRAZOLE SODIUM 80 MG in 0.9 % SODIUM CHLORIDE 100 ML 100 MG IV (09:37)
[2025-08-16 09:40] LABS: Alanine Aminotransferase 528 U/L (12-78); Albumin Level 3.4 g/dl (3.5-5.0); Albumin/Globulin Ratio 1.2 (1.1-1.8); Alkaline Phosphatase 223 U/L (38-126); Anion Gap 24.8 mEq/L (5-15); Bilirubin,Total 3.4 mg/dl (0.2-1.3); Blood Urea Nitrogen 36 mg/dl (7-17); Calcium 9.2 mg/dl (8.4-10.2); Carbon Dioxide 17 mmol/L (22.0-30.0); Chloride 86 mmol/L (98-107); Creatinine Clearance Estimated 48 mL/min (50-200); Creatinine,Serum 1.60 mg/dl (0.52-1.04); Estimated Glomerular Filt Rate 32 ml/min (>60); GFR (African American) 39 ML/MIN (>60); Globulin 2.9 g/dL (1.3-3.2); Lipase 35 U/L (23-300); Magnesium 2.2 mg/dl (1.6-2.3); Potassium 5.8 mmoL/L (3.5-5.1); Sodium 122 mmol/L (136-145); Total Protein,Serum 6.3 g/dl (6.3-8.2)
--- NOTE | 2025-08-16 09:47 | PC.NURSE ---
notified registration he is in a procedure and will return our call once complete.
[2025-08-16 09:48] LABS: Glucose 38 mg/dl (74-100)
[2025-08-16 09:49] LABS: Aspartate Amino Transferase 896 U/L (14-36)
[2025-08-16 09:51] LABS: Microscopic, Urine URINE MICROSCOPIC (MICROSCOPIC)
[2025-08-16 09:52] LABS: Troponin I 0.02 ng/ml (0.00-0.034)
[2025-08-16] MEDS: DEXTROSE 50% 50ML SYRINGE (CRASH CART) 50 ML IVP (09:53)
[2025-08-16 09:57] LABS: INR 5.73 (0.9-1.1); Prothrombin Time 55.9 seconds (10.1-12.5)
[2025-08-16 10:02] LABS: Color,Urine YELLOW (Yellow); Glucose,Urine (UA) Negative (Negative); Ketones,Urine TRACE (Negative); Leukocyte Esterase,Urine 3+ (Negative); PH,Urine 6.0 (5.0-8.5); Protein,Urine 1+ (Negative); Specific Gravity, Urine 1.025 (1.005-1.030); Urobilinogen,Urine 0.2 EU/dl (0.2)
[2025-08-16 10:12] LABS: Bilirubin,Urine 1+ (Negative)
[2025-08-16] MEDS: IOPAMIDOL-370 (76%);100ML BOTTLE 80 ML IV (10:32)
[2025-08-16] MEDS: SODIUM CHLORIDE 0.9% 10ML SYR (RAD ONLY) 10 ML IV (10:32)
[2025-08-16] MEDS: 0.9 % SODIUM CHLORIDE 50 ML VIAL IV (10:32)
--- NOTE | 2025-08-16 10:35 | PC.NURSE ---
dr boyd in nursing station speaking with
[2025-08-16 10:40] LABS: RBC Morphology Normal; Total Cells Counted 100
--- NOTE | 2025-08-16 10:42 | PC.NURSE ---
FSBS 112
[2025-08-16] MEDS: LACTATED RINGERS 1000ML 1,000 ML 999 ML IV (10:45)
[2025-08-16] MEDS: CALCIUM GLUC IN NACL, ISO-OSM 2 GM/100 ML BAG IV (10:45)
[2025-08-16 10:57] LABS: WBC,Urine 50-100 #/hpf (0-3)
[2025-08-16 10:59] LABS: Renal Epithelial Cells,Urine 20-50 #/lpf (0)
[2025-08-16 11:01] LABS: Bacteria,Urine 3+ /lpf
[2025-08-16] MEDS: PIPERACILLIN/TAZO 4.5 GM in 0.9 % SODIUM CHLORIDE 100 ML IV (11:01)
[2025-08-16] MEDS: MORPHINE 2MG/ML SYRINGE 2 MG IV (11:01)
[2025-08-16] MEDS: ONDANSETRON 4MG/2ML VIAL 4 MG IV (11:03)
[2025-08-16 11:20] LABS: VBG HCO3 8.5 mmol/L (23-30); VBG PH 7.29 mmol/L (7.31-7.41); VBG PO2 196.2 mmol/L (28-40)
[2025-08-16 11:23] LABS: Lactate Venous 3.9 mmol/L (0.4-2.0); VBG PCO2 18.3 mmol/L (35-51)
[2025-08-16 11:48] LABS: Acetaminophen < 10 ug/ml (10-30); Salicylate < 1.0 mg/dL (2.0-20.0)
[2025-08-16] MEDS: [UNRECOGNIZED DRUG - OTHER] IV (11:51)
[2025-08-16] MEDS: PROTHROMBIN COMPLEX CONCENTRATE IV (11:51)
--- NOTE | 2025-08-16 11:58 | PC.NURSE ---
Called [facility] for transfer, they have no available ICU beds or liver doctor, calling .
[2025-08-16 12:01] LABS: Troponin I < 0.01 ng/ml (0.00-0.034)
--- NOTE | 2025-08-16 12:01 | PC.NURSE ---
Called [facility] for possible transfer. Images have been power shared. Dr. Boykin speaking to their provider now.
[2025-08-16 12:05] LABS: Hepatitis C Ab Qual. W/ RFX NEGATIVE (Negative)
--- NOTE | 2025-08-16 12:14 | PC.NURSE ---
called EMS for patient transfer to . Spoke with Eddie and advised they would be up shortly.
--- NOTE | 2025-08-16 12:32 | PC.NURSE ---
pt did not receive full sepsis bolus due to GI bleed per
[2025-08-16 13:25] LABS: Reflex Lactic Add Lactic Reflex
--- NOTE | 2025-08-18 10:06 | PC.NURSE ---
prelim urine culture faxed to [facility]
--- NOTE | 2025-08-20 07:53 | PC.NURSE ---
Final urine culture faxed to [facility]
== END 2025-08-16 12:43 | disposition other institution (70) ==
PROVIDERS: Emergency Provider Student in an Organized Health Care Education/Training Program; PCP Nurse Practitioner Family
DX: K92.2 Gastrointestinal hemorrhage, unspecified (principal); R10.84 Generalized abdominal pain; E16.2 Hypoglycemia, unspecified; R74.02 Elevation of levels of lactic acid dehydrogenase [LDH]; E87.29 Other acidosis; E87.1 Hypo-osmolality and hyponatremia; E87.5 Hyperkalemia; R74.01 Elevation of levels of liver transaminase levels; N39.0 Urinary tract infection, site not specified; R11.2 Nausea with vomiting, unspecified; F03.918 Unspecified dementia, unspecified severity, with other behavioral disturbance; I48.91 Unspecified atrial fibrillation; Z79.01 Long term (current) use of anticoagulants; B95.4 Other streptococcus as the cause of diseases classified elsewhere
CPT/HCPCS: 70450; 71275; 74174; 80053; 80074; 80329; 81001; 82803; 83605; 83690; 83735; 84484; 85007; 85025; 85610; 86803; 87040; 87086; 87088; 87186; 87389; 93005; 96365; 96366; 96367; 96375; 99285; 99291; J0612; J2270; J2405; J2470; J2543; J7120; J7168; Q9967

== ENCOUNTER 2025-08-27 15:55 | Outpatient (CLI) | payer MEDICAID, SELFPAY ==
[2025-08-27 17:23] LABS: Hematocrit 26.2 % (37.0-47.0); Hemoglobin 7.8 g/dL (12.2-16.2); Immature Granulocytes % 0.7 %; Mean Corpuscular HGB Conc 29.8 g/dL (31.8-35.4); Mean Corpuscular Hemoglobin 30.6 pg (27.0-31.2); Mean Corpuscular Volume 102.7 fl (81-99); Nucleated Red Blood Cells % 0 %; Platelet Count 165 K/mm3 (142-424); Red Blood Count 2.55 M/mm3 (4.20-5.40); Red Cell Distribution Width-SD 90.0 fL; White Blood Count 7.5 K/mm3 (4.8-10.8)
[2025-08-27 17:37] LABS: Alanine Aminotransferase 58 U/L (12-78); Albumin Level 2.6 g/dl (3.5-5.0); Albumin/Globulin Ratio 0.9 (1.1-1.8); Alkaline Phosphatase 144 U/L (38-126); Anion Gap 12.0 mEq/L (5-15); Aspartate Amino Transferase 35 U/L (14-36); Bilirubin,Total 1.2 mg/dl (0.2-1.3); Blood Urea Nitrogen 10 mg/dl (7-17); Calcium 8.2 mg/dl (8.4-10.2); Carbon Dioxide 17 mmol/L (22.0-30.0); Chloride 104 mmol/L (98-107); Creatinine,Serum 1.00 mg/dl (0.52-1.04); Estimated Glomerular Filt Rate 56 ml/min (>60); GFR (African American) 67 ML/MIN (>60); Globulin 2.9 g/dL (1.3-3.2); Glucose 98 mg/dl (74-100); Potassium 5.0 mmoL/L (3.5-5.1); Sodium 128 mmol/L (136-145); Total Protein,Serum 5.5 g/dl (6.3-8.2)
== END 2025-08-27 23:59 | disposition home or self-care (01) ==
LOC: LAB.DROPOF 15:56
PROVIDERS: PCP Nurse Practitioner Family; Visit Provider Nurse Practitioner Family
DX: D64.9 Anemia, unspecified (principal); R62.7 Adult failure to thrive
CPT/HCPCS: 80053; 85025

== ENCOUNTER 2025-09-24 14:04 | Outpatient (CLI) | payer MEDICAID, SELFPAY ==
--- OUTSIDE RECORDS SUMMARY | 2024-08-16 11:15 | XMS_ITS ---
Author Organization [facility] Address [address] [place] [address] Care Team Providers Care Element Burner Name Role Phone Garfield Gorman Primary Care Provider Alvaro Jernigan II Unavailable Allergies Allergen (clinical drug ingredient) Drug/Non Drug Allergy documented on EMR Reaction Allergy Type Onset Date Status lisinopril lisinopril stomach upset Drug Allergy A ctive REASON FOR VISIT Low Back Pain Medications Medication SIG (Take, Route, Frequency, Duration) Notes Start Date End Date Status nitroglycerin 0.4 mg/hr 1 PATCH transder anna once a day; Duration: 30 day(s) Active ibuprofen 800 mg 1 tab(s) orally 3 times a day Active cyclobenzaprine 10 mg 1 tab(s) orally 3 times a day Active predniSONE 5 mg 1 tab(s) orally once a day; Duration: 30 day(s) Active omeprazole 40 mg 1 cap(s) orally once a day; Duration: 30 day(s) Active losartan 25 mg 1 tab(s) orally once a day; Duration: 30 day(s) Active gabapentin 600 mg 1/2 tab(s) orally three times a day; Duration: 28 day(s) DO NOT FILL SOONER THAN 28 DAYS, (OK TO FILL EARLY, ONLY IF CLOSED), Fax PA request to [phone] or [phone] Active metoprolol 100 mg 1 tab(s) orally once a day; Duration: 30 day(s) Active Acetaminophen-Hydrocodo ne Bitartrate 325 mg-10 mg 1 tab(s) orally every 8 hours; Duration: 28 days DO NOT FILL SOONER THAN 28 DAYS, (OK TO FILL EARLY, ONLY IF CLOSED), Fax PA request to [phone] or [phone] Active Acetaminophen-Hydrocodo ne Bitartrate 325 mg-10 mg 1 tab(s) orally every 8 hours; Duration: 28 days DO NOT FILL SOONER THAN 28 DAYS, (OK TO FILL EARLY, ONLY IF CLOSED), Fax PA request to [phone] or [phone] Active Potassium Chloride (Vmz-Sjbt-Jpb M20) 20 mEq TAKE 1 TABLET BY MOUTH TWICE DAILY; Duration: 30 Active DULoxetine 30 mg 1 cap(s) orally 2 times a day 06/23/2022 Active Lipitor 80 mg 1 tab(s) orally once a day; Duration: 30 day(s) Active Plavix 75 mg 1 tab(s) orally once a day; Duration: 30 day(s) Active Lasix 20 mg 1 tab(s) orally once a day; Duration: 30 day(s) Active ezetimibe 10 mg 1 tab(s) orally once a day; Duration: 30 day(s) Active Plaquenil 200 mg 1 tab(s) orally once a day; Duration: 30 day(s) Active Social History Tobacco Use: Social History Observation Description Date Details (start date - stop date) Never Smoker NA - NA Alcohol Screen Question Answer Notes Did you have a drink containing alcohol in the p ast year? 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 Refill hydrocodone/AP AP 10/325mg TID 2. Refill Gabapentin 600mg TID 3. Follow up 2 months 4. Schedule repeat lumbar SKIP RFA L3/4/5 Ms. Wynne is here for follow-up examination and medication refills. She is is S/P B/L RFA at L3/4/5 on 01/04/2024. States she did not get as much relief from that procedure as she had wished. On 03/21/2024 she received a #2 LESI at L4/5 and states that it did not give her much relief at all. She reports pain in her low back and she is currently ambulating with the assistance of a cane. She is also inquiring about the soonest she can get a repeat RFA at the same levels and I told her it will be the latter part of June before we can reschedule her. 06/12/2024 Today she complains of lower axial back pain for the last couple months. Patient experiencing thobbing and burning sensation bilaterally in lower back. Demonstrates moderate tenderness with palpation. Today she is requesting to go ahead schedule repeat SKIP RFA L3, L4, L5 at todays visit to receive relief. Last injection with successful results where she was able to function as normal as possible without pain interfering. S/P Injection Result 01/04/2024 SKIP RFA L3 L4 L5 80% relief for 2.5 months She is currently maintained on hydrocodone/APAP 10/325mg for pain relief along with gabapentin 600 mg 3 times daily. She denies any adverse side effect from the medication. She reports the medication does allow for tolerance of activities of daily living. Esther and UDS were reviewed today and are compliant. Opioid risk assessment is low. Refill medications and f/u in 2 months. 08/16/2024 Radiculopathy, lumbar region (ICD-10 - M54.16) Ms. Wynne is here for follow-up examination and medication refills. She is is S/P B/L RFA at L3/4/5 on 01/04/2024. States she did not get as much relief from that procedure as she had wished. On 03/21/2024 she received a #2 LESI at L4/5 and states that it did not give her much relief at all. She reports pain in her low back and she is currently ambulating with the assistance of a cane. She is also inquiring about the soonest she can get a repeat RFA at the same levels and I told her it will be the latter part of June before we can reschedule her. 06/12/2024 Today she complains of lower axial back pain for the last couple months. Patient experiencing thobbing and burning sensation bilaterally in lower back. Demonstrates moderate tenderness with palpation. Today she is requesting to go ahead schedule repeat SKIP RFA L3, L4, L5 at todays visit to receive relief. Last injection with successful results where she was able to function as normal as possible without pain interfering. S/P Injection Result 01/04/2024 SKIP RFA L3 L4 L5 80% relief for 2.5 months She is currently maintained on hydrocodone/APAP 10/325mg for pain relief along with gabapentin 600 mg 3 times daily. She denies any adverse side effect from the medication. She reports the medication does allow for tolerance of activities of daily living. Esther and UDS were reviewed today and are compliant. Opioid risk assessment is low. Refill medications and f/u in 2 months. 08/16/2024 Spondylosis without myelopathy or radiculopathy, lumbar region (ICD-10 - M47.816) Ms. Wynne is here for follow-up examination and medication refills. She is is S/P B/L RFA at L3/4/5 on 01/04/2024. States she did not get as much relief from that procedure as she had wished. On 03/21/2024 she received a #2 LESI at L4/5 and states that it did not give her much relief at all. She reports pain in her low back and she is currently ambulating with the assistance of a cane. She is also inquiring about the soonest she can get a repeat RFA at the same levels and I told her it will be the latter part of June before we can reschedule her. 06/12/2024 Today she complains of lower axial back pain for the last couple months. Patient experiencing thobbing and burning sensation bilaterally in lower back. Demonstrates moderate tenderness with palpation. Today she is requesting to go ahead schedule repeat SKIP RFA L3, L4, L5 at todays visit to receive relief. Last injection with successful results where she was able to function as normal as possible without pain interfering. S/P Injection Result 01/04/2024 SKIP RFA L3 L4 L5 80% relief for 2.5 months She is currently maintained on hydrocodone/APAP 10/325mg for pain relief along with gabapentin 600 mg 3 times daily. She denies any adverse side effect from the medication. She reports the medication does allow for tolerance of activities of daily living. Esther and UDS were reviewed today and are compliant. Opioid risk assessment is low. Refill medications and f/u in 2 months. Plan Of Treatment Medication Medication Name Sig Start Date Stop Date Notes gabapentin 600 mg 1/2 tab(s) orally three times a day; Duration: 28 day(s) DO NOT FILL SOONER THAN 28 DAYS, (OK TO FILL EARLY, ONLY IF CLOSED), Fax PA request to [phone] or [phone] Acetaminophen-Hydrocodon e Bitartrate 325 mg-10 mg 1 tab(s) orally every 8 hours; Duration: 28 days DO NOT FILL SOONER THAN 28 DAYS, (OK TO FILL EARLY, ONLY IF CLOSED), Fax PA request to [phone] or [phone] Acetaminophen-Hydrocodon e Bitartrate 325 mg-10 mg 1 tab(s) orally every 8 hours; Duration: 28 days DO NOT FILL SOONER THAN 28 DAYS, (OK TO FILL EARLY, ONLY IF CLOSED), Fax PA request to [phone] or [phone] Treatment Notes Assessment Notes 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 Refill hydrocodone/APAP 10/325mg TID 2. Refill Gabapentin 600mg TID 3. Follow up 2 months 4. Schedule repeat lumbar SKIP RFA L3/4/5 Pending Test Test Name Order Date Urine Test ANALYZER 08/16/2024 Next Appt Details Follow Up: 2 Months, Reason: Procedure Notes * Category Sub-Category Detail Notes PROVIDER ENCOUNTER AND OVERSIGHT Consult Performed By: Renzo Engel (APRN-LEX) 06/12/2024 11:03:51 AM > collaborated treatment plan with Shanna moss M.D., supervising physician Progress Notes * Raven WYNNEB:1960 (65 yo F)Acc No.[id number]:08/16/2024 FollowUP Patient: Darleen DONG Provider: Rancho Banegas II, M.D. :1960 A ge:64 Y S ex:Female Date:08/16/2024 Address:[facility] [address], [place], [id number] Pcp:Garfield Gorman Subjective: * Chief Complaints: * 1 . Low Back Pain. * HPI: T ODAYS PAIN EVALUATION: 64 year old female presents with c/o MEDICATION FOLLOW UP: T he patient is currently prescribed [place] 10/325mg TID and Gabapentin 300mg TID, which provides 20% relief of pain symptoms for 2 hours. The last dose was taken 06/11/2024. Denies any side effects. PROCEDURAL FOLLOW UP: 0 07/09/2024- The patient is present today for a follow-up after receiving RFA SKIP L3, L4, L5. Patient reports ___% pain relief since having the procedure and has lasted ___ . C URRENT PAIN SYMPTOMS: L ocation of Worst Pain: L ow Back, P ain Frequency: c onstant, always, usually, rarely present,?Pain Description: a luis, burning, sharp, stabbing, numb, tingling, A verage Pain Score VAS: 1 0, P ain Exacerbation: Standing/walking , P ain Alleviation: sitting,?ADL/Quality of Life Interference: life. P AIN MANAGEMENT TREATMENT HISTORY: IMAGING HISTORY: 1 12/20/2019 MRI LUMBAR:Multilevel degnerative disc disease with areas of neural foraminal narrowing and central canal stenosis as described. Disc protrusions at L1-L2 L2-L3 and L5-S1 with a small left paracentral inferiorly extruded component at L1-L2 and Right S1 nerve root impingement at L5-S1. 0 05/17/2022 MRI LUMBAR:Diffuse spondylosis is present with disc desiccation, osteophytes, and disc bulges at all levels as well as facet hypertrophy and vaccum phenomenon in the discs at most levels. Endplate irregularity is most pronounced at L2-3. There is moderate central spinal stenosis at this level. There is moderate central spinal stenosis immediately above the disc space level where the thecal sac has a rectangular configuration and measures 8 X 9mm. This may be related to lipomatosis or to arachnoiditis. At L4-5, there are moderate central spinal stenosis and moderate left neural foraminal narrowing with effacement of the left L4 nerve root. Significant narrowing of the superior left subarticular zone results in effacement of the left L5 nerve root as it exits the thecal sac. At L5-S1, there is moderate right neural foraminal narrowing with effacement of the right L5 nerve root. Narrowing of the other neural foramina ranges from mild to [id number]-kuhljpom. . P REVIOUS INJECTION\PROCEDURE HISTORY:? 0 02/18/2021 #1 LMBB RT L3,4,5 80% relief for 1 day 0 03/04/2021 #2 LMBB RT L3,4,5 80% relief for 1 day 0 03/11/2021 #1 LMBB LT L3,4,5 80% relief for 1 day 0 04/15/2021 RT RFA L3,L4,L5 0% pain relief 0 05/13/2021 LT RFA L3,L4,L5, 0% pain relief 0 07/22/2021 #1 LESI L4/5 50% relief for 2-3 days 1 #2 LESI L4/5 50% relief for 2 weeks 0 12/23/2021 RFA LT L3,L4,L5 with 60% relief for 6 months 0 01/12/2022 #1 RT LMBB L3,L4,L5 -, 80% relief for 1 day. 0 03/10/2022 # RT LMBB L3, L4, L5 with 80% relief for 1 day 0 03/29/2022 RT RFA L3, L4, L5 w 60% relief for 6 months 1 RFA LT L3, L4, L5 with 50% relief for 6 months 0 12/29/2022 RFA RT L3, L4, L5 - 80% relief for 5 months 0 04/06/2023 RFA LT L3 L4 L5 20% relief for 2 months 1 12/25/2022 #1 LESI L4/L5 20% relief for 1 days 0 01/04/2024 RFA SKIP L3 L4 L5 80% relief for 2.5 months 0 03/21/2024 #2 LESI L4/L5 50% relief for 1 hour 0 07/09/2024 - RFA SKIP L3, L4, L5 *% relief for * days . P HYSICAL/AQUA THERAPY/DME/OTHER HISTORY: S [facility] PT program completed- not helpful P atient continues a prescribed home exercise program 3-5 times per week from January 2022, continues as of December 2022 . P ERTINENT SURGICAL EVALUATIONS/SPECIALIST CONSULTS N o prior surgical consult . P REVIOUS PAIN CLINIC CARE: H [facility]- self-discharge . S UMMARY OF INITIAL EVALUATION: 0 02/12/2021- New patient consult referred by Milton for chronic back pain onset u nknown w ithout incident this is a 60 year-old female that was referred here in consultation for low back pain and bilateral leg pain. The patient has a long-standing rheumatoid arthritis and currently takes prednisone and an immunomodulator from her hot walker. She injured her back a few months back and had a recent MRI back in October 2020 which demonstrates significant multilevel lumbar spondylosis as well as various degrees of mild to moderate neuroforaminal stenosis. She did have a lumbar SHUBHAM that was performed by Dr. Roya Montana but it appears that she had significant fluid that was leaking out for 3 or 4 days post procedure. This sounds like a intrathecal wet tap and never obtained any relief in her symptoms. Her pain is continuous with intermittent exacerbations. Its most severe with standing and walking and alleviated with sitting and lying down. Although the clinical picture looks like spinal stenosis it appears that this is biomechanical pain. Examination is consistent with lumbar spondylosis pain with facet loading and lateral bending and back extension. Straight leg raise is negative bilaterally. At this point in time, I am going to schedule her for a #1 and #2 bilateral diagnostic medial branch block at L3-4-5, if conclusive RFA will follow. She does take Plavix but this does not need to be discontinued. If we were to consider lumbar transforaminal SHUBHAM's in the future, this we discontinued for 7 days. I am going to obtain her last procedure note from [facility] to review. I am going to take over her gabapentin and hydrocodone which are due early next month. I will follow up with her in 6 weeks for post procedure follow-up and reassessment. C OMPLIANCE: RISK ASSESSMENT AND STRATIFICATION: R ISK GROUP: MODERATE RISK Due to: Multiple Co-Morbidities . U RINE DRUG TESTIN 07/03/2023Screen ExpectedDefinitive Expected 1 Screen Expected 0 11/10/2023 Screen Expected 0 12/29/2023 Screen Expected Definitive Expected 0 02/21/2024 Screen Expected 0 04/16/2024 Screen Expected 0 06/12/2024 Screen Expected Sent for 6 month Definitive . M ONITORING: M orphine Equivalent (MME): 30 K ASPER reviewed today and appropriate . T ESTING/RISK ASSESSMENTS O RT Score/Result: 0. * ROS: G ENERAL: Fever D enies. H EENT: Sore throat D enies. C ARDIOVASCULAR: Positive for b lood thinner (plavix 75mg) for: heart attack. R ESPIRATORY: Positive for d enies respiratory issues. G ASTROINTESTINAL: Positive for h eartburn. G ENITOURINARY: Positive for d enies genitourinary issues. M USCULOSKELETAL: Positive for b ack pain. N EUROLOGICAL: Positive for t ingling, numbness. P SYCHIATRIC: Positive for d enies psychological issues. E NDOCRINE: Positive for d enies endocrine issues. * Medical History: R A diagnosed [address] Gupta, GERD- diagnosed [address] Rose, Hypertension diagnosed [address] Rose, CAD diagnosed [address] Rose. * Surgical History: C ardiac stent / [facility] / 2-3 days 12/2018 . * Hospitalization/Major Diagno stic Procedure: D enies Past Hospitalization. * Family History: N on-Contributory. Denies Family History of Substance Abuse. * Social History: P ersonal History Drug Use: No, Denies. Alcohol Screen D id you have a drink containing alcohol in the past year? N o, P oints 0 , I nterpretation N egative. S moking-PQRS A re you a: n onsmoker. * Medications: T aking metoprolol 100 mg tablet, extended release 1 tab(s) orally once a day , Taking losartan 25 mg tablet 1 tab(s) orally once a day , Taking omeprazole 40 mg delayed release capsule 1 cap(s) orally once a day , Taking cyclobenzaprine 10 mg tablet 1 tab(s) orally 3 times a day , Taking predniSONE 5 mg tablet 1 tab(s) orally once a day , Taking nitroglycerin 0.4 mg/hr film, extended release 1 PATCH transdermally once a day , Taking ibuprofen 800 mg tablet 1 tab(s) orally 3 times a day , Taking Plaquenil 200 mg tablet 1 tab(s) orally once a day , Taking ezetimibe 10 mg tablet 1 tab(s) orally once a day , Taking Lasix 20 mg tablet 1 tab(s) orally once a day , Taking Lipitor 80 mg tablet 1 tab(s) orally once a day , Taking Plavix 75 mg tablet 1 tab(s) orally once a day , Taking Potassium Chloride (Hef-Trzz-Cgi M20) 20 mEq tablet, extended release TAKE 1 TABLET BY MOUTH TWICE DAILY , Taking DULoxetine 30 mg delayed release capsule 1 cap(s) orally 2 times a day , Taking Acetaminophen-Hydrocodone Bitartrate 325 mg-10 mg tablet 1 tab(s) orally every 8 hours , Taking gabapentin 600 mg tablet 1/2 tab(s) orally three times a day , Medication List reviewed and reconciled with the patient * Allergies: l isinopril: stomach upset - Side Effects. Objective: * Vitals: * Examination: G eneral Examination: Nurse/Piece Dye Worker: Mini romanMA-RamirezElayne Mccullough 06/12/2024 10:56:32 AM > . General Appearance: w ell-nourished individual in no acute distress. The patient is alert and oriented and cooperative for evaluation. HEENT: unremarkable. Neck, Thyroid : supple. Heart: regular rate. Neurologic Exam: P atient ambulates with an antalgic gait, pitched forward. Skin normal, no rash. Extremities: no clubbing, no edema. ? C ervical Spine/Neck: Motor strength: m otor strength symmetric and 5/5, DTRs symmetric and 2+/4. Paraspinal muscle spasm: D iffuse tenderness with spasms noted. Sensations: s ensation intact to light palpation, FROM, pulses +2. Vertebral spine tenderness: t enderness over the facets bilaterally. Range of motion of neck: R OM moderately limited ROM particularly w/ bilateral rotation, moderate pain induced. L umbar Spine/Lower Back: Palpation: diffuse tenderness throughout lumbar region, most particularly over lower lumbar facet joints. Spasms absent. Inspection: Spinal alignment no abnormal curvature noted.? Straight leg raising test: S traight leg raise positive bilateral with L4 paresthesia. Sensory exam: s ensation intact to light touch throughout bilateral lower extremities, no edema or discoloration noted. Motor system: m otor strength 5/5 in all muscle groups bilaterally. Range of motion: R OM moderately limited, moderate pain induced. Hyperextension - Pain with Facet loading The physical examination was reviewed. Today there are no significant changes. December 30, 2021.. Assessment: * Assessment: 1. O ther senior living (current) drug therapy - Z79.899 (Primary) 2 . R adiculopathy, lumbar region - M54.16 3 . S pondylosis without myelopathy or radiculopathy, lumbar region - M47.816 Ms. Wynne is here for follo w-up examination and medication refills. She is is S/P B/L RFA at L3/4/5 on 01/04/2024. States she did not get as much relief from that procedure as she had wished. On 03/21/2024 she received a #2 LESI at L4/5 and states that it did not give her much relief at all. She reports pain in her low back and she is currently ambulating with the assistance of a cane. She is also inquiring about the soonest she can get a repeat RFA at the same levels and I told her it will be the latter part of June before we can reschedule her. 06/12/2024 Today she complains of lower axial back pain for the last couple months. Patient experiencing thobbing and burning sensation bilaterally in lower back. Demonstrates moderate tenderness with palpation. Today she is requesting to go ahead schedule repeat SKIP RFA L3, L4, L5 at todays visit to receive relief. Last injection with successful results where she was able to function as normal as possible without pain interfering. S/P Injection Result 01/04/2024 SKIP RFA L3 L4 L5 80% relief for 2.5 months She is currently maintained on hydrocodone/APAP 10/325mg for pain relief along with gabapentin 600 mg 3 times daily. She denies any adverse side effect from the medication. She reports the medication does allow for tolerance of activities of daily living. Esther and UDS were reviewed today and are compliant. Opioid risk assessment is low. Refill medications and f/u in 2 months. Plan: * Treatment: * Procedures: P LEANN ENCOUNTER AND OVERSIGHT: Consult Performed By: Renzo River (APRN-LEX) 06/12/2024 11:03:51 AM > . c ollaborated treatment plan with Ponce Mortensen M.D., supervising physician. * Follow Up: 2 Months * * Electronic signature of Alvino Banegas II, M.D. on 09/24/2025 at 02:25 PM PROFESSIONAL HOUSING CONSULTANT Sign off status: Pending * Provider: Rancho Banegas II, M.D. Date: Generated for Benoit correa/Ashley/Mino on: 11/24/2024 02:25 PM PROFESSIONAL HOUSING CONSULTANT History and Physical Notes * HPI (History of Present Illness) Category Sub-Category Detail Notes Category Not es PAIN MANAGEMENT TREATMENT HISTORY SUMMARY OF INITIAL EVALUATION: 02/12/2021 - New patient consult referred by Milton for chronic back pain onset unknown without incident this is a 60 year-old female that was referred here in consultation for low back pain and bilateral leg pain. The patient has a long-standing rheumatoid arthritis and currently takes prednisone and an immunomodulator from her hot walker. She injured her back a few months back and had a recent MRI back in October 2020 which demonstrates significant multilevel lumbar spondylosis as well as various degrees of mild to moderate neuroforaminal stenosis. She did have a lumbar SHUBHAM that was performed by Dr. Roya Montana but it appears that she had significant fluid that was leaking out for 3 or 4 days post procedure. This sounds like a intrathecal wet tap and never obtained any relief in her symptoms. Her pain is continuous with intermittent exacerbations. Its most severe with standing and walking and alleviated with sitting and lying down. Although the clinical picture looks like spinal stenosis it appears that this is biomechanical pain. Examination is consistent with lumbar spondylosis pain with facet loading and lateral bending and back extension. Straight leg raise is negative bilaterally. At this point in time, I am going to schedule her for a #1 and #2 bilateral diagnostic medial branch block at L3-4-5, if conclusive RFA will follow. She does take Plavix but this does not need to be discontinued. If we were to consider lumbar transforaminal SHUBHAM's in the future, this we discontinued for 7 days. I am going to obtain her last procedure note from [facility] to review. I am going to take over her gabapentin and hydrocodone which are due early next month. I will follow up with her in 6 weeks for post procedure follow-up and reassessment IMAGING HISTORY: 10/19/2020 MRI LUMBAR: Multilevel degnerative disc disease with areas of neural foraminal narrowing and central canal stenosis as described. Disc protrusions at L1-L2 L2-L3 and L5-S1 with a small left paracentral inferiorly extruded component at L1-L2 and Right S1 nerve root impingement at L5-S1. 05/17/2022 MRI LUMBAR: Diffuse spondylosis is present with disc desiccation, osteophytes, and disc bulges at all levels as well as facet hypertrophy and vaccum phenomenon in the discs at most levels. Endplate irregularity is most pronounced at L2-3. There is moderate central spinal stenosis at this level. There is moderate central spinal stenosis immediately above the disc space level where the thecal sac has a rectangular configuration and measures 8 X 9mm. This may be related to lipomatosis or to arachnoiditis. At L4-5, there are moderate central spinal stenosis and moderate left neural foraminal narrowing with effacement of the left L4 nerve root. Significant narrowing of the superior left subarticular zone results in effacement of the left L5 nerve root as it exits the thecal sac. At L5-S1, there is moderate right neural foraminal narrowing with effacement of the right L5 nerve root. Narrowing of the other neural foramina ranges from mild to gpjz-sa-utjohqcf. PHYSICAL/AQUA THERAPY/DME/OT HER HISTORY: [facility] PT program completed- not helpful Patient continues a prescribed home exercise program 3-5 times per week from January 2022, continues as of December 2022 PERTINENT SURGICAL EVALUATIONS/SPECIALIST CONSULTS No prior surgical consult PREVIOUS INJECTION\PROCEDURE HISTORY: 02/18/2021 #1 LMBB RT L3,4,5 80% relief for 1 day 03/04/2021 #2 LMBB RT L3,4,5 80% relief for 1 day 03/11/2021 #1 LMBB LT L3,4,5 80% relief for 1 day 04/15/2021 RT RFA L3,L4,L5 0% pain relief 05/13/2021 LT RFA L3,L4,L5, 0% pain relief 07/22/2021 #1 LESI L4/5 50% relief for 2-3 days 09/01/2021 #2 LESI L4/5 50% relief for 2 weeks 12/23/2021 RFA LT L3,L4,L5 with 60% relief for 6 months 01/12/2022 #1 RT LMBB L3,L4,L5 -, 80% relief for 1 day. 03/10/2022 # RT LMBB L3, L4, L5 with 80% relief for 1 day 03/29/2022 RT RFA L3, L4, L5 w 60% relief for 6 months 08/18/2022 RFA LT L3, L4, L5 with 50% relief for 6 months 12/29/2022 RFA RT L3, L4, L5 - 80% relief for 5 months 04/06/2023 RFA LT L3 L4 L5 20% relief for 2 months 10/24/2023 #1 LESI L4/L5 20% relief for 1 days 01/04/2024 RFA SKIP L3 L4 L5 80% relief for 2.5 months 03/21/2024 #2 LESI L4/L5 50% relief for 1 hour 07/09/2024 - RFA SKIP L3, L4, L5 *% relief for * days PREVIOUS PAIN CLINIC CARE: [facility]- self-discharge COMPLIANCE RISK ASSESSMENT AND STRATIFICATI ON: RISK GROUP: MODERATE RISK Due to: Multiple Co-Morbidities URINE DRUG TESTIN07/03/2023Screen Exp ectedDefinitive Expected 09/01/2023 Screen Expected 11/10/2023 Screen Expected 12/29/2023 Screen Expected Definitive Expected 02/21/2024 Screen Expected 04/16/2024 Screen Expected 06/12/2024 Screen Expected Sent for 6 month Definitive MONITORING: Morphine Equivalent (MME): 30 ESTHER reviewed today and appropriate TESTING/RISK ASSESSMENTS ORT Score/Result: 0 TODAYS PAIN EVALUATION MEDICATION FOLLOW UP: The patient is currently prescribed [place] 10/325mg TID and Gabapentin 300mg TID, which provides 20% relief of pain symptoms for 2 hours. The last dose was taken 06/11/2024. Denies any side effects CURRENT PAIN SYMPTOMS: Location of Worst Pain:: Low Back Pain Frequency:: constant, always, usual ly, rarely present Pain Description:: aching, burning, cristina p, stabbing, numb, tingling Average Pain Score VAS:: 10 Pain Exacerbation:: Standing/walking Pain Alleviation:: sitting ADL/Quality of Life Interference:: life PROCEDURAL FOLLOW UP: 07/09/2024 - The patient is present today for a follow-up after receiving RFA SKIP L3, L4, L5. Patient reports ___% pain relief since having the procedure and has lasted ___ Examination Category Sub-Category Detail Notes Category Not es General Examination HEENT: unremarkable Neck, Thyroid : supple Heart: regular rate Extremities: no clubbing, no segundo a General Appearance: well-nourished indiv idual in no acute distress. The patient is alert and oriented and cooperative for evaluation Skin normal, no rash Neurologic Exam: Patient ambulates wi th an antalgic gait, pitched forward Nurse/Piece Dye Worker: Sommer Mcintosh (MA-Lex) 06/12/2024 10:56:32 AM > Cervical Spine/Neck Vertebral spine tenderness: tenderness over the facets bilaterally Paraspinal muscle spasm: Diffuse tendern ess with spasms noted Range of motion of neck: ROM moderately limited ROM particularly w/ bilateral rotation, moderate pain induced Sensations: sensation intact to light palpation, FROM, pulses +2 Motor strength: motor strength symme tric and 5/5, DTRs symmetric and 2+/4 Inspection: Lumbar Spine/Lower Back Straight leg raising ezequiel t: Straight leg raise positive bilateral with L4 paresthesia Motor system: motor strength 5/5 i n all muscle groups bilaterally Sensory exam: sensation intact to light touch throughout bilateral lower extremities, no edema or discoloration noted Range of motion: ROM moderately limited, moderate pain induced. Hyperextension - Pain with Facet loading The physical examination was reviewed. Today there are no significant changes. December 30, 2021. Inspection: Spinal alignment no abnormal curvature noted Palpation: diffuse tenderness t hroughout lumbar region, most particularly over lower lumbar facet joints. Spasms absent
[2025-09-24 14:25] LABS: Hematocrit 25.9 % (37.0-47.0); Hemoglobin 8.5 g/dL (12.2-16.2); Immature Granulocytes % 0.2 %; Mean Corpuscular HGB Conc 32.8 g/dL (31.8-35.4); Mean Corpuscular Hemoglobin 29.9 pg (27.0-31.2); Mean Corpuscular Volume 91.2 fl (81-99); Nucleated Red Blood Cells % 0 %; Platelet Count 163 K/mm3 (142-424); Red Blood Count 2.84 M/mm3 (4.20-5.40); Red Cell Distribution Width-SD 58.4 fL; Reticulocyte % (Auto) 2.6 % (0.9-3.2); White Blood Count 5.0 K/mm3 (4.8-10.8)
--- OUTSIDE RECORDS SUMMARY | 2025-09-24 15:24 | XMS_ITS | Clinical Summary ---
Author Organization [facility] Address [address] [place] [address] Phone Care Team Providers Care Fire Truck Driver Name Role Phone Unavailable Unavailable Conditions or Problems No information available. Medications No information available. Medications Administered No information available. Allergies, Adverse Reactions, Alerts No information available. Results No information available. Plan of Care No information available. Procedures No information available. Vital Signs No information available. Immunizations No information available. Advance Directives No information available.
--- OUTSIDE RECORDS SUMMARY | 2025-09-24 15:25 | XMS_ITS | Patient Health Record ---
Author Organization [facility] Address [address] [place] [address] Care Team Providers Care Director Quality Assurance Name Role Phone Garfield Gorman Primary Care Provider Alvaro Jernigan II Unavailable Allergies Allergen (clinical drug ingredient) Drug/Non Drug Allergy documented on EMR Reaction Allergy Type Onset Date Status lisinopril lisinopril stomach upset Drug Allergy A ctive Reason For Referral No Information Medications Medication SIG (Take, Route, Frequency, Duration) Notes Start Date End Date Status nitroglycerin 0.4 mg/hr 1 PATCH [facility] once a day; Duration: 30 day(s) Active ibuprofen 800 mg 1 tab(s) orally 3 times a day Active cyclobenzaprine 10 mg 1 tab(s) orally 3 times a day Active predniSONE 5 mg 1 tab(s) orally once a day; Duration: 30 day(s) Active losartan 25 mg 1 tab(s) orally once a day; Duration: 30 day(s) Active Potassium Chloride (Qbh-Zozl-Jlz M20) 20 mEq TAKE 1 TABLET BY [...] ONLY IF CLOSED), Fax PA request to [phone] or [phone] Active Lipitor 80 mg 1 tab(s) orally [...] ONLY IF CLOSED), Fax PA request to [phone] or [phone] Active ezetimibe 10 mg 1 tab(s) orally once a day; Duration: 30 day(s) Active Acetaminophen-Hydrocodo ne Bitartrate 325 mg-10 mg 1 tab(s) orally every 8 hours; Duration: 28 days DO NOT FILL SOONER THAN 28 DAYS, (OK TO FILL EARLY, ONLY IF CLOSED), Fax PA request to [phone] or [phone] Active Lasix 20 mg 1 tab(s) orally [...] Risk Notes Problem Lumbosacral spondylosis without myelopathy (59186774) Other spondylosis with radiculopathy, lumbar region (M47.26) Active confirmed Problem Lumbosacral spondylosis without myelopathy (14897280) Spondylosis without myelopathy or radiculopathy, lumbar region (M47.816) Active confirmed Problem Degeneration of lumbar intervertebral disc (66069220) Other intervertebral disc degeneration, lumbar region (M51.36) Active confirmed Problem Lumbar radiculopathy (971366395) Radiculopathy, lumbar region (M54.16) Active confirmed Problem Long-term current use of drug therapy (398451707) Other longterm (current) drug therapy (Z79.899) Active confirmed Problem Lumbar spondylosis (593259711) lumbar spondylosis (M47.816) Active confirmed Plan Of Treatment No Information Insurance Providers Payer Name Payer Address Payer Phone Subscriber Number Group Number Insured Name Patient Relationship to Insured Coverage Start Date Coverage End Date [employer] [address] [address] [place] [address] [id number] Darleen Wynne Self - patient is the insured 1 Medical (General) History Medical History History ICD Code RA diagnosed [address] Gupta GERD- diagnosed [address] Jaciel jolley Hypertension diagnosed 2009 managed by [place] [facility] CAD diagnosed [address] Salinas rt Surgical History Surgery Date(Month/Year) Cardiac stent / [facility] / 2-3 da ys 12/2018
[2025-09-24 15:58] LABS: Alanine Aminotransferase 13 U/L (12-78); Albumin Level 3.2 g/dl (3.5-5.0); Albumin/Globulin Ratio 1.1 (1.1-1.8); Alkaline Phosphatase 169 U/L (38-126); Anion Gap 11.0 mEq/L (5-15); Aspartate Amino Transferase 26 U/L (14-36); Bilirubin,Total 0.6 mg/dl (0.2-1.3); Blood Urea Nitrogen 9 mg/dl (7-17); Calcium 9.1 mg/dl (8.4-10.2); Carbon Dioxide 17 mmol/L (22.0-30.0); Chloride 100 mmol/L (98-107); Creatinine,Serum 1.00 mg/dl (0.52-1.04); Estimated Glomerular Filt Rate 56 ml/min (>60); GFR (African American) 67 ML/MIN (>60); Globulin 3.0 g/dL (1.3-3.2); Glucose 104 mg/dl (74-100); Iron 63 ug/dL (37-170); Potassium 4.0 mmoL/L (3.5-5.1); Sodium 124 mmol/L (136-145); Total Protein,Serum 6.2 g/dl (6.3-8.2)
[2025-09-24 16:20] LABS: Total Iron Binding Capacity 286 ug/dL (265-497)
[2025-09-24 16:34] LABS: Ferritin 114 ng/ml (11.1-264)
== END 2025-09-24 23:59 | disposition home or self-care (01) ==
LOC: LAB 14:04
PROVIDERS: PCP Nurse Practitioner Family; Visit Provider Internal Medicine Medical Oncology
DX: D64.89 Other specified anemias (principal)
CPT/HCPCS: 36415; 80053; 82728; 83540; 83550; 83615; 85025; 85044; 86880